=== PATIENT | male | born 1935 | race Caucasian/White ===

== ENCOUNTER 2018-01-30 13:25 | Outpatient (CLI) | payer MEDICARE | END 2018-01-30 13:26 | disposition home or self-care (01) | LOC: BICRAD 13:25 | PROVIDERS: ATTEND Internal Medicine Gastroenterology | DX: K21.0 Gastro-esophageal reflux disease with esophagitis (principal); R11.2 Nausea with vomiting, unspecified; C16.9 Malignant neoplasm of stomach, unspecified; M17.0 Bilateral primary osteoarthritis of knee | CPT/HCPCS: 74019 ==

== ENCOUNTER 2018-02-27 16:55 | Inpatient (IN) | payer MEDICARE ==
[2018-02-27 17:32] LABS: #Eosinphils 0.4 thou/uL (0.0-0.7); #Lymphocytes 2.5 thou/uL (1.20-3.40); #Monocytes 0.6 thou/uL (0.11-0.59); %Basophils 0.5 % (0.0-1.0); %Eosinophils 4.2 % (0.0-10.0); %Lymphocytes 29.7 % (21.0-51.0); %Neutrophils 58.6 % (42.0-75.0); Mean Corpuscular HGB CONC 32.3 g/dL (32.0-36.0); Mean Corpuscular Hemoglobin 30.5 pg (27.0-31.0); Mean Corpuscular Volume 94.2 fL (78.0-98.0); Mean Platelet Volume 6.4 fL (7.4-10.4); Platelet Count 298 thou/uL (130-400); RBC Distribution Width 13.9 % (11.5-14.5); White Blood Cell (WBC) Count 8.5 thou/uL (4.8-10.8)
[2018-02-27 17:59] LABS: CKMB 1.2 ng/mL (0-6.6); Troponin I Less than 0.010 ng/mL (< 0.028)
[2018-02-27 18:12] LABS: ALT (SGPT) 12 U/L (8-55); AST (SGOT) 21 U/L (5-34); Albumin 3.8 g/dL (3.4-4.8); Alkaline Phosphatase 88 U/L (40-150); Anion Gap 15 mmol/L (10-20); BUN (Urea Nitrogen) 17 mg/dL (8.4-25.7); Bilirubin, Total 0.4 mg/dL (0.2-1.2); Calc. Creatinine Clearance 0 mL/min (70-130); Calcium 9.5 mg/dL (7.8-10.44); Carbon Dioxide 28 mmol/L (23-31); Chloride 100 mmol/L (98-107); Estimated GFR-MDRD 70; Globulin 4.1 g/dL (2.4-3.5); Glucose 97 mg/dL (83-110); Potassium 4.6 mmol/L (3.5-5.1); Protein, Total 7.9 g/dL (5.8-8.1); Sodium 138 mmol/L (136-145)
[2018-02-27 19:52] LABS: Bilirubin Negative (Negative); Blood, Urine Negative (Negative); Clarity CLEAR (Clear); Glucose, Urine (Dipstick) Negative (Negative); Leukocyte Negative (Negative); Nitrite Negative (Negative); Protein, Urine (Dipstick) 30 mg/dL (Neg-Trace); Specific Gravity, Urine 1.009 (1.002-1.036); Urobilinogen 0.2 mg/dL (0.2-1.0)
[2018-02-27 19:54] LABS: Bacteria/HPF None Seen HPF (None Seen); Hyaline Casts/LPF 0-3 HYALINE CAST LPF (0-3 Hyaline); Pathc Cast-AUWi Flag 0.14 (0-2.49); RBC/HPF 0-3 HPF (0-3); Squamous Epithelial None Seen HPF (0-3); WBC/HPF None Seen HPF (0-3)
--- NOTE | 2018-02-27 20:27 | RAD ---
FOUR VIEWS LEFT KNEE: 02/27/18 HISTORY: Trauma. Pain. COMPARISON: None. FINDINGS: Mild bone demineralization. No fracture or malalignment. Chondrocalcinosis in the medial and lateral compartment is noted. No joint effusion. IMPRESSION: Bicompartmental chondrocalcinosis. No posttraumatic change. POS: [facility]
--- NOTE | 2018-02-27 20:31 | RAD ---
LEFT SHOULDER THREE VIEWS: 02/27/18 HISTORY: Trauma. Fall. Pain. Balance issues. FINDINGS: There is mild degenerative changes in the glenohumeral joint space. No fracture or dislocation. Visua lized left ribs are unremarkable. Note is made of a Mediport catheter, incompletely evaluated. IMPRESSION: Moderate degenerative change of the left glenohumeral joint space. No fracture. POS: [facility]
--- NOTE | 2018-02-27 21:31 | CT ---
CT CERVICAL SPINE: 02/27/18 Multiple axial tomograms obtained through the cervical spine with multiplanar reconstruction. HISTORY: Fall with injury to neck. Moderate to severe degenerative changes of the cervical spine noted. Loss of disc space is noted at C 4-5 and C5-6 and C6-7. Prominent hypertrophic changes are present at these levels. Posterior spondyli tic changes encroach into the spinal canal at C5-6. No evidence of acute fracture identified. IMPRESSION: No evidence of acute fracture. POS: [facility]
--- NOTE | 2018-02-27 21:39 | CT ---
HEAD CT WITHOUT CONTRAST: 02/27/18 COMPARISON: 09/27/16. HISTORY: Trauma. Recent fall. TECHNIQUE: Noncontrast head CT is performed from skull base to skull vertex. FINDINGS: No parenchymal hemorrhage. No extra-axial hematoma. No midline shift. Basilar cisterns are patent. br ain volume, age appropriate. Cortical nuno-white matter differentiation is preserved. No evidence of hydrocephalus. Hypodensities in both basal ganglia are similar to the previous examination suggesting remote lacunar infarcts. Additionally, there are chronic small vessel ischemic changes of the white matter. Adequat e aeration of the sinuses and mastoid air cells. Calvarium is intact. IMPRESSION: No acute intracranial process. POS: [facility]
--- NOTE | 2018-02-27 21:57 | CT ---
FACIAL CT WITHOUT CONTRAST: 02/27/18 HISTORY: Recent falls. Pain. Injury. COMPARISON: None. TECHNIQUE: Maxillofacial CT is performed in the axial plane. Reformatted images are submitted for interpretation . FINDINGS: The visualized brain parenchyma is unremarkable. Adequate aeration of the visualized sinuses and mast oid air cells, with the exception of mild mucosal disease involving the right maxillary sinus. Bilate ral osteomeatal complexes are patent. Nasal septum is intact. The osseous margins of the sinuses and orbits are intact. Both globes are intact. Retrobulbar fat is preserved. Symmetric attenuation of the optic nerve and ocular rectus muscles. Bilateral ocular lens implants are noted. Aerodigestive tract is patent. No mucosal abnormality. No obvious masses in the oral cavity. 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 No mandible or maxilla fracture. Pterygoid plates are intact. Zygomatic arches are also intact. Upper cervical spine is unremarkable. IMPRESSION: No posttraumatic sequela. POS: [facility]
[2018-02-27] MEDS ORDERED: Water For Inject, Bacteriostat 30 ML ONE (22:54)
[2018-02-27] MEDS ORDERED: methylPREDNISolone Sod Succ/PF 125 MG/2 ML VIAL ONE (22:54)
--- NOTE | 2018-02-27 23:58 | RAD ---
CHEST ONE VIEW: 02/27/18 COMPARISON: 05/28/15. HISTORY: Hypoxemia. FINDINGS: Stable left sided Mediport catheter. Stable configuration of the cardiac silhouette. Dorsal column st imulators are noted. Patchy interstitial opacities in the lung bases may represent chronic change. Ho wever, there does appear to be a possible infiltrate especially in the right lung base. Small right s ided effusion may be present. There is no pneumothorax. 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 IMPRESSION: Parenchymal changes in the lung bases, right greater than left. Correlate for right lower lobe infilt rate. POS: [facility]
[2018-02-28] MEDS ORDERED: Azithromycin 500 MG VIAL ONE (00:19)
[2018-02-28] MEDS ORDERED: cefTRIAXone\\ROCEPHIN 2 GM VIAL ONE (00:19)
[2018-02-28] MEDS ORDERED: Ondansetron HCl/PF 4 MG/2 ML Vial IVP PRN (01:47)
[2018-02-28] MEDS ORDERED: Acetaminophen 325 MG TAB PO PRN (01:47)
[2018-02-28] MEDS ORDERED: Ondansetron ODT 4 MG TAB SL PRN (01:47)
[2018-02-28] MEDS ORDERED: Pregabalin 75 MG CAP PO SCH (02:30)
[2018-02-28] MEDS ORDERED: Sodium Chloride 0.9% 1,000 ML IV SCH (02:30)
[2018-02-28 03:16] VITALS: BMI 25.3
[2018-02-28 06:08] LABS: #Lymphocytes 0.7 thou/uL (1.20-3.40); #Monocytes 0.1 thou/uL (0.11-0.59); #Neutrophils 6.4 thou/uL (1.40-6.50); %Basophils 0.6 % (0.0-1.0); %Eosinophils 0.3 % (0.0-10.0); %Lymphocytes 9.6 % (21.0-51.0); %Monocytes 0.8 % (0.0-10.0); %Neutrophils 88.7 % (42.0-75.0); Hemoglobin 14.5 g/dL (14.0-18.0); Mean Corpuscular HGB CONC 30.5 g/dL (32.0-36.0); Mean Corpuscular Hemoglobin 29.2 pg (27.0-31.0); Mean Corpuscular Volume 95.8 fL (78.0-98.0); Mean Platelet Volume 6.7 fL (7.4-10.4); Platelet Count 312 thou/uL (130-400); RBC Distribution Width 14.1 % (11.5-14.5); Red Blood Cell (RBC) Count 4.96 mill/uL (4.70-6.10); White Blood Cell (WBC) Count 7.2 thou/uL (4.8-10.8)
[2018-02-28 06:12] LABS: Anion Gap 16 mmol/L (10-20); BUN (Urea Nitrogen) 15 mg/dL (8.4-25.7); Calc. Creatinine Clearance 69 mL/min (70-130); Calcium 9.5 mg/dL (7.8-10.44); Carbon Dioxide 20 mmol/L (23-31); Chloride 103 mmol/L (98-107); Estimated GFR-MDRD 78; Glucose 203 mg/dL (83-110); Potassium 4.3 mmol/L (3.5-5.1); Sodium 135 mmol/L (136-145)
--- NOTE | 2018-02-28 07:35 | HP ---
CHIEF COMPLAINT: Shortness of breath, weakness, fall. HISTORY OF PRESENT ILLNESS: The patient is an 82-year-old male with a [facility]. Patient states that he lives with his . He has bee n getting physical therapy due to gait imbalance; however, when the physical therapist came in to see the patient, he told them that he was unable to do any therapy today because he felt very weak. The patient stated that he did fall on Friday. He stated that it was a mechanical fall. His roller hit the sidewall and he lost his balance and fell. The patient currently denies any fevers or chills, a ny cough, any abdominal pain, nausea, vomiting or diarrhea. He denies any problems urinating. Patient was admitted to the hospital, because he was found to be hypoxic in the s. Patient also st ated that he ran out of his nebulizing medication for the past 4 days. Patient states that normally he uses his nebulizer about 3-4 times a day; however, has been unable to do so due to him not having the medication. The patient states that he has been using his inhalers; however, they have not been very helpful. PAST MEDICAL HISTORY: He has a history of COPD. He has a history of esophageal gastric carcinoma. He has had a history of prostate cancer. MEDICATIONS: As the following, the patient takes magnesium chloride p.o. b.i.d., omeprazole 40 mg da ulysses, vitamin B12 daily, vitamin D 1000 units daily, albuterol HFA 2 puffs q.4 hours p.r.n., Xanax 1 m g p.o. b.i.d., Ambien 10 mg daily at bedtime, budesonide, formoterol 1 puff twice a day, Lyrica 150 m g b.i.d. FAMILY HISTORY: Patient denies any history of heart disease or diabetes in his family. REVIEW OF SYSTEMS: All negative except for the ones mentioned above in the HPI. LABORATORY DATA AND IMAGING: As following, WBCs of 8.5, hemoglobin of 14.0, hematocrit 43.3, platele ts of 298. Chemistry: Sodium of 130, potassium 4.6, BUN of 17, creatinine 1.02. Troponin x1 was ne gative. No acute abnormalities were noted in the urine. He did have a bush scan, which was negative except for the CT head, which indicated he has hypodensities in both basal ganglia which has been pre sent in the previous exam suggesting a remote lacunar infarct; however, no acute process was noted. He also had a chest x-ray which did indicate possible right lower infiltrate. ASSESSMENT AND PLAN: The patient is a very pleasant 82-year-old patient who initially presented to [facility] for hypoxia. 1. Acute hypoxia. This could be secondary to patient running out of his medication versus possible community-acquired pneumonia given the right lower lung infiltrate. However, at this time, the clara nt does not have an elevated white count. He does not have a cough. He has no fever. We will check a procalcitonin level to guide us further in regards to continue treating for pneumonia versus barriee nt's worsening chronic obstructive pulmonary disease. Patient's lungs sound pretty much clear. No w heezing was noted. He did have some mild crackles to bilateral lower bases. 2. Mechanical fall. We will get physical therapy and occupational therapy to see the patient. 3. History of chronic obstructive pulmonary disease. The patient has not seen his ortho/prosthetic aide for about a year. His hypoxia could be most likely secondary to running out of his medication, which is his nebulizers; however, he does not have any wheezing. If he continues to have shortness of breath and hypoxia, may consider starting the patient on some low dose steroids. 3. Deep venous thrombosis prophylaxis. We will put the patient on subcu heparin.
[2018-02-28] MEDS: Mometasone/Formoterol 120 PUFF INHALER INH SCH ×2 (08:10→18:56)
[2018-02-28] MEDS: Docusate 100 MG CAP PO SCH ×2 (08:56→21:56)
[2018-02-28] MEDS: predniSONE 20 MG TAB PO SCH (08:56)
[2018-02-28] MEDS: Heparin 5,000 UNITS/ML VIAL SC SCH ×3 (08:56→21:57)
[2018-02-28] MEDS: Pregabalin 75 MG CAP PO SCH ×2 (08:57→21:54)
[2018-02-28] MEDS ORDERED: Non-Formulary Item 1 EACH (Budesonide/Formoterol Fumarate [Symbicort 160-4.5 Mcg Inhaler] INH SCH (09:00)
[2018-02-28] MEDS ORDERED: PROVENTIL INHALER 6.7 G (200 INHALATIONS) INH PRN (11:35)
[2018-02-28] MEDS ORDERED: Zolpidem Tartrate 5 MG TAB PO PRN (11:52)
--- NOTE | 2018-02-28 11:54 | PDOC.EVN ---
Event Note - Event Note Event Note: DOING MUCH BETTER THAN WHEN HE PRESENTED. BREATHING IN IMPROVED. EXAM REVEALS CLEAR LUNGS AND BIGEMINY. MONITOR HAS PAC'S, PVC'S AND ATRIAL ARRHYTHMIA, BUT NOTHING TOO WORRISOME. CONTINUE WITH CURRENT PLAN. RECHECK CXR IN THE AM AND FOLLOW UP ON PROCALCITONIN LEVEL.
[2018-02-28] MEDS: Pantoprazole 40 MG GRANULES PACKET PO SCH ×3 (12:00→21:56)
[2018-02-28] MEDS: ALPRAZolam 1 MG TAB PO PRN ×2 (12:01→21:56)
[2018-02-28] MEDS: Arformoterol 15 MCG/2 ML NEB NEB SCH (18:55)
[2018-02-28] MEDS: Magnesium Chloride 64 MG TAB PO SCH (21:57)
[2018-03-01] MEDS ORDERED: Metoprolol Tartrate 5 MG/5 ML VIAL IVP SCH (01:30)
[2018-03-01 01:36] LABS: Troponin I Less than 0.010 ng/mL (< 0.028)
[2018-03-01] MEDS: Arformoterol 15 MCG/2 ML NEB NEB SCH ×2 (07:38→18:40)
[2018-03-01] MEDS: Mometasone/Formoterol 120 PUFF INHALER INH SCH ×2 (07:55→18:41)
[2018-03-01] MEDS ORDERED: Metoprolol Tartrate 5 MG/5 ML VIAL ONE ×2 (08:47→10:07)
[2018-03-01] MEDS ORDERED: Metoprolol Tartrate 5 MG/5 ML VIAL IVP PRN (09:00)
--- NOTE | 2018-03-01 09:06 | PDOC.PN ---
- Subjective Encounter Start Date: 03/01/18 Encounter Start Time: 09:11 Feels like his breathing is doing better overall. Tolerated episodes of SVT well. No other complaints. - Objective Resuscitation Status: Resuscitation Status FULL:Full Resuscitation MAR Reviewed: Yes Vital Signs & Weight: Vital Signs (12 hours) Temp Pulse Resp BP BP Pulse Ox 03/01/18 07:58 97.4 F L 68 16 125/86 99 03/01/18 07:55 81 16 03/01/18 07:45 96 03/01/18 07:38 81 16 03/01/18 03:18 97.5 F L 81 20 121/72 100 03/01/18 02:57 92 L 03/01/18 02:30 91 16 03/01/18 01:34 98 123/74 03/01/18 01:29 169 H 126/85 03/01/18 00:20 169 H 137/87 100 02/28/18 22:17 73 16 02/28/18 21:50 98.5 F 73 16 132/72 100 Weight Weight 170 lb 12.8 oz I&O: 02/28/18 03/01/18 03/02/18 06:59 06:59 06:59 Intake Total 440 820 Output Total 950 1750 Balance -510 -930 Result Diagrams: 02/28/18 05:34 02/28/18 05:34 Phys Exam - Physical Examination Constitutional: NAD Still has mild tachypnea. HEENT: oral pharynx no lesions Neck: no JVD, supple Respiratory: no wheezing Diminished throughout, but only minimal basilar rales. Irreg at times. Tachycardic at times. Base rhythm is sinus. Gastrointestinal: soft, non-tender, no distention Large ventral hernia. Musculoskeletal: no edema Psychiatric: normal affect Dx/Plan (1) COPD (chronic obstructive pulmonary disease) Status: Acute Comment: Ran out meds for several days prior to admission. Doing better. Continue nebs, oxygen, steroid taper. Abx discontinued. No evidence of underlying infection and procalcitonin negative. (2) SVT (supraventricular tachycardia) Code(s): I47.1 - SUPRAVENTRICULAR TACHYCARDIA Status: Acute Plan: Javon Calderón called this morning as the patient's HR increased to 170. His BP dropped slightly. He tolerated it very well. He did respond a bit to carotid massage. Ultimately required IV metoprolol 5 mg. Better at the moment. Appears to be related to the nebs. Will decrease them to q 6h. Will also stop the Levaquin. Starting short acting CCB. Consult cardiology. Time in CC 30 min. (3) Fall Code(s): W19.XXXA - UNSPECIFIED FALL, INITIAL ENCOUNTER Status: Acute Plan: No evidence of significant injury. - Plan * Above.
[2018-03-01 09:28] LABS: Anion Gap 14 mmol/L (10-20); BUN (Urea Nitrogen) 14 mg/dL (8.4-25.7); Calc. Creatinine Clearance 71 mL/min (70-130); Calcium 9.8 mg/dL (7.8-10.44); Carbon Dioxide 26 mmol/L (23-31); Chloride 103 mmol/L (98-107); Estimated GFR-MDRD 81; Glucose 110 mg/dL (83-110); Magnesium 1.9 mg/dL (1.6-2.6); Sodium 139 mmol/L (136-145)
[2018-03-01] MEDS: predniSONE 20 MG TAB PO SCH (09:45)
[2018-03-01] MEDS: Pantoprazole 40 MG GRANULES PACKET PO SCH ×4 (09:46→20:40)
[2018-03-01] MEDS: Heparin 5,000 UNITS/ML VIAL SC SCH ×3 (09:46→20:39)
[2018-03-01] MEDS: Docusate 100 MG CAP PO SCH ×2 (09:46→20:39)
[2018-03-01] MEDS: Pregabalin 75 MG CAP PO SCH ×2 (09:47→20:40)
[2018-03-01] MEDS: ALPRAZolam 1 MG TAB PO PRN ×2 (09:49→16:29)
[2018-03-01] MEDS: Magnesium Chloride 64 MG TAB PO SCH ×2 (10:13→21:53)
[2018-03-02] MEDS: ALPRAZolam 1 MG TAB PO PRN ×3 (00:27→20:45)
[2018-03-02] MEDS: Mometasone/Formoterol 120 PUFF INHALER INH SCH ×2 (06:32→19:11)
[2018-03-02] MEDS: Arformoterol 15 MCG/2 ML NEB NEB SCH ×2 (06:33→19:08)
[2018-03-02] MEDS: predniSONE 20 MG TAB PO SCH (09:38)
[2018-03-02] MEDS: Magnesium Chloride 64 MG TAB PO SCH ×2 (09:38→20:43)
[2018-03-02] MEDS: Pantoprazole 40 MG GRANULES PACKET PO SCH ×4 (09:39→20:43)
[2018-03-02] MEDS: Docusate 100 MG CAP PO SCH ×2 (09:39→20:43)
[2018-03-02] MEDS: Pregabalin 75 MG CAP PO SCH ×2 (09:39→20:44)
[2018-03-02] MEDS: Heparin 5,000 UNITS/ML VIAL SC SCH (09:39)
--- NOTE | 2018-03-02 10:50 | PQF ---
CLINICAL DOCUMENTATION IMPROVEMENT CLARIFICATION FORM: ICD-10 Updated PLEASE DO AN ADDENDUM TO THE PROGRESS NOTE WITH ANY DOCUMENTATION UPDATES OR ADDITIONS AND CARRY THROUGH TO DC SUMMARY. THANK YOU. DATE: 03/03/18 ATTN: DR. MARTINEZ Please exercise your independent, professional judgment in responding to the clarification form. Clinical indicators are provided on the bottom of this form for your review Please check appropriate box(s) to clarify if the following diagnosis has been ruled in or ruled out: PNEUMONIA [x ] Ruled in diagnosis [ ] Continue to treat [ ] Resolved [ ] Ruled out diagnosis [ ] Cannot rule out diagnosis [ ] Other diagnosis [ ] Unable to determine In addition, please specify: Present on Admission (POA): [ x ] Yes [ ] No [ ] Unable to determine- For continuity of documentation, please document condition throughout progress notes and discharge summary. Thank You. CLINICAL INDICATORS - SIGNS / SYMPTOMS / LABS ER NOTE: "RIGHT LOWER LOBE PNEUMONIA" H&P 02/28: "POSSIBLE COMMUNITY ACQUIRED PNEUMONIA GIVEN RIGHT LOWER LUNG INFILTRATE" RISKS: COPD TREATMENT: IV AZITHROMYCIN (ER) IV ROCEPHIN (ER) SOLUMEDROL (This form is maintained as a part of the permanent medical record) 2014 [employer]. All Rights Reserved NICK [email or web address] Office: [phone] [facility]
--- NOTE | 2018-03-02 14:00 | CON ---
DATE OF CONSULTATION: 03/02/2018 HISTORY: Isac Roca is a pleasant 82-year-old white male with a longstanding history of COPD, admitted for COPD exacerbation. He also states that 2-3 times a week, he would have episodes of chest pressure. This is almost always associated with exertion, and he would develop pressure in his chest accompanied by feeling his heart beating very rapidly. If he sits and rests, this will resolve. Longest episode has been approximately 30 minutes. He states he would feel weak and dizzy with these episodes. Since being admitted here, he has had frequent episodes of supraventricular tachycardia with rates of 160-170. He then had a more prolonged episode yesterday. He states that this felt exactly like what he has at home where he has pressure in his chest and feeling his heart racing. He was given metoprolol 5 mg IV and this resolved. He denies any previous cardiac history. He now is admitted after running out of his neb treatments for 4 days and the finding of hypoxia with O2 sats in the 80s. PAST MEDICAL HISTORY: 1. COPD. 2. History of esophageal and gastric carcinoma. 3. History of prostate cancer. No history of hypertension, hypercholesterolemia, or diabetes. MEDICATIONS AT HOME: Include albuterol 2 puffs q.4 hours p.r.n., Xanax 1 mg t.i.d. p.r.n., Brovana 1 vial b.i.d., Symbicort 2 puffs b.i.d., magnesium chloride 64 b.i.d., Lyrica 150 b.i.d., Ambien 10 mg at bedtime p.r.n., omeprazole bicarbonate 1 packet q.i.d., Zofran 4 mg q.8 hours p.r.n. ALLERGIES: None. SOCIAL HISTORY: He stopped smoking 20 years ago. He does not drink. FAMILY HISTORY: Negative for coronary artery disease. REVIEW OF SYSTEMS: Twelve-point review of systems unremarkable except as noted above. PHYSICAL EXAMINATION: VITAL SIGNS: Blood pressure 106/65, pulse 78. HEENT: PERRL. NECK: Supple. CHEST: Clear. CARDIAC: S1 and S2 normal without any S3, S4, or murmurs. Carotid upstrokes normal, without bruits. ABDOMEN: Normal bowel sounds, without tenderness. EXTREMITIES: Reveal no clubbing, cyanosis, or edema. NEUROLOGIC: Grossly intact. LABORATORY DATA: Admission EKG is incorrectly interpreted by the computer as atrial fibrillation. This is instead normal sinus rhythm with atrial bigeminy at times. CBC is unremarkable. Sodium 139, potassium 4.0, chloride 103, carbon dioxide 26, BUN 14, creatinine 0.90. BNP 249.5. Troponin I is unremarkable. IMPRESSION: 1. Paroxysmal supraventricular tachycardia. Historically, it sounds as if he has the same type episodes at home, accompanied by chest pressure, lasting up to 30 minutes. 2. Chronic obstructive pulmonary disease exacerbation. 3. Hypoxemia. 4. History of gastric and esophageal carcinoma. RECOMMENDATIONS: Echocardiogram will be performed to assess left ventricular function. He will be started on low-dose Cardizem 120 mg CD q.a.m. in the hopes of suppressing his SVT going forward. With his current blood pressure, he will not be able to tolerate high doses of the Cardizem. If he continues to have episodes despite low-dose Cardizem, consideration may be given to catheter ablation. I will follow the patient with you. FRANKD
--- NOTE | 2018-03-02 17:02 | PDOC.PN ---
- Subjective Encounter Start Date: 03/02/18 Encounter Start Time: 09:30 Patent is seen today, alert and oriented. No other Concerns noted. Pt was seen by Cardiology [facility], Waiting on Echo, Pt is admitted with COPD exacerbation with SVT last night. - Objective Resuscitation Status: Resuscitation Status FULL:Full Resuscitation MAR Reviewed: Yes Vital Signs & Weight: Vital Signs (12 hours) Temp Pulse Resp BP Pulse Ox 03/02/18 12:16 67 03/02/18 11:41 67 14 96 03/02/18 11:35 97.1 F L 73 19 119/67 94 L 03/02/18 09:38 97.0 F L 67 19 93 L 03/02/18 08:40 97.0 F L 78 18 106/65 93 L 03/02/18 06:33 65 16 96 03/02/18 06:32 65 16 96 03/02/18 06:31 65 16 96 Weight Weight 173 lb 12.8 oz I&O: 03/01/18 03/02/18 03/03/18 06:59 06:59 06:59 Intake Total 820 100 Output Total 1750 1725 Balance -930 -1625 Result Diagrams: 02/28/18 05:34 03/01/18 08:48 Radiology Reviewed by me: Yes Phys Exam - Physical Examination HEENT: PERRLA, moist MMs Neck: no nodes, no JVD Respiratory: no wheezing, no rales Cardiovascular: RRR, no significant murmur Gastrointestinal: soft, non-tender Musculoskeletal: no edema, pulses present Dx/Plan (1) COPD (chronic obstructive pulmonary disease) Status: Acute Qualifiers: COPD type: COPD with acute exacerbation Qualified Code(s): J44.1 - Chronic obstructive pulmonary disease with (acute) exacerbation Comment: Ran out meds for several days prior to admission. Doing better. Continue nebs, oxygen, steroid taper. Abx discontinued. No evidence of underlying infection and procalcitonin negative. PT remains on oxygen, will wean off today. (2) Fall Code(s): W19.XXXA - UNSPECIFIED FALL, INITIAL ENCOUNTER Status: Acute Comment: No injuries on T head, Xraynormal. Will do PT/OT evalautions for safe diuscharge (3) SVT (supraventricular tachycardia) Code(s): I47.1 - SUPRAVENTRICULAR TACHYCARDIA Status: Acute Comment: Resolved, Will minimize nebs with Albuteral. (4) Acute infective gastroenteritis Code(s): A09 - INFECTIOUS GASTROENTERITIS AND COLITIS, UNSPECIFIED Status: Acute Comment: Improved with IV fluids. (5) Dehydration Code(s): E86.0 - DEHYDRATION Status: Acute Comment: resolved. (6) Hypoxia Code(s): R09.02 - HYPOXEMIA Status: Acute Comment: Persistant, May need Home oxygem Will wait for Cardioogy evalaution. - Plan cont current plan of care, PT/OT, nursing home social worker, respiratory therapy, incentive spirometry, out of bed/ambulate, DVT proph w/lovenox * .
[2018-03-03] MEDS: Ipratropium Bromide 2.5 ml Neb NEB SCH ×4 (00:23→18:39)
[2018-03-03] MEDS: Mometasone/Formoterol 120 PUFF INHALER INH SCH ×2 (06:27→18:43)
[2018-03-03] MEDS: Arformoterol 15 MCG/2 ML NEB NEB SCH ×2 (06:30→18:43)
[2018-03-03] MEDS: Docusate 100 MG CAP PO SCH ×2 (08:40→20:44)
[2018-03-03] MEDS: Pantoprazole 40 MG GRANULES PACKET PO SCH ×4 (08:40→20:45)
[2018-03-03] MEDS: Pregabalin 75 MG CAP PO SCH ×2 (08:40→20:45)
[2018-03-03] MEDS: Magnesium Chloride 64 MG TAB PO SCH ×2 (08:40→20:45)
[2018-03-03] MEDS: predniSONE 20 MG TAB PO SCH (08:40)
[2018-03-03] MEDS: Enoxaparin Sodium 40 MG/0.4 ML SYRINGE SC SCH (08:41)
--- NOTE | 2018-03-03 14:08 | PDOC.PN ---
- Subjective Encounter Start Date: 03/03/18 Encounter Start Time: 11:00 Patient is seen today, alert and oriented. His HR is Stbale, now, Dr. Lopez started o cardizem today, if HR not controlled plan for Ablation. - Objective Resuscitation Status: Resuscitation Status FULL:Full Resuscitation MAR Reviewed: Yes Vital Signs & Weight: Vital Signs (12 hours) Temp Pulse Resp BP Pulse Ox 03/03/18 11:37 63 16 96 03/03/18 07:48 97.7 F 63 16 100 03/03/18 07:45 97.7 F 58 L 16 143/80 H 100 03/03/18 06:30 60 14 97 03/03/18 06:27 60 14 97 03/03/18 06:26 60 14 97 03/03/18 04:00 97.6 F 68 19 118/58 L 98 Weight Weight 174 lb 1.6 oz I&O: 03/02/18 03/03/18 03/04/18 06:59 06:59 06:59 Intake Total 100 1890 Output Total 1725 1150 Balance -1625 740 Result Diagrams: 02/28/18 05:34 03/01/18 08:48 Radiology Reviewed by me: Yes Dx/Plan (1) SVT (supraventricular tachycardia) Code(s): I47.1 - SUPRAVENTRICULAR TACHYCARDIA Status: Acute Comment: Resolved, Will minimize nebs with Albuteral. pt started on Cardizem 120mg SR, stable, if woirseing will need Ablation per Dr. lopez. (2) COPD (chronic obstructive pulmonary disease) Status: Acute Qualifiers: COPD type: COPD with acute exacerbation Qualified Code(s): J44.1 - Chronic obstructive pulmonary disease with (acute) exacerbation Comment: Ran out meds for several days prior to admission. Doing better. Continue nebs, oxygen, steroid taper. Abx discontinued. No evidence of underlying infection and procalcitonin negative. Pt off of oxygen today.. (3) Fall Code(s): W19.XXXA - UNSPECIFIED FALL, INITIAL ENCOUNTER Status: Acute Comment: No injuries on T head, Xraynormal. Will do PT/OT evalautions for safe diuscharge (4) Acute infective gastroenteritis Code(s): A09 - INFECTIOUS GASTROENTERITIS AND COLITIS, UNSPECIFIED Status: Acute Comment: Improved with IV fluids. (5) Dehydration Code(s): E86.0 - DEHYDRATION Status: Acute Comment: resolved. (6) Hypoxia Code(s): R09.02 - HYPOXEMIA Status: Acute Comment: Persistant, May need Home oxygem Will wait for Cardioogy evalaution. - Plan cont current plan of care, PT/OT, manager social media, respiratory therapy, incentive spirometry, DVT proph w/lovenox * . Review of Systems - Review of Systems Constitutional: negative: fever, chills, sweats, weakness, malaise, other Eyes: negative: Pain, Vision Change, Conjunctivae Inflammation, Eyelid Inflammation, Redness, Other ENT: negative: Ear Pain, Ear Discharge, Nose Pain, Nose Discharge, Nose Congestion, Mouth Pain, Mouth Swelling, Throat Pain, Throat Swelling, Other Respiratory: negative: Cough, Dry, Shortness of Breath, Hemoptysis, SOB with Excertion, Pleuritic Pain, Sputum, Wheezing Cardiovascular: negative: chest pain, palpitations, orthopnea, paroxysmal nocturnal dyspnea, edema, light headedness, other Genitourinary: negative: Dysuria, Frequency, Incontinence, Hematuria, Retention , Other - Medications/Allergies Allergies/Adverse Reactions: Allergies Allergy/AdvReac Type Severity Reaction Status Date / Time No Known Allergies Allergy Verified 02/17/17 20:23 Medications: Current Medications Albuterol Sulfate (Proventil Hfa) 2 puff INH Q4HR PRN PRN Reason: SOB &/or Wheezing Alprazolam (Xanax) 1 mg PO TID PRN PRN Reason: Anxiety Last Admin: 03/02/18 20:45 Dose: 1 mg Arformoterol Tartrate (Brovana) 15 mcg NEB BID-RT [facility] Last Admin: 03/03/18 06:30 Dose: 15 mcg Cholecalciferol (Vitamin D3) 1,000 units PO DAILY [facility] Last Admin: 03/03/18 08:39 Dose: 1,000 units Diltiazem HCl (Cardizem Cd) 120 mg PO DAILY [facility] Last Admin: 03/03/18 08:39 Dose: 120 mg Docusate Sodium (Colace) 100 mg PO BID [facility] Last Admin: 03/03/18 08:40 Dose: 100 mg Enoxaparin Sodium (Lovenox) 40 mg SC 0900 [facility] Last Admin: 03/03/18 08:41 Dose: 40 mg Ipratropium Dexter (Atrovent) 2.5 ml NEB [id number] [facility] Last Admin: 03/03/18 11:37 Dose: 2.5 ml Magnesium Chloride (Slow-Mag) 64 mg PO BID [facility] Last Admin: 03/03/18 08:40 Dose: 64 mg Metoprolol Tartrate (Lopressor) 5 mg IVP Q6H PRN PRN Reason: tachycardia Last Admin: 03/01/18 20:21 Dose: 5 mg Mometasone Furoate/Formoterol Fumar (Dulera 200 Mcg/5 Mcg Inhaler) 2 puff INH BID-RT [facility] Last Admin: 03/03/18 06:27 Dose: 2 puff Pantoprazole Sodium (Protonix) 20 mg PO QID [facility] Last Admin: 03/03/18 12:09 Dose: 20 mg Prednisone (Prednisone) 40 mg PO QAM-WM [facility] Stop: 03/04/18 08:00 Last Admin: 03/03/18 08:40 Dose: 40 mg Pregabalin (Lyrica) 150 mg PO BID [facility] Last Admin: 03/03/18 08:40 Dose: 150 mg Sodium Chloride (Flush - Normal Saline) 10 ml IVF Q12HR [facility] Last Admin: 03/03/18 08:42 Dose: 10 ml Sodium Chloride (Flush - Normal Saline) 10 ml IVF PRN PRN PRN Reason: Saline Flush Last Admin: 03/02/18 20:45 Dose: 10 ml Zolpidem Tartrate (Ambien) 10 mg PO HS PRN PRN Reason: Insomnia
[2018-03-04] MEDS: Ipratropium Bromide 2.5 ml Neb NEB SCH ×3 (00:36→11:34)
[2018-03-04] MEDS: Arformoterol 15 MCG/2 ML NEB NEB SCH (05:59)
[2018-03-04] MEDS: Mometasone/Formoterol 120 PUFF INHALER INH SCH (06:00)
[2018-03-04] MEDS: predniSONE 20 MG TAB PO SCH (09:26)
[2018-03-04] MEDS: Pantoprazole 40 MG GRANULES PACKET PO SCH ×2 (09:26→12:29)
[2018-03-04] MEDS: Docusate 100 MG CAP PO SCH (09:26)
[2018-03-04] MEDS: Pregabalin 75 MG CAP PO SCH (09:29)
[2018-03-04] MEDS: Enoxaparin Sodium 40 MG/0.4 ML SYRINGE SC SCH (09:29)
[2018-03-04] MEDS: Magnesium Chloride 64 MG TAB PO SCH (09:29)
--- NOTE | 2018-03-04 12:18 | PDOC.PN ---
- Subjective Encounter Start Date: 03/04/18 Encounter Start Time: 08:00 Subjective: no chest pain or palp -: feels better, is amb in room - Objective Resuscitation Status: Resuscitation Status FULL:Full Resuscitation MAR Reviewed: Yes Vital Signs & Weight: Vital Signs (12 hours) Temp Pulse Resp BP BP Pulse Ox 03/04/18 11:34 80 14 97 03/04/18 09:26 68 03/04/18 08:00 97.7 F 68 18 127/81 92 L 03/04/18 06:00 65 14 98 03/04/18 05:59 81 14 98 03/04/18 05:57 81 14 98 03/04/18 04:00 97.4 F L 54 L 18 123/67 100 03/04/18 00:36 83 14 99 Weight Weight 173 lb 11.2 oz I&O: 03/03/18 03/04/18 03/05/18 06:59 06:59 06:59 Intake Total 1890 1890 Output Total 1150 750 Balance 740 1140 Result Diagrams: 02/28/18 05:34 03/01/18 08:48 Phys Exam - Physical Examination HEENT: PERRLA, moist MMs Neck: no JVD, supple Respiratory: no wheezing, no rales Cardiovascular: RRR, no significant murmur Gastrointestinal: soft, non-tender, positive bowel sounds Musculoskeletal: no edema, pulses present Neurological: non-focal, moves all 4 limbs Psychiatric: normal affect, A&O x 3 Dx/Plan (1) COPD (chronic obstructive pulmonary disease) Status: Resolved Qualifiers: COPD type: COPD with acute exacerbation Qualified Code(s): J44.1 - Chronic obstructive pulmonary disease with (acute) exacerbation (2) SVT (supraventricular tachycardia) Code(s): I47.1 - SUPRAVENTRICULAR TACHYCARDIA Status: Acute Comment: Resolved, Will minimize nebs with Albuteral. pt started on Cardizem 120mg SR, stable. (3) Acute infective gastroenteritis Code(s): A09 - INFECTIOUS GASTROENTERITIS AND COLITIS, UNSPECIFIED Status: Resolved (4) Dehydration Code(s): E86.0 - DEHYDRATION Status: Resolved Comment: resolved. - Plan hemostable -: d/w , dc pt home on cardizem * .
[2018-03-04] MEDS: ALPRAZolam 1 MG TAB PO PRN (12:34)
--- NOTE | 2018-03-04 14:32 | DIS ---
DATE OF ADMISSION: 02/28/2018 DATE OF DISCHARGE: 03/04/2018 DISCHARGE DISPOSITION: To home. PRIMARY DISCHARGE DIAGNOSES: Supraventricular tachycardia, resolved; mild chronic obstructive pulmon briseida disease exacerbation, resolved; acute gastroenteritis with dehydration, resolved. PROCEDURES DONE DURING HOSPITALIZATION: Echo with 2D Doppler showed an EF of 50%-55%. CT facial bon es showed no posttraumatic sequela. CT cervical spine, no evidence of acute fracture. CT brain, no acute intracranial process. Left shoulder 3-view x-ray showed moderate degenerative change of the le ft glenohumeral joint space. No fractures. Chest x-ray done showed questionable infiltrate. Left k nee four-view x-ray done showed bicompartmental chondrocalcinosis. No posttraumatic change was seen. Urine culture, no growth. H&H 14 and 47, platelet count 312. White count of 8, discharge BUN is 1 4, creatinine 0.9. BNP 249. Cardiac enzymes x2 is negative. DISCHARGE MEDICATIONS: Xanax 1 mg p.o. 3 times daily p.r.n. for anxiety, albuterol inhaler q.6 hourl y p.r.n., Cardizem-CD 120 mg p.o. daily, Symbicort inhaler 2 puffs twice daily, DuoNebs q.6 hourly p. r.n., omeprazole as before, Lyrica 150 mg twice daily, Ambien 10 mg p.o. at bedtime p.r.n. ALLERGIES: No known drug allergies. INPATIENT CONSULTS: Dr. Araujo for Cardiology. BRIEF COURSE DURING HOSPITALIZATION: The patient initially was brought to emergency room for complai nts of shortness of breath, weakness, and fall. He has had multiple trauma protocol x-rays and CAT s cans done, all of which showed no fractures. The patient was initially hypoxic in the 80s. He appar ently ran out of his nebulizer and medicines for the last 4 days in the house. During the course of his stay here, the patient had an episode of SVT. He was placed on Cardizem-CD and has responded wel l. Prior to discharge, he is ambulating. He was also evaluated by Dr. Araujo for Cardiology. He is hemodynamically stable and has been cleared by Dr. Araujo as well for discharge. A prescription for nebulizer and DuoNebs have been given, along with new medications Cardizem-CD as well. Please s ee a [id number] documentation on [facility] for the day of discharge.
[2018-03-04 14:54] VITALS: BP 128/72; TEMP 97.8
== END 2018-03-04 15:50 | disposition home health service (06) | DRG 190 ==
LOC: ERS 16:55 → 2NO 23:33
PROVIDERS: ADMIT Internal Medicine; ATTEND Internal Medicine
DX: J44.1 Chronic obstructive pulmonary disease with (acute) exacerbation (principal); J18.9 Pneumonia, unspecified organism; I47.1 Supraventricular tachycardia; J44.0 Chronic obstructive pulmonary disease with (acute) lower respiratory infection; R09.02 Hypoxemia; Z79.899 Other long term (current) drug therapy; Z85.01 Personal history of malignant neoplasm of esophagus; Z85.46 Personal history of malignant neoplasm of prostate; K52.9 Noninfective gastroenteritis and colitis, unspecified; E86.0 Dehydration; W18.30XA Fall on same level, unspecified, initial encounter; S01.01XA Laceration without foreign body of scalp, initial encounter
CPT/HCPCS: 36415; 36416; 70450; 70486; 71045; 72125; 80048; 80053; 81003; 81015; 82553; 83605; 83735; 83880; 84145; 84484; 85025; 87040; 87086; 87149; 93005; 93010; 93306; 94640; 94664; 96365; 96375; A4216; G8978-GP-CL; G8979-GP-CJ; G8987-GO-CI; G8988-GO-CI; G8989-GO-CI; J0456; J0696; J1644; J1650; J1956; J2930; J7506; J7620; J7644

== ENCOUNTER 2018-03-29 17:46 | Inpatient (IN) | payer MEDICARE ==
[2018-03-29 18:52] LABS: Hemoglobin 15.4 g/dL (14.0-18.0); Mean Corpuscular HGB CONC 32.8 g/dL (32.0-36.0); Mean Corpuscular Hemoglobin 31.2 pg (27.0-31.0); Mean Corpuscular Volume 95.4 fL (78.0-98.0); Mean Platelet Volume 7.2 fL (7.4-10.4); Platelet Count 253 thou/uL (130-400); RBC Distribution Width 15.1 % (11.5-14.5); Red Blood Cell (RBC) Count 4.91 mill/uL (4.70-6.10); White Blood Cell (WBC) Count 24.3 thou/uL (4.8-10.8)
[2018-03-29 18:54] LABS: INR-International Normal Ratio 1.1; PTT 37.8 SEC (22.9-36.1); Prothrombin Time 14.4 SEC (12.0-14.7)
[2018-03-29 19:00] LABS: ALT (SGPT) 16 U/L (8-55); AST (SGOT) 23 U/L (5-34); Albumin 3.8 g/dL (3.4-4.8); Alkaline Phosphatase 68 U/L (40-150); Anion Gap 16 mmol/L (10-20); BUN (Urea Nitrogen) 24 mg/dL (8.4-25.7); Calc. Creatinine Clearance 0 mL/min (70-130); Calcium 9.7 mg/dL (7.8-10.44); Carbon Dioxide 26 mmol/L (23-31); Chloride 99 mmol/L (98-107); Estimated GFR-MDRD 57; Globulin 3.7 g/dL (2.4-3.5); Glucose 127 mg/dL (83-110); Lipase 5 U/L (8-78); Potassium 4.9 mmol/L (3.5-5.1); Protein, Total 7.5 g/dL (5.8-8.1); Sodium 136 mmol/L (136-145)
--- NOTE | 2018-03-29 19:00 | CT ---
CT BRAIN PERFORMED WITHOUT CONTRAST ENHANCEMENT: History: Fall with frontal contusion. FINDINGS: There is generalized ventricular and sulcal prominence. There is decreased attenuation of the periven tricular white matter. There are no signs of intracerebral hemorrhage or extraaxial fluid collections . The left frontal scalp hematoma is noted. No underlying fracture. Mastoid air cells and visualized sinuses appear clear. IMPRESSION: No acute intracranial abnormalities. POS: [facility]
[2018-03-29 19:02] LABS: Band 25 % (5-11); Lymphocytes 9 % (21-51); MDiff Complete? YES; Metamyelocyte 2 % (0-0); Monocytes 2 % (0-10); Neutrophil 60 % (42-75); PLT Morphology Comment Appears Adequate; RBC Morphology Normal; Reactive Lymphocytes 2 % (0-10); Vacuoles SLIGHT
[2018-03-29] MEDS ORDERED: Ondansetron HCl/PF 4 MG/2 ML Vial ONE (19:10)
--- NOTE | 2018-03-29 19:14 | RAD ---
PORTABLE CHEST: History: Altered mental status. Patient is status post fall. Comparison: 02-27-18 FINDINGS: Left sided Mediport catheter is again noted. Heart size is within normal limits. A dorsal column stim ulator is present. There is increased parenchymal density and obscuration of the right hemidiaphragm as compared to the prior study. This may indicate some developing infiltrate. The left lung is clear. IMPRESSION: Increase in parenchymal density in the right base suggesting possibly some developing infiltrate. Miguel e of this may simply be related to the supine technique causing the accentuation to the density in th e right base. POS: [facility]
--- NOTE | 2018-03-29 19:28 | CT ---
CT OF THE CERVICAL SPINE PERFORMED WITHOUT CONTRAST ENHANCEMENT: History: Fall with neck pain. FINDINGS: Vertebral bodies are normal in height. Degenerative changes are seen along the course of the cervical spine with marked disc narrowing at the C5-6 and C6-7 levels. There are fairly prominent degenerativ e facet changes. The facets are in normal alignment. There is no central canal stenosis. Some mild bi lateral foraminal narrowing at C4-5. Moderate bilateral foraminal narrowing at C5-6. There is no CT e vidence for fracture. The lung apices are clear. Incidental note is made of air within a slightly dis tended esophagus. There is some air seen within the soft tissues along the left side of the neck sugg esting that there has been some type of laceration. Clinical correlation is recommended. IMPRESSION: No CT evidence of fracture. POS: [facility]
--- NOTE | 2018-03-29 19:30 | CT ---
CT FACIAL BONES PERFORMED WITHOUT CONTRAST ENHANCEMENT: History: Fall with facial injury. Comparison: CT of 02-27-18. FINDINGS: Right frontal scalp hematoma is noted. The nasal bone and zygomatic arches are intact. There is some mucosal change within the maxillary sinuses but no air fluid levels. There is no eviden ce of any maxillary or orbital fractures. The pterygoid processes are intact. The mandible is intact and condyles are in normal position. There are arthritic changes of both tempo romandibular joints. IMPRESSION: No CT evidence of fracture of the facial bones. POS: [facility]
[2018-03-29] MEDS ORDERED: Piperacillin/Tazobactam 4.5 GM VIAL ONE (20:12)
[2018-03-29 21:21] VITALS: BMI 26.0
[2018-03-29] MEDS ORDERED: Acetaminophen 325 MG TAB PO PRN (21:26)
[2018-03-29] MEDS ORDERED: Bisacodyl 5 MG TAB PO PRN (21:26)
[2018-03-29] MEDS ORDERED: Senokot 8.6 MG TAB PO PRN (21:26)
[2018-03-29] MEDS ORDERED: Dextrose 50% Abboject 50 ML SYRINGE SLOW IVP PRN (21:40)
[2018-03-29] MEDS ORDERED: Dextrose 5% in Water 1,000 ML IV PRN (21:40)
[2018-03-29] MEDS: Sodium Chloride 0.9% 1,000 ML IV SCH (22:17)
[2018-03-29] MEDS ORDERED: Ipratropium Bromide 2.5 ml Neb ONE (23:21)
[2018-03-29] MEDS ORDERED: Vancomycin HCl 1.25 GM in Sodium Chloride 0.9% 250 ML 250 ML IVPB SCH (23:59)
[2018-03-30 01:34] LABS: Lactic Acid 1.9 mmol/L (0.5-2.2)
[2018-03-30 01:42] LABS: Anion Gap 13 mmol/L (10-20); BUN (Urea Nitrogen) 23 mg/dL (8.4-25.7); Calc. Creatinine Clearance 66 mL/min (70-130); Calcium 8.6 mg/dL (7.8-10.44); Carbon Dioxide 23 mmol/L (23-31); Chloride 104 mmol/L (98-107); Estimated GFR-MDRD 73; Glucose 159 mg/dL (83-110); Potassium 4.6 mmol/L (3.5-5.1); Sodium 135 mmol/L (136-145)
[2018-03-30 02:04] LABS: Band 24 % (5-11); Hemoglobin 13.3 g/dL (14.0-18.0); Lymphocytes 4 % (21-51); MDiff Complete? YES; Mean Corpuscular HGB CONC 33.3 g/dL (32.0-36.0); Mean Corpuscular Hemoglobin 31.7 pg (27.0-31.0); Mean Corpuscular Volume 95.2 fL (78.0-98.0); Monocytes 2 % (0-10); Neutrophil 70 % (42-75); PLT Morphology Comment Appears Adequate; Platelet Count 220 thou/uL (130-400); RBC Distribution Width 14.8 % (11.5-14.5); Red Blood Cell (RBC) Count 4.19 mill/uL (4.70-6.10); White Blood Cell (WBC) Count 23.2 thou/uL (4.8-10.8)
--- NOTE | 2018-03-30 02:32 | HP ---
CHIEF COMPLAINT: Fall. HISTORY OF PRESENT ILLNESS: This is an 82-year-old male with a recent hospitalization for COPD exace rbation, gastroenteritis and SVT, who was doing well at home when he suddenly had a mechanical fall a nd was brought into the emergency department status post mechanical fall with significant facial lace ration. During the patient's evaluation in the emergency department, he was also incidentally found to be herminia ewhat hypoxic and requiring 4 liters of nasal cannula to maintain an SpO2 of 90%. The patient's imag ing also demonstrated a pneumonia. Revision was requested and not so much for the mechanical falls, as for the noted pneumonia, acute hypoxic respiratory failure with symptoms perhaps manifesting as hi s mechanical fall. REVIEW OF SYSTEMS: As per HPI. Constitutional: The patient denies any fevers or chills at home. E ndorses a gradual decrease in appetite and weight loss but is unable to quantify exactly how much regino ght has been lost. HEENT: Denies any lightheadedness, dizziness prior to his mechanical fall. Malcolm es any vision changes as well. Cardiovascular: Denies any chest pain, chest pressure, left-sided ar m numbness or tingling. Respiratory: Endorses generalized weakness and fatigue but denies any overt dyspnea with exertion. No cough, no congestion. No recent upper respiratory type symptoms. Gastro intestinal: Denies any nausea, vomiting, abdominal pain or diarrhea. Last bowel movement was approx imately 3 days ago and since his last discharge, the patient endorses having struggled with constipat ion requiring intermittent laxative use at home. Patient endorses a loss of appetite. Denies any ov ert nausea. Genitourinary: Denies any dysuria or changes in urinary frequency, quality, quantity or odor. Musculoskeletal: Denies any overt myalgias prior to his fall. Skin: Denies any new rashes or lymphadenopathy. PAST MEDICAL HISTORY: As per HPI, includes the following, he has a known history of prostate cancer, esophageal-gastric carcinoma, COPD. He also was recently diagnosed with SVT as well. HOME MEDICATIONS: Please see the EMR for full details. His current regimen includes the following: Alprazolam 1 tab p.o. t.i.d. p.r.n., vitamin D3 of 1000 units p.o. daily, pregabalin 150 mg p.o. b.i .d., ondansetron 4 mg p.o. q.8 hours p.r.n., sodium bicarbonate packet 1 packet p.o. q.i.d., magnesiu m chloride 64 mg p.o. b.i.d., ipratropium albuterol sulfate 3 mL nebs q.i.d. p.r.n., Diltiazem CD 120 mg p.o. daily, budesonide/formoterol fumarate 2 puffs inhalation b.i.d., albuterol sulfate 2 puffs i nhalation q.4 hours p.r.n., vitamin B12, folic acid tablet 1000 mcg p.o. daily, zolpidem tartrate 10 mg p.o. at bedtime p.r.n. ALLERGIES: No known drug allergies. FAMILY HISTORY: The patient denies any known family history of recurrent pulmonary infections. SOCIAL HISTORY: The patient denies any alcohol, tobacco or illicit drug use. He indicates that his daughter at bedside would be his medical decision maker if he is unable to make his own medical decis ions. He indicates he wishes to be FULL CODE at this point in time. PHYSICAL EXAMINATION: GENERAL: The patient is awake, alert, conversant. Provides intermittent history as described above. HEENT: Normocephalic with laceration over his left eyebrow and at the bridge of his nose. No stitch es have been required. These appear to be superficial in nature. Patient also has a significant omega unt of bruising throughout his forehead as well. Slightly dry mucous membranes. Equal ocular motion s are intact. CARDIOVASCULAR: S1, S2. Soft heart tones. Pulses 2+ bilateral upper extremities, no pitting pedal edema. RESPIRATORY: Diminished throughout without overt wheezes, rales or rhonchi. Marginal air movement. No conversational dyspnea. The lungs are otherwise clear to auscultation bilaterally. ABDOMEN: Positive bowel sounds, soft, nontender to palpation. MUSCULOSKELETAL: Moving all 4 extremities independently. IMAGIN. On 03/29/2018, facial bones CT. Impression: No CT evidence of fracture of the facial bones. 2. On 03/29/2018, cervical spine CT. Impression: "No CT evidence of fracture." 3. On 03/29/2018, chest x-ray. Impression: "Increasing parenchymal density in the right base sugge sting possibly some developing infiltrate. Some of this may simply be related to the supine techniqu e causing the accentuation to the density in the right base." 4. Brain CT on 03/29/2018. Impression: "No acute intracranial abnormalities." LABORATORY DATA: WBC 24.3, hemoglobin 15.4, hematocrit 46.9, platelets 253, bands 25%. PT 14.4, INR 1.1, aPTT 37.8. Sodium 136, potassium 4.9, chloride 99, bicarbonate 26, BUN 24, creatinine 1.22, gl ucose 127. Lactic acid initially was 3.0 subsequent 2.4, calcium 9.7, total bilirubin 1.0, AST 23, A LT 16, alkaline phosphatase 68, total serum protein 7.5, albumin 3.85. ASSESSMENT AND PLAN: This is an 82-year-old male who presents with a chief complaint of mechanical f all. 1. Mechanical fall, felt to be perhaps secondary to his presentation of hypoxia which is currently a ttributed to a component of pneumonia and perhaps chronic obstructive pulmonary disease exacerbation. There do not appear to be any overt fractures from a mechanical fall. We will continue with sympto matic management. 2. Acute hypoxic respiratory failure, felt secondary to perhaps pneumonia as described above. We wi ll continue with DuoNeb as needed and supplemental oxygen support as needed as well. 3. Pneumonia with recent hospitalization within the last 3 months. Patient will be medically treate d for possibility of HCAP with empiric vancomycin, Zosyn, and Levaquin. Respiratory cultures and blo od cultures have been requested. 4. Sepsis Patient meets criteria for sepsis with acute hypoxic respiratory failure, leukocytosis, n o potential source of infection. Pending blood cultures, respiratory cultures, empiric antibiotics h ave been administered as above. We will continue with IV hydration as discussed as above as well. L actic acid appears to be improving with appropriate protocol initiation. 5. Leukocytosis secondary to sepsis as noted above. 6. Known history of chronic obstructive pulmonary disease. The patient does not have an outpatient adult probation officer. We will consult Pulmonary Medicine for the patient as well. Given that he carries a diagnosis of COPD, I will initiate steroid therapy along with sliding scale insulin for anticipated m edication-induced hyperglycemia. Nebulizer treatments, DuoNebs both standing and p.r.n. along with o xygen support as needed. 7. Recent history of supraventricular tachycardia. Patient has been followed by Dr. Araujo from [facility]. We will go ahead and consult the patient's autotransfusionist as well. 8. Acute hypoxic respiratory failure. Please see the above. We will down titrate the patient's O2 requirements as tolerated. 9. Diet as tolerated. Given that the patient has had a significant loss of appetite, I am concerned of this as a prognostic factor for the patient's long-term health. We will consult dietary for supp lemental recommendations. 10. Deep venous thrombosis prophylaxis with enoxaparin. 11. Activity as tolerated. I recommend physical therapy evaluation as well as I suspect the patient has sustained a component of deconditioning from his recent hospitalization. Thank you for asking me to care for you the patient.
[2018-03-30] MEDS: Piperacillin/Tazobactam 4.5 GM in Sodium Chloride 0.9% 100 ML IVPB SCH ×4 (02:37→21:11)
[2018-03-30] MEDS ORDERED: Ipratropium Bromide 2.5 ml Neb ONE (03:28)
[2018-03-30] MEDS: Sodium Chloride 0.9% 1,000 ML IV SCH ×2 (07:17→16:29)
[2018-03-30] MEDS: Docusate 100 MG CAP PO SCH ×2 (08:02→21:11)
[2018-03-30] MEDS: Famotidine/PF 20 mg/2ml Vial SLOW IVP SCH ×2 (08:03→21:11)
[2018-03-30] MEDS: Enoxaparin Sodium 40 MG/0.4 ML SYRINGE SC SCH (08:03)
[2018-03-30] MEDS ORDERED: Enoxaparin Sodium 30 MG/0.3 ML SYRINGE SC SCH (09:00)
[2018-03-30] MEDS: Vancomycin HCl 750 MG in Sodium Chloride 0.9% 250 ML 250 ML IVPB SCH (11:01)
[2018-03-30] MEDS: HumaLOG 300 UNITS/3 ML VIAL SC PRN ×2 (11:39→21:16)
[2018-03-30] MEDS: Ipratropium Bromide 2.5 ml Neb NEB SCH ×3 (14:06→22:25)
--- NOTE | 2018-03-30 19:00 | PDOC.PN ---
- Subjective Encounter Start Date: 03/30/18 Encounter Start Time: 18:58 Subjective: nsg notes rev, jeff ovn, pt states he overall feels better. denies any LANDERS, -: SOB, chest pain - Objective Resuscitation Status: Resuscitation Status FULL:Full Resuscitation Vital Signs & Weight: Vital Signs (12 hours) Temp Pulse Pulse Pulse Resp BP BP 03/30/18 15:04 97.5 F L 65 16 03/30/18 14:06 80 16 03/30/18 11:02 97.6 F 62 16 03/30/18 10:20 69 62 103/59 L 119/58 L 03/30/18 08:00 98.1 F 72 16 03/30/18 07:18 98.1 F 72 16 BP Pulse Ox 03/30/18 15:04 121/62 98 03/30/18 14:06 03/30/18 11:02 119/58 L 95 03/30/18 10:20 03/30/18 08:00 03/30/18 07:18 103/59 L 93 L Weight Admit Weight 176 lb 4.8 oz Weight 176 lb 4.8 oz I&O: 03/29/18 03/30/18 03/31/18 06:59 06:59 06:59 Intake Total 1013 1995 Output Total 650 450 Balance 363 1545 Result Diagrams: 03/30/18 01:00 03/30/18 01:00 Additional Labs: Accuchecks 03/30/18 03/30/18 03/30/18 16:41 10:50 06:51 POC Glucose 135 H 175 H 157 H 03/29/18 21:56 POC Glucose 123 H Phys Exam - Physical Examination Constitutional: NAD seated in hospital bed HEENT: PERRLA, moist MMs sig area of ecchymoses in darker coloration than previously but unchanged distribution Respiratory: no wheezing, no rales, no rhonchi, clear to auscultation bilateral diminished throughout and coarse throughout Cardiovascular: RRR, no significant murmur, no rub Gastrointestinal: soft, positive bowel sounds Musculoskeletal: no edema, pulses present Neurological: moves all 4 limbs Psychiatric: normal affect, A&O x 3 Dx/Plan - Plan 1. Mechanical fall, We will continue with symptomatic management. 2. Acute hypoxic respiratory failure, felt secondary to perhaps pneumonia as described above. Improving We will continue with DuoNeb as needed and supplemental oxygen support as needed as well. Apprec pulmonary c/s 3. Pneumonia with recent hospitalization within the last 3 months. Patient will be medically treated for possibility of HCAP with empiric vancomycin, Zosyn , and Levaquin. Respiratory cultures and blood cultures have been requested. 4. Sepsis Patient meets criteria for sepsis with acute hypoxic respiratory failure, leukocytosis, no potential source of infection. Pending blood cultures , respiratory cultures, empiric antibiotics have been administered as above. We will continue with IV hydration as discussed as above as well. Lactic acid appears to be improving with appropriate protocol initiation. 5. Leukocytosis secondary to sepsis as noted above. 6. Known history of chronic obstructive pulmonary disease. The patient does not have an outpatient process consultant. We will consult Pulmonary Medicine for the patient as well. Given that he carries a diagnosis of COPD, I will initiate steroid therapy along with sliding scale insulin for anticipated medication-induced hyperglycemia. Nebulizer treatments, DuoNebs both standing and p.r.n. along with oxygen support as needed. 7. Recent history of supraventricular tachycardia. Appreciate cardiology consult. 9. Diet as tolerated. Given that the patient has had a significant loss of appetite, I am concerned of this as a prognostic factor for the patient's long- term health. We will consult dietary for supplemental recommendations. 10. Deep venous thrombosis prophylaxis with enoxaparin. 11. Activity as tolerated. I recommend physical therapy evaluation as well as I suspect the patient has sustained a component of deconditioning from his recent hospitalization. Review of Systems - Medications/Allergies Allergies/Adverse Reactions: Allergies Allergy/AdvReac Type Severity Reaction Status Date / Time No Known Allergies Allergy Verified 02/17/17 20:23 Medications: Current Medications Acetaminophen (Tylenol) 650 mg PO Q4H PRN PRN Reason: Headache/Fever or Pain Bisacodyl (Dulcolax) 10 mg PO DAILYPRN PRN PRN Reason: Constipation Dextrose/Water (Dextrose 50%) 25 gm SLOW IVP PRN PRN PRN Reason: Hypoglycemia Diltiazem HCl (Cardizem Cd) 120 mg PO DAILY [facility] Docusate Sodium (Colace) 100 mg PO BID [facility] Last Admin: 03/30/18 08:02 Dose: 100 mg Enoxaparin Sodium (Lovenox) 40 mg SC 0900 [facility] Last Admin: 03/30/18 08:03 Dose: 40 mg Famotidine (Pepcid) 20 mg SLOW IVP Q12HR [facility] Last Admin: 03/30/18 08:03 Dose: 20 mg Glucagon (Glucagon) 1 mg IM PRN PRN PRN Reason: Hypoglycemia Levofloxacin 750 mg/ Device 150 mls @ 100 mls/hr IVPB Q24HR [facility] Last Admin: 03/29/18 22:19 Dose: 150 mls Sodium Chloride (Normal Saline 0.9%) 1,000 mls @ 100 mls/hr IV .Q10H [facility] Last Admin: 03/30/18 16:29 Dose: 1,000 mls Piperacillin Sod/Tazobactam (Sod 4.5 gm/ Sodium Chloride) 100 mls @ 200 mls/hr IVPB 0300,0900,1500,2100 [facility] Last Admin: 03/30/18 14:19 Dose: 100 mls Dextrose/Water (D5w) 1,000 mls @ 0 mls/hr IV .Q0M PRN; As Directed PRN Reason: Hypoglycemia Vancomycin HCl 750 mg/ Sodium (Chloride) 250 mls @ 250 mls/hr IVPB 1200,2359 [facility] Last Admin: 03/30/18 11:01 Dose: 250 mls Insulin Human Lispro (Humalog) 0 units SC .MILD SLIDING SCALE PRN PRN Reason: Mild Correctional Scale Last Admin: 03/30/18 11:39 Dose: 2 unit Ipratropium [place] (Atrovent) 2.5 ml NEB [id number] [facility] Last Admin: 03/30/18 14:06 Dose: 2.5 ml Methylprednisolone Sodium Succinate (Solu-Medrol) 20 mg IVP Q8HR [facility] Last Admin: 03/30/18 13:39 Dose: 20 mg Miscellaneous Medication (Pharmacy To Dose) 0 each IVPB PRN PRN PRN Reason: [facility] Pharmacy to Dose Senna (Senokot) 2 tab PO HSPRN PRN PRN Reason: Constipation
[2018-03-31] MEDS ORDERED: Zolpidem Tartrate 5 MG TAB PO PRN (00:10)
[2018-03-31] MEDS: Vancomycin HCl 750 MG in Sodium Chloride 0.9% 250 ML 250 ML IVPB SCH (00:18)
--- NOTE | 2018-03-31 00:35 | CON ---
DATE OF CONSULTATION: 03/30/2018 HISTORY: Isac Roca is an 82-year-old white male with longstanding history of COPD. He was admitted on 02/27/2018 with COPD exacerbation. During that admission, he told of chest discomfort that he would have at home. This occurred 2-3 times per week where he would have chest pressure. This was always associated with exertion. With this, he also would feel his heart beating very rapidly. This would resolve with rest with the longest episode being 30 minutes. He also will be weak and dizzy with those episodes. When he was admitted in late 01/2018 with his COPD exacerbation, he had frequent episodes of supraventricular tachycardia with rates from 160-190 per minute. He has somewhat more prolonged episode and the patient stated that this is exactly like what he had been feeling at home with a pressure in his chest and feeling of heart racing. He was given metoprolol 5 mg IV, and this resolved. He was sent home on Cardizem-CD 120 mg daily. He states that since he has started taking this, he has had no significant episodes of the rapid heartbeat associated with shortness of breath and chest discomfort. He now is admitted after a fall at home. He states that his walker got hung up in the doorway and he fell. He remembers falling. He remembers hitting the floor. There was no lightheadedness or loss of consciousness. PAST MEDICAL HISTORY: COPD, history of esophageal and gastric carcinoma, history of prostate cancer. He denies any history of hypertension, hypercholesterolemia, or diabetes. MEDICATIONS: Albuterol 2 puffs q.4 hours p.r.n., Xanax 1 mg t.i.d. p.r.n., Cardizem-CD 120 mg q.a.m., DuoNebs q.i.d. p.r.n., magnesium chloride 64 mg b.i.d., omeprazole/sodium bicarbonate 1 packet q.i.d., Zofran p.r.n., Lyrica 150 mg b.i.d., Ambien 10 mg at bedtime. ALLERGIES: None. SOCIAL HISTORY: He stopped smoking 20 years ago. He does not drink. FAMILY HISTORY: Negative for coronary artery disease. REVIEW OF SYSTEMS: 12-point review of systems unremarkable. PHYSICAL EXAMINATION: VITAL SIGNS: 103/59, pulse 62. HEENT: PERRL. NECK: Supple. CHEST: Clear. CARDIAC: S1 and S2 are normal, without any S3, S4 or murmurs. ABDOMEN: Normal bowel sounds, without tenderness, organomegaly. EXTREMITIES: Revealed no clubbing, cyanosis or edema. NEUROLOGIC: Grossly intact. LABORATORY DATA: EKG reveals normal sinus rhythm with frequent PACs, nonspecific ST changes. Hemoglobin 13.3, hematocrit 39.9, white count 23,200, platelets 220,000. INR 1.1. Sodium 135, potassium 4.6, chloride 104, carbon dioxide 23, BUN 23, creatinine 0.99. IMPRESSION: 1. Fall at home. It does not sound as if he had syncope with this episode and that he remembers falling and hitting the floor. 2. Paroxysmal supraventricular tachycardia which historically has been improved by the p.o. Cardizem. 3. Chronic obstructive pulmonary disease exacerbation, former smoker. 4. Hypoxemia. 5. History of gastric and esophageal carcinoma. 6. Ejection fraction of 50%-55% on last admission. PLAN: Cardizem will be continued. I do not feel any further cardiac evaluation is warranted. [facility]
--- NOTE | 2018-03-31 02:28 | CON ---
DATE OF CONSULTATION: 03/30/2018 HISTORY OF PRESENT ILLNESS: Isac Roca is an 82-year-old male. Apparently fell. His daughter says he has been falling frequently. He landed on his face. He subsequently has been admitted for further care. Chest radiograph showed an infiltrate at the right base. Head CT was unremarkable. Cervical spine CT was unremarkable. Facial bone CT was unremarkable. His daughter says that he has been getting progressively weaker for the last few weeks. Apparently, he was discharged from the hospital on 03/04/2018 with a diagnosis of SVT, COPD exacerbation, and gastroenteritis. That admission, he also had a face bone CT, CT of his cervical spine, and CT of his brain as well as shoulder films. Chest radiograph at that time showed possible infiltrate. PAST MEDICAL HISTORY: Remarkable for esophageal and gastric cancer and prostate cancer in the past. MEDICATIONS: Prior to admission he was on albuterol, Xanax, Brovana, Symbicort , magnesium, Lyrica, Ambien, omeprazole, and Zofran. SOCIAL HISTORY: Quit smoking 20 years ago, does not drink. FAMILY HISTORY: Negative for lung or heart disease in early age. REVIEW OF SYSTEMS: A 10-point review of systems completed, otherwise negative. PHYSICAL EXAMINATION: VITAL SIGNS: He is afebrile, heart rate 64, respiratory rate 16, oximetry is 98 on 2-1/2 liters, and blood pressure 103/59. HEENT: He has facial ecchymoses. Pupils are equal. Sclerae is anicteric. NECK: Supple, no lymphadenopathy, nontender. LUNGS: Distant and clear. HEART: Regular rhythm. S1 and S2 are normal. ABDOMEN: Soft and nontender. EXTREMITIES: Without clubbing, cyanosis, or edema. NEUROLOGIC: Grossly nonfocal. LABORATORY DATA: White count 23.2, hemoglobin 13.3, platelets 220. Sodium 135 , potassium 4.6, chloride 104, bicarbonate 23, BUN 23, creatinine 0.99. IMPRESSION: 1. ? Pneumonia. 2. Gait instability and frequent falls. He will need custodial placement , when he leaves here. 3. Recent supraventricular tachycardia. 4. Recent chronic obstructive pulmonary disease exacerbation. He can probably be switched to p.o. steroids and p.o. antibiotics in the morning. Nothing to lead me to believe that he has an MRSA infection of his vancomycin can be discontinued. I met with the daughter and answered all of her questions. This is a 50-minute consult with greater than 50% of the time spent on unit with coordination of care. [facility]
[2018-03-31] MEDS: Ipratropium Bromide 2.5 ml Neb NEB SCH ×6 (02:46→22:39)
[2018-03-31] MEDS: Piperacillin/Tazobactam 4.5 GM in Sodium Chloride 0.9% 100 ML IVPB SCH ×3 (03:48→15:08)
[2018-03-31] MEDS: Sodium Chloride 0.9% 1,000 ML IV SCH ×3 (04:47→22:49)
[2018-03-31] MEDS: Famotidine/PF 20 mg/2ml Vial SLOW IVP SCH ×2 (10:23→22:29)
[2018-03-31] MEDS: Docusate 100 MG CAP PO SCH ×2 (10:24→22:29)
[2018-03-31] MEDS: Enoxaparin Sodium 40 MG/0.4 ML SYRINGE SC SCH (10:24)
[2018-03-31] MEDS ORDERED: Adenosine 6 MG/2 ML VIAL ONE (11:44)
[2018-03-31 11:52] LABS: Vancomycin, Trough 11.9 ug/mL
[2018-03-31] MEDS: Diltiazem HCl 125 MG, Admixture Fee 1 EACH in Sodium Chloride 0.9% 100 ML IVPB SCH ×2 (11:54→22:49)
[2018-03-31] MEDS ORDERED: Diltiazem HCl 125 MG, Admixture Fee 1 EACH in Sodium Chloride 0.9% 100 ML IVPB SCH (12:00)
[2018-03-31] MEDS ORDERED: Vancomycin HCl 1 GM in Premix Bag 1 BAG IVPB SCH (13:00)
[2018-03-31] MEDS ORDERED: Lorazepam 0.5 MG TAB PO SCH (13:30)
--- NOTE | 2018-03-31 14:48 | PDOC.PN ---
- Subjective Encounter Start Date: 03/31/18 Encounter Start Time: 08:20 Pt seen for followup re: pneumonia. Denies chest pain, shortness of breath, fevers or chills. Cough+, whitish sputum+. - Objective Resuscitation Status: Resuscitation Status DNI:No Intubation MAR Reviewed: Yes Vital Signs & Weight: Vital Signs (12 hours) Temp Pulse Pulse Pulse Pulse Resp BP 03/31/18 10:55 176 H 177 H 182 H 100/55 L 03/31/18 10:09 110 H 18 03/31/18 08:00 97.6 F 60 18 03/31/18 06:57 70 14 03/31/18 03:38 97.6 F 77 18 BP BP BP Pulse Ox Pulse Ox Pulse Ox Pulse Ox 03/31/18 10:55 95/59 L 107/62 96 96 97 03/31/18 10:09 03/31/18 08:00 144/76 H 96 03/31/18 06:57 03/31/18 03:38 149/79 H 96 Weight Admit Weight 176 lb 4.8 oz Weight 176 lb 4.8 oz I&O: 03/30/18 03/31/18 04/01/18 06:59 06:59 06:59 Intake Total 1013 1994 Output Total 650 450 Balance 363 1545 Result Diagrams: 03/30/18 01:00 03/30/18 01:00 Additional Labs: Accuchecks 03/31/18 03/31/18 03/31/18 11:35 10:40 06:00 POC Glucose 152 H 136 H 120 H 03/30/18 16:41 POC Glucose 135 H EKG Reviewed by me: Yes (Tele: NSR) Phys Exam - Physical Examination Constitutional: NAD HEENT: moist MMs, sclera anicteric, oral pharynx no lesions, 2+ tonsils Neck: no nodes, no JVD, supple, full ROM Respiratory: no rales, no rhonchi, wheezing present Cardiovascular: RRR, no rub S1, S2 Gastrointestinal: soft, non-tender, no distention, positive bowel sounds Neurological: moves all 4 limbs Psychiatric: normal affect, A&O x 3 Dx/Plan (1) Pneumonia Code(s): J18.9 - PNEUMONIA, UNSPECIFIED ORGANISM Status: Acute Comment: improving, change antibiotics to oral (2) Fall Code(s): W19.XXXA - UNSPECIFIED FALL, INITIAL ENCOUNTER Status: Acute Comment: PT/OT evals/tx (3) SVT (supraventricular tachycardia) Code(s): I47.1 - SUPRAVENTRICULAR TACHYCARDIA Status: Chronic Comment: consult EP for recurrence (4) Anxiety and depression Code(s): F41.9 - ANXIETY DISORDER, UNSPECIFIED; F32.9 - MAJOR DEPRESSIVE DISORDER, SINGLE EPISODE, UNSPECIFIED Status: Chronic Comment: stable (5) COPD (chronic obstructive pulmonary disease) Status: Chronic Qualifiers: COPD type: COPD with acute exacerbation Qualified Code(s): J44.1 - Chronic obstructive pulmonary disease with (acute) exacerbation Comment: stable - Plan * . Review of Systems - Review of Systems Constitutional: negative: fever, chills, sweats, weakness, malaise Respiratory: Sputum, Wheezing. negative: Cough, Shortness of Breath, SOB with Excertion, Pleuritic Pain Cardiovascular: negative: chest pain, palpitations, orthopnea, paroxysmal nocturnal dyspnea, edema, light headedness Gastrointestinal: negative: Nausea, Vomiting, Abdominal Pain, Diarrhea, Constipation, Melena, Hematochezia Genitourinary: negative: Dysuria, Frequency, Incontinence, Hematuria, Retention Skin: negative: Rash, Lesions, Leo, Bruising - Medications/Allergies Allergies/Adverse Reactions: Allergies Allergy/AdvReac Type Severity Reaction Status Date / Time No Known Allergies Allergy Verified 02/17/17 20:23 Medications: Current Medications Acetaminophen (Tylenol) 650 mg PO Q4H PRN PRN Reason: Headache/Fever or Pain Bisacodyl (Dulcolax) 10 mg PO DAILYPRN PRN PRN Reason: Constipation Dextrose/Water (Dextrose 50%) 25 gm SLOW IVP PRN PRN PRN Reason: Hypoglycemia Diltiazem HCl (Cardizem) 10 mg SLOW IVP NOW [facility] Stop: 03/31/18 15:00 Docusate Sodium (Colace) 100 mg PO BID [facility] Last Admin: 03/31/18 10:24 Dose: 100 mg Enoxaparin Sodium (Lovenox) 40 mg SC 0900 [facility] Last Admin: 03/31/18 10:24 Dose: 40 mg Famotidine (Pepcid) 20 mg SLOW IVP Q12HR [facility] Last Admin: 03/31/18 10:23 Dose: 20 mg Glucagon (Glucagon) 1 mg IM PRN PRN PRN Reason: Hypoglycemia Levofloxacin 750 mg/ Device 150 mls @ 100 mls/hr IVPB Q24HR [facility] Last Admin: 03/31/18 00:18 Dose: 150 mls Sodium Chloride (Normal Saline 0.9%) 1,000 mls @ 100 mls/hr IV .Q10H [facility] Last Admin: 03/31/18 10:20 Dose: 1,000 mls Piperacillin Sod/Tazobactam (Sod 4.5 gm/ Sodium Chloride) 100 mls @ 200 mls/hr IVPB 0300,0900,1500,2100 [facility] Last Admin: 03/31/18 10:23 Dose: 100 mls Dextrose/Water (D5w) 1,000 mls @ 0 mls/hr IV .Q0M PRN; As Directed PRN Reason: Hypoglycemia Diltiazem HCl 125 mg/Miscellaneous Medication 1 each/ Sodium Chloride 125 mls @ 0 mls/hr IVPB INF MARJORIE; As Directed PRN Reason: Protocol Last Admin: 03/31/18 11:54 Dose: 125 mls Vancomycin HCl 1 gm/ Device 200 mls @ 200 mls/hr IVPB 0100,1300 [facility] Last Admin: 03/31/18 13:03 Dose: 200 mls Insulin Human Lispro (Humalog) 0 units SC .MILD SLIDING SCALE PRN PRN Reason: Mild Correctional Scale Last Admin: 03/30/18 21:16 Dose: 2 unit Ipratropium [place] (Atrovent) 2.5 ml NEB [id number] [facility] Last Admin: 03/31/18 10:09 Dose: 2.5 ml Lorazepam (Ativan) 0.5 mg PO NOW [facility] Stop: 03/31/18 15:00 Last Admin: 03/31/18 14:22 Dose: 0.5 mg Methylprednisolone Sodium Succinate (Solu-Medrol) 20 mg IVP Q8HR [facility] Last Admin: 03/31/18 05:56 Dose: 20 mg Miscellaneous Medication (Pharmacy To Dose) 0 each IVPB PRN PRN PRN Reason: [facility] Pharmacy to Dose Senna (Senokot) 2 tab PO HSPRN PRN PRN Reason: Constipation Zolpidem Tartrate (Ambien) 5 mg PO ONE PRN PRN Reason: Insomnia Stop: 04/01/18 02:10 Last Admin: 03/31/18 00:17 Dose: 5 mg
--- NOTE | 2018-03-31 15:18 | PDOC.EVN ---
Event Note - Event Note Event Note: 14:05-14:23 hrs March 31, 2018 Discussed with patient, daughter Zahida and granddaughter in patient's room. Updated them re: episodes of SVT which did not resolve with adenosine. Discussed re: possibility of ablation. Also discussed code status. Pt is okay with chest compressions, electric shocks, central lines and vasopressors. Does not want intubation. Chart updated as DNI.
--- NOTE | 2018-03-31 15:47 | PRG ---
DATE OF SERVICE: 03/31/2018 SUBJECTIVE: He says he is feeling better. He has no complaints. He still has his ecchymoses on his face as expected. OBJECTIVE: VITAL SIGNS: He is afebrile, heart rate is 110, respiratory rate 18, blood pressure is 100/55. He d id have a heart rate at 170-180 range, treated with adenosine earlier. EP is planning to evaluate hi m. LUNGS: Clear. HEART: Regular rhythm now. ABDOMEN: Soft. LABORATORY DATA: There is no new lab today other than blood glucoses. IMPRESSION: 1. Weakness and deconditioning, status post fall. 2. ?Pneumonia. It is unclear whether he currently has a pneumonia or is recovering from his last ad mission. 3. Supraventricular tachycardia, recurrent. 3. Chronic obstructive pulmonary disease. PLAN: I will continue to follow along with the other physicians caring for him. An EP evaluation figueroa s been ordered. He is on Cardizem. He is on Zosyn and Levaquin. His antibiotics can probably be simplified. Prednisone dose can probab ly be decreased to 20 mg a day. We will continue to follow.
[2018-04-01] MEDS: Vancomycin HCl 750 MG in Sodium Chloride 0.9% 250 ML 250 ML IVPB SCH (01:57)
--- NOTE | 2018-04-01 02:02 | CON ---
ELECTROPHYSIOLOGY CONSULTATION REPORT DATE OF CONSULTATION: 03/31/2018 REFERRING PHYSICIAN: Dr. Araujo. I am seeing Mr. Roca at our [facility] Telemetry Floor as electrophysiology hr consultant. Hi s problems are: 1. Paroxysmal supraventricular tachycardia, responding well to adenosine and diltiazem, but there is recurrence. 2. History of fall, facial trauma recently. 3. History of COPD exacerbation. 4. History of gastric and esophageal cancer in the past. 5. History of preserved LVEF. Risk factors including history of smoking, quit 20 years ago. ALLERGIES: None noted. MEDICATIONS AT HOME: Included zolpidem, alprazolam, pregabalin, vitamin B12, budesonide, magnesium c hloride, ondansetron, omeprazole, albuterol, diltiazem CD 120 mg a day, and ipratropium/albuterol neb ulizers. SUBJECTIVE: Mr. Roca is here for palpitations, stress, and respiratory distress. He also associate d chest tightness sensations. He has been experiencing these palpitations for about 6 weeks. Even h ad a mechanical fall and facial laceration that actually from his current ER visit. He required 4 li ters oxygen initially and pneumonia was suspected. While on telemetry, it was noted to have frequent rapid narrow complex arrhythmia runs. He has been given adenosine, which terminated the arrhythmia, but recurrence was seen. Empiric antibiotics were also initiated for the infections, it seems to figueroa ve been improving with the above measures. Currently, he is feeling fair. He denies chest pains or dyspnea. Still has occasional palpitations, but not resolving on diltiazem drip. REVIEW OF SYSTEMS: Twelve-point review of systems is unremarkable. PAST HISTORY: As above. He has a prior history of normal mild MR, but moderately dilated left atrium is noted. SOCIAL HISTORY: Ex-smoker, quit 20 years ago. Denies EtOH or drug abuse. He is FULL CODE. FAMILY HISTORY: Not contributory. OBJECTIVE: VITAL SIGNS: Blood pressure is 107/62, heart rate fluctuating between 60-176, at the time of exam, i t was 70, respirations 18, temperature 97.6 degrees Fahrenheit. GENERAL: He is alert and oriented elderly man, in no apparent distress with facial trauma. NECK: Supple. Jugular veins not distended. CHEST: Coarse without crackles. CARDIAC: Heart sounds are regular to rate and rhythm. No murmur or gallop is appreciated. ABDOMEN: Benign. Bowel sounds positive. EXTREMITIES: Lower extremities without edema, clubbing, or cyanosis. NEUROLOGIC: Patient is nonfocal. MUSCULOSKELETAL: No joint swelling or deformities, but facial trauma is noted. SKIN: Without rash. LABORATORY DATA: White cell count initially 24.3, now 23.2 yesterday, none measured today, hemoglobi n 13.3, platelet count is 220,000. INR is 1.1. Sodium 135 yesterday. Potassium 4.6, BUN is 23, cre atinine 0.99. Microbiology from the , blood cultures are with no growth at 48 hours. ASSESSMENT AND PLAN: Mr. Roca is a pleasant 82-year-old man with prior history of various cancers i ncluding prostate cancer, esophageal and gastric carcinoma. He has recent diagnosis of SVT, but is s uboptimally controlled with diltiazem medications he is taking. He required IV diltiazem for rate co ntrol. 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 I discussed the potential benefit from EP study and ablation with him. He understands the mechanism of the SVTs and the ablation procedure involved with that. I think this gentleman would be best serv ed by a right atrial ablation, hence his history of GI bleed needing transfusions in the past would abigail brown preclude him from anticoagulation. On the other hand, if we would be able to perform a right a trial ablation, possibly slow pathway modification and eliminate his arrhythmias he might benefit fro m that. I discussed these issues with him. He understands the risk of infection, bleeding, bradycar bia, tamponade are not resolving. I will try to proceed with the ablation, possibly tomorrow.
[2018-04-01] MEDS: Ipratropium Bromide 2.5 ml Neb NEB SCH ×6 (02:38→23:15)
[2018-04-01 05:11] LABS: Anion Gap 14 mmol/L (10-20); BUN (Urea Nitrogen) 18 mg/dL (8.4-25.7); Calc. Creatinine Clearance 81 mL/min (70-130); Calcium 8.8 mg/dL (7.8-10.44); Carbon Dioxide 22 mmol/L (23-31); Chloride 103 mmol/L (98-107); Estimated GFR-MDRD Greater than 90; Glucose 137 mg/dL (83-110); Potassium 3.7 mmol/L (3.5-5.1); Sodium 135 mmol/L (136-145)
[2018-04-01 05:24] LABS: #Lymphocytes 1.4 thou/uL (1.20-3.40); #Monocytes 0.7 thou/uL (0.11-0.59); #Neutrophils 11.5 thou/uL (1.40-6.50); %Basophils 0.2 % (0.0-1.0); %Eosinophils 0.2 % (0.0-10.0); %Lymphocytes 10.1 % (21.0-51.0); %Monocytes 5.2 % (0.0-10.0); %Neutrophils 84.3 % (42.0-75.0); Hemoglobin 14.5 g/dL (14.0-18.0); Mean Corpuscular HGB CONC 32.7 g/dL (32.0-36.0); Mean Corpuscular Hemoglobin 30.7 pg (27.0-31.0); Mean Corpuscular Volume 93.9 fL (78.0-98.0); Mean Platelet Volume 7.4 fL (7.4-10.4); Platelet Count 223 thou/uL (130-400); RBC Distribution Width 14.8 % (11.5-14.5); Red Blood Cell (RBC) Count 4.71 mill/uL (4.70-6.10); White Blood Cell (WBC) Count 13.7 thou/uL (4.8-10.8)
[2018-04-01] MEDS ORDERED: predniSONE 50 MG TAB PO SCH (08:00)
[2018-04-01] MEDS ORDERED: PHENYLEPHRINE-NS 100 MCG/ML 10 ML SYRINGE ONE (09:34)
[2018-04-01] MEDS ORDERED: PROPOFOL 200 MG/20 ML VIAL ONE (09:34)
[2018-04-01] MEDS ORDERED: Ondansetron HCl/PF 4 MG/2 ML Vial ONE (09:34)
[2018-04-01] MEDS ORDERED: Dexamethasone 20 MG/5 ML VIAL ONE (09:34)
[2018-04-01] MEDS: Enoxaparin Sodium 40 MG/0.4 ML SYRINGE SC SCH (10:14)
[2018-04-01] MEDS: Sodium Chloride 0.9% 1,000 ML IV SCH ×2 (10:15→20:13)
[2018-04-01] MEDS: Docusate 100 MG CAP PO SCH ×2 (10:17→21:02)
[2018-04-01] MEDS: Famotidine 20 MG TAB PO SCH ×2 (10:17→21:03)
[2018-04-01] MEDS: predniSONE 20 MG TAB PO SCH (10:31)
[2018-04-01] MEDS ORDERED: Adenosine 6 MG/2 ML VIAL ONE (13:45)
[2018-04-01] MEDS ORDERED: Fentanyl 100 MCG/2 ML VIAL ONE ×2 (14:08→16:31)
[2018-04-01] MEDS ORDERED: Propofol 500 MG/50 ML VIAL ONE (14:08)
[2018-04-01] MEDS ORDERED: Midazolam HCl 2 mg/2 ml Vial ONE ×2 (14:08→15:34)
[2018-04-01] MEDS ORDERED: Ketamine 50 MG/ML VIAL ONE (14:08)
[2018-04-01] MEDS ORDERED: Heparin 10,000 UNITS/1 ML VIAL ONE (14:27)
[2018-04-01] MEDS ORDERED: Isoproterenol 0.2 MG/1 ML AMP ONE ×3 (14:27→16:14)
--- NOTE | 2018-04-01 14:28 | PDOC.PN ---
- Subjective Encounter Start Date: 04/01/18 Encounter Start Time: 08:40 Pt seen for followup re: pneumonia. Cough better. No nausea or vomiting. - Objective Resuscitation Status: Resuscitation Status DNI:No Intubation MAR Reviewed: Yes Vital Signs & Weight: Vital Signs (12 hours) Temp Pulse Resp BP BP Pulse Ox 04/01/18 11:58 64 16 04/01/18 08:26 98.0 F 62 19 150/76 H 92 L 04/01/18 03:47 97.4 F L 70 18 128/68 93 L Weight Admit Weight 176 lb 4.8 oz Weight 175 lb 14.4 oz I&O: 03/31/18 04/01/18 04/02/18 06:59 06:59 06:59 Intake Total 1994 3399 Output Total 450 3625 Balance 1545 -225 Result Diagrams: 04/01/18 04:47 04/01/18 04:47 Additional Labs: Accuchecks 04/01/18 04/01/18 03/31/18 10:50 05:46 20:40 POC Glucose 107 118 H 148 H 03/31/18 03/30/18 16:44 20:40 POC Glucose 129 H 164 H EKG Reviewed by me: Yes (Tele: NSR) Phys Exam - Physical Examination Constitutional: NAD HEENT: moist MMs Neck: supple Respiratory: clear to auscultation bilateral Cardiovascular: RRR Gastrointestinal: soft Neurological: moves all 4 limbs Psychiatric: normal affect Dx/Plan (1) Pneumonia Code(s): J18.9 - PNEUMONIA, UNSPECIFIED ORGANISM Status: Acute Comment: continue oral levofloxacin (2) Fall Code(s): W19.XXXA - UNSPECIFIED FALL, INITIAL ENCOUNTER Status: Acute Comment: PT/OT evals/tx (3) SVT (supraventricular tachycardia) Code(s): I47.1 - SUPRAVENTRICULAR TACHYCARDIA Status: Chronic Comment: Pt to have ablation today (4) Anxiety and depression Code(s): F41.9 - ANXIETY DISORDER, UNSPECIFIED; F32.9 - MAJOR DEPRESSIVE DISORDER, SINGLE EPISODE, UNSPECIFIED Status: Chronic Comment: stable (5) COPD (chronic obstructive pulmonary disease) Status: Chronic Qualifiers: COPD type: COPD with acute exacerbation Qualified Code(s): J44.1 - Chronic obstructive pulmonary disease with (acute) exacerbation Comment: stable - Plan continue antibiotics, PT/OT, out of bed/ambulate * . Review of Systems - Review of Systems Respiratory: Cough, Sputum. negative: Dry, Shortness of Breath, Hemoptysis, SOB with Excertion, Pleuritic Pain, Wheezing Cardiovascular: negative: chest pain, palpitations, orthopnea, paroxysmal nocturnal dyspnea, edema, light headedness Gastrointestinal: negative: Nausea, Vomiting, Abdominal Pain, Diarrhea, Constipation, Melena, Hematochezia - Medications/Allergies Allergies/Adverse Reactions: Allergies Allergy/AdvReac Type Severity Reaction Status Date / Time No Known Allergies Allergy Verified 02/17/17 20:23 Medications: Current Medications Acetaminophen (Tylenol) 650 mg PO Q4H PRN PRN Reason: Headache/Fever or Pain Bisacodyl (Dulcolax) 10 mg PO DAILYPRN PRN PRN Reason: Constipation Dextrose/Water (Dextrose 50%) 25 gm SLOW IVP PRN PRN PRN Reason: Hypoglycemia Docusate Sodium (Colace) 100 mg PO BID [facility] Last Admin: 04/01/18 10:17 Dose: Not Given Enoxaparin Sodium (Lovenox) 40 mg SC 0900 [facility] Last Admin: 04/01/18 10:14 Dose: Not Given Famotidine (Pepcid) 20 mg PO BID [facility] Last Admin: 04/01/18 10:17 Dose: Not Given Glucagon (Glucagon) 1 mg IM PRN PRN PRN Reason: Hypoglycemia Sodium Chloride (Normal Saline 0.9%) 1,000 mls @ 100 mls/hr IV .Q10H [facility] Last Admin: 04/01/18 10:15 Dose: 1,000 mls Dextrose/Water (D5w) 1,000 mls @ 0 mls/hr IV .Q0M PRN; As Directed PRN Reason: Hypoglycemia Insulin Human Lispro (Humalog) 0 units SC .MILD SLIDING SCALE PRN PRN Reason: Mild Correctional Scale Last Admin: 03/30/18 21:16 Dose: 2 unit Ipratropium [place] (Atrovent) 2.5 ml NEB [id number] [facility] Last Admin: 04/01/18 11:58 Dose: 2.5 ml Levofloxacin (Levaquin) 750 mg PO 2100 [facility] Last Admin: 03/31/18 22:29 Dose: 750 mg Prednisone (Prednisone) 20 mg PO QAM-WM [facility] Last Admin: 04/01/18 10:31 Dose: Not Given Senna (Senokot) 2 tab PO HSPRN PRN PRN Reason: Constipation
[2018-04-01] MEDS ORDERED: DOPamine 400 MG/D5W 250 ML 0 ML ONE (16:06)
[2018-04-01] MEDS ORDERED: Promethazine HCl 25 MG/ML VIAL SLOW IVP PRN (17:49)
[2018-04-01] MEDS ORDERED: Promethazine HCl 25 MG/ML VIAL IM PRN (17:49)
[2018-04-01] MEDS ORDERED: Ondansetron HCl/PF 4 MG/2 ML Vial IVP PRN (17:49)
--- NOTE | 2018-04-02 00:03 | PRG ---
DATE OF SERVICE: 04/01/2018 SUBJECTIVE: Isac Roca says he is feeling better. He is still quite weak. He has not been out of bed much. OBJECTIVE: VITAL SIGNS: He is afebrile, heart rates in the 60s, respiratory rates in the teens, blood pressure has been stable at 186/86 this afternoon. LUNGS: Clear. HEART: Regular rhythm. ABDOMEN: Soft. Code Green was called yesterday. I was not notified. Apparently, it was for SVT per the documentati on in the computer. IMPRESSION: 1. Pneumonia ? 2. Supraventricular tachycardia. 3. Status post fall, ? secondary to SVT versus deconditioning. 4. Chronic obstructive pulmonary disease. PLAN: Continue current care. Awaiting EP evaluation.
[2018-04-02] MEDS: Ipratropium Bromide 2.5 ml Neb NEB SCH ×5 (02:37→18:56)
--- NOTE | 2018-04-02 03:02 | OP ---
DATE OF OPERATION: 04/01/2018 PROCEDURE: Electrophysiology study and radiofrequency ablation. REFERRING PHYSICIAN: Dr. Araujo. REASON FOR PROCEDURE: Mr. Roca is an 82-year-old man with history of COPD and mild dementia, who is presenting with recurrent palpitations and worsening mental status. EKGs demonstrate narrow complex SVT, which responds to adenosine and also Cardizem drip. Here for EPS and ablation procedure. PROCEDURE: The patient received deep sedation by Anesthesia specialist. The left femoral venous area was prepped, draped and anesthetized using subcutaneous lidocaine. A 6 and an 8-Georgian short sheath was introduced. Through this, a Decapolar catheter was advanced to the CS and octapolar catheter was advanced to the right ventricular His bundle and right atrial position. Pacing mapping and recording was performed in each location. Following findings were noted. The basal segments 832 milliseconds in sinus rhythm, CT 148, QRS 80, QT 395, AH 149, HV 350 milliseconds. Sinus node recovery time was 1100 milliseconds with corrected about 150 milliseconds. AV Wenckebach cycle length was 440 milliseconds. Retrograde Wenckebach cycle length was 320 milliseconds. The AV jenna ERP was 600/220 on Isuprel. Dual AV jenna physiology was demonstrated. Concentric retrograde VA conduction was seen. An Isuprel was started, and on Isuprel, we were able to induce 1:1 tachycardia with a cycle length of 280 milliseconds. Ventricular override pacing produced VA-VA response suggestive of AV reciprocating tachycardia. The short VA timing was suggested AV jenna reentry tachycardia. At this point, the right femoral vein was accessed with ultrasound guidance. An 8-Georgian short sheath was introduced and a 4 mm F curve catheter was advanced to the right atrium. A 3D map of the right atrium was obtained. His bundle and CS was delineated, and a slow pathway ablation was performed with 50 tate 60 degrees setting. Junctional escape beats were noted. Following that, Isuprel was readministered, and AVNRT was induced. A repeat ablation was performed. In the end, total of 10 lesions were delivered with max power of 52 tate, average power of 45 tate at cut off temperature of 60 degrees. The total ablation time was 6 minutes. During ablation, junctional beats were clearly observed. Following that, the AV Wenckebach increased to 460 milliseconds. With Isuprel, it improved down to 330 milliseconds. The slow pathway still was observed though extrastimuli testing with an echo beat, but no AV jenna reentry tachycardia was inducible. Frequent PACs were also seen during Isuprel testing before and after ablation. CONCLUSION: 1. 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 2. Slow pathway modification was performed eliminating inducibility of the AV node reentry tachycardia. 3. Normal sinus and AV jenna function pre and post-ablation. 4. No evidence of accessory pathway noted, and no other arrhythmias were induced. PLAN: [facility]ine postoperative care. [facility]
[2018-04-02] MEDS: Sodium Chloride 0.9% 1,000 ML IV SCH ×2 (04:32→14:39)
[2018-04-02 06:37] LABS: Anion Gap 15 mmol/L (10-20); BUN (Urea Nitrogen) 20 mg/dL (8.4-25.7); Calc. Creatinine Clearance 70 mL/min (70-130); Calcium 9.1 mg/dL (7.8-10.44); Carbon Dioxide 24 mmol/L (23-31); Chloride 101 mmol/L (98-107); Estimated GFR-MDRD 82; Glucose 128 mg/dL (83-110); Sodium 136 mmol/L (136-145)
[2018-04-02 06:39] LABS: Hemoglobin 14.6 g/dL (14.0-18.0); Mean Corpuscular HGB CONC 32.2 g/dL (32.0-36.0); Mean Corpuscular Hemoglobin 30.1 pg (27.0-31.0); Mean Corpuscular Volume 93.5 fL (78.0-98.0); Mean Platelet Volume 7.1 fL (7.4-10.4); Platelet Count 248 thou/uL (130-400); RBC Distribution Width 14.6 % (11.5-14.5); Red Blood Cell (RBC) Count 4.86 mill/uL (4.70-6.10); White Blood Cell (WBC) Count 6.3 thou/uL (4.8-10.8)
[2018-04-02 07:40] LABS: Band 6 % (5-11); Lymphocytes 14 % (21-51); MDiff Complete? YES; Metamyelocyte 1 % (0-0); Monocytes 1 % (0-10); Neutrophil 78 % (42-75); RBC Morphology Normal
[2018-04-02] MEDS ORDERED: Ondansetron ODT 4 MG TAB PO PRN (07:45)
[2018-04-02] MEDS ORDERED: hydrALAZINE 20 MG/ML VIAL SLOW IVP PRN (07:45)
[2018-04-02] MEDS ORDERED: hydrALAZINE 25 MG TAB PO PRN (07:51)
[2018-04-02] MEDS: predniSONE 20 MG TAB PO SCH (08:04)
[2018-04-02] MEDS: Famotidine 20 MG TAB PO SCH ×2 (08:04→20:26)
[2018-04-02] MEDS: Docusate 100 MG CAP PO SCH ×2 (08:04→20:26)
[2018-04-02] MEDS: Enoxaparin Sodium 40 MG/0.4 ML SYRINGE SC SCH (08:05)
--- NOTE | 2018-04-02 10:36 | PRG ---
DATE OF SERVICE: 04/02/2018 Mr. Roca did well overnight. PHYSICAL EXAMINATION: VITAL SIGNS: He is afebrile, heart rate 64, respiratory rate 18, oximetry is 95 on 2 liters. LUNGS: Lungs are clear. HEART: Regular rhythm. ABDOMEN: Soft. LABORATORY DATA: White count 6.3, hemoglobin 14.6, platelets 248. Electrolytes are normal. IMPRESSION: 1. Weakness and deconditioning status post fall. 2. Supraventricular tachycardia being followed by Electrophysiology. 3. ? Pneumonia. 4. Chronic obstructive pulmonary disease. PLAN: 1. Out of bed twice a day. 2. Continue antimicrobial therapy. 3. half-way placement.
--- NOTE | 2018-04-02 11:38 | PQF ---
CLINICAL DOCUMENTATION IMPROVEMENT CLARIFICATION FORM: ICD-10 Updated PLEASE DO AN ADDENDUM TO THE PROGRESS NOTE WITH ANY DOCUMENTATION UPDATES OR ADDITIONS AND CARRY THROUGH TO DC SUMMARY. THANK YOU. DATE: 04/02/18 ATTN: Dr. Bliss Please exercise your independent, professional judgment in responding to the clarification form. Clinical indicators are provided on the bottom of this form for your review Please check appropriate box(s) to clarify if the following diagnosis has been ruled in or ruled out: SEPSIS (H&P) [ ] Ruled in diagnosis [ ] Continue to treat [ ] Resolved [ ] Ruled out diagnosis [ ] Cannot rule out diagnosis [ ] Other diagnosis [ ] Unable to determine In addition, please specify: Present on Admission (POA): [ ] Yes [ ] No [ ] Unable to determine For continuity of documentation, please document condition throughout progress notes and discharge summary. Thank You. CLINICAL INDICATORS - SIGNS / SYMPTOMS / LABS H&P 03/29: LAB: WBC 24.3 LACTIC ACID 3.0 SUBSEQUENT 2.4 SEPSIS. PT MEETS CRITERIA FOR SEPSIS W/ ACUTE HYPOXIC RESPIRATORY FAILURE, LEUKOCYTOSIS, NO POTENTIAL SOURCE OF INFECTION. PN 03/31-04/01: PNEUMONIA, UNSPECIFIED ORGANISM RISKS: H&P 03/29: 82 YO. RECENT HOSPITALIZATION FOR COPD EXAC; GASTROENTERITIS AND SVT. PNEUMONIA. TREATMENT: ER RECORD 03/29: IV ZOSYN 4.5G GIVEN CPOE 03/21: LEVAQUIN 750 MG PO Thank you, Maxine (This form is maintained as a part of the permanent medical record) 2014 [employer]. All Rights Reserved Maxine Molina RN, BSN [email or web address] Office: [phone] [facility]
--- NOTE | 2018-04-02 12:29 | PRG ---
DATE OF SERVICE: 04/02/2018 SUBJECTIVE: Mr. Roca seems to be doing well one day after his ablation procedure. His groin sites are without reaction. He has no significant palpitation sensations. OBJECTIVE: VITAL SIGNS: Blood pressure 133/85, heart rate 75, respiration is 18, temperature 97.6 degrees Fahrenheit. GENERAL: This is an alert and oriented man in no apparent distress. NECK: Supple. Jugular veins not distended. CHEST: Coarse without crackles. CARDIOVASCULAR: Heart sounds are regular to rate and rhythm. No murmur or gallop. ABDOMEN: Benign. Bowel sounds positive. EXTREMITIES: Lower extremities without edema, clubbing or cyanosis. Telemetry strips reviewed reveals sinus rhythm with frequent PACs and even nonsustained atrial tachyarrhythmia runs, but no sustained SVT seen as before. LABORATORY DATA: White cell count is 6.3, hemoglobin 14.6, platelet count is 248. Sodium 136, potassium 4, BUN is 20, creatinine 0.89. ASSESSMENT AND PLAN: Mr. Roca is a pleasant 82-year-old man with history of supraventricular arrhythmias. He has required adenosine and diltiazem for controlling it. He underwent an EP study demonstrating inducible AV jenna reentry tachycardia, dual AV jenna physiology. We were able to eliminate the inducibility by ablating the slow pathway. He has had residual PACs and nonsustained atrial arrhythmia runs, but I could not induce sustained atrial fibrillation or flutter. At this point telemtry is similar to yesterdays, post ablation. PLAN: 1. Continue current regimen, could consider adding a beta larry if tolerated. We will initiate metoprolol succinate 25 mg a day. 2. Stable post-ablation course, now we can ambulate him. 3. Routine followup in the office requested. SARA
[2018-04-02 20:55] VITALS: BP 172/92; TEMP 98
--- NOTE | 2018-04-03 00:58 | DIS ---
DATE OF ADMISSION: 03/29/2018 DATE OF DISCHARGE: 04/02/2018 PRIMARY CARE PROVIDER: Sohail Vargas M.D. DISCHARGE DIAGNOSES: 1. Sepsis. 2. Fall. 3. Pneumonia. 4. Supraventricular tachycardia. 5. Physical deconditioning. CONSULTATIONS DURING THIS HOSPITALIZATION: Cardiology, Dr. Araujo; Pulmonology, Dr. Flores; and Jeana ctrophysiology, Dr. Perez. CONDITION OF PATIENT ON THE DAY OF DISCHARGE: Stable. I assessed Mr. Roca on the day of discharge. He denies any chest pain or shortness of breath. PHYSICAL EXAMINATION: VITAL SIGNS: Stable. CARDIOVASCULAR: S1 and S2 are heard, regular. LUNGS: Clear to auscultation bilaterally. DISCHARGE MEDICATIONS: Levofloxacin 750 mg daily for 4 more days, prednisone 20 mg daily for 4 more days, budesonide/formoterol 2 puffs 2 times a day, magnesium chloride 64 mg 2 times a day, Toprol-XL 25 mg daily, omeprazole/sodium bicarbonate mg 1 packet 4 times a day, Lyrica 150 mg 2 times a day, vitamin B12/folic acid 1 tablet daily, vitamin D3 at 1000 units daily, Proventil HFA 2 puffs 4 hours as needed, Xanax 1 mg 3 times a day as needed, DuoNebs p.r.n., and Ambien p.r.n. HOSPITAL COURSE: Mr. Roca is a pleasant, 82-year-old gentleman, who was admitted to [facility] on 03/29/2018 following a fall. Please refer to Dr. Silva's history and physical n ote dated 03/30/2018 for further information. He was seen by Cardiology Service for paroxysmal supraventricular tachycardia. He was also started o n antibiotics for pneumonia as seen on chest x-ray. He did have leukocytosis at the time of admissio n. He was also seen by Pulmonology Service. He also received steroids. During this hospitalization, he had recurrent episodes of supraventricular tachycardia, which did not respond to carotid massage or adenosine. He was started on a Cardizem drip and seen by Electrophysi ology Service. On 04/01/2018, he underwent ablation by Electrophysiology Service. He has remained i n sinus rhythm since. He has also been started on metoprolol by Electrophysiology Service. During t his hospitalization, he became physically deconditioned. He was evaluated by Rehabilitation Service. He is being discharged to [facility] for inpatient rehabilitation. On the day of discharge, his white count of 6300, hemoglobin 14.6, platelet count 248,000, normal jeana ctrolytes and normal creatinine. Many thanks for allowing me to participate in your patient's care. Please feel free to contact me wi th any questions or concerns. DISCHARGE DESTINATION: [facility]. TOTAL AMOUNT OF TIME SPENT COORDINATING THIS DISCHARGE: 32 minutes.
== END 2018-04-02 21:53 | DRG 853 ==
LOC: ERS 17:46 → 2NO 20:56
PROVIDERS: ADMIT Internal Medicine; ATTEND Internal Medicine
PROC: 02583ZZ Destruction of Conduction Mechanism, Percutaneous Approach (ICD-10-PCS; principal; 2018-04-01)
DX: A41.9 Sepsis, unspecified organism (principal); J18.9 Pneumonia, unspecified organism; J96.01 Acute respiratory failure with hypoxia; J44.0 Chronic obstructive pulmonary disease with (acute) lower respiratory infection; I47.1 Supraventricular tachycardia; Z85.46 Personal history of malignant neoplasm of prostate; Z85.01 Personal history of malignant neoplasm of esophagus; Z87.891 Personal history of nicotine dependence; F41.9 Anxiety disorder, unspecified
CPT/HCPCS: 36415; 36416; 70450; 70486; 71045; 72125; 76942; 80048; 80053; 80202; 83605; 83690; 85025; 85610; 85730; 87040; 87070; 87205; 93005; 93010; 93613; 93623; 93653; 94640; 96361; 96365; 96375; A4216; C1730; C1769; G8978-GP-CL; G8979-GP-CK; G9171-GN-CI; G9172-GN-CH; J0153; J1100; J1265; J1644; J1650; J1956; J2250; J2405; J2543; J2704; J2920; J3010; J3370; J7050; J7506; J7620; J7644; Q0162; S0028

== ENCOUNTER 2018-04-15 16:26 | Observation (INO) | payer MEDICARE ==
[2018-04-15 17:29] LABS: #Eosinphils 0.1 thou/uL (0.0-0.7); #Lymphocytes 1.8 thou/uL (1.20-3.40); #Monocytes 1.6 thou/uL (0.11-0.59); #Neutrophils 9.6 thou/uL (1.40-6.50); %Basophils 0.3 % (0.0-1.0); %Eosinophils 0.8 % (0.0-10.0); %Lymphocytes 13.7 % (21.0-51.0); %Monocytes 12.3 % (0.0-10.0); Hemoglobin 13.2 g/dL (14.0-18.0); Mean Corpuscular HGB CONC 33.2 g/dL (32.0-36.0); Mean Corpuscular Hemoglobin 31.6 pg (27.0-31.0); Mean Corpuscular Volume 95.2 fL (78.0-98.0); Mean Platelet Volume 6.4 fL (7.4-10.4); Platelet Count 254 thou/uL (130-400); RBC Distribution Width 15.5 % (11.5-14.5); Red Blood Cell (RBC) Count 4.18 mill/uL (4.70-6.10); White Blood Cell (WBC) Count 13.2 thou/uL (4.8-10.8)
[2018-04-15 17:53] LABS: ALT (SGPT) 14 U/L (8-55); AST (SGOT) 15 U/L (5-34); Albumin 3.3 g/dL (3.4-4.8); Alkaline Phosphatase 64 U/L (40-150); Anion Gap 12 mmol/L (10-20); BUN (Urea Nitrogen) 23 mg/dL (8.4-25.7); Bilirubin, Total 0.4 mg/dL (0.2-1.2); Calc. Creatinine Clearance 0 mL/min (70-130); Calcium 8.6 mg/dL (7.8-10.44); Carbon Dioxide 26 mmol/L (23-31); Chloride 100 mmol/L (98-107); Estimated GFR-MDRD 83; Globulin 3.3 g/dL (2.4-3.5); Glucose 119 mg/dL (83-110); Lipase 19 U/L (8-78); Potassium 4.1 mmol/L (3.5-5.1); Protein, Total 6.6 g/dL (5.8-8.1); Sodium 134 mmol/L (136-145)
[2018-04-15 17:57] LABS: CKMB 0.7 ng/mL (0-6.6); Troponin I Less than 0.010 ng/mL (< 0.028)
--- NOTE | 2018-04-15 19:18 | RAD ---
FRONTAL VIEW CHEST: 04/15/18 COMPARISON: 04/11/18 INDICATION: Nausea, vomiting. FINDINGS: There is mild elevation of the right hemidiaphragm. Left side chest port remains. There is accentuati on of the cardiac silhouette and mediastinal structures by portable technique and patient rotation. T here is mild vascular congestion. IMPRESSION: Evidence of CHF with mild edema. POS: [facility]
[2018-04-15] MEDS ORDERED: Ondansetron HCl/PF 4 MG/2 ML Vial IVP PRN (19:42)
[2018-04-15] MEDS ORDERED: PROVENTIL INHALER 6.7 G (200 INHALATIONS) INH PRN (19:47)
--- NOTE | 2018-04-15 21:29 | HP ---
CODE STATUS: DNI as verified with daughter at bedside PRIMARY CARE PHYSICIAN: Sohail Vargas MD TIME OF EVALUATION: 7:20 p.m. CHIEF COMPLAINT: Change in mental status, failure to thrive. HISTORY OF PRESENT ILLNESS: This is an 82-year-old male patient with past medical history of recent hospitalization for pneumonia and PSVT; stomach cancer , status post surgery; chemotherapy for stomach cancer; COPD. The patient came to the hospital after having change in mental status, nausea, failure to thrive. Symptoms have been present for about 2 days with occasional vomiting. History is gathered from the daughter since the patient is confused. No clear triggers, no alleviating factors. Symptoms are moderate. The patient had been receiving rehabilitation/PT after discharge given deconditioning. The patient also reported having some chest pain. The patient was seen by nanotechnician in the past admission and EPS. REVIEW OF SYSTEMS: The information has been gathered with the help of daughter. The patient is cooperative, but somewhat confused. Constitutional: No fever or chills. The patient has generalized weakness. Respiratory: Some cough. Sputum production is scant. Occasional shortness of breath. Cardiovascular: Chest pain. No palpitations, shortness of breath. Gastrointestinal: Nausea, vomiting. No diarrhea. Epigastric pain. Central nervous system: No dizziness, headache, or feeling lightheaded. Genitourinary : No burning on urination. Extremities: No leg swelling. All other systems reviewed were negative except for the findings mentioned above. PAST MEDICAL HISTORY: As mentioned in the HPI. SOCIAL HISTORY: No drugs. Former smoker. No alcohol. PSYCHIATRIC HISTORY: Anxiety. PAST SURGICAL HISTORY: Positive for appendectomy, cholecystectomy, prostatectomy, stomach cancer surgery. ALLERGIES: No known drug allergies reported. MEDICATIONS: Albuterol, vitamin B12, [place], Lyrica, omega-3, Symbicort, vitamin D3, and Xanax. PHYSICAL EXAMINATION: VITAL SIGNS: On presentation, blood pressure 177/66, heart rate 89, respiratory rate was 18, temperature 98.4. No pain. GENERAL APPEARANCE: The patient is alert, confused, not in acute distress. HEENT: Eyes, normal conjunctivae. Moist oral mucosa. Anicteric. NECK: No JVD. RESPIRATORY: Bilateral air entry. No rales, no wheezing. Symmetric expansion. CARDIOVASCULAR: Normal rate, regular rhythm. No murmurs, no gallop, no edema. ABDOMEN: Soft. Normal bowel sounds. MUSCULOSKELETAL: Baseline range of motion and strength. No tenderness. There is some decrease when compared with the patient's previous baseline as per the patient's daughter. SKIN: Warm and intact. No pallor, no rash, no redness. Peripheral pulses are present. Capillary refill seems to be intact. NEUROLOGIC: The patient is confused. No evidence of any new focal weakness. Baseline speech. Cranial nerve seems to be intact. PSYCHIATRIC: The patient is in good mood, confused, unable to fully explore. No anxiety. EKG was reviewed. The patient has sinus rhythm with occasional PVCs and PACs. No QRS voltage. Ventricular rate 81, LA 200, QRS 80, QT corrected 418. Chest x -ray was reviewed and the patient has evidence of CHF with mild edema. LABORATORY DATA: Reviewed. The patient has white count 13.2, hemoglobin 13.2, platelet count 254. Sodium 134, potassium 4.1, chloride 100, carbon dioxide 26 , anion gap 12, BUN 23, creatinine 0.8, GFR 83, glucose 119, calcium 8.6, total bilirubin 0.4, AST 15, ALT 14, alkaline phosphatase 64, CK-MB 0.7. Troponin was negative x1. Serum total protein 6.6, albumin 3.3, albumin globulin ratio is 1, lipase is 19. ASSESSMENT AND PLAN: The patient will be placed in the hospital with following medical problems: 1. Failure to thrive, unclear etiology, could be secondary to deconditioning from previous infection. We will monitor. Assist the patient as needed. 2. History of paroxysmal supraventricular tachycardia, this is chronic, stable. We will monitor on tele. We will adjust treatment as needed. 3. The patient reported some chest pain. EKG is normal. Troponin is normal. We will monitor overnight. If a stress test is needed, we would consider calling Cardiology first given recent management by Cardiology past week. 4. Leukocytosis with white count 13.2. On previous admission, it was 20 and 16. Could be secondary to previous diagnosis of pneumonia. We will continue Levaquin as inpatient for a few more days given the recurrence of symptoms, 5. possible underlying congestive heart failure with preserved ejection fraction , chest x-ray showing possible pulmonary edema. We will reconcile home meds while he is on diuresis. 6. Deep venous thrombosis prophylaxis. MTDD
[2018-04-15] MEDS ORDERED: Sodium Chloride 0.9% 10 ML ONE (22:47)
[2018-04-15] MEDS: Acetaminophen 325 MG TAB PO PRN (22:50)
[2018-04-15] MEDS: Pregabalin 75 MG CAP PO SCH (22:50)
[2018-04-15] MEDS: Magnesium Chloride 64 MG TAB PO SCH (23:03)
[2018-04-16 00:51] LABS: Troponin I Less than 0.010 ng/mL (< 0.028)
[2018-04-16 04:46] LABS: #Basophils 0.1 thou/uL (0.0-0.2); #Eosinphils 0.2 thou/uL (0.0-0.7); #Lymphocytes 1.6 thou/uL (1.20-3.40); #Monocytes 1.4 thou/uL (0.11-0.59); #Neutrophils 6.9 thou/uL (1.40-6.50); %Basophils 0.7 % (0.0-1.0); %Eosinophils 2.3 % (0.0-10.0); %Lymphocytes 15.8 % (21.0-51.0); %Monocytes 13.3 % (0.0-10.0); %Neutrophils 67.9 % (42.0-75.0); Hemoglobin 13.1 g/dL (14.0-18.0); Mean Corpuscular HGB CONC 32.3 g/dL (32.0-36.0); Mean Corpuscular Hemoglobin 31.7 pg (27.0-31.0); Mean Corpuscular Volume 97.9 fL (78.0-98.0); Mean Platelet Volume 7.2 fL (7.4-10.4); Platelet Count 248 thou/uL (130-400); RBC Distribution Width 15.5 % (11.5-14.5); Red Blood Cell (RBC) Count 4.14 mill/uL (4.70-6.10); White Blood Cell (WBC) Count 10.1 thou/uL (4.8-10.8)
[2018-04-16 05:03] LABS: Anion Gap 13 mmol/L (10-20); BUN (Urea Nitrogen) 20 mg/dL (8.4-25.7); Calc. Creatinine Clearance 79 mL/min (70-130); Calcium 8.5 mg/dL (7.8-10.44); Carbon Dioxide 24 mmol/L (23-31); Chloride 104 mmol/L (98-107); Estimated GFR-MDRD 88; Glucose 101 mg/dL (83-110); Potassium 4.5 mmol/L (3.5-5.1); Sodium 136 mmol/L (136-145)
[2018-04-16] MEDS: Acetaminophen 325 MG TAB PO PRN ×2 (06:07→22:19)
[2018-04-16] MEDS: Mometasone/Formoterol 120 PUFF INHALER INH SCH ×2 (06:47→18:25)
[2018-04-16] MEDS: Magnesium Chloride 64 MG TAB PO SCH ×2 (08:22→20:36)
[2018-04-16] MEDS: Pregabalin 75 MG CAP PO SCH ×2 (08:22→20:37)
[2018-04-16] MEDS: Aspirin 325 MG TAB PO SCH (08:22)
[2018-04-16] MEDS: Enoxaparin Sodium 40 MG/0.4 ML SYRINGE SC SCH (09:17)
[2018-04-16 12:18] VITALS: BMI 26.3
[2018-04-16 13:20] LABS: Bilirubin Negative (Negative); Blood, Urine Negative (Negative); Clarity CLEAR (Clear); Glucose, Urine (Dipstick) Negative (Negative); Leukocyte Negative (Negative); Nitrite Negative (Negative); Protein, Urine (Dipstick) 30 mg/dL (Neg-Trace); Specific Gravity, Urine 1.013 (1.002-1.036)
[2018-04-16 13:21] LABS: Bacteria/HPF None Seen HPF (None Seen); Hyaline Casts/LPF 0-3 HYALINE CAST LPF (0-3 Hyaline); Pathc Cast-AUWi Flag 0.14 (0-2.49); Squamous Epithelial None Seen HPF (0-3); WBC/HPF None Seen HPF (0-3)
[2018-04-16] MEDS: OMEPRAZOLE PO SCH ×3 (14:10→20:37)
[2018-04-16] MEDS: SODIUM BICARBONATE PO SCH ×3 (14:10→20:37)
--- NOTE | 2018-04-16 15:13 | ULT ---
GALLBLADDER ULTRASOUND: HISTORY: Vomiting. Nausea. COMPARISON: None. TECHNIQUE: Utilizing a Multi-Hertz transducer, sonographic imaging of the right upper quadrant is performed in t he longitudinal and transverse planes. FINDINGS: Limited evaluation of the left hepatic lobe and pancreas due to bowel gas. The main portal vein is patent. Appropriate directional flow. The right hepatic lobe has a normal echotexture. No hepatic masses or intrahepatic biliary dilatatio n. The contour of the hepatic margin is maintained. The right hepatic lobe measures 14.3 cm. Anechoic focus in the right renal cortex, measuring 2 x 2 x 1.7 cm is compatible with a cyst. No hyd ronephrosis. There is right renal cortical thinning. The right kidney measures 5.6 x 5.3 x 9.2 cm. Surgically absent gallbladder. Common bile duct diameter is 0.7 cm. Note is made of a right-sided pleural effusion, possibly complex. IMPRESSION: 1. Limited evaluation of the right upper quadrant. The visualized liver is unremarkable. Common bi le duct diameter is within normal limits for a patient who has had a previous cholecystectomy. 2. Possible complex right-sided pleural fluid. Correlation made with chest radiograph from 04/15/20 18, which does not demonstrate any pleural fluid. Consider two view chest radiograph if warranted. POS: [facility]
[2018-04-16] MEDS: Sodium Chloride 0.9% 500 ML IV SCH (18:32)
[2018-04-16] MEDS: ALPRAZolam 1 MG TAB PO PRN (22:08)
[2018-04-17] MEDS: Acetaminophen 325 MG TAB PO PRN ×3 (02:36→23:21)
[2018-04-17] MEDS: Sodium Chloride 0.9% 500 ML IV SCH (05:52)
[2018-04-17] MEDS: Mometasone/Formoterol 120 PUFF INHALER INH SCH ×2 (06:58→19:09)
[2018-04-17] MEDS ORDERED: Albumin 25% 25 GM/100 ML BOT IVPB SCH (08:42)
[2018-04-17] MEDS ORDERED: Furosemide 40 MG/4 ML VIAL SLOW IVP SCH (08:45)
[2018-04-17] MEDS: Enoxaparin Sodium 40 MG/0.4 ML SYRINGE SC SCH (09:07)
[2018-04-17] MEDS: SODIUM BICARBONATE PO SCH ×3 (09:08→17:20)
[2018-04-17] MEDS: Magnesium Chloride 64 MG TAB PO SCH ×2 (09:08→21:35)
[2018-04-17] MEDS: Aspirin 325 MG TAB PO SCH (09:08)
[2018-04-17] MEDS: OMEPRAZOLE PO SCH ×3 (09:08→17:20)
[2018-04-17] MEDS: Pregabalin 75 MG CAP PO SCH ×2 (09:10→21:35)
--- NOTE | 2018-04-17 09:49 | PDOC.PN ---
- Subjective Encounter Start Date: 04/16/18 Encounter Start Time: 10:30 Subjective: pt up in bed complains of nausea and vomiting - Objective Resuscitation Status: Resuscitation Status DNI:No Intubation Vital Signs & Weight: Vital Signs (12 hours) Temp Pulse Resp BP BP BP Pulse Ox 04/17/18 07:20 98 F 66 20 107/58 L 92 L 04/17/18 06:58 73 20 91 L 04/17/18 04:00 97.8 F 70 21 H 112/57 L 93 L 04/17/18 00:30 97.9 F 65 24 H 103/55 L 90 L Weight Admit Weight 177 lb 3.2 oz Weight 176 lb 14.4 oz I&O: 04/16/18 04/17/18 04/18/18 06:59 06:59 06:59 Intake Total 378 1460 Output Total 200 1325 Balance 178 135 Result Diagrams: 04/16/18 04:18 04/16/18 04:18 Phys Exam - Physical Examination Neck: no nodes, no JVD, supple, full ROM Cardiovascular: RRR, no significant murmur, no rub, gallop, irregular Gastrointestinal: soft, non-tender, no distention, positive bowel sounds Dx/Plan (1) Nausea & vomiting Code(s): R11.2 - NAUSEA WITH VOMITING, UNSPECIFIED Status: Acute (2) Pneumonia Code(s): J18.9 - PNEUMONIA, UNSPECIFIED ORGANISM Status: Acute (3) SVT (supraventricular tachycardia) Code(s): I47.1 - SUPRAVENTRICULAR TACHYCARDIA Status: Resolved Comment: Pt to have ablation today - Plan will order ruq ultrasound. pt has a hx of esophageal cancer possible -: reoccurance? if ruq normal will advance diet. * . Review of Systems - Review of Systems Respiratory: negative: Cough, Dry, Shortness of Breath, Hemoptysis, SOB with Excertion, Pleuritic Pain, Sputum, Wheezing Cardiovascular: negative: chest pain, palpitations, orthopnea, paroxysmal nocturnal dyspnea, edema, light headedness, other Gastrointestinal: Nausea, Vomiting - Medications/Allergies Allergies/Adverse Reactions: Allergies Allergy/AdvReac Type Severity Reaction Status Date / Time No Known Allergies Allergy Verified 02/17/17 20:23 Medications: Current Medications Acetaminophen (Tylenol) 650 mg PO Q4H PRN PRN Reason: Headache/Fever or Pain Last Admin: 08/17/18 09:11 Dose: 650 mg Albumin Human (Albumin 25%) 25 gm IVPB NOW [facility] Stop: 04/17/18 16:00 Last Admin: 04/17/18 09:04 Dose: 25 gm Albuterol Sulfate (Proventil Hfa) 2 puff INH Q4HR PRN PRN Reason: SOB &/or Wheezing Albuterol/Ipratropium (Duoneb) 3 ml NEB QID PRN PRN Reason: SOB &/or Wheezing Alprazolam (Xanax) 1 mg PO TID PRN PRN Reason: Anxiety Last Admin: 04/16/18 22:08 Dose: 1 mg Aspirin (Aspirin) 325 mg PO DAILY [facility] Last Admin: 04/17/18 09:08 Dose: Not Given Enoxaparin Sodium (Lovenox) 40 mg SC 0900 [facility] Last Admin: 04/17/18 09:07 Dose: 40 mg Furosemide (Lasix) 40 mg SLOW IVP NOW [facility] Stop: 04/17/18 16:00 Last Admin: 04/17/18 09:03 Dose: 40 mg Levofloxacin 750 mg/ Device 150 mls @ 100 mls/hr IVPB Q24HR [facility] Stop: 04/19/18 22:29 Last Admin: 04/16/18 20:36 Dose: 150 mls Magnesium Chloride (Slow-Mag) 64 mg PO BID [facility] Last Admin: 04/17/18 09:08 Dose: 64 mg Mometasone Furoate/Formoterol Fumar (Dulera 200 Mcg/5 Mcg Inhaler) 2 puff INH BID-RT [facility] Last Admin: 04/17/18 06:58 Dose: 2 puff Ondansetron HCl (Zofran) 4 mg IVP Q6H PRN PRN Reason: Nausea/Vomiting Last Admin: 04/16/18 17:08 Dose: 4 mg (Omeprazole/Sodium Bicarbonate [ Omeprazole-Bicarb 40 -1,680 Pkt] 0 each PO QID [facility] Last Admin: 04/17/18 09:08 Dose: 1 each Pregabalin (Lyrica) 150 mg PO BID [facility] Last Admin: 04/17/18 09:10 Dose: 150 mg
[2018-04-17] MEDS ORDERED: Ipratropium Bromide 2.5 ml Neb NEB PRN (13:11)
[2018-04-17] MEDS: ALPRAZolam 1 MG TAB PO PRN ×2 (13:13→21:36)
[2018-04-17] MEDS: Ipratropium Bromide 2.5 ml Neb NEB SCH ×3 (14:03→23:10)
[2018-04-17] MEDS: Metoprolol Tartrate 25 MG TAB PO SCH (21:36)
--- NOTE | 2018-04-17 22:13 | PDOC.PN ---
- Subjective Encounter Start Date: 04/17/18 Encounter Start Time: 10:30 Subjective: pt tolerated full liquid - Objective Resuscitation Status: Resuscitation Status DNI:No Intubation Vital Signs & Weight: Vital Signs (12 hours) Temp Pulse Pulse Pulse Resp BP BP 04/17/18 19:09 04/17/18 16:57 97.9 F 67 16 128/61 04/17/18 14:09 73 73 106/55 L 04/17/18 14:03 73 20 04/17/18 11:45 97.7 F 73 18 104/54 L BP Pulse Ox 04/17/18 19:09 91 L 04/17/18 16:57 93 L 04/17/18 14:09 132/65 04/17/18 14:03 92 L 04/17/18 11:45 92 L Weight Admit Weight 177 lb 3.2 oz Weight 176 lb 14.4 oz I&O: 04/16/18 04/17/18 04/18/18 06:59 06:59 06:59 Intake Total 378 1460 1180 Output Total 200 1325 1700 Balance 178 135 -520 Result Diagrams: 04/16/18 04:18 04/16/18 04:18 Phys Exam - Physical Examination mild crackles to bases Cardiovascular: RRR, no significant murmur, no rub, gallop, irregular Gastrointestinal: soft, non-tender, no distention, positive bowel sounds Musculoskeletal: no edema, pulses present, edema present Dx/Plan (1) Nausea & vomiting Code(s): R11.2 - NAUSEA WITH VOMITING, UNSPECIFIED Status: Acute (2) Pneumonia Code(s): J18.9 - PNEUMONIA, UNSPECIFIED ORGANISM Status: Acute (3) SVT (supraventricular tachycardia) Code(s): I47.1 - SUPRAVENTRICULAR TACHYCARDIA Status: Resolved Comment: Pt to have ablation today - Plan pt tolerated full liquid -: ruq ultrasound normal -: will await PT recommendation -: pt's bp is low will continue to hold cardizem for now and decrease dose of -: metoprolol. Medications could cause pt to have n/v possible dispo in am * . Review of Systems - Review of Systems Respiratory: negative: Cough, Dry, Shortness of Breath, Hemoptysis, SOB with Excertion, Pleuritic Pain, Sputum, Wheezing Cardiovascular: negative: chest pain, palpitations, orthopnea, paroxysmal nocturnal dyspnea, edema, light headedness, other Gastrointestinal: negative: Nausea, Vomiting, Abdominal Pain, Diarrhea, Constipation, Melena, Hematochezia, Other Genitourinary: negative: Dysuria, Frequency, Incontinence, Hematuria, Retention , Other - Medications/Allergies Allergies/Adverse Reactions: Allergies Allergy/AdvReac Type Severity Reaction Status Date / Time No Known Allergies Allergy Verified 02/17/17 20:23 Medications: Current Medications Acetaminophen (Tylenol) 650 mg PO Q4H PRN PRN Reason: Headache/Fever or Pain Last Admin: 04/17/18 09:11 Dose: 650 mg Albuterol Sulfate (Proventil Hfa) 2 puff INH Q4HR PRN PRN Reason: SOB &/or Wheezing Alprazolam (Xanax) 1 mg PO TID PRN PRN Reason: Anxiety Last Admin: 04/17/18 21:36 Dose: 1 mg Cholecalciferol (Vitamin D3) 1,000 units PO DAILY [facility] Enoxaparin Sodium (Lovenox) 40 mg SC 0900 [facility] Last Admin: 04/17/18 09:07 Dose: 40 mg Levofloxacin 750 mg/ Device 150 mls @ 100 mls/hr IVPB Q24HR [facility] Stop: 04/19/18 22:29 Last Admin: 04/17/18 21:43 Dose: 150 mls Ipratropium [place] (Atrovent) 2.5 ml NEB [id number] [facility] Last Admin: 04/17/18 19:09 Dose: 2.5 ml Ipratropium [place] (Atrovent) 2.5 ml NEB [id number] PRN PRN Reason: SOB &/or Wheezing Magnesium Chloride (Slow-Mag) 64 mg PO BID [facility] Last Admin: 04/17/18 21:35 Dose: 64 mg Metoprolol Tartrate (Lopressor) 12.5 mg PO BID [facility] Last Admin: 04/17/18 21:36 Dose: 12.5 mg Mometasone Furoate/Formoterol Fumar (Dulera 200 Mcg/5 Mcg Inhaler) 2 puff INH BID-RT [facility] Last Admin: 04/17/18 19:09 Dose: 2 puff Ondansetron HCl (Zofran) 4 mg IVP Q6H PRN PRN Reason: Nausea/Vomiting Last Admin: 04/16/18 17:08 Dose: 4 mg (Omeprazole/Sodium Bicarbonate [ Omeprazole-Bicarb 40 -1,680 Pkt] 0 each PO BID [facility] Last Admin: 04/17/18 17:20 Dose: 1 each Pregabalin (Lyrica) 150 mg PO BID [facility] Last Admin: 04/17/18 21:35 Dose: 150 mg
[2018-04-18] MEDS: Ipratropium Bromide 2.5 ml Neb NEB SCH ×4 (04:11→13:34)
[2018-04-18] MEDS: Acetaminophen 325 MG TAB PO PRN (06:33)
[2018-04-18] MEDS: Mometasone/Formoterol 120 PUFF INHALER INH SCH (06:56)
[2018-04-18] MEDS: SODIUM BICARBONATE PO SCH (08:00)
[2018-04-18] MEDS: OMEPRAZOLE PO SCH (08:00)
[2018-04-18] MEDS: Pregabalin 75 MG CAP PO SCH (09:02)
[2018-04-18] MEDS: Enoxaparin Sodium 40 MG/0.4 ML SYRINGE SC SCH (09:02)
[2018-04-18] MEDS: Metoprolol Tartrate 25 MG TAB PO SCH (09:02)
[2018-04-18] MEDS: Magnesium Chloride 64 MG TAB PO SCH (09:03)
[2018-04-18] MEDS: ALPRAZolam 1 MG TAB PO PRN ×2 (09:06→15:08)
[2018-04-18 13:59] VITALS: BP 109/64
[2018-04-18 14:08] VITALS: TEMP 98.8
--- NOTE | 2018-04-18 22:58 | DIS ---
DATE OF ADMISSION: 04/15/2018 DATE OF DISCHARGE: 04/18/2018 DISCHARGE DIAGNOSES: 1. Nausea, vomiting x5 times. 2. History of recent pneumonia. 3. History of recent sepsis. 4. Hypertension. 5. History of supraventricular tachycardia. HOSPITAL COURSE: Patient is a very pleasant 82-year-old male who was [facility], was in rehab and then came back to the hospital with complaints of nausea, vomiting for one d ay. Patient at this time underwent a right upper quadrant ultrasound which did not indicate any acut e abnormalities. He does not have a gallbladder. Patient does have the right upper quadrant ultraso und indicated that the patient had a cyst on the right renal cortex and also had a right hepatic lobe was normal. No hepatic masses or lesions were noted and the gallbladder was surgically absent. Com mon bile duct measures 0.7 cm. The patient at this time was treated conservatively, was started on c lear liquids and advanced to regular diet which he tolerated. The patient also was given one dose of IV Lasix for mild pulmonary edema. Patient was also put on some DuoNeb initially, but was treated w ith antibiotics; however, I do not feel this patient had any pneumonia. Patient will be discharged h ome. He will follow up with his PCP. DISCHARGE MEDICATIONS: As of the followin. Ambien 10 mg p.o. at bedtime p.r.n. 2. Omeprazole and sodium bicarbonate 2 packs b.i.d. 3. Budesonide and formoterol two puffs b.i.d. 4. He is on metoprolol. The dose was decreased to 12.5 b.i.d. due to low blood pressure. 5. Ipratropium nebs q.6 hours p.r.n. 6. He is also magnesium chloride 64 mg p.o. b.i.d. 7. Lyrica 150 mg p.o. b.i.d. PHYSICAL EXAMINATION: VITAL SIGNS: As of the following, temperature of 98.8, 72, 16 and 92% on room air, blood pressure 10 3/58. GENERAL: He is awake, alert, oriented x3, does not appear in distress. CARDIOVASCULAR: S1, S2 present. No murmurs, rubs or gallops. ABDOMEN: Soft, nontender. Bowel sounds are present x2. EXTREMITIES: No edema. DISCHARGE INSTRUCTIONS: Patient will be discharged home. He will follow up with PCP and also with C ardiology and GI as needed.
--- NOTE | 2018-04-22 16:03 | EKG ---
Test Reason : ER Blood Pressure : / mmHG Vent. Rate : 081 BPM Atrial Rate : 081 BPM P-R Int : 200 ms QRS Dur : 080 ms QT Int : 360 ms P-R-T Axes : 074 -14 011 degrees QTc Int : 418 ms Sinus rhythm with occasional Premature ventricular complexes and Premature atrial complexes Low voltage QRS Borderline ECG Confirmed by HOLLY SOMERS, NORMA ([id number]), development editor CHERIE SHORE ([id number]) on 04/22/2018 4:02:38 PM Referred By: Confirmed By:NORMA BARRERA MD
== END 2018-04-18 16:00 | disposition home or self-care (01) ==
LOC: ERS 16:26 → 2NO 18:30
PROVIDERS: ADMIT Internal Medicine; ATTEND Internal Medicine
DX: R41.82 Altered mental status, unspecified (principal); R62.7 Adult failure to thrive; R07.9 Chest pain, unspecified; J44.9 Chronic obstructive pulmonary disease, unspecified; F41.9 Anxiety disorder, unspecified; I47.1 Supraventricular tachycardia; D72.829 Elevated white blood cell count, unspecified; R11.2 Nausea with vomiting, unspecified; J18.9 Pneumonia, unspecified organism; I10 Essential (primary) hypertension; Z92.21 Personal history of antineoplastic chemotherapy; Z87.891 Personal history of nicotine dependence; Z79.899 Other long term (current) drug therapy; Z66 Do not resuscitate
CPT/HCPCS: 71045; 76705; 80048; 80053; 81001; 82553; 83690; 83880; 84484 ×2; 85025 ×2; 87040; 93005; 94640 ×6; 94760; 96361 ×3; 96365; 96366 ×2; 96372 ×4; 96375 ×2; 97116; 97139; 99285; G0378 ×3; G8978 ×2; G8979 ×2; G8980; P9047; 36415; 96360; A4216; J1650; J1940; J1956; J2405; J7644

== ENCOUNTER 2018-06-22 14:49 | Outpatient (CLI) | payer MEDICARE ==
--- NOTE | 2018-06-22 17:17 | RAD ---
CHEST PA AND LATERAL: Date: 06/22/18 HISTORY: 82-year-old male with history of bronchopneumonia, with cough, congestion, and runny nose for 1 week. COMPARISON: 04/15/18. FINDINGS: Left subclavian catheter and injection port. Interval [id number] of some patchy alveolar parenchyma l changes in the right upper lobe with overall stable appearing chronic interstitial changes and post operative changes on the right chest. Dorsal column stimulator leads in place. Evidence for moderate to large hiatal hernia. IMPRESSION: Some interstitial and patchy alveolar parenchymal changes in the right upper lobe, evidence for right upper lobe pneumonia. Postop changes in the right chest with some right hemidiaphragm elevation and rib deformities, stable. Evidence for moderate to large hiatal hernia. Short-term follow-up for compl ete clearing of the right upper lobe pneumonia suggested. POS: [facility]
== END 2018-06-22 14:50 | disposition home or self-care (01) ==
LOC: BICRAD 14:49
PROVIDERS: ATTEND Family Medicine
DX: J18.0 Bronchopneumonia, unspecified organism (principal); M95.4 Acquired deformity of chest and rib; K44.9 Diaphragmatic hernia without obstruction or gangrene; Q79.1 Other congenital malformations of diaphragm; Z98.890 Other specified postprocedural states
CPT/HCPCS: 36415; 71046; 80053; 85025

== ENCOUNTER 2018-07-29 08:50 | Inpatient (IN) | payer MEDICARE ==
[2018-07-29 09:42] LABS: #Basophils 0.1 thou/uL (0.0-0.2); #Eosinphils 0.1 thou/uL (0.0-0.7); #Lymphocytes 4.4 thou/uL (1.20-3.40); #Monocytes 0.8 thou/uL (0.11-0.59); #Neutrophils 8.5 thou/uL (1.40-6.50); %Basophils 0.6 % (0.0-1.0); %Eosinophils 0.5 % (0.0-10.0); %Lymphocytes 31.8 % (21.0-51.0); %Neutrophils 61.1 % (42.0-75.0); Hemoglobin 14.3 g/dL (14.0-18.0); Mean Corpuscular HGB CONC 31.3 g/dL (32.0-36.0); Mean Corpuscular Hemoglobin 29.4 pg (27.0-31.0); Mean Corpuscular Volume 93.7 fL (78.0-98.0); Mean Platelet Volume 7.2 fL (7.4-10.4); Platelet Count 335 thou/uL (130-400); Red Blood Cell (RBC) Count 4.88 mill/uL (4.70-6.10); White Blood Cell (WBC) Count 13.9 thou/uL (4.8-10.8)
[2018-07-29 10:27] LABS: Albumin 3.9 g/dL (3.4-4.8); CKMB 0.4 ng/mL (0-6.6); Troponin I Less than 0.010 ng/mL (< 0.028)
[2018-07-29 10:28] LABS: Chloride 103 mmol/L (98-107); Potassium 4.6 mmol/L (3.5-5.1); Sodium 137 mmol/L (136-145)
[2018-07-29 10:29] LABS: Glucose 121 mg/dL (83-110)
[2018-07-29 10:30] LABS: Globulin 3.6 g/dL (2.4-3.5); Protein, Total 7.5 g/dL (5.8-8.1)
[2018-07-29 10:31] LABS: Bilirubin, Total 0.5 mg/dL (0.2-1.2); Carbon Dioxide 19 mmol/L (23-31)
[2018-07-29 10:32] LABS: Alkaline Phosphatase 95 U/L (40-150)
[2018-07-29 10:33] LABS: Calc. Creatinine Clearance 0 mL/min (70-130); Estimated GFR-MDRD 50
[2018-07-29 10:34] LABS: BUN (Urea Nitrogen) 35 mg/dL (8.4-25.7)
--- NOTE | 2018-07-29 10:34 | RAD ---
FRONTAL VIEW CHEST: Comparison: 06-20-18 Indication: Cough. FINDINGS: Left chest port remains. There is elevation of the right hemidiaphragm. Stimulator leads overlie the thoracic spinal column. There is stable ectasia of the thoracic aorta. Cardiac silhouette is at upper limits of normal in size, stable. Interstitial opacities are present bilaterally. Stable partial abs ence of right 8th rib. IMPRESSION: 1. No focal consolidation. 2. Additional findings as described above. POS: [facility]
[2018-07-29 10:35] LABS: ALT (SGPT) 20 U/L (8-55); AST (SGOT) 28 U/L (5-34)
[2018-07-29 10:56] LABS: Anion Gap 20 mmol/L (10-20)
[2018-07-29] MEDS ORDERED: Ondansetron PF 4 MG/2 ML Vial ONE (13:48)
--- NOTE | 2018-07-29 13:55 | CT ---
CTA THORAX WITH CONTRAST: (Computed Tomographic Angiography, chest(noncoronary) with contrast material, and image postprocessin g) (PE protocol) DATE: 07/29/2018. HISTORY: An 82-year-old male with chest pain and cough. TECHNIQUE: IV injection of iodinated contrast: administered. Scan acquisition timing attempted to coincide with iodinated contrast bolus reaching maximal density in pulmonary arteries. 3D MIP reconstructions. FINDINGS: There is material filling the lumen of the right lower lobe bronchus. This material extends a short distance into 2 of its proximal branches. There is extensive infiltrate-like density in the basilar posterior and basilar lateral portions of the right lower lobe, broadly abutting the pleural surface. Adjacent to this, the superior portion of the herniated stomach occupies the right posteromedial he mithoracic cavity. Absence of the distal 75% of the right 8th rib. Callus around a nonunited fracture of the posterolat eral aspect of the right 9th rib. Fractures without definite callus involving posterolateral aspects of right 10th rib, neck of right 10th rib, and neck and posterior aspect of right 11th rib. No pleural effusion or pneumothorax. No evidence of pulmonary thromboembolus. Ectasia, tortuosity, and mild to moderate atherosclerotic calcification of thoracic aorta. No cardiomegaly. Elevated rig ht hemidiaphragm. There is a left subclavian implantable vascular access port. The left subclavian vein itself is not visible, and it is uncertain whether or not this catheter is within the lumen of t he vein. Its distal tip is just anterior to the anterior portion of the aortic arch and anterior to the superior vena cava. Diffusely prominent interstitial markings bilaterally. IMPRESSION: 1. Aspirated material filling the lumen of the right lower lobe bronchus. 2. Infiltrate in the right lower lobe base. Uncertain whether this represents pneumonia, aspiration pneumonitis, or atelectasis. 3. Moderate to large hiatal hernia, with a large portion of the stomach in the right hemithoracic ca vity. 4. Multiple right lower rib fractures, at least one, and possibly all, of which are subacute. 5. No pulmonary thromboembolism identified. 6. Left subclavian implantable vascular access port. It is uncertain whether or not this is actuall y within the lumen of a vessel. Recommend clinical correlation. tima[] POS: [facility]
[2018-07-29 15:53] LABS: Troponin I Less than 0.010 ng/mL (< 0.028)
[2018-07-29 17:13] LABS: Troponin I 0.022 ng/mL (< 0.028)
[2018-07-29 18:31] VITALS: BMI 26.2
[2018-07-29] MEDS ORDERED: [UNRECOGNIZED DRUG - REMARK] IVPB PRN (19:21)
[2018-07-29] MEDS: Sodium Chloride 0.45% 1,000 ML IV SCH (20:54)
[2018-07-29] MEDS: Famotidine 20 MG TAB PO SCH (20:54)
[2018-07-29] MEDS ORDERED: Ondansetron ODT 4 MG TAB SL PRN (21:00)
[2018-07-29] MEDS ORDERED: Ondansetron PF 4 MG/2 ML Vial IVP PRN (21:00)
[2018-07-29] MEDS ORDERED: Vancomycin HCl 750 MG in Sodium Chloride 0.9% 250 ML 250 ML IVPB SCH (21:00)
[2018-07-29] MEDS: Piperacillin/Tazobactam 3.375 GM in Sodium Chloride 0.9% 100 ML IVPB SCH (23:42)
--- NOTE | 2018-07-30 04:59 | HP ---
CHIEF COMPLAINT: Chest congestion. HISTORY OF PRESENT ILLNESS: This patient reports that he started feeling poorly yesterday afternoon and until the evening, this persisted overnight. The patient reports severe generalized weakness. He initially had some chest discomfort as well, subsequently started coughing. His cough produced some whitish sputum and then he began "throwing up" from his respiratory tract. He got up to the bathroom, but was too weak to even get himself back up to bed. Reports that his had to help him and it was a challenge even then. The patient reported feeling hot and cold flashes throughout the night, had a very poor sleep. He admits to some generalized aches. He also reported some diarrhea over last night as well. He had persistent symptoms this morning and apparently presented to the emergency department today. The patient describes his chest pain as dull in nature and says that it is in the "heart area," but then says he does not want to know where his heart is and it is more on the left side of his chest, it was intermittent and then had subsequently resolved. He denies knowing specifically whether he had fevers or chills. He denies any hemoptysis. REVIEW OF SYSTEMS: All systems reviewed, and pertinent positives and negatives all mentioned in the history of present illness. PAST MEDICAL HISTORY: Notable for stomach cancer, treatment with surgery and chemotherapy; COPD, paroxysmal supraventricular tachycardia, and anxiety. PAST SURGICAL HISTORY: Appendectomy, cholecystectomy, prostate surgery, stomach cancer, and resection and ablation for PSVT. SOCIAL HISTORY: The patient is a former smoker, quit 25 years ago. He is a nondrinker and non-drug user. He is . His daughter is his power of title attorney, and the patient is partial on resuscitation cardiac only and is a DO NOT INTUBATE. ALLERGIES: NONE. CURRENT MEDICATIONS: 1. [place] 10/325 one p.o. q.6 hours p.r.n. 2. Lyrica 150 mg p.o. b.i.d. 3. Xanax 1 mg p.o. b.i.d. p.r.n. 4. Ambien 10 mg p.o. nightly p.r.n. 5. Cartia XT 120 mg p.o. daily. 6. Calcium 600 mg two p.o. daily. 7. Multivitamin one p.o. daily. PHYSICAL EXAMINATION: VITAL SIGNS: Blood pressure 106/80, pulse 92, respirations 18, temperature 97.5 , and O2 saturation 94% on nonrebreather. GENERAL APPEARANCE: Age-appropriate male. He is awake, alert, oriented, pleasant, and cooperative. HEENT: PERRL. No OP lesions. NECK: Supple and symmetric. No lymphadenopathy, JVD, or carotid bruits. HEART: Regular at the time of the exam. No murmurs, gallops, or rubs. LUNGS: Diminished throughout. He has some mild bibasilar rales. He also has some upper airway rhonchi. ABDOMEN: Soft, nontender and nondistended. Positive bowel sounds. No masses. No organomegaly. EXTREMITIES: Warm and dry without significant cyanosis, clubbing, or edema. LABORATORY DATA: Sodium 137, potassium 4.6, chloride 103, CO2 of 19, BUN 35, creatinine 1.36, and glucose 121. White count 13.9, hemoglobin 14.3, platelets 335. Flu screen is negative. Chest x-ray shows no consolidation. CT angiogram of the chest shows aspirated material on the right lower lobe bronchus. There is a right lower lobe infiltrate. There is a large hiatal hernia with a large portion of the stomach in the thorax and there are multiple right lower rib fractures that appeared to be sub-acute. EKG shows normal sinus rhythm, however , during his monitor during my exam, the patient had substantial irregularity, which appeared to be atrial fibrillation; however, subsequently, the EKG showed sinus rhythm with frequent PACs. IMPRESSION AND PLAN: 1. Aspiration pneumonia. The patient has evidence of aspirated material on the right lower lobe bronchus. He has a history of prior pneumonias concerning for a possible recurrent aspiration. We will start the patient on Zosyn and vancomycin. He had a dose of Levaquin in the emergency department. We will keep him on oxygen as needed to maintain his O2 saturations. We will consult speech pathology. 2. Acute renal failure. The patient's BUN and creatinine are significantly elevated above his baseline. It should improve with some IV fluids. We will continue to monitor. 3. Acute respiratory failure. The patient presented initially with some hypoxia. He has required some supplemental oxygen, appears to be improving presently. 4. Large hiatal hernia in a patient with a history of gastric cancer, certainly may be putting the patient at risk for some aspiration issues. May need to have this addressed; however, I need the patient's infection to be resolved first. 5. Hypertension, stable. Continue his usual home medications. 6. Anxiety. Continue his p.r.n. Xanax. Job ID: [id number] [email or web address]
[2018-07-30] MEDS: Piperacillin/Tazobactam 3.375 GM in Sodium Chloride 0.9% 100 ML IVPB SCH ×4 (05:20→23:34)
[2018-07-30 06:20] LABS: #Eosinphils 0.1 thou/uL (0.0-0.7); #Lymphocytes 1.4 thou/uL (1.20-3.40); #Monocytes 0.6 thou/uL (0.11-0.59); #Neutrophils 8.4 thou/uL (1.40-6.50); %Basophils 0.3 % (0.0-1.0); %Eosinophils 1.1 % (0.0-10.0); %Lymphocytes 13.2 % (21.0-51.0); %Monocytes 5.4 % (0.0-10.0); %Neutrophils 80.1 % (42.0-75.0); Hemoglobin 12.2 g/dL (14.0-18.0); Mean Corpuscular HGB CONC 31.2 g/dL (32.0-36.0); Mean Corpuscular Hemoglobin 29.6 pg (27.0-31.0); Mean Corpuscular Volume 94.8 fL (78.0-98.0); Mean Platelet Volume 7.3 fL (7.4-10.4); Platelet Count 301 thou/uL (130-400); RBC Distribution Width 16.1 % (11.5-14.5); Red Blood Cell (RBC) Count 4.12 mill/uL (4.70-6.10); White Blood Cell (WBC) Count 10.4 thou/uL (4.8-10.8)
[2018-07-30 06:35] LABS: Anion Gap 10 mmol/L (10-20); BUN (Urea Nitrogen) 29 mg/dL (8.4-25.7); Calc. Creatinine Clearance 56 mL/min (70-130); Calcium 8.5 mg/dL (7.8-10.44); Carbon Dioxide 26 mmol/L (23-31); Chloride 103 mmol/L (98-107); Estimated GFR-MDRD 64; Glucose 127 mg/dL (83-110); Sodium 135 mmol/L (136-145)
[2018-07-30] MEDS ORDERED: cefTRIAXone\\ROCEPHIN 1 GM in Sodium Chloride 0.9% 100 ML IVPB SCH (07:00)
[2018-07-30] MEDS ORDERED: Azithromycin 500 MG in Sodium Chloride 0.9% 250 ML 250 ML IVPB SCH (07:00)
[2018-07-30] MEDS: Vancomycin HCl 750 MG in Sodium Chloride 0.9% 250 ML 250 ML IVPB SCH ×2 (09:16→21:19)
[2018-07-30] MEDS: Famotidine 20 MG TAB PO SCH ×2 (09:16→20:19)
[2018-07-30] MEDS: Sodium Chloride 0.45% 1,000 ML IV SCH ×2 (09:23→19:20)
--- NOTE | 2018-07-30 09:58 | PDOC.PN ---
- Subjective Encounter Start Date: 07/30/18 Encounter Start Time: 09:30 Feeling much better overall. Breathing fairly well. Does now believe he had vomiting from GI source yesterday. Initially thought it was from resp tract. Denies dysphagia. - Objective Resuscitation Status - Order Detail: 07/29/18 17:56 Resuscitation Status Routine Resuscitation Status: PRTL: Cardiac only Discussed with: Patient Additional comments: Does not want even temporary intubation. Vital Signs & Weight: Vital Signs (12 hours) Temp Pulse Resp BP Pulse Ox 07/30/18 04:50 97.9 F 89 18 97/56 L 95 Weight Weight 164 lb 12.8 oz I&O: 07/29/18 07/30/18 07/31/18 06:59 06:59 06:59 Intake Total 1304 Output Total 500 Balance 804 Result Diagrams: 07/30/18 05:48 07/30/18 05:48 Phys Exam - Physical Examination Constitutional: NAD Looks much better overall. Respiratory: no wheezing, no rales, no rhonchi Diminished R base. Cardiovascular: RRR, no significant murmur Gastrointestinal: soft, non-tender, no distention, positive bowel sounds Musculoskeletal: no edema Dx/Plan (1) Aspiration pneumonia Code(s): J69.0 - PNEUMONITIS DUE TO INHALATION OF FOOD AND VOMIT Status: Acute (2) Acute respiratory failure with hypoxia Code(s): J96.01 - ACUTE RESPIRATORY FAILURE WITH HYPOXIA Status: Acute (3) Acute renal failure Status: Acute (4) Diarrhea Code(s): R19.7 - DIARRHEA, UNSPECIFIED Status: Resolved (5) COPD (chronic obstructive pulmonary disease) Status: Chronic Qualifiers: COPD type: COPD with acute exacerbation Qualified Code(s): J44.1 - Chronic obstructive pulmonary disease with (acute) exacerbation Comment: stable (6) Dehydration Code(s): E86.0 - DEHYDRATION Status: Acute Comment: resolved. - Plan * Continue IV Vanc and Zosyn. * Continue supplemental oxygen. * Start nebs. * FINISHER SCREWDOWN eval. * Ambulate. * Continue hydration. renal function improving.
[2018-07-30] MEDS ORDERED: HYDROcodone/Acetaminophen 10/325 mg Tablet PO PRN (18:47)
[2018-07-30] MEDS: Pregabalin 75 MG CAP PO SCH (20:19)
[2018-07-30] MEDS ORDERED: ALPRAZolam 1 MG TAB PO SCH (21:00)
[2018-07-30] MEDS: Zolpidem Tartrate 5 MG TAB PO SCH (21:22)
[2018-07-31] MEDS: Piperacillin/Tazobactam 3.375 GM in Sodium Chloride 0.9% 100 ML IVPB SCH ×3 (06:08→17:39)
[2018-07-31] MEDS: Sodium Chloride 0.45% 1,000 ML IV SCH ×3 (06:08→20:37)
[2018-07-31] MEDS: ALPRAZolam 1 MG TAB PO SCH ×2 (08:00→15:04)
[2018-07-31 09:00] LABS: Vancomycin, Trough 7.6 ug/mL
[2018-07-31] MEDS: Calcium Carbonate 600 MG TAB PO SCH ×2 (09:00→15:02)
[2018-07-31] MEDS: Famotidine 20 MG TAB PO SCH ×3 (09:00→20:36)
[2018-07-31] MEDS: Vancomycin HCl 750 MG in Sodium Chloride 0.9% 250 ML 250 ML IVPB SCH (10:01)
[2018-07-31] MEDS ORDERED: Vancomycin HCl 500 MG in Sodium Chloride 0.9% 100 ML IVPB SCH (11:15)
[2018-07-31 12:02] LABS: #Basophils 0.1 thou/uL (0.0-0.2); #Eosinphils 0.4 thou/uL (0.0-0.7); #Lymphocytes 2.4 thou/uL (1.20-3.40); #Monocytes 0.9 thou/uL (0.11-0.59); #Neutrophils 7.1 thou/uL (1.40-6.50); %Basophils 0.7 % (0.0-1.0); %Eosinophils 3.2 % (0.0-10.0); %Lymphocytes 21.8 % (21.0-51.0); %Monocytes 8.7 % (0.0-10.0); %Neutrophils 65.6 % (42.0-75.0); Hemoglobin 12.7 g/dL (14.0-18.0); Mean Corpuscular HGB CONC 32.1 g/dL (32.0-36.0); Mean Corpuscular Hemoglobin 29.3 pg (27.0-31.0); Mean Corpuscular Volume 91.3 fL (78.0-98.0); Mean Platelet Volume 6.9 fL (7.4-10.4); Platelet Count 286 thou/uL (130-400); RBC Distribution Width 16.2 % (11.5-14.5); Red Blood Cell (RBC) Count 4.32 mill/uL (4.70-6.10); White Blood Cell (WBC) Count 10.8 thou/uL (4.8-10.8)
[2018-07-31 12:20] LABS: Anion Gap 10 mmol/L (10-20); BUN (Urea Nitrogen) 13 mg/dL (8.4-25.7); Calcium 8.8 mg/dL (7.8-10.44); Carbon Dioxide 26 mmol/L (23-31); Chloride 104 mmol/L (98-107); Glucose 90 mg/dL (83-110); Sodium 136 mmol/L (136-145)
--- NOTE | 2018-07-31 13:48 | RAD ---
MODIFIED BARIUM SWALLOW IN THE PRESENCE OF THE SPEECH THERAPIST: HISTORY: An 82-year-old male with dysphagia, unspecified. Feeding difficulties. FINDINGS: There is laryngeal penetration without markell aspiration. No persistent pooling of contrast is seen i n the vallecula or piriform sinuses. Please see the recommendations of the speech therapist for further management. POS: HUA
[2018-07-31 13:50] LABS: Calc. Creatinine Clearance 63 mL/min (70-130); Estimated GFR-MDRD 74
[2018-07-31] MEDS: Pregabalin 75 MG CAP PO SCH ×2 (15:01→20:36)
--- NOTE | 2018-07-31 17:40 | PRG ---
DATE OF SERVICE: 07/31/2018 SUBJECTIVE: The patient states that he is feeling well, has no specific concerns. It feels like he is breathing comfortably. OBJECTIVE: VITAL SIGNS: Temperature 97.8, pulse 68, respirations 16, O2 sat 94% to 99% on 2 L nasal cannula, and blood pressure 133/75. GENERAL APPEARANCE: Age-appropriate male. He is awake and alert, in no distress. HEART: Regular with occasional ectopy. LUNGS: Wide bibasilar rales with fair air exchange. ABDOMEN: Soft, nontender and nondistended. He does demonstrate a significant abdominal ventral hernia with attempts to sit-up exam. EXTREMITIES: Warm and dry without edema. IMPRESSION AND PLAN: 1. Aspiration pneumonia. The patient had evidence of aspirated material on the right lower lobe bronchus as well as infiltrate. The patient has had multiple episodes of pneumonia. He has on vancomycin and Zosyn and appears to be clinically improved substantially. 2. Dysphagia. The patient has been evaluated by Speech Therapy, appeared to have some swallowing defect and modified barium swallow is ordered for today. 3. Hypertension. Continue with the Cartia XT. 4. Acute respiratory failure with hypoxia, appears to be improved. We will try to wean the oxygen off today. Discuss this with nursing. Acute renal failure appears to be improved with fluids. We will recheck again today. 5. Diarrhea, resolved. 6. Chronic obstructive pulmonary disease, chronic, stable without acute exacerbation. 7. Dehydration, improved with fluids. 8. DISPOSITION: If I can get the modified barium swallow results back today, his labs look okay, and he is able to get up and around without difficulty, may be able to discharge later today. Job ID: [id number]
[2018-07-31] MEDS: Zolpidem Tartrate 5 MG TAB PO SCH (20:36)
[2018-07-31] MEDS: Vancomycin HCl 1.25 GM in Sodium Chloride 0.9% 250 ML 250 ML IVPB SCH (21:24)
--- NOTE | 2018-07-31 21:50 | PDOC.EVN ---
Event Note - Event Note Event Note: Saw patient again this evening. His daughter was present. I explained the findings of the MBS and recs of the SECURITY INVESTIGATOR. The patient understands well. His daughter harangued him regarding his compliance. I explained that he could discharge today if he felt up to it, but his daughter basically yelled "no" in response. She became very emotional and cried copious tears. She said she could not take him home until he could walk down the [place] and back on his own. I believe she is adjusting to the realization that her father is having more substantial problems than they had known previously. Since she is integral to his care, I am amenable to working on his mobilization more tomorrow and considering discharge at that time. I also discussed the findings of the hiatal hernia on imaging. This puts him more at risk for reflux and aspiration. Discussed diet and lifestyle modifications to address this along with his meds. Total time spent was 25 minutes.
[2018-08-01] MEDS: Piperacillin/Tazobactam 3.375 GM in Sodium Chloride 0.9% 100 ML IVPB SCH ×5 (00:13→23:20)
[2018-08-01] MEDS: Calcium Carbonate 600 MG TAB PO SCH (08:28)
[2018-08-01] MEDS: Pregabalin 75 MG CAP PO SCH ×2 (08:29→20:16)
[2018-08-01] MEDS: Famotidine 20 MG TAB PO SCH ×2 (08:29→20:15)
[2018-08-01] MEDS: ALPRAZolam 1 MG TAB PO SCH ×2 (08:29→14:03)
[2018-08-01] MEDS: Vancomycin HCl 1.25 GM in Sodium Chloride 0.9% 250 ML 250 ML IVPB SCH (10:04)
[2018-08-01] MEDS: Sodium Chloride 0.45% 1,000 ML IV SCH ×2 (10:09→21:50)
[2018-08-01] MEDS: Zolpidem Tartrate 5 MG TAB PO SCH (20:17)
--- NOTE | 2018-08-01 20:51 | PDOC.PN ---
- Subjective Encounter Start Date: 08/01/18 Encounter Start Time: 10:50 Doing well overall. Still trying to adjust to the swallowing techniques and food modifications. Otherwise feeling ok. No cough. No SOB. Still has FRENCH with trying to ambulate in the hallway with walker. - Objective Resuscitation Status - Order Detail: 07/29/18 17:56 Resuscitation Status Routine Resuscitation Status: PRTL: Cardiac only Discussed with: Patient Additional comments: Does not want even temporary intubation. Vital Signs & Weight: Vital Signs (12 hours) Temp Pulse Resp BP Pulse Ox 08/01/18 16:25 97.8 F 59 L 20 120/80 94 L 08/01/18 13:01 97.7 F 52 L 20 103/64 92 L Weight Weight 164 lb 12.8 oz I&O: 07/31/18 08/01/18 08/02/18 06:59 06:59 06:59 Intake Total 3160 3342 2113 Output Total 1500 750 Balance 1660 2592 2113 Result Diagrams: 07/31/18 11:54 07/31/18 11:54 Phys Exam - Physical Examination Constitutional: NAD Neck: no nodes, no JVD, supple Respiratory: no wheezing, no rales, no rhonchi, clear to auscultation bilateral Cardiovascular: RRR, no significant murmur, no rub Gastrointestinal: soft, non-tender, no distention, positive bowel sounds Musculoskeletal: no edema Neurological: non-focal Dx/Plan (1) Aspiration pneumonia Code(s): J69.0 - PNEUMONITIS DUE TO INHALATION OF FOOD AND VOMIT Status: Acute Comment: Much improved. Continue IV abx until discharge. Home on Augmentin. (2) Acute respiratory failure with hypoxia Code(s): J96.01 - ACUTE RESPIRATORY FAILURE WITH HYPOXIA Status: Acute Comment: Improving. OK off oxygen now. (3) Acute renal failure Status: Resolved (4) Diarrhea Code(s): R19.7 - DIARRHEA, UNSPECIFIED Status: Resolved (5) COPD (chronic obstructive pulmonary disease) Status: Chronic Qualifiers: COPD type: COPD with acute exacerbation Qualified Code(s): J44.1 - Chronic obstructive pulmonary disease with (acute) exacerbation Comment: Stable, but may need to be more aggressively treated if the breathing does not get fully back to baseline with the treatment of the pneumonia. (6) Dehydration Code(s): E86.0 - DEHYDRATION Status: Acute Comment: resolved. - Plan * Long discussion with the patient and his daughter. Will get him up and around more today. If he is not getting to the point of discharging by tomorrow , will need to start looking toward SNF. He has HH now and can likely get more PT than he has been getting through HH going forward. Could get the GRADUATE TEACHER EDUCATION therapy via HH as well. Continue to ambulate today as tolerated.
[2018-08-01 21:23] LABS: Vancomycin, Trough 23.7 ug/mL
[2018-08-01 21:53] VITALS: TEMP 97.5
[2018-08-02] MEDS: Piperacillin/Tazobactam 3.375 GM in Sodium Chloride 0.9% 100 ML IVPB SCH ×2 (05:45→12:18)
[2018-08-02] MEDS: Sodium Chloride 0.45% 1,000 ML IV SCH (08:24)
[2018-08-02] MEDS: Calcium Carbonate 600 MG TAB PO SCH (08:25)
[2018-08-02] MEDS: Pregabalin 75 MG CAP PO SCH (08:25)
[2018-08-02] MEDS: ALPRAZolam 1 MG TAB PO SCH ×2 (08:25→14:59)
[2018-08-02] MEDS: Famotidine 20 MG TAB PO SCH (08:25)
[2018-08-02] MEDS ORDERED: Vancomycin HCl 1 GM in Premix Bag 1 BAG IVPB SCH (10:00)
[2018-08-02 10:20] VITALS: BP 123/66
--- NOTE | 2018-08-05 10:37 | DIS ---
DATE OF ADMISSION: 07/29/2018 DATE OF DISCHARGE: 08/02/2018 DISCHARGE DIAGNOSES: 1. Aspiration pneumonia. 2. Acute respiratory failure with hypoxia. 3. Acute renal failure. 4. Diarrhea. 5. Chronic obstructive pulmonary disease. 6. Dehydration. HISTORY OF PRESENT ILLNESS: This patient is an 82-year-old male with history of gastric cancer, who was in generally good health until 24 hours prior to admission when the patient started feeling generally poorly with some generalized weakness. He had some coughing and discomfort in his chest. He produced some whitish sputum and had some what he described as "throwing up" which he initially thought was more respiratory in nature, but on later thinking that it had been actual true vomiting. He tried to get up to the bathroom and became so weak that he required assistance to get back to the bed. He reported some associated diarrhea with these symptoms as well. His initial workup was notable for a BUN of 35 and creatinine of 1.36, which were above his baseline. White count was 13.9. CT angiogram of the chest showed aspirated material in the right lower lobe bronchus with right lower lobe infiltrate as well as a large hiatal hernia with a large portion of the stomach in the thorax and multiple right lower rib fractures which appear to be subacute. The patient initially appeared to be in atrial fibrillation on the monitor. However, a 12-lead confirmed the patient was having sinus rhythm with frequent PACs. HOSPITAL COURSE: The patient was admitted to the hospital with aspiration pneumonia. He was started on vancomycin and Zosyn after having received a dose of Levaquin in the emergency department. The patient's O2 saturations were low enough that he required oxygen supplementation in the emergency department up to the level of the non-rebreather. He was maintained on PPIs as well. Continued with his usual home medications for hypertension and anxiety, and he was hydrated for what appeared to be acute renal failure likely due to dehydration. The patient's white count came down fairly quickly. His creatinine normalized as well as his BUN over the following 48 hours. He had improvement of his respiratory failure and was able to completely come off his oxygen. The patient was evaluated by Speech Therapy. Given his findings of aspirated material in the bronchus, the patient had a modified barium swallow performed, which revealed laryngeal penetration without markell aspiration. Speech Therapy felt that the patient did not have good safe options and primarily working with good technique to avoid future aspiration. The patient was worked on these over the next day or so as he was trying to recover his strength. He appeared to be stable from a respiratory perspective, but was having some difficulty with his walker ambulating very far, however, that improved by the following day. The patient indicated he felt comfortable at that point that he could function at home and was ready for discharge. PHYSICAL EXAMINATION: VITAL SIGNS: On the day of discharge, temperature is 97.5, pulse 70, respirations 18, O2 saturation 92% to 94% on room air, BP was 123/66. GENERAL APPEARANCE: Age-appropriate male, in no distress. Awake, alert, oriented, pleasant, cooperative. HEART: Regular rate and rhythm without murmurs. LUNGS: Clear bilaterally. ABDOMEN: Soft, nontender, and nondistended. EXTREMITIES: Warm and dry without edema. DISPOSITION: The patient is discharged to home. ACTIVITY: As tolerated. He is on a regular diet with aspiration precautions and techniques. MEDICATIONS: He will be on Augmentin liquid 10 mL q.12 hours. He will continue with, 1. Ambien. 2. Xanax. 3. Lyrica. 4. [place]. 5. Cardia. 6. Centrum Silver. 7. Multivitamin. 8. Calcium. 9. Omeprazole bicarbonate combination b.i.d. FOLLOWUP: He is to follow up with Dr. Sohail Vargas tomorrow, and he should return to the hospital should he have any problems that warranted. Job ID: [id number]
== END 2018-08-02 15:47 | disposition home health service (06) | DRG 177 ==
LOC: ERS 08:50 → ERHOLD 14:30 → 2NO 20:41 → T4-A 07-30 18:18
PROVIDERS: ADMIT Internal Medicine; ATTEND Internal Medicine
DX: J69.0 Pneumonitis due to inhalation of food and vomit (principal); J96.01 Acute respiratory failure with hypoxia; I47.1 Supraventricular tachycardia; N17.9 Acute kidney failure, unspecified; J44.1 Chronic obstructive pulmonary disease with (acute) exacerbation; F41.9 Anxiety disorder, unspecified; K44.9 Diaphragmatic hernia without obstruction or gangrene; I10 Essential (primary) hypertension; R19.7 Diarrhea, unspecified; E86.0 Dehydration; R13.10 Dysphagia, unspecified; Z85.028 Personal history of other malignant neoplasm of stomach; Z87.891 Personal history of nicotine dependence; Z90.49 Acquired absence of other specified parts of digestive tract
CPT/HCPCS: 36415; 71045; 71275; 74230; 80048; 80053; 80202; 82553; 84484; 85025; 87040; 87804; 93005; 96361; 96365; 96366; 96375; G8996-GN-CJ; G8996-GN-CK; G8997-GN-CJ; J1956; J2405; J2543; J3370; J7050

== ENCOUNTER 2018-08-18 12:30 | Inpatient (IN) | payer MEDICARE ==
[2018-08-18 13:22] LABS: #Eosinphils 0.1 thou/uL (0.0-0.7); #Lymphocytes 3.4 thou/uL (1.20-3.40); #Monocytes 0.7 thou/uL (0.11-0.59); #Neutrophils 13.4 thou/uL (1.40-6.50); %Basophils 0.2 % (0.0-1.0); %Eosinophils 0.3 % (0.0-10.0); %Lymphocytes 19.3 % (21.0-51.0); %Monocytes 3.7 % (0.0-10.0); %Neutrophils 76.4 % (42.0-75.0); Hemoglobin 12.1 g/dL (14.0-18.0); Mean Corpuscular Volume 93.6 fL (78.0-98.0); Mean Platelet Volume 7.7 fL (7.4-10.4); Platelet Count 248 thou/uL (130-400); RBC Distribution Width 15.3 % (11.5-14.5); Red Blood Cell (RBC) Count 4.16 mill/uL (4.70-6.10); White Blood Cell (WBC) Count 17.6 thou/uL (4.8-10.8)
--- NOTE | 2018-08-18 13:33 | RAD ---
PORTABLE CHEST 1 VIEW: Date: 08/18/18 Time: 1305 hours HISTORY: Shortness of breath. Abdominal pain. Dyspnea. Stomach cancer. COPD. FINDINGS: Comparison made with exam of 07/29/18. There is a new infiltrate in the right lung base with continued elevation of the right hemidiaphragm. Left-sided pacemaker device remains in place. The heart size is stable. Left lung is clear. IMPRESSION: Findings are suspicious for right basilar pneumonia. POS: HUA
[2018-08-18 13:39] LABS: ALT (SGPT) 74 U/L (8-55); AST (SGOT) 187 U/L (5-34); Albumin 3.5 g/dL (3.4-4.8); Alkaline Phosphatase 219 U/L (40-150); Anion Gap 14 mmol/L (10-20); BUN (Urea Nitrogen) 22 mg/dL (8.4-25.7); Calc. Creatinine Clearance 0 mL/min (70-130); Calcium 8.8 mg/dL (7.8-10.44); Carbon Dioxide 28 mmol/L (23-31); Chloride 96 mmol/L (98-107); Estimated GFR-MDRD 53; Globulin 3.9 g/dL (2.4-3.5); Glucose 165 mg/dL (83-110); Potassium 4.2 mmol/L (3.5-5.1); Protein, Total 7.4 g/dL (5.8-8.1); Sodium 134 mmol/L (136-145)
[2018-08-18] MEDS ORDERED: Clindamycin/D5W 900 mg/50 ml Premix Bag ONE (14:46)
[2018-08-18] MEDS ORDERED: Cefepime 2 GM VIAL ONE (14:54)
[2018-08-18] MEDS ORDERED: Sodium Chloride 0.9% 100 ML ONE (14:54)
[2018-08-18 15:20] LABS: Bilirubin Small (Negative); Blood, Urine Negative (Negative); Glucose, Urine (Dipstick) Negative (Negative); Leukocyte Negative (Negative); Nitrite Negative (Negative); Protein, Urine (Dipstick) 30 mg/dL (Neg-Trace); Specific Gravity, Urine 1.015 (1.005-1.030); Urobilinogen 0.2 mg/dL (0.2-1.0); pH, Urine 7.5 (5.0-9.0)
[2018-08-18 15:25] LABS: Clarity Cloudy (Clear)
[2018-08-18] MEDS ORDERED: HYDROcodone/Acetaminophen 5/325 mg Tablet PO PRN ×2 (16:52)
[2018-08-18] MEDS ORDERED: Ondansetron ODT 4 MG TAB SL PRN (16:52)
[2018-08-18] MEDS ORDERED: Acetaminophen 325 MG TAB PO PRN ×2 (16:52)
[2018-08-18] MEDS ORDERED: Ondansetron PF 4 MG/2 ML Vial IVP PRN (16:52)
[2018-08-18 17:03] VITALS: BMI 24.4
[2018-08-18] MEDS: Sodium Chloride 0.9% 1,000 ML IV SCH (17:45)
[2018-08-18] MEDS: Vancomycin HCl 1.25 GM in Sodium Chloride 0.9% 250 ML 250 ML IVPB SCH (17:45)
[2018-08-18] MEDS ORDERED: HYDROcodone/Acetaminophen 10/325 mg Tablet PO PRN (18:23)
[2018-08-18] MEDS ORDERED: OMEPRAZOLE PO SCH (21:00)
[2018-08-18] MEDS ORDERED: SODIUM BICARBONATE PO SCH (21:00)
[2018-08-18] MEDS ORDERED: Vancomycin HCl 1 GM in Premix Bag 1 BAG IVPB SCH (21:00)
[2018-08-18] MEDS ORDERED: Cefepime 1 GM in Sodium Chloride 0.9% 100 ML IVPB SCH (21:00)
[2018-08-18 21:20] LABS: CKMB 0.6 ng/mL (0-6.6)
[2018-08-18] MEDS: Pregabalin 75 MG CAP PO SCH (21:43)
[2018-08-18] MEDS: Clindamycin/D5W 900 MG in Premix Bag 1 BAG IVPB SCH (21:43)
[2018-08-18] MEDS: ALPRAZolam 0.5 MG TAB PO SCH (21:43)
[2018-08-18] MEDS: Zolpidem Tartrate 5 MG TAB PO SCH (21:43)
[2018-08-18] MEDS: Famotidine 20 MG TAB PO SCH (21:44)
[2018-08-18] MEDS ORDERED: Clindamycin/D5W 900 MG in Premix Bag 1 BAG IVPB SCH (22:00)
--- NOTE | 2018-08-19 03:35 | HP ---
CHIEF COMPLAINT: Shortness of breath, cough, and feeling weak. HISTORY OF PRESENT ILLNESS: The patient is an 82-year-old male, who was just discharged from the hospital a couple of weeks ago for aspiration pneumonia. He was doing relatively well, getting PT at home, but he got sick yesterday. He had some generalized weakness and started having some congestion and cough and shortness of breath. He did not have any fever or chills. He called EMS and he was brought to the emergency room for further evaluation. His surrogate decision maker is his , Grady. PAST MEDICAL HISTORY: Positive for; 1. Aspiration pneumonia. 2. Stomach cancer. 3. COPD. 4. Paroxysmal supraventricular tachycardia. 5. Anxiety. 6. Acute respiratory failure with hypoxia during the previous admission. 7. Acute renal failure. PAST SURGICAL HISTORY: 1. Appendectomy. 2. Cholecystectomy. 3. Prostate surgery. 4. Stomach cancer surgery. 5. Resection and ablation of PSVT. SOCIAL HISTORY: He is a former smoker, he quit 25 years ago. He does not drink alcohol. Does not use any illicit drugs. His daughter has power of claims attorney. Specifically, he was asked for his code status today and he wants to be resuscitated. ALLERGIES: NONE. MEDICATIONS: Please refer to the medications list. He was discharged on Augmentin on August 02, 2018. FAMILY HISTORY: Mother and father were alcoholics and from complications related to alcoholism. REVIEW OF SYSTEMS: All systems reviewed and pertinent positives and negatives all mentioned in the history of present illness. PHYSICAL EXAMINATION: VITAL SIGNS: His blood pressure is 93/56, pulse is 107, respiratory rate is 26, and O2 saturation is 92% on O2. HEENT: His head is atraumatic and normocephalic. He looks sick and emaciated. His eyes are sunk. Pupils are responding to light properly. Conjunctivae are palish. Oral mucosa is moist. NECK: Supple. JVD positive bilaterally. LUNGS: Bilateral rales, but mostly on the right side. Some crackles at both bases. HEART: S1 and S2, somewhat tachycardic. No S3. No S4. ABDOMEN: Soft and nontender. Bowel sounds are present. No organomegaly. EXTREMITIES: 1+ to 2+ peripheral edema, similar bilaterally. NEUROLOGICAL: He is alert and oriented x4. There are no any motor or sensory deficits. Cranial nerves are intact. LABORATORY DATA: Labs showed a white count of 17.6, hemoglobin 12.1, hematocrit 38.9, and platelet count is 248. Sodium of 134, potassium 4.2, chloride 96, CO2 of 28, BUN 22, creatinine 1.31, glucose 165, AST 187, ALT 74, and alkaline phosphatase 219. Urine showed 30 of protein, 15 of ketones, and small amount of bilirubin. The rest of urinalysis within normal limits. DIAGNOSTIC DATA: A chest x-ray was done and it showed right basilar infiltrate which is suspicious for pneumonia, and I was not able to localize the EKG on this patient. IMPRESSION: 1. Recurrent most likely healthcare-associated pneumonia versus aspiration pneumonia. 2. Chronic obstructive pulmonary disease. 3. History of paroxysmal supraventricular tachycardia. 4. History of low blood pressure. 5. Anxiety. 6. History of stomach cancer. 7. Normocytic anemia. 8. Hypochloremia and hyponatremia. 9. Renal insufficiency, most likely prerenal. 10. Elevated liver function tests of unclear etiology. His lactic acid is 2.0. BNP was 329.4. He was treated with one dose of Lasix by the emergency room doctor. PLAN: Full admission. Condition is guarded. Activity, bedrest and bathroom privileges. IV, KVO; vancomycin, clindamycin, and cefepime to continue for presumed healthcare-associated pneumonia. DuoNeb every 4 hours. We will reconcile his home medications. We will check his sputum for Gram stain and cultures, and we will have blood cultures. We will do the DVT prophylaxis with SCDs and Lovenox. Job ID: [id number]
[2018-08-19] MEDS: Clindamycin/D5W 900 MG in Premix Bag 1 BAG IVPB SCH ×3 (06:00→22:11)
[2018-08-19 06:48] LABS: #Basophils 0.1 thou/uL (0.0-0.2); #Eosinphils 0.1 thou/uL (0.0-0.7); #Lymphocytes 2.2 thou/uL (1.20-3.40); #Monocytes 0.7 thou/uL (0.11-0.59); #Neutrophils 9.4 thou/uL (1.40-6.50); %Basophils 0.5 % (0.0-1.0); %Eosinophils 0.8 % (0.0-10.0); %Lymphocytes 17.8 % (21.0-51.0); %Monocytes 5.6 % (0.0-10.0); %Neutrophils 75.4 % (42.0-75.0); Hemoglobin 11.2 g/dL (14.0-18.0); Mean Corpuscular HGB CONC 31.1 g/dL (32.0-36.0); Mean Corpuscular Hemoglobin 29.6 pg (27.0-31.0); Mean Corpuscular Volume 95.1 fL (78.0-98.0); Mean Platelet Volume 7.4 fL (7.4-10.4); Platelet Count 242 thou/uL (130-400); RBC Distribution Width 15.3 % (11.5-14.5); Red Blood Cell (RBC) Count 3.78 mill/uL (4.70-6.10); White Blood Cell (WBC) Count 12.4 thou/uL (4.8-10.8)
[2018-08-19 07:04] LABS: Anion Gap 12 mmol/L (10-20); BUN (Urea Nitrogen) 16 mg/dL (8.4-25.7); Calc. Creatinine Clearance 63 mL/min (70-130); Calcium 8.4 mg/dL (7.8-10.44); Carbon Dioxide 26 mmol/L (23-31); Chloride 102 mmol/L (98-107); Estimated GFR-MDRD 73; Glucose 107 mg/dL (83-110); Sodium 136 mmol/L (136-145)
[2018-08-19] MEDS: Enoxaparin Sodium 40 MG/0.4 ML SYRINGE SC SCH (08:49)
[2018-08-19] MEDS: Pregabalin 75 MG CAP PO SCH ×2 (08:49→22:10)
[2018-08-19] MEDS: Multivitamin W/ Minerals 1 TAB PO SCH (08:49)
[2018-08-19] MEDS: Calcium Carbonate 600 MG TAB PO SCH (08:49)
[2018-08-19] MEDS: ALPRAZolam 0.5 MG TAB PO SCH ×2 (08:50→22:11)
[2018-08-19] MEDS ORDERED: FOLIC ACID PO SCH (09:00)
[2018-08-19] MEDS ORDERED: [UNRECOGNIZED DRUG - OTHER] PO SCH (09:00)
[2018-08-19] MEDS ORDERED: MULTIVIT MIN PO SCH (09:00)
[2018-08-19] MEDS ORDERED: BIOTIN PO SCH (09:00)
--- NOTE | 2018-08-19 12:35 | PRG ---
DATE OF SERVICE: 08/19/2018 SUBJECTIVE: The patient is seen and examined at bedside. He is feeling slightly better. His shortness of breath improved. He had bowel movement yesterday. His appetite is slowly coming back. He ate his breakfast this morning. OBJECTIVE: VITAL SIGNS: Blood pressure is 144/58, pulse is 71, temperature is 98.2, maximal temperature is 98.6, and pulse oximetry is 100% on 2 L by nasal cannula. HEENT: His head is atraumatic and normocephalic. Eyes are PERRLA. Sclerae are nonicteric. Conjunctivae palish. Oral mucosa is somewhat dry. NECK: Supple. No lymphadenopathy. LUNGS: Crackles and rales at the right base. No wheezing. HEART: S1 and S2 somewhat distant. No S3. No S4. Somewhat irregular. ABDOMEN: Soft and nontender. There is a non-incarcerated abdominal hernia in the epigastric area that is post-incisional after surgery. Bowel sounds are present. No organomegaly. EXTREMITIES: 1+ peripheral edema similar bilaterally. NEUROLOGIC: He is alert and oriented x3. There are no any motor deficits present. Cranial nerves are intact. LABORATORY DATA: Labs showed white count of 12.4, hemoglobin 11.2, hematocrit 36.0, platelet count 242, neutrophils 75.4. Normal chemistry. Second troponin was 0.029, CK-MB 0.6. Microbiology; two blood cultures came back negative. Nasal swab negative for type A and B influenza. I do not see any Gram stain on his culture. IMPRESSION: 1. Recurrent right lower lobe pneumonia, treated as hospital-acquired with broad-spectrum antibiotics. We will get speech therapy to evaluate his swallowing and make sure that he does not aspirate to rule out aspiration. 2. Chronic obstructive pulmonary disease. 3. History of paroxysmal atrial supraventricular tachycardia. 4. History of low blood pressure. 5. Anxiety. 6. History of stomach cancer. 7. Normocytic anemia. 8. Hypochloremia and hyponatremia, improved. 9. Renal insufficiency, improved with small dose of IV fluids. 10. Elevated liver function test of unclear etiology. At this point, we will follow up on that. PLAN: Plan is to continue his cefepime, clindamycin, and vancomycin for now. He is treated as presumed healthcare-associated pneumonia. We will continue DuoNebs every 4 hours and DVT prophylaxis and PT. Job ID: [id number]
--- NOTE | 2018-08-19 14:15 | EKG ---
Test Reason : ABD PAIN Blood Pressure : / mmHG Vent. Rate : 103 BPM Atrial Rate : 103 BPM P-R Int : 172 ms QRS Dur : 082 ms QT Int : 310 ms P-R-T Axes : 053 -26 115 degrees QTc Int : 406 ms Sinus tachycardia with Premature supraventricular complexes Nonspecific ST and T wave abnormality Abnormal ECG Confirmed by DAR CHASE DO ([id number]), deputy editor in chief CHERIE SHORE ([id number] on 08/19/2018 2:14:50 PM Referred By: Confirmed By:DAR CHASE DO
[2018-08-19] MEDS: Cefepime 1 GM in Sodium Chloride 0.9% 100 ML IVPB SCH (14:40)
[2018-08-19] MEDS: Sodium Chloride 0.9% 1,000 ML IV SCH (16:57)
[2018-08-19] MEDS: Vancomycin HCl 1.25 GM in Sodium Chloride 0.9% 250 ML 250 ML IVPB SCH (17:37)
[2018-08-19] MEDS: Zolpidem Tartrate 5 MG TAB PO SCH (22:10)
[2018-08-19] MEDS: Famotidine 20 MG TAB PO SCH (22:11)
[2018-08-20 05:25] LABS: #Eosinphils 0.4 thou/uL (0.0-0.7); #Lymphocytes 1.6 thou/uL (1.20-3.40); #Monocytes 0.5 thou/uL (0.11-0.59); #Neutrophils 3.8 thou/uL (1.40-6.50); %Basophils 0.5 % (0.0-1.0); %Eosinophils 6.1 % (0.0-10.0); %Lymphocytes 25.4 % (21.0-51.0); %Monocytes 7.9 % (0.0-10.0); %Neutrophils 60.1 % (42.0-75.0); Hemoglobin 11.1 g/dL (14.0-18.0); Mean Corpuscular Hemoglobin 29.5 pg (27.0-31.0); Mean Corpuscular Volume 95.3 fL (78.0-98.0); Mean Platelet Volume 7.4 fL (7.4-10.4); Platelet Count 237 thou/uL (130-400); RBC Distribution Width 15.1 % (11.5-14.5); Red Blood Cell (RBC) Count 3.75 mill/uL (4.70-6.10); White Blood Cell (WBC) Count 6.3 thou/uL (4.8-10.8)
[2018-08-20 05:43] LABS: Anion Gap 12 mmol/L (10-20); BUN (Urea Nitrogen) 14 mg/dL (8.4-25.7); Calc. Creatinine Clearance 77 mL/min (70-130); Calcium 8.5 mg/dL (7.8-10.44); Carbon Dioxide 27 mmol/L (23-31); Chloride 102 mmol/L (98-107); Estimated GFR-MDRD Greater than 90; Glucose 95 mg/dL (83-110); Sodium 137 mmol/L (136-145)
[2018-08-20] MEDS: Clindamycin/D5W 900 MG in Premix Bag 1 BAG IVPB SCH ×3 (06:02→21:08)
[2018-08-20] MEDS: Calcium Carbonate 600 MG TAB PO SCH (08:44)
[2018-08-20] MEDS: Pregabalin 75 MG CAP PO SCH ×2 (08:44→21:06)
[2018-08-20] MEDS: ALPRAZolam 0.5 MG TAB PO SCH ×2 (08:44→21:07)
[2018-08-20] MEDS: Multivitamin W/ Minerals 1 TAB PO SCH (08:46)
[2018-08-20] MEDS: Enoxaparin Sodium 40 MG/0.4 ML SYRINGE SC SCH (08:47)
[2018-08-20] MEDS ORDERED: Ipratropium Bromide 2.5 ml Neb NEB PRN (10:03)
--- NOTE | 2018-08-20 12:40 | PDOC.PN ---
- Subjective Encounter Start Date: 08/20/18 Encounter Start Time: 12:36 - Objective Resuscitation Status - Order Detail: 08/18/18 15:14 Resuscitation Status Routine Resuscitation Status: FULL: Full Resuscitation Vital Signs & Weight: Vital Signs (12 hours) Temp Pulse Resp BP Pulse Ox 08/20/18 12:10 73 19 130/75 93 L 08/20/18 08:41 97.8 F 66 18 108/66 93 L 08/20/18 04:00 97.6 F 60 16 125/67 95 Weight Weight 165 lb 12.8 oz I&O: 08/19/18 08/20/18 08/21/18 06:59 06:59 06:59 Intake Total 795 1540 1450 Output Total 525 675 Balance 795 1015 775 Result Diagrams: 08/20/18 05:16 08/20/18 05:16 Dx/Plan - Plan * .
--- NOTE | 2018-08-20 13:31 | PDOC.PN ---
- Subjective Encounter Start Date: 08/20/18 Encounter Start Time: 13:29 Subjective: Tired and short of breath,requiring oxygen - Objective Resuscitation Status - Order Detail: 08/18/18 15:14 Resuscitation Status Routine Resuscitation Status: FULL: Full Resuscitation MAR Reviewed: Yes Vital Signs & Weight: Vital Signs (12 hours) Temp Pulse Resp BP Pulse Ox 08/20/18 12:10 73 19 130/75 93 L 08/20/18 08:41 97.8 F 66 18 108/66 93 L 08/20/18 04:00 97.6 F 60 16 125/67 95 Weight Weight 165 lb 12.8 oz I&O: 08/19/18 08/20/18 08/21/18 06:59 06:59 06:59 Intake Total 795 1540 1450 Output Total 525 675 Balance 795 1015 775 Result Diagrams: 08/20/18 05:16 08/20/18 05:16 Phys Exam - Physical Examination HEENT: PERRLA, moist MMs, sclera anicteric, TM's clear, oral pharynx no lesions , 2+ tonsils Neck: no nodes, no JVD, supple, full ROM Respiratory: wheezing present decreased breath sounds Cardiovascular: RRR, no significant murmur Gastrointestinal: soft, non-tender, no distention, positive bowel sounds Musculoskeletal: no edema Neurological: non-focal, normal sensation, moves all 4 limbs Psychiatric: normal affect, A&O x 3 Skin: no rash, normal turgor, cap refill <2 seconds Dx/Plan (1) Pneumonia Code(s): J18.9 - PNEUMONIA, UNSPECIFIED ORGANISM Status: Acute Qualifiers: Laterality: right Lung location: lower lobe of lung Comment: Continue abx for pneumonia. NC O2 as required (2) Acute respiratory failure with hypoxia Code(s): J96.01 - ACUTE RESPIRATORY FAILURE WITH HYPOXIA Status: Acute Comment: Improving. (3) COPD (chronic obstructive pulmonary disease) Status: Chronic Qualifiers: COPD type: COPD with acute exacerbation Qualified Code(s): J44.1 - Chronic obstructive pulmonary disease with (acute) exacerbation Comment: Stable, but may need to be more aggressively treated if the breathing does not get fully back to baseline with the treatment of the pneumonia. - Plan cont current plan of care, PT/OT, social services designee, respiratory therapy, DVT proph w/lovenox * .
--- NOTE | 2018-08-20 14:43 | PQF ---
MAHESH HOPKINS VALERY BOLAND [id number] [facility]-279 [id number] CLINICAL DOCUMENTATION IMPROVEMENT CLARIFICATION FORM: ICD-10 Updated PLEASE DO AN ADDENDUM TO THE PROGRESS NOTE WITH ANY DOCUMENTATION UPDATES OR ADDITIONS AND CARRY THROUGH TO DC SUMMARY. THANK YOU. DATE: 08/20 ATTN: DR. VALERY ODONNELL Please exercise your independent, professional judgment in responding to the clarification form. Clinical indicators are provided on the bottom of this form for your review. Please check appropriate box(es): [ x ] Sepsis due to: (Pna, UTI, gangrenous gall bladder, etc.) [ ] Severe sepsis with acute organ dysfunction of: (Examples: respiratory failure, encephalopathy, acute kidney failure, other) [ ] Localized infection without sepsis [ ] Other diagnosis [ ] Unable to determine For continuity of documentation, please document condition throughout progress notes and discharge summary. Thank You. CLINICAL INDICATORS - SIGNS / SYMPTOMS / LABS ER REPORT 08/18: SEPSIS ALERT BP: 91/50-112/61 RR: 29 HR: 108 RESPIRATORY DISTRESS, LABORED, NASAL FLARING ER PHYSICIAN DOCUMENTATION 08/18: FEBRILE: 100.5, TACHYCARDIC FINAL: HCA PNEU, ACUTE HYPOXEMIC RESP FAIL LABS: WBC 17.6 PN 08/20: 1) RLL PNEUMONIA; 2) ACUTE RESPIRATORY FAILURE W/HYPOXIA RISK FACTORS: RLL PNEUMONIA GASTRIC CANCER TREATMENTS: IV ANTIBIOTIC: VANCOMYCIN, CEFEPIME, CLINDAMYCIN (08/18 - PRESENT) IVF (NS 08/18 - PRESENT; 1L NS IN ER) SUPPLEMENTAL OXYGEN THANK YOU! Melissa (This form is maintained as a part of the permanent medical record) 2014 [employer]. All Rights Reserved Melissa Velasquez RN, BSN [email or web address] Office: [phone] [facility]
--- NOTE | 2018-08-20 15:03 | PQF ---
MAHESH HOPKINS VALERY BOLAND [id number] CLINICAL DOCUMENTATION IMPROVEMENT CLARIFICATION FORM: ICD-10 Updated PLEASE DO AN ADDENDUM TO THE PROGRESS NOTE WITH ANY DOCUMENTATION UPDATES OR ADDITIONS AND CARRY THROUGH TO DC SUMMARY. THANK YOU. DATE: 08/20 ATTN : DR. VALERY ODONNELL Please exercise your independent, professional judgment in responding to the clarification form. Clinical indicators are provided on the bottom of this form for your review. Please check appropriate box(s): [ x ] Aspiration Pneumonia [ ] Empirically treating Gram Negative Pneumonia [ ] Simple Pneumonia (community acquired - nosocomial) [ ] Pneumonia of unknown etiology [ ] Other diagnosis [ ] Unable to determine For continuity of documentation, please document condition throughout progress notes and discharge summary. Thank You. CLINICAL INDICATORS - SIGNS / SYMPTOMS / LABS PHYSICIAN H&P 08/18: HX PRESENT ILLNESS: PT WAS JUST DISCHARGED FROM THE HOSPITAL A COUPLE OF WEEKS AGO FOR ASPIRATION PNEUMONIA. DIAGNOSTIC DATA: CXR WAS DONE & IT SHOWED R BASILAR INFILTRATE WHICH IS SUSPICIOUS FOR PNEUMONIA. IMPRESSION: 1) RECURRENT MOST LIKELY HEALTHCARE-ASSOCIATED PNEUMONIA VS ASPIRATION PNEUMONIA. PLAN: IV VANCOMYCIN, CLINDAMYCIN, & CEFEPIME TO CONTINUE FOR PRESUMED HEALTHCARE-ASSOCIATED PNEUMONIA. PN 08/19: IMPRESSION: 1) RECURRENT R LL PNEUMONIA, TREATED HOSPITAL ACQUIRED WITH BROAD-SPECTRUM ANTIBIOTICS. 08/20: DX/PLAN: 1) PNEUMONIA, UNSPECIFIED ORGANISM, RLL RISK FACTORS RLL PNEUMONIA RECENT ASPIRATION PNEUMONIA TREATMENTS: IV ANTIBIOTICS (VANCOMYCIN, CLINDAMYCIN, & CEFEPIME 08/18 - PRESENT) SPEECH CONSULT THANK YOU! Melissa (This form is maintained as a part of the permanent medical record) 2015 [employer]. All Rights Reserved Melissa Velasquez RN, BSN [email or web address] Office: [phone] [facility]
[2018-08-20] MEDS: Cefepime 1 GM in Sodium Chloride 0.9% 100 ML IVPB SCH (16:01)
[2018-08-20 17:32] LABS: Vancomycin, Trough 11.7 ug/mL
[2018-08-20] MEDS: Vancomycin HCl 1.25 GM in Sodium Chloride 0.9% 250 ML 250 ML IVPB SCH (17:35)
[2018-08-20] MEDS: Zolpidem Tartrate 5 MG TAB PO SCH (21:06)
[2018-08-20] MEDS: Famotidine 20 MG TAB PO SCH (21:06)
[2018-08-20] MEDS: Sodium Chloride 0.9% 500 ML IV SCH (21:08)
[2018-08-20] MEDS: BICARB PO SCH (21:09)
[2018-08-20] MEDS: OMEPRAZOLE PO SCH (21:09)
[2018-08-21] MEDS: Sodium Chloride 0.9% 1,000 ML IV SCH (03:06)
[2018-08-21] MEDS: Clindamycin/D5W 900 MG in Premix Bag 1 BAG IVPB SCH ×3 (05:44→22:22)
[2018-08-21] MEDS: Enoxaparin Sodium 40 MG/0.4 ML SYRINGE SC SCH (09:03)
[2018-08-21] MEDS: Pregabalin 75 MG CAP PO SCH ×2 (09:03→20:27)
[2018-08-21] MEDS: Multivitamin W/ Minerals 1 TAB PO SCH (09:05)
[2018-08-21] MEDS: ALPRAZolam 0.5 MG TAB PO SCH ×2 (09:05→20:28)
[2018-08-21] MEDS: Calcium Carbonate 600 MG TAB PO SCH (09:05)
[2018-08-21] MEDS: OMEPRAZOLE PO SCH ×2 (11:34→20:29)
[2018-08-21] MEDS: BICARB PO SCH ×2 (11:34→20:29)
[2018-08-21] MEDS ORDERED: Vancomycin HCl 1.5 GM in Sodium Chloride 0.9% 250 ML 300 ML IVPB SCH (14:00)
--- NOTE | 2018-08-21 15:02 | PDOC.PN ---
- Subjective Encounter Start Date: 08/21/18 Encounter Start Time: 15:00 Subjective: feeling better and stronger - Objective Resuscitation Status - Order Detail: 08/18/18 15:14 Resuscitation Status Routine Resuscitation Status: FULL: Full Resuscitation MAR Reviewed: Yes Vital Signs & Weight: Vital Signs (12 hours) Temp Pulse Resp BP BP Pulse Ox 08/21/18 11:38 97.7 F 70 16 121/76 99 08/21/18 08:15 97.9 F 68 18 129/71 97 08/21/18 05:18 100 08/21/18 04:35 99.0 F 65 18 131/69 100 Weight Weight 162 lb 12.8 oz I&O: 08/20/18 08/21/18 08/22/18 06:59 06:59 06:59 Intake Total 1540 3260 Output Total 525 5175 Balance 1015 -1915 Result Diagrams: 08/20/18 05:16 08/20/18 05:16 Phys Exam - Physical Examination HEENT: PERRLA, moist MMs, sclera anicteric, TM's clear, oral pharynx no lesions , 2+ tonsils Neck: no nodes, no JVD, supple, full ROM Respiratory: no wheezing decrased coarse breath sounds Cardiovascular: RRR, no significant murmur, no rub Gastrointestinal: soft, non-tender, no distention, positive bowel sounds Musculoskeletal: edema present Neurological: non-focal, normal sensation, moves all 4 limbs Psychiatric: normal affect, A&O x 3 Skin: no rash, normal turgor, cap refill <2 seconds Dx/Plan (1) Pneumonia Code(s): J18.9 - PNEUMONIA, UNSPECIFIED ORGANISM Status: Acute Qualifiers: Laterality: right Lung location: lower lobe of lung Comment: Continue abx for pneumonia. NC O2 as required (2) Acute respiratory failure with hypoxia Code(s): J96.01 - ACUTE RESPIRATORY FAILURE WITH HYPOXIA Status: Acute Comment: Improving. (3) COPD (chronic obstructive pulmonary disease) Status: Chronic Qualifiers: COPD type: COPD with acute exacerbation Qualified Code(s): J44.1 - Chronic obstructive pulmonary disease with (acute) exacerbation Comment: Stable, but may need to be more aggressively treated if the breathing does not get fully back to baseline with the treatment of the pneumonia. - Plan cont current plan of care, continue antibiotics, PT/OT, respiratory therapy, DVT proph w/lovenox * .
[2018-08-21] MEDS: Sodium Chloride 0.9% 500 ML IV SCH (17:11)
[2018-08-21] MEDS: Cefepime 1 GM in Sodium Chloride 0.9% 100 ML IVPB SCH (19:31)
[2018-08-21] MEDS: Famotidine 20 MG TAB PO SCH (20:28)
[2018-08-21] MEDS: Zolpidem Tartrate 5 MG TAB PO SCH (20:28)
[2018-08-22] MEDS: Clindamycin/D5W 900 MG in Premix Bag 1 BAG IVPB SCH (05:11)
[2018-08-22 07:48] VITALS: TEMP 97.8
[2018-08-22] MEDS: Pregabalin 75 MG CAP PO SCH (07:52)
[2018-08-22] MEDS: Calcium Carbonate 600 MG TAB PO SCH (07:52)
[2018-08-22] MEDS: Multivitamin W/ Minerals 1 TAB PO SCH (07:52)
[2018-08-22] MEDS: Enoxaparin Sodium 40 MG/0.4 ML SYRINGE SC SCH (07:52)
[2018-08-22] MEDS: BICARB PO SCH (07:54)
[2018-08-22] MEDS: OMEPRAZOLE PO SCH (07:54)
[2018-08-22] MEDS: ALPRAZolam 0.5 MG TAB PO SCH (07:54)
[2018-08-22 11:32] VITALS: BP 114/61
--- NOTE | 2018-08-22 17:01 | DIS ---
DATE OF ADMISSION: 08/18/2018 DATE OF DISCHARGE: 08/22/2018 ADMISSION DIAGNOSES: 1. Acute on chronic respiratory failure with hypoxemia. 2. Aspiration pneumonia. 3. Acute on chronic exacerbation of chronic obstructive pulmonary disease. DISCHARGE DIAGNOSES: 1. Acute on chronic respiratory failure with hypoxemia. 2. Aspiration pneumonia. 3. Acute on chronic exacerbation of chronic obstructive pulmonary disease. HISTORY OF PRESENTING ILLNESS: This is an 82-year-old gentleman, who has repeatedly presented to the ER with right lower lobe pneumonia. The patient was treated as HCAP pneumonia over here with vancomycin, clindamycin, and Zosyn. The patient responded very well. The patient initially was treated with nasal cannula oxygen, which was slowly weaned off. Once the patient was stabilized, he was instructed to take the aspiration precautions when eating. The patient was repeatedly counseled as to how to eat. He was advised to sit upright, eat slowly and deliberately, and swallow well. He also was advised to thicken his liquids with the thickener. The patient was then discharged with clindamycin to follow up with his primary care physician. DIAGNOSTIC DATA: Chest x-ray findings are suspicious of right basilar pneumonia. DISCHARGE MEDICATIONS: 1. Clindamycin 450 mg p.o. q.6 hours for 10 days. 2. Diltiazem 120 mg p.o. daily. 3. Atrovent nebulizer q.6 hours p.r.n. 4. Omeprazole/sodium bicarbonate one packet each p.o. b.i.d. 5. Multivitamin with folic acid and biotin 1 tablet p.o. daily. DISCHARGE INSTRUCTIONS: 1. Followup: The patient was instructed to follow up with his primary care physician. 2. Please take the medications as prescribed. 3. Activity: As tolerated. 4. Diet: Heart-healthy, low-fat diet. Job ID: [id number] MTDD
== END 2018-08-22 12:31 | disposition home or self-care (01) | DRG 871 ==
LOC: ERS 12:30 → ERHOLD 14:00 → 2NO 15:55
PROVIDERS: ADMIT Internal Medicine; ATTEND Internal Medicine
DX: A41.9 Sepsis, unspecified organism (principal); J69.0 Pneumonitis due to inhalation of food and vomit; J96.21 Acute and chronic respiratory failure with hypoxia; E87.1 Hypo-osmolality and hyponatremia; J44.1 Chronic obstructive pulmonary disease with (acute) exacerbation; E87.8 Other disorders of electrolyte and fluid balance, not elsewhere classified; F41.9 Anxiety disorder, unspecified; D64.9 Anemia, unspecified; Z85.028 Personal history of other malignant neoplasm of stomach; Z87.891 Personal history of nicotine dependence; Z79.899 Other long term (current) drug therapy
CPT/HCPCS: 36415; 36416; 51703; 71045; 80048; 80053; 80202; 81003; 81015; 82553; 83605; 83880; 84484; 85025; 85379; 87040; 87804; 93005; 94640; 96361; 96365; G8978-GP-CM; G8979-GP-CM; G8980-GP-CM; G8997-GN-CK; J0692; J1650; J3370; J3490; J7050; J7620

== ENCOUNTER 2018-09-05 15:55 | Inpatient (IN) | payer MEDICARE ==
[2018-09-05 16:41] LABS: Actual Bicarbonate (HCO3a) 27.9 mEq/L (22-28); Analyzer IN Cardio ER; Base Excess (BEa) 3.6 mEq/L (-2.0 to +3.0); CO2 Tension 41.1 mmHg (35.0-45.0); Calcium, Ionized 1.23 mmol/L (1.12-1.30); Carboxyhemoglobin (COHb) 1.1 gm% (0.0-3.0); Hemoglobin (Hb) 13.4 g/dL (14.0-18.0); O2 Tension (PaO2) 59.4 mmHg (> 60.0); Potassium - ABG Lab 4.21 mmol/L (3.70-5.30); pH, Arterial 7.45 (7.35-7.45)
[2018-09-05 16:42] LABS: ALV-art Gradient 145.905 (0-20); Puncture Site RRA
[2018-09-05 17:13] LABS: #Lymphocytes 1.4 thou/uL (1.20-3.40); #Monocytes 0.7 thou/uL (0.11-0.59); %Basophils 0.2 % (0.0-1.0); %Eosinophils 0.2 % (0.0-10.0); %Lymphocytes 7.3 % (21.0-51.0); %Monocytes 3.7 % (0.0-10.0); %Neutrophils 88.7 % (42.0-75.0); Hemoglobin 12.9 g/dL (14.0-18.0); Mean Corpuscular HGB CONC 32.2 g/dL (32.0-36.0); Mean Corpuscular Hemoglobin 29.2 pg (27.0-31.0); Mean Corpuscular Volume 90.6 fL (78.0-98.0); Mean Platelet Volume 7.1 fL (7.4-10.4); Platelet Count 406 thou/uL (130-400); Red Blood Cell (RBC) Count 4.41 mill/uL (4.70-6.10); White Blood Cell (WBC) Count 19.1 thou/uL (4.8-10.8)
--- NOTE | 2018-09-05 17:15 | RAD ---
FRONTAL VIEW CHEST: 09/05/18 COMPARISON: 08/18/18. INDICATION: Cough. FINDINGS: There is patchy right basilar opacity with elevation of the right hemidiaphragm. This has decreased from 08/18/18 exam. The left lung is grossly stable as is cardiac silhouette. IMPRESSION: Interval decrease of right basilar opacity with residual remaining which may relate to sequela from p neumonia. Recommend continued followup to complete resolution. POS: HUA
[2018-09-05 17:31] LABS: ALT (SGPT) 9 U/L (8-55); AST (SGOT) 16 U/L (5-34); Albumin 3.7 g/dL (3.4-4.8); Alkaline Phosphatase 101 U/L (40-150); Anion Gap 17 mmol/L (10-20); BUN (Urea Nitrogen) 22 mg/dL (8.4-25.7); Bilirubin, Total 0.6 mg/dL (0.2-1.2); Calc. Creatinine Clearance 0 mL/min (70-130); Calcium 10.3 mg/dL (7.8-10.44); Carbon Dioxide 26 mmol/L (23-31); Chloride 96 mmol/L (98-107); Estimated GFR-MDRD 58; Globulin 4.4 g/dL (2.4-3.5); Glucose 146 mg/dL (83-110); Potassium 4.5 mmol/L (3.5-5.1); Protein, Total 8.1 g/dL (5.8-8.1); Sodium 134 mmol/L (136-145)
[2018-09-05] MEDS ORDERED: Piperacillin/Tazobactam 4.5 GM VIAL ONE (18:20)
[2018-09-05 20:10] LABS: Bilirubin Negative (Negative); Blood, Urine Negative (Negative); Clarity CLEAR (Clear); Glucose, Urine (Dipstick) Negative (Negative); Leukocyte Trace (Negative); Nitrite Negative (Negative); Protein, Urine (Dipstick) 30 mg/dL (Neg-Trace); Specific Gravity, Urine 1.018 (1.002-1.036); Urobilinogen 0.2 mg/dL (0.2-1.0)
[2018-09-05 20:12] LABS: Bacteria/HPF None Seen HPF (None Seen); Hyaline Casts/LPF 0-3 HYALINE CAST LPF (0-3 Hyaline); RBC/HPF 0-3 HPF (0-3); Squamous Epithelial None Seen HPF (0-3); WBC/HPF None Seen HPF (0-3)
[2018-09-05 21:53] LABS: Lactic Acid 2.8 mmol/L (0.5-2.2)
[2018-09-06] MEDS: Dextrose 5 % And 0.9 % NaCl 1,000 ML IV SCH (02:48)
[2018-09-06] MEDS ORDERED: Prevnar 13-Val Conj/PF 0.5 ML SYRINGE IM ONE (08:15)
[2018-09-06] MEDS ORDERED: HYDROcodone/Acetaminophen 5/325 mg Tablet PO PRN (08:42)
[2018-09-06] MEDS ORDERED: Bisacodyl 5 MG TAB PO PRN (08:42)
[2018-09-06] MEDS ORDERED: Zolpidem Tartrate 5 MG TAB PO PRN (08:42)
[2018-09-06] MEDS ORDERED: Loperamide HCl 2 MG CAP PO PRN (08:42)
[2018-09-06] MEDS ORDERED: Bisacodyl 10 MG SUPP PR PRN (08:42)
[2018-09-06] MEDS ORDERED: hydrALAZINE 20 MG/ML VIAL SLOW IVP PRN (08:42)
[2018-09-06] MEDS ORDERED: Artificial Tears 18 DROP/0.9 ML EA EYE PRN (08:42)
[2018-09-06] MEDS ORDERED: Senokot S 8.6-50 MG TAB PO PRN (08:42)
[2018-09-06] MEDS ORDERED: Eucerin (Mineral Oil/Petrolatum,White) 30 gm Jar TOP PRN (08:42)
[2018-09-06] MEDS ORDERED: HYDROcodone/Acetaminophen 10/325 mg Tablet PO PRN (08:42)
[2018-09-06] MEDS ORDERED: Loratadine 10 MG TAB PO PRN (08:42)
[2018-09-06] MEDS ORDERED: Sodium Chloride 0.65% Nasal 44 ML BOT EA NARE PRN (08:42)
[2018-09-06] MEDS ORDERED: Ondansetron PF 4 MG/2 ML Vial IVP PRN (08:42)
[2018-09-06] MEDS ORDERED: Acetaminophen 325 MG TAB PO PRN (08:42)
[2018-09-06] MEDS ORDERED: Calcium Carbonate 500 MG ChewTAB PO PRN (08:42)
[2018-09-06] MEDS ORDERED: Cepastat Lozenges 1 LOZ PO PRN (08:42)
[2018-09-06] MEDS ORDERED: Diabetic Tussin 200 MG/10 ML UDCUP PO PRN (08:42)
[2018-09-06] MEDS: Saccharomyces boulardii 250 MG CAP PO SCH (10:10)
[2018-09-06] MEDS: Multivitamin W/ Minerals 1 TAB PO SCH (10:31)
--- NOTE | 2018-09-06 11:08 | HP ---
PRIMARY CARE PHYSICIAN: Sohail Vargas MD REASON FOR ADMISSION: Sepsis with acute organ dysfunction, acute respiratory failure with hypoxia, COPD exacerbation, pneumonia, and generalized weakness. HISTORY OF PRESENT ILLNESS: An 82-year-old male, who has underlying history of COPD as well as history of malignant neoplasm of stomach, who was recently admitted in our hospital on August 18, 2018 and he was discharged home on August 22, 2018. During that admission, the patient was treated for acute respiratory failure with pneumonia, which was presumed from aspiration pneumonia. He was also treated for acute on chronic COPD exacerbation. He was discharged with oral antibiotic therapy with clindamycin. The patient was doing relatively good up until 2 days ago when he started feeling weak. He was having increasing shortness of breath, increasing cough, and productive sputum. He was having fever. He was having tachypnea and he was feeling overall weak as if he was before. The patient was hypoxic with 84% saturation on room air. He was given nebulizer and oxygen and after that, his oxygen saturation improved. In the emergency room, he was tachycardic, tachypneic, and he was febrile. The patient was appeared weak. Routine blood test showed leukocytosis with left shift. He was hypoxic and he had lactic acidosis. In the emergency room, the patient was given vancomycin, Zosyn, IV fluid, and subsequently, he was admitted to telemetry floor. REVIEW OF SYSTEMS: CONSTITUTIONAL: Negative for weight loss or gain, ability to conduct usual activities. SKIN: Negative for rash, itching. EYES: Negative for double vision, pain. ENT/MOUTH: Negative for nose bleeding, neck stiffness, pain, tenderness. CARDIOVASCULAR: Negative for palpitations, dyspnea on exertion, orthopnea. RESPIRATORY: Negative for shortness of breath, wheezing, cough, hemoptysis, fever or night sweats. GASTROINTESTINAL: Negative for poor appetite, abdominal pain, heartburn, nausea, vomiting, constipation, or diarrhea. GENITOURINARY: Negative for urgency, frequency, dysuria, nocturia. MUSCULOSKELETAL: Negative for pain, swelling. NEUROLOGIC/PSYCHIATRIC: Negative for anxiety, depression. ALLERGY/IMMUNOLOGIC: Negative for skin rash, bleeding tendency. All review of systems reviewed and negative except as mentioned in HPI. ALLERGIES: NO KNOWN DRUG ALLERGIES. CURRENT HOME MEDICATION: 1. [place] 10 one tablet q.6 hourly p.r.n. 2. DuoNeb q.6 hourly. 3. Xanax 1 mg b.i.d. 4. Cartia XT 120 mg daily. 5. Fiber tablet daily. 6. Multivitamin 1 tablet daily. 7. Omeprazole 20 mg 2 tablets b.i.d. 8. Lyrica 150 mg b.i.d. 9. Ambien 10 mg p.o. at bedtime. PAST MEDICAL HISTORY: Malignant neoplasm of stomach, paroxysmal SVT, COPD, gastroesophageal reflux disease, and peripheral neuropathy. PAST SURGICAL HISTORY: Appendicectomy, cholecystectomy, prostate surgery, stomach cancer surgery treated with resection, and ablation for SVT. PAST PSYCHIATRIC HISTORY: Anxiety and depression. SOCIAL HISTORY: The patient is former smoker, quit smoking more than 20 years ago. He denies any alcohol or other illicit drug abuse. He is . ALLERGIES: NO KNOWN DRUG ALLERGY. EMERGENCY ROOM COURSE: The patient has received IV fluid and vancomycin and Zosyn. FAMILY HISTORY: No family history of coronary artery disease, stroke, or cancer. PHYSICAL EXAMINATION: VITAL SIGNS: Currently; blood pressure 117/61, pulse 107, respiratory rate 34, temperature 100.8, and saturation 88% on room air. Weight 72.6 kg. GENERAL: The patient is currently alert, awake, and slightly confused. No obvious acute distress. HEENT: Head, normocephalic and atraumatic. Eyes, pupils are round and reactive to light. Extraocular muscle intake. ENT, oropharynx within normal limits. Somewhat moist mucous membranes. No pharyngeal erythema. No exudate. No Lydia. NECK: Supple. No JVD. No thyromegaly. No carotid bruits. LUNGS: End-expiratory wheezing heard bilaterally at bases, especially more on the right side with rales. CARDIAC: S1 and S2 appears regular without any significant murmur. ABDOMEN: Soft. Bowel sounds present. Nontender and nondistended. No organomegaly. No mass. No suprapubic tenderness. BACK: Unremarkable. No CVA tenderness. EXTREMITIES: Upper extremities; passive movement of all joints are normal. Lower extremities, no edema. Good distal pulsation. SKIN: No skin rash. HEMATOLOGICAL SYSTEM: No lymphadenopathy. NEUROLOGIC: Grossly nonfocal examination. SIGNIFICANT LABORATORY DATA: EKG showing normal sinus rhythm, left axis deviation. Chest x-ray showing interval decrease in right basilar opacity with residual pneumonia. CBC; WBC 19.1, hemoglobin 12.9, and platelets 406. ABG; pH of 7.45, CO2 41.1, O2 of 59.4, and saturation 91%. BMP; sodium 134, potassium 4.5, chloride 96, carbon dioxide 26, anion gap 17, BUN 22, creatinine 1.21, glucose 146, calcium 10.3, and lactic acid 2.8. LFT; AST 16, ALT 9, alkaline phosphatase 101, and albumin 3.7. Urinalysis unremarkable. Blood culture negative. Influenza screen A and B negative. ASSESSMENT AND PLAN: 1. Acute respiratory failure with hypoxia. The patient room air saturation 84% at home and currently 88% on room air in the emergency room after respiratory therapy. He requires oxygen to maintain saturation, most likely related with underlying chronic obstructive pulmonary disease exacerbation as well as a resolving pneumonia. While in the hospital, we will continue to monitor his oxygen saturation and assess for need for home oxygen therapy. 2. Acute sepsis with acute organ dysfunction. This patient has underlying respiratory failure. He has sepsis criteria with lactic acidosis, leukocytosis, and underlying pneumonia. He also has encephalopathy, all meets sepsis with acute organ dysfunction. 3. Chronic obstructive pulmonary disease exacerbation. He will be treated with DuoNeb q.6 hourly, Solu-Medrol 20 mg IV q.8 hourly, empiric antibiotic therapy with vancomycin and meropenem, Mucinex 600 mg twice daily, and oxygen to keep saturation above 92%. 4. Encephalopathy and sepsis. We will monitor his neuro status. He does not have any focal neurological deficit. I think it is related with underlying infection. We will monitor while in hospital. 5. Lactic acidosis, likely due to sepsis. We will repeat lactic acid level tomorrow. 6. Right lower lobe community-acquired pneumonia versus aspiration pneumonia. Each is resolving as the patient has again sepsis and he has finished antibiotic therapy recently and he required hospitalization recently. We will treat as his for healthcare-associated pneumonia and we will continue with vancomycin and Zosyn. 7. Generalized weakness. The patient will need PT, OT, and possible replacement evaluation. 8. History of anxiety and depression. We will continue Xanax 1 mg p.o. b.i.d. p.r.n. basis. 9. Gastroesophageal reflux disease. Continue Protonix 40 mg p.o. daily. 10. Paroxysmal supraventricular tachycardia. Continue Cartia XT 120 mg p.o. daily. 11. Deep venous thrombosis prophylaxis, Lovenox 40 mg subcu daily. Gastrointestinal prophylaxis, Protonix 40 mg p.o. daily. 12. Code status. At this point, we will keep as a full code. The patient does not have any family member at bedside. We will discuss with the patient when he was more alert and at that point, we will review code status again. DISPOSITION PLAN: Based on clinical course, we are expecting the patient to stay in hospital more than 2 midnights. Plan of care discussed with the patient in detail. Job ID: [id number]
[2018-09-06] MEDS ORDERED: Enoxaparin Sodium 40 MG/0.4 ML SYRINGE ONE (12:41)
[2018-09-06] MEDS: guaiFENesin ER 600 MG TAB PO SCH ×2 (12:45→21:21)
[2018-09-06] MEDS: Enoxaparin Sodium 40 MG/0.4 ML SYRINGE SC SCH (12:45)
[2018-09-06] MEDS ORDERED: Ondansetron ODT 4 MG TAB ONE (12:53)
[2018-09-06] MEDS: Ondansetron ODT 4 MG TAB PO PRN (12:53)
[2018-09-06] MEDS: Pregabalin 75 MG CAP PO SCH ×2 (14:46→21:21)
[2018-09-06] MEDS: ALPRAZolam 1 MG TAB PO SCH ×2 (14:46→21:21)
[2018-09-06] MEDS: MEROPENEM 1 GM/50 ML 1 GM in Premix Bag 1 BAG IVPB SCH ×2 (16:25→21:23)
[2018-09-06] MEDS ORDERED: Vancomycin HCl 1 GM in Premix Bag 1 BAG IVPB SCH (18:00)
[2018-09-06] MEDS: Arformoterol 15 MCG/2 ML NEB NEB SCH (18:44)
[2018-09-07 05:11] LABS: ALT (SGPT) 8 U/L (8-55); AST (SGOT) 14 U/L (5-34); Albumin 3.5 g/dL (3.4-4.8); Alkaline Phosphatase 90 U/L (40-150); Anion Gap 12 mmol/L (10-20); BUN (Urea Nitrogen) 15 mg/dL (8.4-25.7); Bilirubin, Total 0.3 mg/dL (0.2-1.2); Calc. Creatinine Clearance 73 mL/min (70-130); Calcium 9.1 mg/dL (7.8-10.44); Carbon Dioxide 26 mmol/L (23-31); Chloride 102 mmol/L (98-107); Estimated GFR-MDRD 90; Globulin 3.8 g/dL (2.4-3.5); Glucose 167 mg/dL (83-110); Potassium 4.3 mmol/L (3.5-5.1); Protein, Total 7.3 g/dL (5.8-8.1); Sodium 136 mmol/L (136-145)
[2018-09-07 05:22] LABS: #Lymphocytes 0.9 thou/uL (1.20-3.40); #Monocytes 0.1 thou/uL (0.11-0.59); #Neutrophils 8.9 thou/uL (1.40-6.50); %Basophils 0.1 % (0.0-1.0); %Eosinophils 0.2 % (0.0-10.0); %Lymphocytes 9.4 % (21.0-51.0); %Monocytes 0.7 % (0.0-10.0); %Neutrophils 89.7 % (42.0-75.0); Hemoglobin 11.6 g/dL (14.0-18.0); Mean Corpuscular Hemoglobin 28.4 pg (27.0-31.0); Mean Corpuscular Volume 91.6 fL (78.0-98.0); Mean Platelet Volume 7.3 fL (7.4-10.4); Platelet Count 354 thou/uL (130-400); RBC Distribution Width 14.7 % (11.5-14.5); Red Blood Cell (RBC) Count 4.08 mill/uL (4.70-6.10)
[2018-09-07] MEDS: MEROPENEM 1 GM/50 ML 1 GM in Premix Bag 1 BAG IVPB SCH ×3 (05:38→22:49)
[2018-09-07] MEDS: Arformoterol 15 MCG/2 ML NEB NEB SCH ×3 (06:12→19:32)
[2018-09-07] MEDS: OMEPRAZOLE PO SCH ×2 (08:10→17:24)
[2018-09-07] MEDS: SODIUM BICARBONATE PO SCH ×2 (08:10→17:24)
[2018-09-07] MEDS: ALPRAZolam 1 MG TAB PO SCH ×2 (09:40→20:10)
[2018-09-07] MEDS: Dextrose 5 % And 0.9 % NaCl 1,000 ML IV SCH (09:40)
[2018-09-07] MEDS: Pregabalin 75 MG CAP PO SCH ×2 (09:41→20:10)
[2018-09-07] MEDS: guaiFENesin ER 600 MG TAB PO SCH ×2 (09:41→20:10)
[2018-09-07] MEDS: Multivitamin W/ Minerals 1 TAB PO SCH (09:43)
[2018-09-07] MEDS: Enoxaparin Sodium 40 MG/0.4 ML SYRINGE SC SCH (09:43)
[2018-09-07] MEDS: Saccharomyces boulardii 250 MG CAP PO SCH (09:43)
--- NOTE | 2018-09-07 13:14 | PDOC.PN ---
- Subjective Encounter Start Date: 09/07/18 Encounter Start Time: 07:45 -: old records requested/rev Patient seen and examined. No new complaints. No overnight events he feels better today, less dyspnea and less cough, but weak - Objective Resuscitation Status - Order Detail: 09/06/18 20:11 Resuscitation Status Routine Co-Sign Provider: Resuscitation Status: FULL: Full Resuscitation Discussed with: patient Additional comments: Talked to patient on request of [place], patient told both of us he wanted to be changed to a full code until he can talk to his family. MAR Reviewed: Yes Vital Signs & Weight: Vital Signs (12 hours) Temp Pulse Resp BP BP Pulse Ox 09/07/18 09:43 91 144/87 H 09/07/18 08:50 97.3 F L 90 19 144/87 H 92 L 09/07/18 06:13 94 L 09/07/18 03:39 97.7 F 77 17 137/73 94 L Weight Weight 165 lb 9.6 oz I&O: 09/06/18 09/07/18 09/08/18 06:59 06:59 06:59 Intake Total 1526 Output Total 550 845 Balance -550 681 Result Diagrams: 09/07/18 04:39 09/07/18 04:39 Additional Labs: Accuchecks 09/06/18 12:16 POC Glucose 83 EKG Reviewed by me: Yes (nsr) Phys Exam - Physical Examination Constitutional: NAD HEENT: PERRLA, moist MMs, sclera anicteric Neck: no JVD, supple Respiratory: wheezing present right base rales Cardiovascular: RRR, no significant murmur, no rub Gastrointestinal: soft, non-tender, no distention, positive bowel sounds Musculoskeletal: no edema, pulses present Neurological: non-focal, normal sensation, moves all 4 limbs Lymphatic: no nodes Psychiatric: normal affect, A&O x 3 Skin: no rash, normal turgor Dx/Plan (1) Acute respiratory failure with hypoxemia Code(s): J96.01 - ACUTE RESPIRATORY FAILURE WITH HYPOXIA Status: Acute (2) COPD exacerbation Code(s): J44.1 - CHRONIC OBSTRUCTIVE PULMONARY DISEASE W (ACUTE) EXACERBATION Status: Acute (3) Encephalopathy in sepsis Code(s): G93.41 - METABOLIC ENCEPHALOPATHY Status: Acute (4) Lactic acidosis Code(s): E87.2 - ACIDOSIS Status: Acute (5) Right lower lobe pneumonia Code(s): J18.1 - LOBAR PNEUMONIA, UNSPECIFIED ORGANISM Status: Acute (6) Sepsis with acute organ dysfunction Code(s): A41.9 - SEPSIS, UNSPECIFIED ORGANISM; R65.20 - SEVERE SEPSIS WITHOUT SEPTIC SHOCK Status: Acute (7) Weakness generalized Code(s): R53.1 - WEAKNESS Status: Acute (8) Anxiety and depression Code(s): F41.9 - ANXIETY DISORDER, UNSPECIFIED; F32.9 - MAJOR DEPRESSIVE DISORDER, SINGLE EPISODE, UNSPECIFIED Status: Chronic Comment: (9) H/O malignant neoplasm of stomach Code(s): Z85.028 - PERSONAL HISTORY OF OTHER MALIGNANT NEOPLASM OF STOMACH Status: Chronic (10) Paroxysmal SVT (supraventricular tachycardia) Code(s): I47.1 - SUPRAVENTRICULAR TACHYCARDIA Status: Chronic - Plan cont current plan of care, continue antibiotics, 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 Review of Systems - Review of Systems Constitutional: weakness. negative: fever, chills, sweats, malaise, other ENT: negative: Ear Pain, Ear Discharge, Nose Pain, Nose Discharge, Nose Congestion, Mouth Pain, Mouth Swelling, Throat Pain, Throat Swelling, Other Respiratory: Cough, Shortness of Breath, SOB with Excertion, Wheezing. negative : Dry, Hemoptysis, Pleuritic Pain, Sputum Cardiovascular: negative: chest pain, palpitations, orthopnea, paroxysmal nocturnal dyspnea, edema, light headedness, other Gastrointestinal: negative: Nausea, Vomiting, Abdominal Pain, Diarrhea, Constipation, Melena, Hematochezia, Other Genitourinary: negative: Dysuria, Frequency, Incontinence, Hematuria, Retention , Other Musculoskeletal: negative: Neck Pain, Shoulder Pain, Arm Pain, Back Pain, Hand Pain, Leg Pain, Foot Pain, Other Skin: negative: Rash, Lesions, Leo, Bruising, Other - Medications/Allergies Allergies/Adverse Reactions: Allergies Allergy/AdvReac Type Severity Reaction Status Date / Time No Known Allergies Allergy Verified 07/29/18 18:32 Medications: Current Medications Acetaminophen (Tylenol) 650 mg PO Q4H PRN PRN Reason: Headache/Fever/Mild Pain (1-3) Hydrocodone Bitart/Acetaminophen ([place] 10/325) 1 tab PO Q6H PRN PRN Reason: Pain Hydrocodone Bitart/Acetaminophen ([place] 5/325) 1 tab PO Q4H PRN PRN Reason: Moderate Pain (4-6) Last Admin: 09/06/18 17:31 Dose: 1 tab Albuterol/Ipratropium (Duoneb) 3 ml NEB [id number] [facility] Last Admin: 09/07/18 06:11 Dose: Not Given Albuterol/Ipratropium (Duoneb) 3 ml NEB Q2H PRN PRN Reason: SOB &/or Wheezing Alprazolam (Xanax) 1 mg PO BID [facility] Last Admin: 09/07/18 09:40 Dose: 1 mg Arformoterol Tartrate (Brovana) 15 mcg NEB BID-RT [facility] Last Admin: 09/07/18 06:12 Dose: Not Given Artificial Tears (Tears Naturale) 2 drop EA EYE PRN PRN PRN Reason: Dry Eyes Bisacodyl (Dulcolax) 10 mg PO DAILYPRN PRN PRN Reason: Constipation Bisacodyl (Dulcolax) 10 mg [place] DAILYPRN PRN PRN Reason: Constipation Calcium Carbonate (Tums) 1,000 mg PO Q4H PRN PRN Reason: Heartburn or Indigestion Diltiazem HCl (Cardizem Cd) 120 mg PO DAILY [facility] Last Admin: 09/07/18 09:43 Dose: 120 mg Enoxaparin Sodium (Lovenox) 40 mg SC 0900 [facility] Last Admin: 09/07/18 09:43 Dose: 40 mg Guaifenesin (Mucinex) 600 mg PO Q12HR [facility] Last Admin: 09/07/18 09:41 Dose: 600 mg Guaifenesin (Robitussin Sf) 200 mg PO Q4H PRN PRN Reason: Cough Hydralazine HCl (Apresoline) 10 mg SLOW IVP Q4H PRN PRN Reason: SBP > 180 and HR < 70 Dextrose/Sodium Chloride (D5 0.9% Ns) 1,000 mls @ 40 mls/hr IV .Q24H [facility] Last Admin: 09/07/18 09:40 Dose: 1,000 mls Meropenem 1 gm/ Device 50 mls @ 100 mls/hr IVPB Q8HR [facility] Last Admin: 09/07/18 05:38 Dose: 50 mls Vancomycin HCl 1 gm/ Device 200 mls @ 200 mls/hr IVPB Q24HR [facility] Last Admin: 09/06/18 17:31 Dose: 200 mls Iron/Minerals/Multivitamins (Theragran M) 1 tab PO DAILY [facility] Last Admin: 09/07/18 09:43 Dose: 1 tab Loperamide HCl (Imodium) 2 mg PO PRN PRN PRN Reason: Diarrhea/Loose Stools Loratadine (Claritin) 10 mg PO DAILYPRN PRN PRN Reason: Sinus Symptoms Methylprednisolone Sodium Succinate (Solu-Medrol) 20 mg IVP Q8HR [facility] Last Admin: 09/07/18 05:37 Dose: 20 mg Mineral Oil/White Petrolatum (Eucerin Cream) 0 gm TOP BIDPRN PRN PRN Reason: Dry Skin Miscellaneous Medication (Pharmacy To Dose) 1 each IVPB ASDIR [facility] Ondansetron HCl (Zofran Odt) 4 mg PO Q6H PRN PRN Reason: Nausea/Vomiting Last Admin: 09/06/18 12:53 Dose: 4 mg Ondansetron HCl (Zofran) 4 mg IVP Q6H PRN PRN Reason: Nausea/Vomiting Omeprazole 40mg/Sodium Bicarb 1680mg Patient's Home Medication 0 each PO BID- [facility] Pregabalin (Lyrica) 150 mg PO BID [facility] Last Admin: 09/07/18 09:41 Dose: 150 mg Saccharomyces Boulardii (Florastor) 250 mg PO DAILY [facility] Last Admin: 09/07/18 09:43 Dose: 250 mg Senna/Docusate Sodium (Senokot S) 2 tab PO BID PRN PRN Reason: Constipation Sodium Chloride ([place] Nasal [place] 0.65%) 0 ml EA NARE QIDPRN PRN PRN Reason: Nasal Congestion Throat Lozenges (Cepastat Lozenges) 1 jennifer PO Q2H PRN PRN Reason: Sore Throat Zolpidem Tartrate (Ambien) 5 mg PO HSPRN PRN PRN Reason: Insomnia
[2018-09-07 14:13] VITALS: BMI 23.7
[2018-09-07 17:45] LABS: Vancomycin, Trough 10.6 ug/mL
[2018-09-07] MEDS: Vancomycin HCl 1.5 GM in Sodium Chloride 0.9% 250 ML 300 ML IVPB SCH (20:11)
[2018-09-07] MEDS: Ondansetron ODT 4 MG TAB PO PRN (23:05)
[2018-09-08] MEDS: MEROPENEM 1 GM/50 ML 1 GM in Premix Bag 1 BAG IVPB SCH ×3 (05:41→21:04)
[2018-09-08] MEDS: Arformoterol 15 MCG/2 ML NEB NEB SCH ×2 (07:51→19:55)
[2018-09-08] MEDS: Enoxaparin Sodium 40 MG/0.4 ML SYRINGE SC SCH (10:09)
[2018-09-08] MEDS: SODIUM BICARBONATE PO SCH ×2 (10:10→18:42)
[2018-09-08] MEDS: guaiFENesin ER 600 MG TAB PO SCH ×2 (10:10→20:17)
[2018-09-08] MEDS: Pregabalin 75 MG CAP PO SCH ×2 (10:10→20:17)
[2018-09-08] MEDS: OMEPRAZOLE PO SCH ×2 (10:10→18:42)
[2018-09-08] MEDS: Multivitamin W/ Minerals 1 TAB PO SCH (10:11)
[2018-09-08] MEDS: Dextrose 5 % And 0.9 % NaCl 1,000 ML IV SCH (10:11)
[2018-09-08] MEDS: Saccharomyces boulardii 250 MG CAP PO SCH (10:58)
[2018-09-08] MEDS ORDERED: ALPRAZolam 0.5 MG TAB PO SCH (11:00)
[2018-09-08] MEDS: ALPRAZolam 1 MG TAB PO SCH (11:19)
--- NOTE | 2018-09-08 13:22 | PDOC.PN ---
- Subjective Encounter Start Date: 09/08/18 Encounter Start Time: 07:15 Patient seen and examined. No new complaints. No overnight events - Objective Resuscitation Status - Order Detail: 09/06/18 20:11 Resuscitation Status Routine Co-Sign Provider: Resuscitation Status: FULL: Full Resuscitation Discussed with: patient Additional comments: Talked to patient on request of [place], patient told both of us he wanted to be changed to a full code until he can talk to his family. MAR Reviewed: Yes Vital Signs & Weight: Vital Signs (12 hours) Temp Pulse Resp BP Pulse Ox 09/08/18 10:10 74 09/08/18 08:00 97.5 F L 74 18 154/87 H 94 L 09/08/18 07:52 94 L 09/08/18 07:51 74 16 94 L 09/08/18 03:52 97.9 F 82 16 143/70 H 93 L Weight Admit Weight 160 lb 0.889 oz Weight 165 lb 9.6 oz I&O: 09/07/18 09/08/18 09/09/18 06:59 06:59 06:59 Intake Total 1526 1316 Output Total 845 1150 Balance 681 166 Result Diagrams: 09/07/18 04:39 09/07/18 04:39 Phys Exam - Physical Examination Constitutional: NAD HEENT: PERRLA, moist MMs, sclera anicteric Neck: no JVD, supple Respiratory: no wheezing, no rales, no rhonchi Cardiovascular: RRR, no significant murmur, no rub Gastrointestinal: soft, non-tender, no distention, positive bowel sounds Musculoskeletal: no edema, pulses present Neurological: non-focal, normal sensation Lymphatic: no nodes Psychiatric: normal affect Skin: no rash, normal turgor Dx/Plan (1) Acute respiratory failure with hypoxemia Code(s): J96.01 - ACUTE RESPIRATORY FAILURE WITH HYPOXIA Status: Acute (2) COPD exacerbation Code(s): J44.1 - CHRONIC OBSTRUCTIVE PULMONARY DISEASE W (ACUTE) EXACERBATION Status: Acute (3) Encephalopathy in sepsis Code(s): G93.41 - METABOLIC ENCEPHALOPATHY Status: Resolved (4) Lactic acidosis Code(s): E87.2 - ACIDOSIS Status: Resolved (5) Right lower lobe pneumonia Code(s): J18.1 - LOBAR PNEUMONIA, UNSPECIFIED ORGANISM Status: Acute (6) Sepsis with acute organ dysfunction Code(s): A41.9 - SEPSIS, UNSPECIFIED ORGANISM; R65.20 - SEVERE SEPSIS WITHOUT SEPTIC SHOCK Status: Acute (7) Weakness generalized Code(s): R53.1 - WEAKNESS Status: Acute (8) Anxiety and depression Code(s): F41.9 - ANXIETY DISORDER, UNSPECIFIED; F32.9 - MAJOR DEPRESSIVE DISORDER, SINGLE EPISODE, UNSPECIFIED Status: Chronic Comment: (9) H/O malignant neoplasm of stomach Code(s): Z85.028 - PERSONAL HISTORY OF OTHER MALIGNANT NEOPLASM OF STOMACH Status: Chronic (10) Paroxysmal SVT (supraventricular tachycardia) Code(s): I47.1 - SUPRAVENTRICULAR TACHYCARDIA Status: Chronic - Plan cont current plan of care, 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 Review of Systems - Review of Systems Constitutional: weakness. negative: fever, chills, sweats, malaise, other Respiratory: Cough, Shortness of Breath. negative: Dry, Hemoptysis, SOB with Excertion, Pleuritic Pain, Sputum, Wheezing Cardiovascular: negative: chest pain, palpitations, orthopnea, paroxysmal nocturnal dyspnea, edema, light headedness, other Gastrointestinal: negative: Nausea, Vomiting, Abdominal Pain, Diarrhea, Constipation, Melena, Hematochezia, Other Genitourinary: negative: Dysuria, Frequency, Incontinence, Hematuria, Retention , Other Musculoskeletal: negative: Neck Pain, Shoulder Pain, Arm Pain, Back Pain, Hand Pain, Leg Pain, Foot Pain, Other - Medications/Allergies Allergies/Adverse Reactions: Allergies Allergy/AdvReac Type Severity Reaction Status Date / Time No Known Allergies Allergy Verified 07/29/18 18:32 Medications: Current Medications Acetaminophen (Tylenol) 650 mg PO Q4H PRN PRN Reason: Headache/Fever/Mild Pain (1-3) Hydrocodone Bitart/Acetaminophen ([place] 10/325) 1 tab PO Q6H PRN PRN Reason: Pain Hydrocodone Bitart/Acetaminophen ([place] 5/325) 1 tab PO Q4H PRN PRN Reason: Moderate Pain (4-6) Last Admin: 09/06/18 17:31 Dose: 1 tab Albuterol/Ipratropium (Duoneb) 3 ml NEB [id number] [facility] Last Admin: 09/08/18 07:50 Dose: Not Given Albuterol/Ipratropium (Duoneb) 3 ml NEB Q2H PRN PRN Reason: SOB &/or Wheezing Alprazolam (Xanax) 1 mg PO BID [facility] Arformoterol Tartrate (Brovana) 15 mcg NEB BID-RT [facility] Last Admin: 09/08/18 07:51 Dose: 15 mcg Artificial Tears (Tears Naturale) 2 drop EA EYE PRN PRN PRN Reason: Dry Eyes Bisacodyl (Dulcolax) 10 mg PO DAILYPRN PRN PRN Reason: Constipation Bisacodyl (Dulcolax) 10 mg [place] DAILYPRN PRN PRN Reason: Constipation Calcium Carbonate (Tums) 1,000 mg PO Q4H PRN PRN Reason: Heartburn or Indigestion Diltiazem HCl (Cardizem Cd) 120 mg PO DAILY [facility] Last Admin: 09/08/18 10:10 Dose: 120 mg Enoxaparin Sodium (Lovenox) 40 mg SC 0900 [facility] Last Admin: 09/08/18 10:09 Dose: 40 mg Guaifenesin (Mucinex) 600 mg PO Q12HR [facility] Last Admin: 09/08/18 10:10 Dose: 600 mg Guaifenesin (Robitussin Sf) 200 mg PO Q4H PRN PRN Reason: Cough Hydralazine HCl (Apresoline) 10 mg SLOW IVP Q4H PRN PRN Reason: SBP > 180 and HR < 70 Dextrose/Sodium Chloride (D5 0.9% Ns) 1,000 mls @ 40 mls/hr IV .Q24H [facility] Last Admin: 09/08/18 10:11 Dose: 1,000 mls Meropenem 1 gm/ Device 50 mls @ 100 mls/hr IVPB Q8HR [facility] Last Admin: 09/08/18 05:41 Dose: 50 mls Vancomycin HCl 1.5 gm/ Sodium (Chloride) 300 mls @ 200 mls/hr IVPB 1800 [facility] Last Admin: 09/07/18 20:11 Dose: 300 mls Iron/Minerals/Multivitamins (Theragran M) 1 tab PO DAILY [facility] Last Admin: 09/08/18 10:11 Dose: 1 tab Loperamide HCl (Imodium) 2 mg PO PRN PRN PRN Reason: Diarrhea/Loose Stools Loratadine (Claritin) 10 mg PO DAILYPRN PRN PRN Reason: Sinus Symptoms Methylprednisolone Sodium Succinate (Solu-Medrol) 20 mg IVP Q8HR [facility] Last Admin: 09/08/18 05:44 Dose: 20 mg Mineral Oil/White Petrolatum (Eucerin Cream) 0 gm TOP BIDPRN PRN PRN Reason: Dry Skin Miscellaneous Medication (Pharmacy To Dose) 1 each IVPB ASDIR [facility] Ondansetron HCl (Zofran Odt) 4 mg PO Q6H PRN PRN Reason: Nausea/Vomiting Last Admin: 09/07/18 23:05 Dose: 4 mg Ondansetron HCl (Zofran) 4 mg IVP Q6H PRN PRN Reason: Nausea/Vomiting Omeprazole 40mg/Sodium Bicarb 1680mg Patient's Home Medication 0 each PO BID- [facility] Last Admin: 09/08/18 10:10 Dose: 1 each Pregabalin (Lyrica) 150 mg PO BID [facility] Last Admin: 09/08/18 10:10 Dose: 150 mg Saccharomyces Boulardii (Florastor) 250 mg PO DAILY [facility] Last Admin: 09/08/18 10:58 Dose: 250 mg Senna/Docusate Sodium (Senokot S) 2 tab PO BID PRN PRN Reason: Constipation Sodium Chloride ([place] Nasal [place] 0.65%) 0 ml EA NARE QIDPRN PRN PRN Reason: Nasal Congestion Throat Lozenges (Cepastat Lozenges) 1 jennifer PO Q2H PRN PRN Reason: Sore Throat Zolpidem Tartrate (Ambien) 5 mg PO HSPRN PRN PRN Reason: Insomnia
[2018-09-08] MEDS: Vancomycin HCl 1.5 GM in Sodium Chloride 0.9% 250 ML 300 ML IVPB SCH (18:41)
[2018-09-08] MEDS: ALPRAZolam 0.5 MG TAB PO SCH (20:18)
[2018-09-09] MEDS: MEROPENEM 1 GM/50 ML 1 GM in Premix Bag 1 BAG IVPB SCH ×3 (05:57→23:29)
[2018-09-09] MEDS: Arformoterol 15 MCG/2 ML NEB NEB SCH ×2 (07:37→19:15)
[2018-09-09] MEDS: Enoxaparin Sodium 40 MG/0.4 ML SYRINGE SC SCH (08:52)
[2018-09-09] MEDS: Saccharomyces boulardii 250 MG CAP PO SCH (08:52)
[2018-09-09] MEDS: Multivitamin W/ Minerals 1 TAB PO SCH (08:53)
[2018-09-09] MEDS: SODIUM BICARBONATE PO SCH ×2 (08:53→17:17)
[2018-09-09] MEDS: guaiFENesin ER 600 MG TAB PO SCH ×2 (08:53→23:28)
[2018-09-09] MEDS: OMEPRAZOLE PO SCH ×2 (08:53→17:17)
[2018-09-09] MEDS: ALPRAZolam 0.5 MG TAB PO SCH ×2 (08:54→23:29)
--- NOTE | 2018-09-09 10:32 | PDOC.PN ---
- Subjective Encounter Start Date: 09/09/18 Encounter Start Time: 07:10 Patient seen and examined. No new complaints. No overnight events he has cough with sputum, no fever - Objective Resuscitation Status - Order Detail: 09/06/18 20:11 Resuscitation Status Routine Co-Sign Provider: Resuscitation Status: FULL: Full Resuscitation Discussed with: patient Additional comments: Talked to patient on request of [place], patient told both of us he wanted to be changed to a full code until he can talk to his family. MAR Reviewed: Yes Vital Signs & Weight: Vital Signs (12 hours) Temp Pulse Resp BP Pulse Ox 09/09/18 08:52 58 L 09/09/18 08:15 97.3 F L 58 L 20 136/75 93 L 09/09/18 07:37 82 18 97 09/09/18 07:00 97 09/09/18 04:00 97.4 F L 62 16 143/77 H 97 09/09/18 00:00 97.5 F L 63 16 121/64 94 L Weight Admit Weight 160 lb 0.889 oz Weight 165 lb 9.6 oz I&O: 09/08/18 09/09/18 09/10/18 06:59 06:59 06:59 Intake Total 1316 2350 Output Total 1150 1400 Balance 166 950 Result Diagrams: 09/07/18 04:39 09/07/18 04:39 Phys Exam - Physical Examination Constitutional: NAD HEENT: PERRLA, moist MMs, sclera anicteric Neck: no JVD, supple Respiratory: no wheezing, no rhonchi right lower lobe rales Cardiovascular: RRR, no significant murmur, no rub Gastrointestinal: soft, non-tender, no distention, positive bowel sounds Musculoskeletal: no edema, pulses present Neurological: non-focal, normal sensation Lymphatic: no nodes Psychiatric: normal affect, A&O x 3 Skin: no rash, normal turgor Dx/Plan (1) Acute respiratory failure with hypoxemia Code(s): J96.01 - ACUTE RESPIRATORY FAILURE WITH HYPOXIA Status: Acute (2) COPD exacerbation Code(s): J44.1 - CHRONIC OBSTRUCTIVE PULMONARY DISEASE W (ACUTE) EXACERBATION Status: Acute (3) Encephalopathy in sepsis Code(s): G93.41 - METABOLIC ENCEPHALOPATHY Status: Resolved (4) Lactic acidosis Code(s): E87.2 - ACIDOSIS Status: Resolved (5) Right lower lobe pneumonia Code(s): J18.1 - LOBAR PNEUMONIA, UNSPECIFIED ORGANISM Status: Acute Qualifiers: Pneumonia type: aspiration pneumonia (6) Sepsis with acute organ dysfunction Code(s): A41.9 - SEPSIS, UNSPECIFIED ORGANISM; R65.20 - SEVERE SEPSIS WITHOUT SEPTIC SHOCK Status: Acute (7) Weakness generalized Code(s): R53.1 - WEAKNESS Status: Acute (8) Anxiety and depression Code(s): F41.9 - ANXIETY DISORDER, UNSPECIFIED; F32.9 - MAJOR DEPRESSIVE DISORDER, SINGLE EPISODE, UNSPECIFIED Status: Chronic Comment: (9) H/O malignant neoplasm of stomach Code(s): Z85.028 - PERSONAL HISTORY OF OTHER MALIGNANT NEOPLASM OF STOMACH Status: Chronic (10) Paroxysmal SVT (supraventricular tachycardia) Code(s): I47.1 - SUPRAVENTRICULAR TACHYCARDIA Status: Chronic - Plan cont current plan of care, plan discussed w/ family, continue antibiotics, PT/OT , psychiatric social worker, speech therapy, respiratory therapy * he will need speech therapy at care home * spoke with daughter and updated plan * will keep in hospital today for iv antibiotics and expecting discharge tomorrow * medication reviewed as below * symptomatic treatment * continue PT * high risk for readmission. Review of Systems - Review of Systems Constitutional: weakness. negative: fever, chills, sweats, malaise, other Respiratory: Cough, Sputum. negative: Dry, Shortness of Breath, Hemoptysis, SOB with Excertion, Pleuritic Pain, Wheezing Cardiovascular: negative: chest pain, palpitations, orthopnea, paroxysmal nocturnal dyspnea, edema, light headedness, other Gastrointestinal: negative: Nausea, Vomiting, Abdominal Pain, Diarrhea, Constipation, Melena, Hematochezia, Other Genitourinary: negative: Dysuria, Frequency, Incontinence, Hematuria, Retention , Other Musculoskeletal: negative: Neck Pain, Shoulder Pain, Arm Pain, Back Pain, Hand Pain, Leg Pain, Foot Pain, Other Skin: negative: Rash, Lesions, Leo, Bruising, Other - Medications/Allergies Allergies/Adverse Reactions: Allergies Allergy/AdvReac Type Severity Reaction Status Date / Time No Known Allergies Allergy Verified 07/29/18 18:32 Medications: Current Medications Acetaminophen (Tylenol) 650 mg PO Q4H PRN PRN Reason: Headache/Fever/Mild Pain (1-3) Hydrocodone Bitart/Acetaminophen ([place] 10/325) 1 tab PO Q6H PRN PRN Reason: Pain Hydrocodone Bitart/Acetaminophen ([place] 5/325) 1 tab PO Q4H PRN PRN Reason: Moderate Pain (4-6) Last Admin: 09/06/18 17:31 Dose: 1 tab Albuterol/Ipratropium (Duoneb) 3 ml NEB [id number] [facility] Last Admin: 09/09/18 07:45 Dose: Not Given Albuterol/Ipratropium (Duoneb) 3 ml NEB Q2H PRN PRN Reason: SOB &/or Wheezing Alprazolam (Xanax) 1 mg PO BID [facility] Last Admin: 09/09/18 08:54 Dose: Not Given Arformoterol Tartrate (Brovana) 15 mcg NEB BID-RT [facility] Last Admin: 09/09/18 07:37 Dose: 15 mcg Artificial Tears (Tears Naturale) 2 drop EA EYE PRN PRN PRN Reason: Dry Eyes Bisacodyl (Dulcolax) 10 mg PO DAILYPRN PRN PRN Reason: Constipation Bisacodyl (Dulcolax) 10 mg [place] DAILYPRN PRN PRN Reason: Constipation Calcium Carbonate (Tums) 1,000 mg PO Q4H PRN PRN Reason: Heartburn or Indigestion Diltiazem HCl (Cardizem Cd) 120 mg PO DAILY [facility] Last Admin: 09/09/18 08:52 Dose: 120 mg Enoxaparin Sodium (Lovenox) 40 mg SC 0900 [facility] Last Admin: 09/09/18 08:52 Dose: 40 mg Guaifenesin (Mucinex) 600 mg PO Q12HR [facility] Last Admin: 09/09/18 08:53 Dose: 600 mg Guaifenesin (Robitussin Sf) 200 mg PO Q4H PRN PRN Reason: Cough Hydralazine HCl (Apresoline) 10 mg SLOW IVP Q4H PRN PRN Reason: SBP > 180 and HR < 70 Meropenem 1 gm/ Device 50 mls @ 100 mls/hr IVPB Q8HR [facility] Last Admin: 09/09/18 05:57 Dose: 50 mls Vancomycin HCl 1.5 gm/ Sodium (Chloride) 300 mls @ 200 mls/hr IVPB 1800 [facility] Last Admin: 09/08/18 18:41 Dose: 300 mls Iron/Minerals/Multivitamins (Theragran M) 1 tab PO DAILY [facility] Last Admin: 09/09/18 08:53 Dose: 1 tab Loperamide HCl (Imodium) 2 mg PO PRN PRN PRN Reason: Diarrhea/Loose Stools Loratadine (Claritin) 10 mg PO DAILYPRN PRN PRN Reason: Sinus Symptoms Methylprednisolone Sodium Succinate (Solu-Medrol) 20 mg IVP Q8HR [facility] Last Admin: 09/09/18 06:15 Dose: 20 mg Mineral Oil/White Petrolatum (Eucerin Cream) 0 gm TOP BIDPRN PRN PRN Reason: Dry Skin Miscellaneous Medication (Pharmacy To Dose) 1 each IVPB ASDIR [facility] Ondansetron HCl (Zofran Odt) 4 mg PO Q6H PRN PRN Reason: Nausea/Vomiting Last Admin: 09/07/18 23:05 Dose: 4 mg Ondansetron HCl (Zofran) 4 mg IVP Q6H PRN PRN Reason: Nausea/Vomiting Omeprazole 40mg/Sodium Bicarb 1680mg Patient's Home Medication 0 each PO BID- WM [facility] Last Admin: 09/09/18 08:53 Dose: 1 each Pregabalin (Lyrica) 150 mg PO BID [facility] Last Admin: 09/08/18 20:17 Dose: 150 mg Saccharomyces Boulardii (Florastor) 250 mg PO DAILY [facility] Last Admin: 09/09/18 08:52 Dose: 250 mg Senna/Docusate Sodium (Senokot S) 2 tab PO BID PRN PRN Reason: Constipation Sodium Chloride ([place] Nasal [place] 0.65%) 0 ml EA NARE QIDPRN PRN PRN Reason: Nasal Congestion Throat Lozenges (Cepastat Lozenges) 1 jennifer PO Q2H PRN PRN Reason: Sore Throat Zolpidem Tartrate (Ambien) 5 mg PO HSPRN PRN PRN Reason: Insomnia
[2018-09-09] MEDS: Pregabalin 75 MG CAP PO SCH ×2 (11:44→23:29)
[2018-09-09] MEDS: Vancomycin HCl 1.5 GM in Sodium Chloride 0.9% 250 ML 300 ML IVPB SCH (18:35)
[2018-09-10] MEDS: MEROPENEM 1 GM/50 ML 1 GM in Premix Bag 1 BAG IVPB SCH (05:07)
[2018-09-10] MEDS: Arformoterol 15 MCG/2 ML NEB NEB SCH (08:50)
[2018-09-10 09:27] VITALS: BP 125/66; TEMP 97.8
--- NOTE | 2018-09-10 09:35 | PDOC.PN ---
- Subjective Encounter Start Date: 09/10/18 Encounter Start Time: 07:10 Patient seen and examined. No new complaints. No overnight events - Objective Resuscitation Status - Order Detail: 09/06/18 20:11 Resuscitation Status Routine Co-Sign Provider: Resuscitation Status: FULL: Full Resuscitation Discussed with: patient Additional comments: Talked to patient on request of Ewa, patient told both of us he wanted to be changed to a full code until he can talk to his family. MAR Reviewed: Yes Vital Signs & Weight: Vital Signs (12 hours) Temp Pulse Resp BP Pulse Ox 09/10/18 08:00 97.8 F 60 16 125/66 92 L 09/10/18 04:00 97.7 F 60 16 140/74 93 L 09/10/18 00:00 98.1 F 61 18 175/79 H 91 L Weight Admit Weight 160 lb 0.889 oz Weight 165 lb 9.6 oz I&O: 09/09/18 09/10/18 09/11/18 06:59 06:59 06:59 Intake Total 2350 1890 Output Total 1400 2450 Balance 950 -560 Result Diagrams: 09/07/18 04:39 09/07/18 04:39 Phys Exam - Physical Examination Constitutional: NAD HEENT: PERRLA, moist MMs, sclera anicteric Neck: no JVD, supple Respiratory: no wheezing, no rhonchi right base rales Cardiovascular: RRR, no significant murmur, no rub Gastrointestinal: soft, non-tender, no distention, positive bowel sounds Musculoskeletal: no edema, pulses present Neurological: non-focal, normal sensation Lymphatic: no nodes Psychiatric: normal affect, A&O x 3 Skin: no rash, normal turgor Dx/Plan (1) Acute respiratory failure with hypoxemia Code(s): J96.01 - ACUTE RESPIRATORY FAILURE WITH HYPOXIA Status: Acute (2) COPD exacerbation Code(s): J44.1 - CHRONIC OBSTRUCTIVE PULMONARY DISEASE W (ACUTE) EXACERBATION Status: Acute (3) Encephalopathy in sepsis Code(s): G93.41 - METABOLIC ENCEPHALOPATHY Status: Resolved (4) Lactic acidosis Code(s): E87.2 - ACIDOSIS Status: Resolved (5) Right lower lobe pneumonia Code(s): J18.1 - LOBAR PNEUMONIA, UNSPECIFIED ORGANISM Status: Acute Qualifiers: Pneumonia type: aspiration pneumonia (6) Sepsis with acute organ dysfunction Code(s): A41.9 - SEPSIS, UNSPECIFIED ORGANISM; R65.20 - SEVERE SEPSIS WITHOUT SEPTIC SHOCK Status: Acute (7) Weakness generalized Code(s): R53.1 - WEAKNESS Status: Acute (8) Anxiety and depression Code(s): F41.9 - ANXIETY DISORDER, UNSPECIFIED; F32.9 - MAJOR DEPRESSIVE DISORDER, SINGLE EPISODE, UNSPECIFIED Status: Chronic Comment: (9) H/O malignant neoplasm of stomach Code(s): Z85.028 - PERSONAL HISTORY OF OTHER MALIGNANT NEOPLASM OF STOMACH Status: Chronic (10) Paroxysmal SVT (supraventricular tachycardia) Code(s): I47.1 - SUPRAVENTRICULAR TACHYCARDIA Status: Chronic - Plan cont current plan of care, continue antibiotics, clinical social work therapist, respiratory therapy * medication reviewed as below * symptomatic treatment * see discharge jack. Review of Systems - Review of Systems ENT: negative: Ear Pain, Ear Discharge, Nose Pain, Nose Discharge, Nose Congestion, Mouth Pain, Mouth Swelling, Throat Pain, Throat Swelling, Other Respiratory: negative: Cough, Dry, Shortness of Breath, Hemoptysis, SOB with Excertion, Pleuritic Pain, Sputum, Wheezing Cardiovascular: negative: chest pain, palpitations, orthopnea, paroxysmal nocturnal dyspnea, edema, light headedness, other Gastrointestinal: negative: Nausea, Vomiting, Abdominal Pain, Diarrhea, Constipation, Melena, Hematochezia, Other Genitourinary: negative: Dysuria, Frequency, Incontinence, Hematuria, Retention , Other Musculoskeletal: negative: Neck Pain, Shoulder Pain, Arm Pain, Back Pain, Hand Pain, Leg Pain, Foot Pain, Other Skin: negative: Rash, Lesions, Leo, Bruising, Other - Medications/Allergies Allergies/Adverse Reactions: Allergies Allergy/AdvReac Type Severity Reaction Status Date / Time No Known Allergies Allergy Verified 07/29/18 18:32 Medications: Current Medications Acetaminophen (Tylenol) 650 mg PO Q4H PRN PRN Reason: Headache/Fever/Mild Pain (1-3) Hydrocodone Bitart/Acetaminophen (Waka 10/325) 1 tab PO Q6H PRN PRN Reason: Pain Hydrocodone Bitart/Acetaminophen (Waka 5/325) 1 tab PO Q4H PRN PRN Reason: Moderate Pain (4-6) Last Admin: 09/06/18 17:31 Dose: 1 tab Albuterol/Ipratropium (Duoneb) 3 ml NEB [id number] [facility] Last Admin: 09/10/18 08:16 Dose: Not Given Albuterol/Ipratropium (Duoneb) 3 ml NEB Q2H PRN PRN Reason: SOB &/or Wheezing Alprazolam (Xanax) 1 mg PO BID [facility] Last Admin: 09/09/18 23:29 Dose: 1 mg Arformoterol Tartrate (Brovana) 15 mcg NEB BID-RT [facility] Last Admin: 09/10/18 08:50 Dose: Not Given Artificial Tears (Tears Naturale) 2 drop EA EYE PRN PRN PRN Reason: Dry Eyes Bisacodyl (Dulcolax) 10 mg PO DAILYPRN PRN PRN Reason: Constipation Bisacodyl (Dulcolax) 10 mg GA DAILYPRN PRN PRN Reason: Constipation Calcium Carbonate (Tums) 1,000 mg PO Q4H PRN PRN Reason: Heartburn or Indigestion Diltiazem HCl (Cardizem Cd) 120 mg PO DAILY [facility] Last Admin: 09/09/18 08:52 Dose: 120 mg Enoxaparin Sodium (Lovenox) 40 mg SC 0900 [facility] Last Admin: 09/09/18 08:52 Dose: 40 mg Guaifenesin (Mucinex) 600 mg PO Q12HR [facility] Last Admin: 09/09/18 23:28 Dose: 600 mg Guaifenesin (Robitussin Sf) 200 mg PO Q4H PRN PRN Reason: Cough Hydralazine HCl (Apresoline) 10 mg SLOW IVP Q4H PRN PRN Reason: SBP > 180 and HR < 70 Meropenem 1 gm/ Device 50 mls @ 100 mls/hr IVPB Q8HR [facility] Last Admin: 09/10/18 05:07 Dose: 50 mls Vancomycin HCl 1.5 gm/ Sodium (Chloride) 300 mls @ 200 mls/hr IVPB 1800 [facility] Last Admin: 09/09/18 18:35 Dose: 300 mls Iron/Minerals/Multivitamins (Theragran M) 1 tab PO DAILY [facility] Last Admin: 09/09/18 08:53 Dose: 1 tab Loperamide HCl (Imodium) 2 mg PO PRN PRN PRN Reason: Diarrhea/Loose Stools Loratadine (Claritin) 10 mg PO DAILYPRN PRN PRN Reason: Sinus Symptoms Methylprednisolone Sodium Succinate (Solu-Medrol) 20 mg IVP Q8HR [facility] Last Admin: 09/10/18 06:08 Dose: 20 mg Mineral Oil/White Petrolatum (Eucerin Cream) 0 gm TOP BIDPRN PRN PRN Reason: Dry Skin Miscellaneous Medication (Pharmacy To Dose) 1 each IVPB ASDIR [facility] Ondansetron HCl (Zofran Odt) 4 mg PO Q6H PRN PRN Reason: Nausea/Vomiting Last Admin: 09/07/18 23:05 Dose: 4 mg Ondansetron HCl (Zofran) 4 mg IVP Q6H PRN PRN Reason: Nausea/Vomiting Omeprazole 40mg/Sodium Bicarb 1680mg Patient's Home Medication 0 each PO BID- [facility] Last Admin: 09/09/18 17:17 Dose: 1 each Pregabalin (Lyrica) 150 mg PO BID [facility] Last Admin: 09/09/18 23:29 Dose: 150 mg Saccharomyces Boulardii (Florastor) 250 mg PO DAILY [facility] Last Admin: 09/09/18 08:52 Dose: 250 mg Senna/Docusate Sodium (Senokot S) 2 tab PO BID PRN PRN Reason: Constipation Sodium Chloride ([place] Nasal [place] 0.65%) 0 ml EA NARE QIDPRN PRN PRN Reason: Nasal Congestion Throat Lozenges (Cepastat Lozenges) 1 jennifer PO Q2H PRN PRN Reason: Sore Throat Zolpidem Tartrate (Ambien) 5 mg PO HSPRN PRN PRN Reason: Insomnia
[2018-09-10] MEDS: Multivitamin W/ Minerals 1 TAB PO SCH (09:48)
[2018-09-10] MEDS: Enoxaparin Sodium 40 MG/0.4 ML SYRINGE SC SCH (09:48)
[2018-09-10] MEDS: guaiFENesin ER 600 MG TAB PO SCH (09:48)
[2018-09-10] MEDS: Pregabalin 75 MG CAP PO SCH (09:49)
[2018-09-10] MEDS: ALPRAZolam 0.5 MG TAB PO SCH (09:49)
[2018-09-10] MEDS: Saccharomyces boulardii 250 MG CAP PO SCH (09:49)
[2018-09-10] MEDS: SODIUM BICARBONATE PO SCH (09:52)
[2018-09-10] MEDS: OMEPRAZOLE PO SCH (09:52)
--- NOTE | 2018-09-10 11:13 | DIS ---
DATE OF ADMISSION: 09/05/2018 DATE OF DISCHARGE: 09/10/2018 PRIMARY CARE PHYSICIAN: Dr. Sohail Vargas. DISCHARGE DISPOSITION: custodial unit. PRIMARY DISCHARGE DIAGNOSES: 1. Acute respiratory failure with hypoxia. 2. Chronic obstructive pulmonary disease exacerbation. 3. Aspiration. 4. Right lower lobe pneumonia. 5. Sepsis with acute organ dysfunction. 6. Generalized weakness. 7. Lactic acidosis, resolved. 8. Encephalopathy, resolved. SECONDARY DISCHARGE DIAGNOSES: 1. Paroxysmal supraventricular tachycardia. 2. Hiatal hernia. 3. Oropharyngeal dysphagia. 4. History of malignant neoplasm of stomach. 5. Anxiety and depression. 6. Physical deconditioning. 7. Chronic obstructive pulmonary disease. PRIMARY PROCEDURE/OPERATION: None. RADIOLOGICAL INVESTIGATION: Chest x-ray showed right lower lobe infiltration. SIGNIFICANT LABORATORY DATA: WBC 10.0, hemoglobin 11.6, platelets 354. PO2 of 59.4. Sodium 136, potassium 4.3, BUN 15, creatinine 0.82. LFT normal. Lactic acid 2.8. Urinalysis, leukocyte esterase trace. Blood culture negative. Influenza screen negative. Urine culture negative. DISCHARGE MEDICATIONS: 1. Augmentin 875 mg twice daily for 7 days. 2. Florastor 250 mg p.o. daily for 7 days. 3. Mucinex 600 mg twice daily for 7 days. 4. Anchor 10 one tablet q.6 hourly p.r.n. 5. DuoNeb q.6 hourly. 6. Xanax 1 mg b.i.d. 7. Brovana 15 mcg nebulization b.i.d. 8. Cartia XT 120 mg daily. 9. Fiber tablet daily. 10. Multivitamin 1 tablet daily. 11. Omeprazole 2 tablet b.i.d. 12. Lyrica 150 mg p.o. b.i.d. 13. Ambien 10 mg p.o. at bedtime p.r.n. CONTRAINDICATION: None. CODE STATUS: Full code. INPATIENT DIE HOLDER: None. ALLERGIES: NO KNOWN DRUG ALLERGIES. DISCHARGE PLAN: Post hospital, the patient is discharged to [facility]. Subsequently, the patient will follow up with Dr. Sohail Vargas. The patient will need PT, OT, speech therapy, and modified diet at the [place] [facility]. HOSPITAL COURSE: This is an 82-year-old male with above-mentioned medical problem, who was admitted by me on 09/06/2018. Please see my HPI for further details. The patient was recently admitted to the hospital for aspiration pneumonia and he was treated with antibiotic therapy and he had again increasing cough, increasing shortness of breath, and he was found with similar spot right lower lobe infiltration. He was having acute respiratory failure on admission. He was having lactic acidosis and encephalopathy. He was extremely weak. He was meeting sepsis with acute organ dysfunction criteria. He was treated with vancomycin and meropenem as well as optimum treatment for COPD. His encephalopathy and lactic acidosis resolved. His respiratory failure is improving. His pneumonia is also improving. Speech Therapy was following while in hospital and he was kept on modified diet. This patient is continuously high risk for aspiration pneumonia. The patient will need speech therapy at the [place] [facility]. With the help of case liner, we arranged [facility] home upon discharge for his generalized weakness. The patient is seen and examined at bedside today. Please see my progress note from today for further detail. Paperwork for discharge done and discharge medication reconciliation done. Total time spent on discharge day, 31 minutes. Job ID: [id number]
== END 2018-09-10 14:26 | disposition home health service (06) | DRG 871 ==
LOC: ERS 15:55 → ERHOLD 19:25 → 2NO 09-06 14:18 → ONC 09-07 21:57
PROVIDERS: ADMIT Family Medicine; ATTEND Family Medicine
DX: A41.9 Sepsis, unspecified organism (principal); J96.01 Acute respiratory failure with hypoxia; J18.9 Pneumonia, unspecified organism; G93.41 Metabolic encephalopathy; J44.1 Chronic obstructive pulmonary disease with (acute) exacerbation; E87.2 Acidosis; I47.1 Supraventricular tachycardia; K21.9 Gastro-esophageal reflux disease without esophagitis; G62.9 Polyneuropathy, unspecified; F41.9 Anxiety disorder, unspecified; F32.9 Major depressive disorder, single episode, unspecified; K44.9 Diaphragmatic hernia without obstruction or gangrene; R13.12 Dysphagia, oropharyngeal phase; Z85.028 Personal history of other malignant neoplasm of stomach; Z87.891 Personal history of nicotine dependence; Z90.49 Acquired absence of other specified parts of digestive tract; Z90.3 Acquired absence of stomach [part of]
CPT/HCPCS: 36415; 36416; 71045; 80053; 80202; 81003; 81015; 82805; 83605; 85025; 87040; 87086; 87804; 93005; 94640; 94760; 96361; 96365; 96367; J1650; J2185; J2543; J2920; J3370; J7050; J7620; Q0162

== ENCOUNTER 2018-10-12 12:22 | Outpatient (CLI) | payer MEDICARE ==
--- NOTE | 2018-10-12 14:15 | RAD ---
TWO VIEWS CHEST: History: Pneumonia. Congestion. Comparison: 06-22-18 FINDINGS: Stable left sided port-a-cath. Stable dorsal column stimulator. Normal cardiac silhouette. Pulmonary vessels and hilum are normal. Costophrenic angles are clear. Chr onic changes lung parenchyma, without consolidation or mass. No pneumothorax or acute osseous abnorma lities. Persistent elevation of the right hemidiaphragm. IMPRESSION: No acute cardiopulmonary process. POS: MAXIME
== END 2018-10-12 12:23 | disposition home or self-care (01) ==
LOC: BICRAD 12:22
PROVIDERS: ATTEND Family Medicine
DX: J18.9 Pneumonia, unspecified organism (principal)
CPT/HCPCS: 36415; 71046; 80053; 85025

== ENCOUNTER 2019-01-31 00:37 | Observation (INO) | payer MEDICARE ==
[2019-01-31 01:20] LABS: #Basophils 0.1 thou/uL (0.0-0.2); #Eosinphils 0.3 thou/uL (0.0-0.7); #Lymphocytes 2.3 thou/uL (1.20-3.40); #Neutrophils 5.7 thou/uL (1.40-6.50); %Basophils 0.9 % (0.0-1.0); %Lymphocytes 24.1 % (21.0-51.0); %Monocytes 11.1 % (0.0-10.0); %Neutrophils 60.8 % (42.0-75.0); Hemoglobin 10.9 g/dL (14.0-18.0); Mean Corpuscular HGB CONC 29.7 g/dL (32.0-36.0); Mean Corpuscular Hemoglobin 24.4 pg (27.0-31.0); Mean Corpuscular Volume 81.9 fL (78.0-98.0); Mean Platelet Volume 7.3 fL (7.4-10.4); Platelet Count 384 thou/uL (130-400); RBC Distribution Width 17.8 % (11.5-14.5); Red Blood Cell (RBC) Count 4.46 mill/uL (4.70-6.10); White Blood Cell (WBC) Count 9.3 thou/uL (4.8-10.8)
[2019-01-31 01:40] LABS: ALT (SGPT) 13 U/L (8-55); AST (SGOT) 17 U/L (5-34); Albumin 3.8 g/dL (3.4-4.8); Alkaline Phosphatase 123 U/L (40-150); Anion Gap 13 mmol/L (10-20); BUN (Urea Nitrogen) 20 mg/dL (8.4-25.7); Bilirubin, Total 0.3 mg/dL (0.2-1.2); Calc. Creatinine Clearance 0 mL/min (70-130); Calcium 9.3 mg/dL (7.8-10.44); Carbon Dioxide 31 mmol/L (23-31); Chloride 100 mmol/L (98-107); Estimated GFR-MDRD 71; Globulin 3.1 g/dL (2.4-3.5); Glucose 97 mg/dL (83-110); Potassium 4.5 mmol/L (3.5-5.1); Protein, Total 6.9 g/dL (5.8-8.1); Sodium 139 mmol/L (136-145)
[2019-01-31] MEDS ORDERED: cefTRIAXone\\ROCEPHIN 2 GM VIAL ONE (01:44)
[2019-01-31] MEDS ORDERED: Azithromycin 500 MG VIAL ONE (01:44)
[2019-01-31] MEDS ORDERED: Senokot S 8.6-50 MG TAB PO PRN (02:47)
[2019-01-31] MEDS ORDERED: Acetaminophen 650 MG Suppository PR PRN (02:47)
[2019-01-31] MEDS ORDERED: Acetaminophen 325 MG TAB PO PRN (02:47)
[2019-01-31] MEDS ORDERED: Ondansetron ODT 4 MG TAB PO PRN (02:47)
[2019-01-31] MEDS ORDERED: Ondansetron PF 4 MG/2 ML Vial IVP PRN (02:47)
[2019-01-31] MEDS ORDERED: guaiFENesin 200 MG TAB PO PRN (02:49)
[2019-01-31] MEDS ORDERED: Arformoterol 15 MCG/2 ML NEB NEB PRN (04:27)
[2019-01-31 05:29] VITALS: BMI 24.0
--- NOTE | 2019-01-31 05:57 | HP ---
CHIEF COMPLAINT: Cough and shortness of breath. HISTORY OF PRESENT ILLNESS: Mr. Roca is a pleasant 83-year-old man with a known history of COPD, who was seen by his primary care physician recently due to complaints of headache and feeling generally weak with postnasal drip and nasal congestion for approximately 3 days. He states today he has developed cough and shortness of breath. He states the cough is rattly, and he finds it difficult to bring up phlegm, but when he has brought up a small amount of phlegm, it was white in color. He denies any hemoptysis. Denies any associated chest pain. Has not had any fevers, chills, or sweats. In the ER, he had a normal temperature. He did have suddenly low blood pressure of 99/76 on presentation. The patient does not normally use oxygen at home and is currently on 2 L with a sat of 98%. The patient states he has otherwise been well without any abdominal pain or cramping. No nausea or vomiting. No urinary symptoms. REVIEW OF SYSTEMS: All other review of systems are negative. PAST MEDICAL HISTORY: 1. Esophageal cancer. 2. Prostate cancer. 3. Hyperlipidemia. 4. COPD. 5. GERD. 6. Chronic back pain. 7. Anxiety. 8. Anemia. 9. Chronic allergic rhinitis. 10. Sleep apnea. 11. Arthritis. 12. Chronic insomnia. 13. History of SVT. PAST SURGICAL HISTORY: 1. Radical prostatectomy. 2. Right foot surgery. 3. Right CTS surgery. 4. Bilateral cataracts with retro lens implant. 5. Partial gastrectomy/esophagectomy in 09/2005. 6. DCS implant. SOCIAL HISTORY: The patient is a former smoker, but quit in 1997. He previously smoked one pack per day. Currently, he does not drink any alcohol, but he used to drink two six packs weekly. Denies any illicit drug use. ALLERGIES: NO KNOWN DRUG ALLERGIES. CURRENT MEDICATIONS: 1. Bronson. 2. Lyrica. 3. Xanax. 4. Zolpidem. 5. Cartia XT. 6. Calcium 600. 7. Centrum Silver. PHYSICAL EXAMINATION: GENERAL: The patient appears generally unwell, but in no acute distress. HEENT: Normocephalic, atraumatic. Pupils are equal, round, and reactive to light. Sclerae are without icterus. Oropharynx is clear. NECK: Supple without lymphadenopathy. LUNGS: Notable for inspiratory wheezing in the left upper lung. No crackles. Reduced breath sounds at the bilateral bases. CARDIAC: Regular rate and rhythm. No chest wall tenderness. ABDOMEN: Soft with large ventral hernia, nontender, taking up essentially almost the entire abdomen. Hyperactive bowel sounds present. No guarding or rigidity. No renal angle tenderness. EXTREMITIES: No lower leg edema or swelling. SKIN: Without rash or jaundice. LABORATORY DATA: White blood count 9.3, hemoglobin 10.9, hematocrit 36.5, and platelets 284. Sodium 139, potassium 4.5, BUN 20, creatinine 1.01, GFR 71, glucose 97, calcium 9.3, total bilirubin 0.3, AST 17, ALT 13, and alkaline phosphatase 123. Troponin I negative. BNP 219.9. Albumin 3.8. IMAGING DATA: Chest x-ray notable for findings suggestive of pneumonia. Awaiting final report. IMPRESSION AND PLAN: Mr. Roca is a pleasant 83-year-old man, who is being admitted for management of the following; 1. Pneumonia. The patient with normal white cell count. We will add lactic acid. BNP elevated at 219.9, which is lower from previous. The patient with cough, occasionally productive for yellow sputum, but mostly unable to bring up secretions. We will start guaifenesin, DuoNebs, and Tessalon Perles. We will obtain sputum culture. Continue IV antibiotics. 2. Possible atrial fibrillation. EKG done in the emergency department showed changes concerning for atrial fibrillation. The patient did not have a history of atrial fibrillation. Therefore, we will admit to telemetry and continue to monitor. He is on Cartia, but this is for a known history of supraventricular tachycardia. The patient is asymptomatic. More recently, he has been in normal sinus rhythm. 3. Gastrointestinal prophylaxis. 4. Deep venous thrombosis prophylaxis with mechanical SCDs. 5. Code status: DNAR. His surrogate decision maker is his daughter, Zahida Cline. The patient's case was discussed with Dr. Chao, who agrees with the plan of care as described above. Job ID: [id number]
[2019-01-31] MEDS ORDERED: Ipratropium Bromide 2.5 ml Neb NEB PRN (06:11)
[2019-01-31 06:38] LABS: #Eosinphils 0.3 thou/uL (0.0-0.7); #Lymphocytes 2.1 thou/uL (1.20-3.40); #Neutrophils 6.1 thou/uL (1.40-6.50); %Basophils 0.3 % (0.0-1.0); %Eosinophils 2.9 % (0.0-10.0); %Lymphocytes 22.4 % (21.0-51.0); %Monocytes 10.4 % (0.0-10.0); Hemoglobin 10.1 g/dL (14.0-18.0); Mean Corpuscular Hemoglobin 24.5 pg (27.0-31.0); Mean Corpuscular Volume 81.7 fL (78.0-98.0); Mean Platelet Volume 7.3 fL (7.4-10.4); Platelet Count 365 thou/uL (130-400); RBC Distribution Width 17.8 % (11.5-14.5); Red Blood Cell (RBC) Count 4.13 mill/uL (4.70-6.10); White Blood Cell (WBC) Count 9.6 thou/uL (4.8-10.8)
[2019-01-31] MEDS: Ipratropium Bromide 2.5 ml Neb NEB SCH ×4 (06:44→22:26)
[2019-01-31 06:55] LABS: Anion Gap 9 mmol/L (10-20); BUN (Urea Nitrogen) 18 mg/dL (8.4-25.7); Calc. Creatinine Clearance 69 mL/min (70-130); Calcium 9.3 mg/dL (7.8-10.44); Carbon Dioxide 31 mmol/L (23-31); Chloride 101 mmol/L (98-107); Estimated GFR-MDRD 85; Glucose 101 mg/dL (83-110); Potassium 4.3 mmol/L (3.5-5.1); Sodium 137 mmol/L (136-145)
--- NOTE | 2019-01-31 08:21 | RAD ---
EXAM: Chest PA and lateral: HISTORY: Dyspnea. COMPARISON: 10/12/2018 FINDINGS: Stable left-sided Mediport catheter. Dorsal column stimulators are noted.. Heart: Normal cardiac silhouette Aorta: Atherosclerosis. Pulmonary vessels: Normal Costophrenic angles: Costophrenic angles are clear. Lungs: Adequate aeration of the left lung. Diminished right lung volume may be due to atelectasis in the lower lobe. Pneumothorax: No pneumothorax Osseous structures: No osseous abnormalities IMPRESSION: Decreased right hemithoracic lung volume which may be due to right lower lobe atelectasis. Etiology o f the atelectasis is uncertain. Additional imaging if warranted. CODE T
[2019-01-31] MEDS ORDERED: Famotidine/PF 20 mg/2ml Vial SLOW IVP SCH (09:00)
[2019-01-31] MEDS: Benzonatate 100 MG CAP PO SCH ×3 (09:12→21:13)
[2019-01-31] MEDS: Famotidine 20 MG TAB PO SCH ×2 (09:12→21:13)
[2019-01-31] MEDS: Pregabalin 75 MG CAP PO SCH ×2 (09:13→21:13)
[2019-01-31] MEDS: Saccharomyces boulardii 250 MG CAP PO SCH (09:13)
[2019-01-31] MEDS: ALPRAZolam 1 MG TAB PO PRN ×2 (09:18→21:16)
--- NOTE | 2019-01-31 12:53 | PDOC.EVN ---
Event Note - Event Note Event Note: Patient lying in bed, he remains on azithromycin and ceftriaxone for pneumonia/ COPD exac, he reports feeling a little better today. He reports intermittent cough with improved shortness of breath. He remains in sinus rhythm on the monitor with home dose of cardizem for chronic SVT. Will start patient on oral prednisone for COPD. Patient without elevated white count or fevers. He will remain on bronchodilation treatments and we will wean off oxygen as tolerated. He may benefit from home O2 eval prior to discharge.
[2019-01-31] MEDS ORDERED: predniSONE 20 MG TAB PO SCH (13:00)
--- NOTE | 2019-01-31 13:02 | PDOC.EVN ---
Event Note - Event Note Event Note: I have personally seen and examined pt, assessment and plan discussed with SWEAT BOX ATTENDANT, agreed with note
[2019-01-31] MEDS ORDERED: Zolpidem Tartrate 5 MG TAB PO SCH (21:00)
[2019-02-01] MEDS ORDERED: Azithromycin 500 MG in Sodium Chloride 0.9% 250 ML 250 ML IVPB SCH (02:00)
[2019-02-01] MEDS ORDERED: cefTRIAXone\\ROCEPHIN 1 GM in Sodium Chloride 0.9% 100 ML IVPB SCH (03:00)
[2019-02-01] MEDS: Ipratropium Bromide 2.5 ml Neb NEB SCH ×2 (06:34→12:48)
[2019-02-01] MEDS ORDERED: predniSONE 20 MG TAB PO SCH (08:00)
[2019-02-01] MEDS: Pregabalin 75 MG CAP PO SCH (08:02)
[2019-02-01] MEDS: Famotidine 20 MG TAB PO SCH (08:03)
[2019-02-01] MEDS: Benzonatate 100 MG CAP PO SCH (08:03)
[2019-02-01] MEDS: Saccharomyces boulardii 250 MG CAP PO SCH (08:04)
[2019-02-01] MEDS: ALPRAZolam 1 MG TAB PO PRN (09:45)
[2019-02-01 12:29] VITALS: TEMP 97.5
--- NOTE | 2019-02-02 03:57 | DIS ---
DATE OF ADMISSION: 01/31/2019 DATE OF DISCHARGE: 02/01/2019 CHIEF COMPLAINT ON ADMISSION: Cough and shortness of breath. DISCHARGE DIAGNOSES: 1. Acute bronchitis versus community-acquired pneumonia with right lower lobe atelectasis per chest x-ray and history of right lower lobe pneumonia 6 months ago, symptomatically much improved since admission. 2. Chronic obstructive pulmonary disease. 3. Deconditioning. 4. 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 5. Sinus arrhythmia, no evidence of atrial fibrillation per telemetry or EKG. 6. History of prostate/esophageal/gastric carcinoma. HOSPITAL COURSE: The patient is a pleasant 83-year-old gentleman with past medical history significant for chronic COPD and history of community-acquired pneumonia in the past, who presented to the hospital with a 3-day history of worsening cough, congestion, and headache for the past 3 days prior to admission. He also had some associated shortness of breath. He denies any chest pain, fever, chills, or sweats. He was admitted with presumptive pneumonia versus COPD exacerbation. He was given IV antibiotics, IV Solu-Medrol, and scheduled breathing treatments with much improvement in his presenting symptoms. He did undergo an oxygen desat study and had no oxygen requirement today. His cough is much improved and his shortness of breath has resolved. He was evaluated by PT, who is recommending outpatient physical therapy. At the time of my interview this afternoon, the patient is resting comfortably and has no rhonchi, wheezes, or crackles on his lung exam. CONDITION ON DISCHARGE: Stable. DISCHARGE DISPOSITION: Home with Home Health and outpatient physical therapy to be performed through his [facility] with whom he is already established. DISCHARGE INSTRUCTIONS: The patient will be discharged on cefuroxime 500 mg orally twice daily for the next 6 days to complete his course, along with azithromycin 250 mg one tablet p.o. daily for the next 3 days. He will also be discharged on a Medrol Dosepak. Case Management was consulted and physical therapy will be arranged through his home health company. He will follow up with his primary care physician, Dr. Sohail Vargas, in the next week or two. He will return to the hospital with any worsening of symptoms. All questions answered. Care of this patient has been discussed with Dr. Rodrigez, who agrees with plan and discharge as outlined above. Job ID: [id number] [facility]
[2019-02-02 07:38] VITALS: BP 113/68
--- NOTE | 2019-02-06 15:11 | EKG ---
Test Reason : Blood Pressure : / mmHG Vent. Rate : 081 BPM Atrial Rate : 127 BPM P-R Int : 000 ms QRS Dur : 070 ms QT Int : 354 ms P-R-T Axes : 000 -17 009 degrees QTc Int : 411 ms Atrial fibrillation Low voltage QRS Nonspecific ST abnormality , probably digitalis effect Abnormal ECG Confirmed by PASTOR WHYTE ([id number]), field map editor BELA MAY ([id number]) on 02/06/2019 3:11:27 PM Referred By: Confirmed By:PASTOR WHYTE
== END 2019-02-01 15:00 | disposition home or self-care (01) ==
LOC: ERS 00:37 → 2SW 03:36
PROVIDERS: ADMIT Internal Medicine; ATTEND Internal Medicine
DX: R06.02 Shortness of breath (principal); R53.1 Weakness; R53.81 Other malaise; I49.9 Cardiac arrhythmia, unspecified; J44.9 Chronic obstructive pulmonary disease, unspecified; E78.5 Hyperlipidemia, unspecified; D64.9 Anemia, unspecified; K21.9 Gastro-esophageal reflux disease without esophagitis; F41.9 Anxiety disorder, unspecified; G47.30 Sleep apnea, unspecified; M19.90 Unspecified osteoarthritis, unspecified site; G89.29 Other chronic pain; M54.9 Dorsalgia, unspecified; J30.9 Allergic rhinitis, unspecified; Z79.899 Other long term (current) drug therapy; Z87.891 Personal history of nicotine dependence; Z66 Do not resuscitate
CPT/HCPCS: 71046; 80048; 80053; 82962; 83880; 84484; 85025 ×2; 87040; 87070; 87205; 87804 ×2; 93005; 94640 ×2; 96365; 96366 ×2; 96367; 97116; 97139 ×3; 99285; G0378 ×2; 36415; 36416; J0456; J0696; J3490; J7050; J7512; J7620

== ENCOUNTER 2019-02-12 14:50 | Emergency (ER) | payer MEDICARE ==
[2019-02-12 15:19] LABS: #Basophils 0.1 thou/uL (0.0-0.2); #Eosinphils 0.2 thou/uL (0.0-0.7); #Lymphocytes 2.4 thou/uL (1.20-3.40); #Neutrophils 6.7 thou/uL (1.40-6.50); %Basophils 0.8 % (0.0-1.0); %Eosinophils 2.1 % (0.0-10.0); %Lymphocytes 22.9 % (21.0-51.0); %Neutrophils 64.2 % (42.0-75.0); Hemoglobin 10.9 g/dL (14.0-18.0); Mean Corpuscular HGB CONC 29.3 g/dL (32.0-36.0); Mean Corpuscular Hemoglobin 24.3 pg (27.0-31.0); Mean Corpuscular Volume 82.9 fL (78.0-98.0); Mean Platelet Volume 7.2 fL (7.4-10.4); Platelet Count 408 thou/uL (130-400); RBC Distribution Width 17.6 % (11.5-14.5); Red Blood Cell (RBC) Count 4.48 mill/uL (4.70-6.10); White Blood Cell (WBC) Count 10.4 thou/uL (4.8-10.8)
[2019-02-12 15:37] LABS: ALT (SGPT) 10 U/L (8-55); AST (SGOT) 21 U/L (5-34); Albumin 3.7 g/dL (3.4-4.8); Alkaline Phosphatase 99 U/L (40-150); Anion Gap 14 mmol/L (10-20); BUN (Urea Nitrogen) 20 mg/dL (8.4-25.7); Bilirubin, Total 0.4 mg/dL (0.2-1.2); Calc. Creatinine Clearance 0 mL/min (70-130); Carbon Dioxide 26 mmol/L (23-31); Chloride 100 mmol/L (98-107); Estimated GFR-MDRD 62; Globulin 3.4 g/dL (2.4-3.5); Glucose 81 mg/dL (83-110); Potassium 5.1 mmol/L (3.5-5.1); Protein, Total 7.1 g/dL (5.8-8.1); Sodium 135 mmol/L (136-145)
--- NOTE | 2019-02-12 16:12 | RAD ---
PA AND LATERAL VIEWS OF THE CHEST: 02/12/19 HISTORY: Hypotension. FINDINGS: Comparison made with exam of 01/31/19. Left sided Port-A-Cath and intraspinal leads are again seen. The heart size is normal. The aorta is tortuous. The lungs are expanded without lobar consolidation, pneumothoraces or pleural effusions. Th ere is continued elevation of the right hemidiaphragm. There are degenerative changes in the IMPRESSION: No acute process. POS: MAXIMEH
[2019-02-12 17:36] LABS: Bilirubin Negative (Negative); Blood, Urine Negative (Negative); Clarity CLOUDY (Clear); Glucose, Urine (Dipstick) Negative (Negative); Leukocyte Negative (Negative); Nitrite Negative (Negative); Protein, Urine (Dipstick) Trace mg/dL (Neg-Trace); Specific Gravity, Urine 1.013 (1.002-1.036); Urobilinogen 0.2 mg/dL (0.2-1.0); pH, Urine 7.5 (5.0-9.0)
[2019-02-12] MEDS ORDERED: Sodium Chloride 0.9% 100 ML ONE ×2 (19:18→19:25)
[2019-02-12] MEDS ORDERED: Piperacillin/Tazobactam 3.375 GM VIAL ONE ×2 (19:18→19:25)
--- NOTE | 2019-02-13 16:45 | EKG ---
Test Reason : Blood Pressure : / mmHG Vent. Rate : 075 BPM Atrial Rate : 075 BPM P-R Int : 190 ms QRS Dur : 084 ms QT Int : 380 ms P-R-T Axes : 072 -10 036 degrees QTc Int : 424 ms Sinus rhythm Low voltage QRS Borderline ECG Confirmed by ANNELIESE ARROYO ([id number]), editor managing newspaper BELA MAY ([id number]) on 02/13/2019 4:44:54 PM Referred By: Confirmed By:ANNELIESE ARROYO
== END 2019-02-12 21:20 ==
LOC: ERS 14:50
DX: R53.1 Weakness (principal); J44.9 Chronic obstructive pulmonary disease, unspecified; F41.9 Anxiety disorder, unspecified; Z87.891 Personal history of nicotine dependence; Z79.899 Other long term (current) drug therapy; Z79.891 Long term (current) use of opiate analgesic
CPT/HCPCS: 36415; 51701; 71046; 80053; 81003; 82550; 83605; 83880; 84484; 85025; 87040; 87086; 93005; 96361; 96365; 96367; J1956; J2543; J3490

== ENCOUNTER 2019-05-01 17:33 | Inpatient (IN) | payer MEDICARE ==
[2019-05-01] MEDS ORDERED: Albuterol Sulfate 2.5 mg/3 ml Neb ONE (17:59)
[2019-05-01] MEDS ORDERED: Albuterol Sulfate 2.5 mg/0.5 ml Neb ONE ×2 (17:59)
[2019-05-01] MEDS ORDERED: Ipratropium Bromide 2.5 ml Neb ONE (18:09)
[2019-05-01] MEDS ORDERED: Dexamethasone 4 mg/ml Vial ONE (18:26)
--- NOTE | 2019-05-01 18:28 | RAD ---
PORTABLE CHEST ONE VIEW: 05/01/19 at 6:03 p.m. HISTORY: Dyspnea, near syncope, weakness. FINDINGS: Comparison is made to exam of 02/24/19. Left sided Port-A-Cath remains in place. The heart size is normal. The aorta is tortuous. No lobar co nsolidation, pneumothoraces, or pleural effusions are seen. Dorsal stimulator leads are again seen. IMPRESSION: No acute process. POS: MAXIME
[2019-05-01 18:47] LABS: Hemoglobin 7.6 g/dL (14.0-18.0); Mean Corpuscular HGB CONC 27.2 g/dL (32.0-36.0); Mean Corpuscular Hemoglobin 18.5 pg (27.0-31.0); Mean Corpuscular Volume 68.2 fL (78.0-98.0); Mean Platelet Volume 9.4 fL (7.4-10.4); Platelet Count 423 thou/uL (130-400); RBC Distribution Width 19.5 % (11.5-14.5); Red Blood Cell (RBC) Count 4.07 mill/uL (4.70-6.10)
[2019-05-01 18:59] LABS: ALT (SGPT) 11 U/L (8-55); AST (SGOT) 21 U/L (5-34); Albumin 3.8 g/dL (3.4-4.8); Alkaline Phosphatase 68 U/L (40-150); Anion Gap 18 mmol/L (10-20); BUN (Urea Nitrogen) 23 mg/dL (8.4-25.7); Bilirubin, Total 0.4 mg/dL (0.2-1.2); CK (CPK) 66 U/L (30-200); Calc. Creatinine Clearance 0 mL/min (70-130); Calcium 8.5 mg/dL (7.8-10.44); Carbon Dioxide 23 mmol/L (23-31); Chloride 99 mmol/L (98-107); Estimated GFR-MDRD 50; Globulin 2.5 g/dL (2.4-3.5); Glucose 124 mg/dL (83-110); Lipase 6 U/L (8-78); Potassium 4.7 mmol/L (3.5-5.1); Protein, Total 6.3 g/dL (5.8-8.1); Sodium 135 mmol/L (136-145)
[2019-05-01 19:07] LABS: #Lymphocytes 1.3 thou/uL (1.20-3.40); #Monocytes 0.9 thou/uL (0.11-0.59); #Neutrophils 10.8 thou/uL (1.40-6.50); %Basophils 0.1 % (0.0-1.0); %Eosinophils 0.3 % (0.0-10.0); %Lymphocytes 9.8 % (21.0-51.0); %Monocytes 6.6 % (0.0-10.0); %Neutrophils 83.1 % (42.0-75.0); Bite Cells SLIGHT = 2-5 cells (100X) (0-1/hpf); Helmet Cells SLIGHT = 2-5 cells (100X) (0-1/hpf); Hypochromia SLIGHT = 6-15 cells (100X) (0-5/hpf); MDiff Complete? YES; Microcytosis MODERATE=15-30 cells (100X) (0-5/hpf); Platelet Morphology Comment Appears Increased; Polychromasia SLIGHT = 2-3 cells (100X) (0-2/hpf); Schistocytes SLIGHT = 2-5 cells (100X) (0-1/hpf); Target Cells SLIGHT = 2-5 cells (100X) (0-1/hpf); Tear Drops SLIGHT = 2-5 cells (100X) (0-1/hpf)
[2019-05-01] MEDS ORDERED: Ondansetron PF 4 MG/2 ML Vial IVP PRN (22:11)
[2019-05-01] MEDS ORDERED: Acetaminophen 325 MG TAB PO PRN (22:11)
[2019-05-01] MEDS ORDERED: Arformoterol 15 MCG/2 ML NEB NEB PRN (22:11)
[2019-05-01] MEDS ORDERED: hydrALAZINE 20 MG/ML VIAL SLOW IVP PRN (22:11)
--- NOTE | 2019-05-01 22:17 | CT ---
CT BRAIN WITHOUT CONTRAST: 05/01/19 HISTORY: Syncope. FINDINGS: Comparison made with exam of 03/29/18. Changes of cortical atrophy and chronic small vessel ischemic disease are again seen. The ventricular size is stable and the basilar cisterns are stable. No evidence of acute infarct, hemorrhage, midlin e shift or abnormal extra-axial fluid collections are seen. The bony calvarium is intact. The visuali zed paranasal sinuses and mastoid air cells are well aerated. IMPRESSION: No CT evidence of acute intracranial process. POS: [facility]
[2019-05-01 22:36] VITALS: BMI 23.6
[2019-05-01] MEDS: Azithromycin 500 MG in Sodium Chloride 0.9% 250 ML 250 ML IVPB SCH (22:59)
[2019-05-01] MEDS: Sodium Chloride 0.9% 1,000 ML IV SCH (22:59)
[2019-05-01 23:46] LABS: Iron 17 ug/dL (65-175); Iron Binding Capacity, Total 345 mcg/dL (261-462)
--- NOTE | 2019-05-02 00:01 | HP ---
PRIMARY CARE PHYSICIAN: Sohail Vargas MD. CHIEF COMPLAINT: Extremely dizzy and hurting on both sides. HISTORY OF PRESENT ILLNESS: Mr. Roca is a pleasant 83-year-old gentleman who has a remote history of esophageal cancer about 20 years ago as well as prostate cancer more recently, and also a history of atrial fibrillation. He says that he was in his usual state of health until earlier today when he says he was having difficulty getting up, he was feeling extremely weak and said it just started today. He says that when he tried to get up, he basically slid down to the floor and could not get up. His was there as well as his daughter and they were able to help him up and bring him to the hospital for evaluation. In the ER, he was found to have an elevated white blood cell count as well as a hemoglobin of 7.6, and chest x-ray was negative, but there was concern that he could have possible early pneumonia and symptomatic anemia. The patient denies having any chest pain or shortness of breath. He does admit to some nausea. He also admits to some loose stools, but no blood in the stool. He has had a cough which he says just started today, but he does not complain of any congestion. He denies any subjective fevers or chills, but says that he was "hurting" all over, but most specifically on both sides, but the pain really did not start until he slipped down on to the floor. REVIEW OF SYSTEMS: CONSTITUTIONAL: No fevers or chills. No night sweats, but he does complain of weight loss, but he says that is because he had recently been in a [facility] facility and he really did not like the food. HEENT: No headaches. No dizziness. No visual changes. No sore throat, rhinorrhea, or neck pain. No adenopathy. PULMONARY: As the History of Present Illness. CARDIOVASCULAR: He denies any chest pain. No shortness of breath. No PND. No orthopnea. No lower extremity edema. GASTROINTESTINAL: As the History of Present Illness. GENITOURINARY: No urinary frequency or hematuria. No hesitancy. MUSCULOSKELETAL: No muscle pains, weakness, or joint pains. NEUROLOGIC: No focal weakness or numbness. No seizures. SKIN AND INTEGUMENT: No skin changes. No rash. PSYCHIATRIC: No symptoms of anxiety or depression. PAST MEDICAL HISTORY: Significant for esophageal cancer, prostate cancer, COPD, chronic low back pain, anemia, sleep apnea, and atrial fibrillation. PAST SURGICAL HISTORY: He has had a prostatectomy, right foot surgery, right carpal tunnel release, bilateral cataract surgery, partial gastrectomy, cholecystectomy, and appendectomy. ALLERGIES: NO KNOWN DRUG ALLERGIES. SOCIAL HISTORY: He is a nonsmoker and nondrinker. He lives with his . Their daughter recently moved in with them. He uses a walker to get around. He would not like to have CPR, but would not want to be placed on a ventilator, therefore, he is do not intubate. FAMILY HISTORY: Both of his parents of liver disease. CURRENT MEDICATIONS: Include; 1. [place] 10/325 q.6 as needed. 2. Lyrica 150 mg twice daily. 3. Xanax 1 mg twice a day. 4. Ambien 10 mg at bedtime. 5. Cardia XT 120 mg daily. 6. Calcium 1200 mg once a day. 7. Centrum Silver 1 tablet daily. PHYSICAL EXAMINATION: GENERAL: He is alert and oriented. He is chronically ill in appearance. He is very weak and frail and appears to be a bit cachectic. VITAL SIGNS: Blood pressure was 99/80, heart rate 87, respiratory rate of 28, temperature is 98.6. HEENT: Pupils are equal, round, and reactive. Extraocular muscles are intact. His sclerae anicteric. Throat; there is no erythema, no exudates. He has poor dentition. Tympanic membranes pearly nuno. There is no fluid behind the drums. NECK: No adenopathy, no bruits. LUNGS: Essentially clear, but he does have some upper airway noise and some rhonchi. No rales, no wheezing. CARDIOVASCULAR: He had a normal S1, S2. I did not appreciate an S3 or S4. No murmurs, clicks, or rubs. ABDOMEN: Obese. He has a fairly large ventral hernia which is easily reducible. There is no rebound, no guarding. Positive bowel sounds. EXTREMITIES: No clubbing, cyanosis. No edema. It is noted that he is hairless on his lower extremities. NEUROLOGIC: His cranial nerves 2 through 12 are intact. Muscle strength is 5/5. SKIN AND INTEGUMENT: No skin changes. No rash. LABORATORY RESULTS: Sodium 135, potassium 4.7, chloride is 99, CO2 is 23, BUN of 23, creatinine 1.37, glucose is 124. White blood cell count is 13, hemoglobin 7.6, hematocrit is 27.8, and platelet count is 423. He had a chest x-ray, heart size is normal. Port-A-Cath is visualized. There may be a small left pleural effusion and no significant airway disease other than the small left pleural effusion. This is by my reading. CT scan of the brain is ordered. ASSESSMENT: This is a pleasant 83-year-old gentleman who presents with generalized weakness, anemia, and cough. I suspect he likely has an early pneumonia likely superimposed on the severe anemia. 1. For the early pneumonia, we will continue Levaquin empirically. Blood cultures have been obtained from the ER and we will follow up with these. 2. Severe microcytic anemia. It is unclear whether or not he has had this evaluated in the past. He says he does not remember ever having a colonoscopy. I am not able to find one in our electronic records. An EGD was seen back in 2013. We will need to get iron studies and stool guaiac. He may need transfusion given his severe weakness and possibly he will need a colonoscopy at some point, either inpatient or outpatient if he has not had this done recently. 3. History of chronic obstructive pulmonary disease. This appears to be relatively stable now. We will go ahead and place him on his home medications as well as DuoNeb's p.r.n. 4. History of atrial fibrillation. Currently, he is in atrial fibrillation at this time, but his heart rate is controlled. He does not appear to be on anticoagulation possibly as a result of his severe anemia. 5. Esophageal cancer, this was remote at least 20 years ago. He states that he is cured from this. 6. Prostate cancer, unclear what the process of his treatment is with regard to this. We will check a PSA, but otherwise it appears to be stable. Job ID: [id number]
[2019-05-02] MEDS: cefTRIAXone\\ROCEPHIN 1 GM in Sodium Chloride 0.9% 100 ML IVPB SCH ×2 (00:15→21:59)
[2019-05-02 06:54] LABS: Anion Gap 13 mmol/L (10-20); BUN (Urea Nitrogen) 19 mg/dL (8.4-25.7); Calc. Creatinine Clearance 59 mL/min (70-130); Calcium 8.6 mg/dL (7.8-10.44); Carbon Dioxide 24 mmol/L (23-31); Chloride 104 mmol/L (98-107); Estimated GFR-MDRD 74; Glucose 141 mg/dL (83-110); Potassium 4.6 mmol/L (3.5-5.1); Sodium 136 mmol/L (136-145)
[2019-05-02 07:41] LABS: #Lymphocytes 0.8 thou/uL (1.20-3.40); #Monocytes 0.3 thou/uL (0.11-0.59); #Neutrophils 9.6 thou/uL (1.40-6.50); %Basophils 0.3 % (0.0-1.0); %Eosinophils 0.2 % (0.0-10.0); %Lymphocytes 7.1 % (21.0-51.0); %Monocytes 3.1 % (0.0-10.0); %Neutrophils 89.3 % (42.0-75.0); Hemoglobin 8.7 g/dL (14.0-18.0); Mean Corpuscular HGB CONC 29.4 g/dL (32.0-36.0); Mean Corpuscular Hemoglobin 20.4 pg (27.0-31.0); Mean Corpuscular Volume 69.4 fL (78.0-98.0); Mean Platelet Volume 9.9 fL (7.4-10.4); Platelet Count 372 thou/uL (130-400); RBC Distribution Width 20.6 % (11.5-14.5); Red Blood Cell (RBC) Count 4.28 mill/uL (4.70-6.10); White Blood Cell (WBC) Count 10.8 thou/uL (4.8-10.8)
[2019-05-02] MEDS: Saccharomyces boulardii 250 MG CAP PO SCH (08:10)
[2019-05-02] MEDS: Ondansetron ODT 4 MG TAB PO PRN ×2 (08:49→17:03)
[2019-05-02] MEDS ORDERED: guaiFENesin 100 MG/5 ML UDCUP PO PRN (12:05)
--- NOTE | 2019-05-02 12:43 | PDOC.HOSPP ---
- Subjective Encounter Date: 05/02/19 Encounter Time: 11:20 Subjective: has dry cough, no fever or sob recieved 1 u prbc overnight - Objective Vital Signs & Weight: Vital Signs (12 hours) Temp Pulse Pulse Resp BP BP BP 05/02/19 11:40 97.7 F 92 18 126/69 05/02/19 10:18 05/02/19 10:17 92 24 H 05/02/19 08:10 92 140/84 05/02/19 08:01 05/02/19 08:00 97.8 F 92 20 140/84 05/02/19 04:05 98.3 F 95 20 132/76 05/02/19 01:55 98 F 92 20 113/68 05/02/19 01:50 91 16 05/02/19 01:38 98.2 F 93 20 109/68 Pulse Ox 05/02/19 11:40 94 L 05/02/19 10:18 93 L 05/02/19 10:17 05/02/19 08:10 05/02/19 08:01 93 L 05/02/19 08:00 93 L 05/02/19 04:05 92 L 05/02/19 01:55 94 L 05/02/19 01:50 94 L 05/02/19 01:38 90 L Weight Weight 155 lb 8 oz I&O: 05/01/19 05/02/19 05/03/19 06:59 06:59 06:59 Intake Total 1195 Balance 1195 Result Diagrams: 05/02/19 06:26 05/02/19 06:26 Hospitalist ROS - Medication Medications: Active Medications Generic Name Dose Route Start Last Admin Trade Name Freq PRN Reason Stop Dose Admin Acetaminophen 650 mg 05/01/19 22:11 05/02/19 08:09 Tylenol PO 650 mg Q4H PRN Administration Headache/Fever/Mild Pain (1-3) Albuterol/Ipratropium 3 ml 05/02/19 01:00 05/02/19 10:17 Duoneb NEB 3 ml [id number] MARJORIE Administration Diltiazem HCl 120 mg 05/02/19 09:00 05/02/19 08:10 Cardizem Cd PO 120 mg DAILY MARJORIE Administration Azithromycin 500 mg/ Sodium 250 mls @ 250 mls/hr 05/01/19 23:00 05/01/19 22: 59 Chloride IVPB 250 mls Q24HR MARJORIE Administration Ceftriaxone Sodium 1 gm/ 100 mls @ 200 mls/hr 05/01/19 23:59 05/02/19 00:15 Sodium Chloride IVPB 100 mls Q24HR MARJORIE Administration Ondansetron HCl 4 mg 05/01/19 22:11 05/02/19 08:49 Zofran Odt PO 4 mg Q6H PRN Administration Nausea/Vomiting Pantoprazole Sodium 40 mg 05/02/19 09:00 05/02/19 08:11 Protonix PO 40 mg DAILY MARJORIE Administration Saccharomyces Boulardii 250 mg 05/02/19 09:00 05/02/19 08:10 Florastor PO 250 mg DAILY MARJORIE Administration - Exam General Appearance: NAD, awake alert Eye: PERRL, anicteric sclera ENT: no oropharyngeal lesions, moist mucosa Neck: supple, no JVD Heart: RRR, no murmur Respiratory: no wheezes, no rales, rhonchi Gastrointestinal: soft, non-tender, normal bowel sounds Extremities: no edema Skin: normal turgor, no rashes Neurological: CN's grossly intact, no focal deficits Psychiatric: normal affect, A&O x 3 Hosp A/P (1) Acute bronchopneumonia Code(s): J18.0 - BRONCHOPNEUMONIA, UNSPECIFIED ORGANISM Status: Suspected (2) Afib Code(s): I48.91 - UNSPECIFIED ATRIAL FIBRILLATION Status: Chronic Qualifiers: Atrial fibrillation type: paroxysmal Qualified Code(s): I48.0 - Paroxysmal atrial fibrillation (3) Iron deficiency anemia Code(s): D50.9 - IRON DEFICIENCY ANEMIA, UNSPECIFIED Status: Acute (4) Acute blood loss anemia Code(s): D62 - ACUTE POSTHEMORRHAGIC ANEMIA Status: Acute (5) Weakness generalized Code(s): R53.1 - WEAKNESS Status: Acute (6) Anxiety and depression Code(s): F41.9 - ANXIETY DISORDER, UNSPECIFIED; F32.9 - MAJOR DEPRESSIVE DISORDER, SINGLE EPISODE, UNSPECIFIED Status: Chronic (7) Hiatal hernia Code(s): K44.9 - DIAPHRAGMATIC HERNIA WITHOUT OBSTRUCTION OR GANGRENE Status: Chronic - Plan ferritin is low at 16, iron is 17, Hb around 8g after transfusion will get GI opinion has h/o esophageal ca in remission per patient will change iv antibiotics to oral omnicef in am, prior h/o aspiration issues with 2 Ba modified studies. continue cardizem cs, nebs, dc iv fluids hemostable to mobilize with PT
[2019-05-02] MEDS ORDERED: Diabetic Tussin 200 MG/10 ML UDCUP PO PRN (13:00)
[2019-05-02] MEDS: Sodium Chloride 0.9% 1,000 ML IV SCH (13:19)
[2019-05-02] MEDS ORDERED: GoLYTELY 4,000 ml Bottle PO SCH (21:45)
[2019-05-02] MEDS: Azithromycin 500 MG in Sodium Chloride 0.9% 250 ML 250 ML IVPB SCH (21:58)
--- NOTE | 2019-05-03 03:44 | CON ---
DATE OF CONSULTATION: 05/02/2019 REASON FOR CONSULTATION: Anemia. CONSULTING PROVIDER: Ernesto Nugent MD HISTORY OF PRESENT ILLNESS: The patient is an 83-year-old male with past medical history of esophageal cancer, status post treatment; prostate cancer, status post radiation, chemotherapy and surgery 20 years ago; atrial fibrillation; COPD; chronic lower back pain; chronic anemia and obstructive sleep apnea, presenting with complaints of weakness and fatigue. He states that he was in his usual state of health until the last week when he began having progressive worsening shortness of breath at rest as well as dyspnea on exertion that was accompanied with increased weakness and fatigue with the inability to rise from a sitting position to a standing position. Given this profound weakness, he was brought to the hospital for further evaluation. While in the ER, he was noted to have a significant anemia and possible early pneumonia contributing to his current clinical situation. Upon interviewing the patient, he states that he has been recently diagnosed with this anemia and was prescribed iron supplementation, but had not started taking them as of yet. Otherwise, he complains of diffuse myalgias and a mild cough that started just within the last 24 hours, but otherwise denies any vomiting fevers, chills, hematemesis, melena, hematochezia, dysphagia, or odynophagia. Upon further questioning, he does state that he has lost approximately 10 pounds over the last 3 months unintentionally. REVIEW OF SYSTEMS: A 10-category review of systems was obtained with all responses negative except for the pertinent positives as listed in HPI. PAST MEDICAL HISTORY: As per HPI. PAST SURGICAL HISTORY: Prostatectomy, cholecystectomy, partial gastrectomy, right carpal tunnel release, right foot surgery, appendectomy. FAMILY HISTORY: Liver disease (both mother and father with unknown pathology). SOCIAL HISTORY: Denies any tobacco, alcohol, or illicit drug use. OUTPATIENT MEDICATIONS: Reviewed. ALLERGIES: NO KNOWN DRUG ALLERGIES. PHYSICAL EXAMINATION: VITAL SIGNS: Temperature 98.3, pulse 85, blood pressure 108/67, respiratory rate 20, saturating 96% on 2 L nasal cannula. GENERAL: The patient was lying in bed, in no acute distress. Alert and oriented x4. HEENT: Normocephalic, atraumatic. NECK: Supple. No JVD or scleral icterus noted. CARDIOVASCULAR: Irregularly irregular rhythm, but normal rate. No discernible murmurs, gallops, or rubs. RESPIRATORY: Clear to auscultation bilaterally with no discernible wheezes or rales. ABDOMEN: Normoactive bowel sounds. Soft, nontender, nondistended. EXTREMITIES: No cyanosis, clubbing, or edema. LABORATORY DATA: CBC with a white blood cell count of 10.8, hemoglobin 8.7, hematocrit 29.7, platelets 372, iron 17, ferritin 16, TIBC 345. Chemistry with a sodium of 136, potassium 4.6, chloride 104, CO2 24, BUN 13, creatinine 0.97, glucose 141, AST 21, ALT 11, alkaline phosphatase 68, total bilirubin 0.4, albumin 3.8. IMAGING DATA: Chest x-ray obtained on May 01, 2019, showed the left-sided Port-A-Cath remained in place with no evidence of acute cardiopulmonary process. ASSESSMENT AND PLAN: The patient is an 83-year-old male with past medical history of esophageal cancer, prostate cancer, atrial fibrillation, COPD, chronic lower back pain with obstructive sleep apnea, and chronic anemia presenting with iron deficiency anemia. Iron deficiency anemia/symptomatic anemia. The patient is presenting with progressively worsening fatigue, weakness, shortness of breath and dyspnea on exertion that has been progressively worsening over the last week. He does have a history of chronic anemia, but per iron indices obtained during this admission, they are more indicative of an iron deficiency anemia. At this time, he does not endorse any overt evidence of GI bleeding given lack of hematemesis, melena, or hematochezia. However, it does not necessarily rule out a GI source at this time. He has never had a colonoscopy before, but had been diagnosed with esophageal cancer in the past and had been determined to be cancer free with no further recurrences. At this time, the differential is broad and could include esophagitis, gastritis, duodenitis, arteriovenous malformation, Dieulafoy lesion, peptic ulcer disease, colitis and/or GI neoplasm. RECOMMENDATIONS: 1. Would continue to trend his H and H and transfuse as necessary to maintain an H and H of 7/21. 2. Continue to monitor clinically for signs of active GI bleeding. 3. Would place the patient on a clear liquid diet with GoLYTELY prep tonight in anticipation for both EGD and colonoscopy tomorrow. 4. The patient to be n.p.o. at midnight in anticipation for the procedures. We will continue to follow. Please call with any questions. Job ID: [id number]
[2019-05-03] MEDS ORDERED: PHENYLEPHRINE-NS 100 MCG/ML 10 ML SYRINGE ONE (07:38)
[2019-05-03] MEDS ORDERED: PROPOFOL 200 MG/20 ML VIAL ONE (07:38)
[2019-05-03] MEDS ORDERED: Lidocaine 1% PF 5 ML VIAL ONE (07:38)
[2019-05-03] MEDS: Amoxicillin/Potassium Clav 875 MG TAB PO SCH ×3 (08:39→20:25)
[2019-05-03] MEDS: Saccharomyces boulardii 250 MG CAP PO SCH ×2 (08:40→16:28)
[2019-05-03] MEDS ORDERED: Ondansetron HCl/PF 4 MG/2 ML Vial IVP PRN (13:31)
[2019-05-03] MEDS ORDERED: Promethazine HCl 25 MG/ML VIAL SLOW IVP PRN (13:31)
[2019-05-03] MEDS ORDERED: Promethazine HCl 25 MG/ML VIAL IM PRN (13:31)
--- NOTE | 2019-05-03 14:14 | PDOC.HOSPP ---
- Subjective Encounter Date: 05/03/19 Encounter Time: 09:25 Subjective: has finished drinking golytely this am still passing liq stools no markell bleeding or sob - Objective Vital Signs & Weight: Vital Signs (12 hours) Temp Pulse Resp BP Pulse Ox 05/03/19 10:30 98 F 89 20 157/81 H 94 L 05/03/19 08:40 92 05/03/19 08:22 97 05/03/19 08:05 92 18 97 05/03/19 07:41 98.1 F 76 18 131/84 93 L 05/03/19 04:00 98.1 F 85 18 116/66 95 Weight Weight 155 lb 8 oz I&O: 05/02/19 05/03/19 05/04/19 06:59 06:59 06:59 Intake Total 1195 1010 Output Total 475 Balance 1195 535 Result Diagrams: 05/02/19 06:26 05/02/19 06:26 Hospitalist ROS - Medication Medications: Active Medications Generic Name Dose Route Start Last Admin Trade Name Freq PRN Reason Stop Dose Admin Acetaminophen 650 mg 05/01/19 22:11 05/02/19 08:09 Tylenol PO 650 mg Q4H PRN Administration Headache/Fever/Mild Pain (1-3) Albuterol/Ipratropium 3 ml 05/02/19 01:00 05/03/19 13:53 Duoneb NEB Not Given [id number] MARJORIE Amoxicillin/Clavulanate Potassium 875 mg 05/03/19 09:00 05/03/19 08:39 Augmentin PO Not Given Q12HR MARJORIE Diltiazem HCl 120 mg 05/02/19 09:00 05/03/19 08:40 Cardizem Cd PO Not Given DAILY MARJORIE Guaifenesin 300 mg 05/02/19 13:00 05/02/19 13:16 Robitussin Sf PO 300 mg Q6H PRN Administration Cough Ondansetron HCl 4 mg 05/01/19 22:11 05/02/19 17:03 Zofran Odt PO 4 mg Q6H PRN Administration Nausea/Vomiting Ondansetron HCl 4 mg 05/01/19 22:11 05/02/19 22:46 Zofran IVP 4 mg Q6H PRN Administration Nausea/Vomiting Pantoprazole Sodium 40 mg 05/02/19 09:00 05/03/19 08:40 Protonix PO Not Given DAILY MARJORIE Saccharomyces Boulardii 250 mg 05/02/19 09:00 05/03/19 08:40 Florastor PO Not Given DAILY MARJORIE - Exam General Appearance: NAD, awake alert Eye: PERRL, anicteric sclera ENT: no oropharyngeal lesions, moist mucosa Neck: supple, no JVD Heart: RRR, no murmur Respiratory: no wheezes, no rales Gastrointestinal: soft, non-tender, non-distended, normal bowel sounds Extremities: no cyanosis, no edema Neurological: CN's grossly intact, no focal deficits Psychiatric: normal affect, A&O x 3 Hosp A/P (1) Acute bronchopneumonia Code(s): J18.0 - BRONCHOPNEUMONIA, UNSPECIFIED ORGANISM Status: Suspected (2) Afib Code(s): I48.91 - UNSPECIFIED ATRIAL FIBRILLATION Status: Chronic Qualifiers: Atrial fibrillation type: paroxysmal Qualified Code(s): I48.0 - Paroxysmal atrial fibrillation (3) Iron deficiency anemia Code(s): D50.9 - IRON DEFICIENCY ANEMIA, UNSPECIFIED Status: Acute (4) Acute blood loss anemia Code(s): D62 - ACUTE POSTHEMORRHAGIC ANEMIA Status: Acute (5) Weakness generalized Code(s): R53.1 - WEAKNESS Status: Acute (6) Anxiety and depression Code(s): F41.9 - ANXIETY DISORDER, UNSPECIFIED; F32.9 - MAJOR DEPRESSIVE DISORDER, SINGLE EPISODE, UNSPECIFIED Status: Chronic (7) Hiatal hernia Code(s): K44.9 - DIAPHRAGMATIC HERNIA WITHOUT OBSTRUCTION OR GANGRENE Status: Chronic - Plan ferritin is low at 16, iron is 17, Hb around 8g after transfusion for EGD/colonoscopy today has h/o esophageal ca in remission per patient augmentin, prior h/o aspiration issues with 2 Ba modified studies. continue cardizem cs, nebs, dc iv fluids hemostable to mobilize with PT
--- NOTE | 2019-05-03 16:43 | OP ---
DATE OF PROCEDURE: 05/03/2019 PROCEDURES PERFORMED: 1. Esophagogastroduodenoscopy with biopsy. 2. Colonoscopy with polypectomy. INDICATION FOR PROCEDURE: Iron deficiency anemia with unknown origin, anemia, history of esophageal cancer. DESCRIPTION OF PROCEDURE: After the risks and benefits of the procedures were explained to the patient including risks of bleeding, infection, perforation, reactions to anesthesia, aspiration and/or pain, informed consent was obtained. The patient was then taken to the endoscopy suite, where deep sedation was administered via propofol and anesthesia support. Once adequate sedation was achieved, the standard gastroscope was introduced into the mouth with intubation of the esophagus, stomach, and the proximal small intestines with the findings listed below. The patient tolerated the procedure well with no immediate perioperative complication. Upon conclusion of the procedure, all equipment was removed from the patient and the bed was rotated 180 degrees in anticipation of the colonoscopy. Once in adequate position, a digital rectal examination was performed followed by introduction of the standard colonoscope, which was then advanced to the cecum with only mild difficulty due to redundancy of the colon. The quality of the prep was fair with adequate visualization achieved for larger mucosal lesions, but lesions less than 5 mm in size could have been missed. The patient tolerated the procedure well with no immediate perioperative complications. Upon conclusion of the procedure, all equipment was removed from the patient and he was transferred to PACU in satisfactory condition. EGD FINDINGS: Esophagus: Normal-appearing mucosa was seen in both the proximal and mid esophagus. However, within the distal esophagus, there was a cobblestone appearance of the mucosal lining characterized by numerous esophageal erosions surrounding squamous cell islands indicative of severe acid reflux. This extended from the GE junction at 35 cm to approximately 30 cm. There was no overt ulceration associated with these multiple erosions however. The gastroesophageal junction was distorted due to surgical change and was widely patent with no evidence of the lower esophageal sphincter. Surgical sutures were noted at the gastroesophageal junction as well. With the multiple erosions, there was increased friability of the mucosal lining with mild oozing of blood throughout the distal esophagus, but no evidence of blood clots or significant active bleeding. There were no mass or lesions in this region as well indicative of recurrence of the esophageal cancer. Stomach: Surgical change associated with a distal esophagectomy and partial gastrectomy of the proximal stomach were seen upon entry into the stomach. Surgical sutures were noted at the gastroesophageal junction, but were intact with normal-appearing mucosa surrounding. A 6-to 7-mm submucosal nodule was seen within the gastric body and biopsied for further evaluation. Otherwise, normal-appearing mucosa was seen in the gastric fundus, body, greater curvature, antrum, and incisura. There was no evidence of erosions, ulcerations, or active/recent bleeding. However, on retroflexion of the gastroesophageal junction, it displayed significant distortion with lack of the lower esophageal sphincter. Duodenum: Normal-appearing mucosa was seen in the duodenal bulb. However, upon entry into the second portion of the duodenum, there was a large duodenal diverticulum with retained food debris. However, upon clearing the duodenal diverticulum itself, there was no evidence of erosions, ulcerations, mass, lesions, or active/recent bleeding. The remainder of the second portion of the duodenum was normal. IMPRESSION: 1. Surgical change associated with the distal esophagectomy and partial gastrectomy. 2. [place] grade D reflux-mediated erosive esophagitis with increased friability (could potentially generate anemia over time). 3. A 6- to 7-mm gastric submucosal nodule status post biopsies. 4. Large duodenal diverticulum with no pathology within the diverticular sac. COLONOSCOPY FINDINGS: Digital rectal exam: Normal findings were seen on external examination. Colon findings: A moderate amount of retained semi-solid and liquid stool was seen throughout the entire colon and was somewhat amenable to irrigation and suctioning. However, the quality of the prep would have been considered fair given that it was adequate for the evaluation of large mucosal lesions and bleeding, but was not adequate for the evaluation of mucosal lesions less than 5 mm in size of the mucosa seen. Normal-appearing mucosa was seen at the appendiceal orifice and ileocecal valve. A 1-cm cecal polyp or 1-cm polyp was seen in the cecum and completely removed with snare cautery polypectomy. It was retrieved and placed in a specimen jar for evaluation. Given the larger mucosal defect made by the polypectomy, Hemoclip x2 was then placed to approximate the mucosal defect and good hemostasis achieved with no bleeding at the end of the maneuver. Scattered small and large diverticula were seen throughout the entire colon including the ascending, transverse, descending, and especially the sigmoid colon (larger concentration in the sigmoid colon). There was no associated erythema, colonic narrowing, or active/recent bleeding associated with these diverticula. Normal-appearing mucosa was then otherwise seen in the ascending, transverse, descending, sigmoid colons, and rectum. Rectal retroflexion could not be performed, but rather no evidence of internal hemorrhoids or pathology was seen with slow withdrawal of the camera through the anal canal. IMPRESSION: 1. Fair colonic preparation with adequate visualization of the colonic mucosa achieved for large mass, lesions, and active/recent bleeding but inadequate for the evaluation of lesions less than 5 mm in size. 2. A 1-cm cecal polyp, status post snare cautery polypectomy and Hemoclip placement x2. 3. Scattered [id number] pancolonic diverticulosis. 4. No etiology for the patient's iron deficiency anemia was seen during this examination. RECOMMENDATIONS: 1. We will continue to trend his H and H and transfuse as necessary to maintain an H and H of 7/. 2. Continue to monitor clinically for signs of active GI bleeding. 3. We would place the patient on pantoprazole 40 mg b.i.d. given the severe reflux esophagitis and friability, which could contribute to an iron-deficiency anemia. 4. We will follow up on the polypectomy and biopsy results with repeat EGD and colonoscopy depending on the pathology report. 5. Agree with iron supplementation for his iron deficiency anemia. 6. We would maintain strict anti-reflux precautions while here in the hospital, especially maintaining an upright posture with meal ingestion and for 2 hours after ingestion of meals. 7. If the patient's H and H continues to drop during this hospitalization, we would then recommend a tagged red cell scan for further localization. We will sign off at this time. Please call if the patient's condition changes or you have any questions. Job ID: [id number]
[2019-05-04] MEDS: Ondansetron ODT 4 MG TAB PO PRN (08:08)
[2019-05-04 08:20] LABS: #Lymphocytes 1.5 thou/uL (1.20-3.40); #Monocytes 1.2 thou/uL (0.11-0.59); #Neutrophils 8.2 thou/uL (1.40-6.50); %Basophils 0.3 % (0.0-1.0); %Eosinophils 0.4 % (0.0-10.0); %Lymphocytes 13.2 % (21.0-51.0); %Monocytes 11.3 % (0.0-10.0); %Neutrophils 74.8 % (42.0-75.0); Hemoglobin 8.4 g/dL (14.0-18.0); Mean Corpuscular Hemoglobin 20.6 pg (27.0-31.0); Mean Corpuscular Volume 68.6 fL (78.0-98.0); Mean Platelet Volume 9.8 fL (7.4-10.4); Platelet Count 385 thou/uL (130-400); White Blood Cell (WBC) Count 10.9 thou/uL (4.8-10.8)
[2019-05-04 08:26] LABS: Anion Gap 12 mmol/L (10-20); BUN (Urea Nitrogen) 9 mg/dL (8.4-25.7); Calc. Creatinine Clearance 79 mL/min (70-130); Calcium 8.9 mg/dL (7.8-10.44); Carbon Dioxide 26 mmol/L (23-31); Chloride 97 mmol/L (98-107); Estimated GFR-MDRD Greater than 90; Glucose 104 mg/dL (83-110); Potassium 3.8 mmol/L (3.5-5.1); Sodium 131 mmol/L (136-145)
[2019-05-04] MEDS: Amoxicillin/Potassium Clav 875 MG TAB PO SCH ×2 (08:52→20:41)
[2019-05-04] MEDS: Saccharomyces boulardii 250 MG CAP PO SCH (08:52)
[2019-05-04 09:25] LABS: Hypochromia MODERATE=16-30 cells (100X) (0-5/hpf); MDiff Complete? YES; Platelet Morphology Comment Appears Adequate; Polychromasia SLIGHT = 2-3 cells (100X) (0-2/hpf)
--- NOTE | 2019-05-04 12:41 | PDOC.HOSPP ---
- Subjective Encounter Date: 05/04/19 Encounter Time: 11:00 Subjective: feels a bit nauseous, no abd pain or bleeding - Objective Vital Signs & Weight: Vital Signs (12 hours) Temp Pulse Resp BP Pulse Ox 05/04/19 08:52 74 05/04/19 08:00 96 05/04/19 07:43 97.7 F 74 16 151/72 H 96 05/04/19 07:14 87 20 96 Weight Admit Weight 155 lb 8 oz Weight 155 lb 8 oz I&O: 05/03/19 05/04/19 05/05/19 06:59 06:59 06:59 Intake Total 1010 980 Output Total 475 1100 Balance 535 -120 Result Diagrams: 05/04/19 07:43 05/04/19 07:43 Hospitalist ROS - Medication Medications: Active Medications Generic Name Dose Route Start Last Admin Trade Name Freq PRN Reason Stop Dose Admin Acetaminophen 650 mg 05/01/19 22:11 05/02/19 08:09 Tylenol PO 650 mg Q4H PRN Administration Headache/Fever/Mild Pain (1-3) Albuterol/Ipratropium 3 ml 05/02/19 01:00 05/04/19 07:14 Duoneb NEB 3 ml [id number] MARJORIE Administration Amoxicillin/Clavulanate Potassium 875 mg 05/03/19 09:00 05/04/19 08:52 Augmentin PO 875 mg Q12HR MARJORIE Administration Diltiazem HCl 120 mg 05/02/19 09:00 05/04/19 08:52 Cardizem Cd PO 120 mg DAILY MARJORIE Administration Guaifenesin 300 mg 05/02/19 13:00 05/02/19 13:16 Robitussin Sf PO 300 mg Q6H PRN Administration Cough Ondansetron HCl 4 mg 05/01/19 22:11 05/04/19 08:08 Zofran Odt PO 4 mg Q6H PRN Administration Nausea/Vomiting Ondansetron HCl 4 mg 05/01/19 22:11 05/02/19 22:46 Zofran IVP 4 mg Q6H PRN Administration Nausea/Vomiting Pantoprazole Sodium 40 mg 05/02/19 09:00 05/04/19 08:52 Protonix PO 40 mg DAILY MARJORIE Administration Saccharomyces Boulardii 250 mg 05/02/19 09:00 05/04/19 08:52 Florastor PO 250 mg DAILY MARJORIE Administration Sodium Chloride 10 ml 05/01/19 22:11 05/04/19 08:05 Flush - Normal Saline IVF 10 ml PRN PRN Administration Saline Flush - Exam General Appearance: NAD, awake alert Eye: PERRL, anicteric sclera ENT: no oropharyngeal lesions, moist mucosa Neck: supple, no JVD Heart: RRR, no murmur Respiratory: no wheezes, no rales Gastrointestinal: soft, non-tender, normal bowel sounds Extremities: no cyanosis, no edema Neurological: CN's grossly intact, no focal deficits Psychiatric: normal affect, A&O x 3 Hosp A/P (1) Acute bronchopneumonia Code(s): J18.0 - BRONCHOPNEUMONIA, UNSPECIFIED ORGANISM Status: Suspected (2) Afib Code(s): I48.91 - UNSPECIFIED ATRIAL FIBRILLATION Status: Chronic Qualifiers: Atrial fibrillation type: paroxysmal Qualified Code(s): I48.0 - Paroxysmal atrial fibrillation (3) Iron deficiency anemia Code(s): D50.9 - IRON DEFICIENCY ANEMIA, UNSPECIFIED Status: Acute (4) Acute blood loss anemia Code(s): D62 - ACUTE POSTHEMORRHAGIC ANEMIA Status: Acute (5) Weakness generalized Code(s): R53.1 - WEAKNESS Status: Acute (6) Anxiety and depression Code(s): F41.9 - ANXIETY DISORDER, UNSPECIFIED; F32.9 - MAJOR DEPRESSIVE DISORDER, SINGLE EPISODE, UNSPECIFIED Status: Chronic (7) Hiatal hernia Code(s): K44.9 - DIAPHRAGMATIC HERNIA WITHOUT OBSTRUCTION OR GANGRENE Status: Chronic - Plan ferritin is low at 16, iron is 17, Hb around 8g after transfusion EGD/colonoscopy did not reveal any bleeding focus has h/o esophageal ca in remission per patient augmentin, prior h/o aspiration issues with 2 Ba modified studies. continue cardizem cs, nebs, dc iv fluids hemostable to mobilize with PT, might need rehab/swing bed
--- NOTE | 2019-05-04 14:14 | RAD ---
PORTABLE CHEST 1 VIEW: DATE: 05/04/2019. TIME: 12:58 p.m. HISTORY: Dyspnea. FINDINGS: Comparison is made with the exam of 05/01/2019. A left-side Port-A-Cath remains in place. There is continued elevation of the right hemidiaphragm. The heart size is normal. The aorta is tortuous. No lobar consolidation, pneumothoraces, or large e ffusions are seen. Dorsal stimulator leads are again noted. IMPRESSION: No acute process. POS: HUA
--- NOTE | 2019-05-04 16:05 | PRG ---
DATE OF SERVICE: 05/04/2019 SUBJECTIVE: Mr. Roca vomited a small amount of phlegm this morning. Since then, he has tolerated a half a sandwich and a cup of fruit without any problems. He has no abdominal pain. He has had no further overt GI bleeding. OBJECTIVE: VITAL SIGNS: Pulse 90, temperature 97.7, blood pressure 151/72. GENERAL: He is in no acute distress. Awake and alert. LUNGS: Clear to auscultation bilaterally. HEART: Regular rate and rhythm. ABDOMEN: Soft, nontender, and nondistended. Bowel sounds are present. EXTREMITIES: No lower extremity edema. LABORATORY DATA: White blood cell count 10.9, hemoglobin 8.4, platelets 385. Creatinine 0.72. IMPRESSION: 1. Iron deficiency anemia, likely secondary to severe chronic ulcerative esophagitis. 2. History of esophageal cancer, status post distal esophagectomy. He no longer has a lower esophageal sphincter and needs to be on long-term proton pump inhibitor. He has more recently quit taking his proton pump inhibitor. This will be restarted and continued indefinitely. 3. A 1-cm cecal polyp, status post resection endoscopically yesterday. The pathology is pending on that. 4. His hemoglobin is stable today, and there is no further overt bleeding. RECOMMENDATIONS: 1. Await histopathology. 2. Proton pump inhibitor indefinitely. 3. I will sign off. Please call if GI can be of assistance. Job ID: [id number]
[2019-05-04] MEDS: ALPRAZolam 0.25 MG TAB PO PRN (17:48)
[2019-05-04] MEDS: Pregabalin 75 MG CAP PO SCH (20:41)
[2019-05-05] MEDS: Pregabalin 75 MG CAP PO SCH ×2 (09:57→20:53)
[2019-05-05] MEDS: Amoxicillin/Potassium Clav 875 MG TAB PO SCH (09:58)
[2019-05-05] MEDS: Saccharomyces boulardii 250 MG CAP PO SCH (09:58)
[2019-05-05] MEDS: ALPRAZolam 0.25 MG TAB PO PRN ×2 (10:09→20:53)
--- NOTE | 2019-05-05 12:54 | PDOC.HOSPP ---
- Subjective Encounter Date: 05/05/19 Encounter Time: 10:00 Subjective: no nausea this am, ate some breakfast no abd pain - Objective Vital Signs & Weight: Vital Signs (12 hours) Temp Pulse Pulse Resp BP BP BP 05/05/19 11:23 98.2 F 75 16 115/71 05/05/19 09:58 85 111/76 05/05/19 09:24 80 111/76 05/05/19 08:00 05/05/19 07:56 98.3 F 85 20 05/05/19 07:05 85 20 BP Pulse Ox 05/05/19 11:23 98 05/05/19 09:58 05/05/19 09:24 05/05/19 08:00 94 L 05/05/19 07:56 108/54 L 94 L 05/05/19 07:05 96 Weight Admit Weight 155 lb 8 oz Weight 155 lb 8 oz I&O: 05/04/19 05/05/19 05/06/19 06:59 06:59 06:59 Intake Total 980 Output Total 1100 Balance -120 Result Diagrams: 05/04/19 07:43 05/04/19 07:43 Hospitalist ROS - Medication Medications: Active Medications Generic Name Dose Route Start Last Admin Trade Name Freq PRN Reason Stop Dose Admin Acetaminophen 650 mg 05/01/19 22:11 05/02/19 08:09 Tylenol PO 650 mg Q4H PRN Administration Headache/Fever/Mild Pain (1-3) Albuterol/Ipratropium 3 ml 05/02/19 01:00 05/05/19 07:05 Duoneb NEB 3 ml [id number] MARJORIE Administration Alprazolam 0.25 mg 05/04/19 16:25 05/05/19 10:09 Xanax PO 0.25 mg BIDPRN PRN Administration Anxiety Diltiazem HCl 120 mg 05/02/19 09:00 05/05/19 09:58 Cardizem Cd PO 120 mg DAILY MARJORIE Administration Guaifenesin 300 mg 05/02/19 13:00 05/02/19 13:16 Robitussin Sf PO 300 mg Q6H PRN Administration Cough Ondansetron HCl 4 mg 05/01/19 22:11 05/04/19 08:08 Zofran Odt PO 4 mg Q6H PRN Administration Nausea/Vomiting Ondansetron HCl 4 mg 05/01/19 22:11 05/02/19 22:46 Zofran IVP 4 mg Q6H PRN Administration Nausea/Vomiting Pantoprazole Sodium 40 mg 05/02/19 09:00 05/05/19 09:58 Protonix PO 40 mg DAILY MARJORIE Administration Pregabalin 75 mg 05/04/19 21:00 05/05/19 09:57 Lyrica PO 75 mg BID MARJORIE Administration Saccharomyces Boulardii 250 mg 05/02/19 09:00 05/05/19 09:58 Florastor PO 250 mg DAILY MARJORIE Administration Sodium Chloride 10 ml 05/01/19 22:11 05/04/19 08:05 Flush - Normal Saline IVF 10 ml PRN PRN Administration Saline Flush - Exam General Appearance: NAD, awake alert Eye: PERRL, anicteric sclera ENT: no oropharyngeal lesions, moist mucosa Neck: supple, no JVD Heart: RRR, no murmur Respiratory: no wheezes, no rales Gastrointestinal: soft, non-tender, normal bowel sounds Extremities: no cyanosis, no edema Neurological: CN's grossly intact, no focal deficits Psychiatric: normal affect, A&O x 3 Hosp A/P (1) Acute bronchopneumonia Code(s): J18.0 - BRONCHOPNEUMONIA, UNSPECIFIED ORGANISM Status: Resolved (2) Afib Code(s): I48.91 - UNSPECIFIED ATRIAL FIBRILLATION Status: Chronic Qualifiers: Atrial fibrillation type: paroxysmal Qualified Code(s): I48.0 - Paroxysmal atrial fibrillation (3) Iron deficiency anemia Code(s): D50.9 - IRON DEFICIENCY ANEMIA, UNSPECIFIED Status: Acute (4) Acute blood loss anemia Code(s): D62 - ACUTE POSTHEMORRHAGIC ANEMIA Status: Acute (5) Weakness generalized Code(s): R53.1 - WEAKNESS Status: Acute (6) Anxiety and depression Code(s): F41.9 - ANXIETY DISORDER, UNSPECIFIED; F32.9 - MAJOR DEPRESSIVE DISORDER, SINGLE EPISODE, UNSPECIFIED Status: Chronic (7) Hiatal hernia Code(s): K44.9 - DIAPHRAGMATIC HERNIA WITHOUT OBSTRUCTION OR GANGRENE Status: Chronic (8) Adenocarcinoma of colon Code(s): C18.9 - MALIGNANT NEOPLASM OF COLON, UNSPECIFIED Status: Acute - Plan cecal area biopsy is +ve for malignancy, await to d/w patient and break the news. ferritin is low at 16, iron is 17, Hb around 8g after transfusion has ulcerations at esophageal anastamotic site has h/o esophageal ca in remission per patient continue cardizem cs, nebs, protonix hemostable might need surgical consult/?right hemicolectomy, await GI discussion with Patient. to mobilize with PT as tolerated, is open to placement if needed/HH with PT
--- NOTE | 2019-05-05 18:24 | PRG ---
DATE OF SERVICE: 05/05/2019 SUBJECTIVE: Mr. Roca has no complaints. He is tolerating solid diet. No abdominal pain. OBJECTIVE: VITAL SIGNS: Temperature 98.4, pulse 81, blood pressure 116/78. GENERAL: He is in no acute distress. He is alert and awake. LUNGS: Clear to auscultation bilaterally. HEART: Regular rate and rhythm. ABDOMEN: Soft, nontender, nondistended. He has abdominal wall hernia in the right versus diastasis. EXTREMITIES: No lower extremity edema. LABORATORY DATA: Hemoglobin is 8.4 yesterday. IMPRESSION: 1. Iron deficiency anemia. This is likely secondary to severe erosive esophagitis, status post distal esophagectomy and partial gastrectomy. He has been restarted on proton pump inhibitor and should remain on this indefinitely. 2. Erosive esophagitis, status post esophagectomy for history of esophageal cancer. 3. Adenocarcinoma of the cecum. The patient had a 1-cm polyp removed by Dr. Alexis endoscopically on 05/03/2019. I reviewed the images, which shows an endoscopically clear margin with full resection and deep enough cut to require clip placement. Microscopically, there were focal areas of microscopic invasion of small islands of glans. As possible that this cancer was completely resected endoscopically once cautery margin is taken into account, however, this could not be confirmed. Typically right hemicolectomy would be the next step. However, the patient is a significant surgical risk given his prior abdominal surgeries and functional status. He already has diastasis of the abdominal wall. I think recovery from surgery would be difficult for him. Nonetheless, the patient states that he would want surgery done potentially. We will therefore request the general surgeon to at least discuss what is involved with the surgeon and recovery with the patient. RECOMMENDATIONS: 1. Surgical consultation. 2. I discussed the case with Dr. Alexis as well and confirmed that polypectomy was done in a single en bloc resection. If it is determined that the patient is not a surgical candidate, then followup colonoscopy in 3-6 months to re-biopsy the polypectomy base would be the next step. 3. Follow up with Dr. Alexis in the office for followup colonoscopy. 4. I would anticipate that Mr. Roca could discharge tomorrow. I will sign off for now. Please call if GI can be of assistance. Job ID: [id number]
[2019-05-06] MEDS: Saccharomyces boulardii 250 MG CAP PO SCH (08:08)
[2019-05-06] MEDS: Pregabalin 75 MG CAP PO SCH ×2 (08:08→20:41)
--- NOTE | 2019-05-06 11:03 | PDOC.EVN ---
Event Note - Event Note Event Note: Had a discussion with the patient about his small polyp and the invasive adenocarcinoma. We discussed surgery and potential morbidity. He agrees that surveillance is probably the best option given his comorbidities and potential for surgical complications. I can see prn.
--- NOTE | 2019-05-06 13:06 | PDOC.HOSPP ---
- Subjective Encounter Date: 05/06/19 Encounter Time: 11:00 Subjective: no sob or abd pain no nausea this am ate some of his breakfast - Objective Vital Signs & Weight: Vital Signs (12 hours) Temp Pulse Resp BP BP Pulse Ox 05/06/19 12:43 91 20 99 05/06/19 12:23 92 96/63 05/06/19 11:18 97.5 F L 92 18 90/53 L 95 05/06/19 08:13 94 L 05/06/19 08:10 91 120/78 05/06/19 07:14 98.0 F 91 20 120/78 94 L Weight Admit Weight 155 lb 8 oz Weight 155 lb 8 oz I&O: 05/05/19 05/06/19 05/07/19 06:59 06:59 06:59 Intake Total 1320 Balance 1320 Result Diagrams: 05/04/19 07:43 05/04/19 07:43 Hospitalist ROS - Medication Medications: Active Medications Generic Name Dose Route Start Last Admin Trade Name Freq PRN Reason Stop Dose Admin Acetaminophen 650 mg 05/01/19 22:11 05/02/19 08:09 Tylenol PO 650 mg Q4H PRN Administration Headache/Fever/Mild Pain (1-3) Albuterol/Ipratropium 3 ml 05/02/19 01:00 05/06/19 12:43 Duoneb NEB 3 ml [id number] MARJORIE Administration Alprazolam 0.25 mg 05/04/19 16:25 05/05/19 20:53 Xanax PO 0.25 mg BIDPRN PRN Administration Anxiety Diltiazem HCl 120 mg 05/02/19 09:00 05/06/19 08:10 Cardizem Cd PO 120 mg DAILY MARJORIE Administration Guaifenesin 300 mg 05/02/19 13:00 05/02/19 13:16 Robitussin Sf PO 300 mg Q6H PRN Administration Cough Ondansetron HCl 4 mg 05/01/19 22:11 05/04/19 08:08 Zofran Odt PO 4 mg Q6H PRN Administration Nausea/Vomiting Ondansetron HCl 4 mg 05/01/19 22:11 05/02/19 22:46 Zofran IVP 4 mg Q6H PRN Administration Nausea/Vomiting Pantoprazole Sodium 40 mg 05/02/19 09:00 05/06/19 08:10 Protonix PO 40 mg DAILY MARJORIE Administration Pregabalin 75 mg 05/04/19 21:00 05/06/19 08:08 Lyrica PO 75 mg BID MARJORIE Administration Saccharomyces [place]ii 250 mg 05/02/19 09:00 05/06/19 08:08 Florastor PO 250 mg DAILY MARJORIE Administration Sodium Chloride 10 ml 05/01/19 22:11 05/04/19 08:05 Flush - Normal Saline IVF 10 ml PRN PRN Administration Saline Flush - Exam General Appearance: NAD, awake alert Eye: PERRL, anicteric sclera ENT: no oropharyngeal lesions, moist mucosa Neck: supple, no JVD Heart: RRR, no murmur Respiratory: no wheezes, no rales Gastrointestinal: soft, non-tender, non-distended, normal bowel sounds Extremities: no cyanosis, no edema Neurological: CN's grossly intact, no focal deficits Psychiatric: normal affect, A&O x 3 Hosp A/P (1) Acute bronchopneumonia Code(s): J18.0 - BRONCHOPNEUMONIA, UNSPECIFIED ORGANISM Status: Resolved (2) Afib Code(s): I48.91 - UNSPECIFIED ATRIAL FIBRILLATION Status: Chronic Qualifiers: Atrial fibrillation type: paroxysmal Qualified Code(s): I48.0 - Paroxysmal atrial fibrillation (3) Iron deficiency anemia Code(s): D50.9 - IRON DEFICIENCY ANEMIA, UNSPECIFIED Status: Acute (4) Acute blood loss anemia Code(s): D62 - ACUTE POSTHEMORRHAGIC ANEMIA Status: Acute (5) Weakness generalized Code(s): R53.1 - WEAKNESS Status: Acute (6) Anxiety and depression Code(s): F41.9 - ANXIETY DISORDER, UNSPECIFIED; F32.9 - MAJOR DEPRESSIVE DISORDER, SINGLE EPISODE, UNSPECIFIED Status: Chronic (7) Hiatal hernia Code(s): K44.9 - DIAPHRAGMATIC HERNIA WITHOUT OBSTRUCTION OR GANGRENE Status: Chronic (8) Adenocarcinoma of colon Code(s): C18.9 - MALIGNANT NEOPLASM OF COLON, UNSPECIFIED Status: Acute - Plan cecal area biopsy is +ve for malignancy, patient has opted for surviellance biopsy for now, no surgery planned per . ferritin is low at 16, iron is 17, Hb around 8g after transfusion has h/o esophageal ca in remission per patient continue cardizem cd, nebs, protonix hemostable to mobilize with PT as tolerated, amb only 2-4 ft so far will need placement/rehab
[2019-05-06] MEDS: ALPRAZolam 0.25 MG TAB PO PRN ×2 (13:34→20:41)
[2019-05-07] MEDS: ALPRAZolam 0.25 MG TAB PO PRN ×2 (00:52→12:05)
[2019-05-07] MEDS: Pregabalin 75 MG CAP PO SCH (07:56)
[2019-05-07] MEDS: Saccharomyces boulardii 250 MG CAP PO SCH (07:59)
--- NOTE | 2019-05-07 11:58 | PDOC.HOSPP ---
- Subjective Encounter Date: 05/07/19 Encounter Time: 08:45 Subjective: no nausea, has off and on cough is eating breakfast didn't amb much with PT no sob - Objective Vital Signs & Weight: Vital Signs (12 hours) Temp Pulse Resp BP Pulse Ox 05/07/19 08:15 92 20 95 05/07/19 08:02 90 05/07/19 08:00 95 05/07/19 07:59 98.3 F 90 16 106/65 95 Weight Admit Weight 155 lb 8 oz Weight 155 lb 8 oz I&O: 05/06/19 05/07/19 05/08/19 06:59 06:59 06:59 Intake Total 1320 Output Total 720 Balance 1320 -720 Result Diagrams: 05/04/19 07:43 05/04/19 07:43 Hospitalist ROS - Medication Medications: Active Medications Generic Name Dose Route Start Last Admin Trade Name Freq PRN Reason Stop Dose Admin Acetaminophen 650 mg 05/01/19 22:11 05/02/19 08:09 Tylenol PO 650 mg Q4H PRN Administration Headache/Fever/Mild Pain (1-3) Albuterol/Ipratropium 3 ml 05/02/19 01:00 05/07/19 08:15 Duoneb NEB 3 ml [id number] MARJORIE Administration Alprazolam 0.25 mg 05/04/19 16:25 05/07/19 00:52 Xanax PO 0.25 mg BIDPRN PRN Administration Anxiety Diltiazem HCl 120 mg 05/02/19 09:00 05/07/19 08:02 Cardizem Cd PO Not Given DAILY MARJORIE Guaifenesin 300 mg 05/02/19 13:00 05/02/19 13:16 Robitussin Sf PO 300 mg Q6H PRN Administration Cough Ondansetron HCl 4 mg 05/01/19 22:11 05/04/19 08:08 Zofran Odt PO 4 mg Q6H PRN Administration Nausea/Vomiting Ondansetron HCl 4 mg 05/01/19 22:11 05/02/19 22:46 Zofran IVP 4 mg Q6H PRN Administration Nausea/Vomiting Pantoprazole Sodium 40 mg 05/02/19 09:00 05/07/19 07:58 Protonix PO 40 mg DAILY MARJORIE Administration Pregabalin 75 mg 05/04/19 21:00 05/07/19 07:56 Lyrica PO 75 mg BID MARJORIE Administration Saccharomyces Bostephendii 250 mg 05/02/19 09:00 05/07/19 07:59 Florastor PO 250 mg DAILY MARJORIE Administration Sodium Chloride 10 ml 05/01/19 22:11 05/04/19 08:05 Flush - Normal Saline IVF 10 ml PRN PRN Administration Saline Flush - Exam General Appearance: NAD, awake alert Eye: PERRL, anicteric sclera ENT: no oropharyngeal lesions, moist mucosa Neck: supple, no JVD Heart: RRR, no murmur Respiratory: no wheezes, no rales, rhonchi Gastrointestinal: soft, non-tender, normal bowel sounds Gastrointestinal - other findings: ventral hernia chronic+ Extremities: no cyanosis, no edema Neurological: CN's grossly intact, no focal deficits Psychiatric: A&O x 3 Hosp A/P (1) Acute bronchopneumonia Code(s): J18.0 - BRONCHOPNEUMONIA, UNSPECIFIED ORGANISM Status: Resolved (2) Afib Code(s): I48.91 - UNSPECIFIED ATRIAL FIBRILLATION Status: Chronic Qualifiers: Atrial fibrillation type: paroxysmal Qualified Code(s): I48.0 - Paroxysmal atrial fibrillation (3) Iron deficiency anemia Code(s): D50.9 - IRON DEFICIENCY ANEMIA, UNSPECIFIED Status: Acute (4) Acute blood loss anemia Code(s): D62 - ACUTE POSTHEMORRHAGIC ANEMIA Status: Acute (5) Weakness generalized Code(s): R53.1 - WEAKNESS Status: Acute (6) Anxiety and depression Code(s): F41.9 - ANXIETY DISORDER, UNSPECIFIED; F32.9 - MAJOR DEPRESSIVE DISORDER, SINGLE EPISODE, UNSPECIFIED Status: Chronic (7) Hiatal hernia Code(s): K44.9 - DIAPHRAGMATIC HERNIA WITHOUT OBSTRUCTION OR GANGRENE Status: Chronic (8) Adenocarcinoma of colon Code(s): C18.9 - MALIGNANT NEOPLASM OF COLON, UNSPECIFIED Status: Acute - Plan cecal area biopsy is +ve for malignancy, patient has opted for surviellance biopsy for now, no surgery planned per . ferritin is low at 16, iron is 17, Hb around 8g after transfusion, oral iron has h/o esophageal ca in remission per patient continue cardizem cd, nebs, protonix hemostable to mobilize with PT as tolerated will need placement/rehab, may dc if its arranged. aspiration precautions on discharge, has hiatal hernia and prior esophageal surgery.
[2019-05-07 15:21] VITALS: BP 108/71; TEMP 98
--- NOTE | 2019-05-09 03:25 | EKG ---
Test Reason : Blood Pressure : / mmHG Vent. Rate : 088 BPM Atrial Rate : 097 BPM P-R Int : 000 ms QRS Dur : 078 ms QT Int : 358 ms P-R-T Axes : 000 -16 -24 degrees QTc Int : 433 ms Atrial fibrillation with occasional atrial-paced complexes and with premature ventricular or aberrant ly conducted complexes Abnormal ECG Confirmed by DAFNE SOMERS, JAE ([id number]), news video editor CHERIE SHORE ([id number]) on 05/09/2019 3:24:56 AM Referred By: Confirmed By:JAE LEOS MD
--- NOTE | 2019-05-09 08:33 | DIS ---
DATE OF ADMISSION: 05/01/2019 DATE OF DISCHARGE: 05/07/2019 DISCHARGE DISPOSITION: Inpatient Rehab. PRIMARY DISCHARGE DIAGNOSES: Acute blood loss anemia, acute bronchopneumonia likely aspiration, chronic paroxysmal atrial fibrillation, colonoscopy biopsies come back positive for adenocarcinoma, hiatal hernia, generalized weakness with deconditioning, anxiety, depression. PROCEDURES DONE DURING HOSPITALIZATION: Chest x-ray on the day of admission showed no acute process. CT brain without contrast done showed no acute intracranial process. EGD and colonoscopy done on 05/03/[address] Jeffrey Alexis showed findings of surgical change associated with distal esophagectomy and partial gastrectomy , Carpenter grade B reflux-mediated erosive esophagitis with increased friability, could potentially generate anemia over time. A 6 to 7 mm gastric submucosal nodule status post biopsies. Large duodenal diverticulum with no pathology within the diverticular sac. Colonoscopy showed 1 cm cecal polyp, which was biopsied and removed by polypectomy and hemoclip placement x2. [id number] pancolonic diverticulosis. Histopathology from colonoscopy biopsy has shown well-differentiated adenocarcinoma focally invading submucosa from the cecal polyp. 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 [employer] panel has been sent from this biopsy from Pathology Department. Blood cultures x2, no growth. Had a white count of 13 on admission with H and H of 7 and 27, discharge H and H 8 and 28, platelet count 385 with white count of 10 , MCV was 68, serum iron 17, ferritin 16, BUN 9, creatinine 0.7, and BNP 118. DISCHARGE MEDICATIONS: 1. Ferrous sulfate 325 mg twice daily. 2. DuoNeb's q.4 hourly. 3. Protonix 40 mg daily. 4. Lyrica 150 mg twice daily. 5. Multivitamin one tablet once daily. 6. [place] p.r.n. for pain. 7. Cardizem CD 120 mg p.o. daily. 8. Xanax p.r.n. 9. Calcium with vitamin D 1 tablet daily. ALLERGIES: NO KNOWN DRUG ALLERGIES. INPATIENT CONSULT: Dr. Jeffrey Alexis/Dr. Thuan Carreno for Gastroenterology and Dr. Hobson for General Surgery. DISCHARGE PLAN: The patient to follow up with primary care physician in 1 week and likely will need repeat surveillance colonoscopy per protocol with Dr. Jeffrey Alexis. BRIEF COURSE DURING HOSPITALIZATION: The patient initially got admitted on with complaints of feeling dizzy and generalized weakness. He also had shortness of breath and coughing. The patient has had known history of esophageal carcinoma in the past and he has been in remission with prior lower esophagectomy and partial gastrectomy in the past. He has had difficulty in his swallowing in the past as well. The patient was admitted to hospital and was placed on IV antibiotics for suspected aspiration. His H and H were low with low iron indices as well. The patient was given a unit of packed cell transfusion on admission. The upper and lower endoscopies done by Dr. Jeffrey Alexis showed cecal polyp to have transformation to adenocarcinoma. He has had consultation with Dr. Hobson, and the patient has opted for close surveillance endoscopy in lieu of right hemicolectomy. He also has a large hiatal hernia and ventral hernia as well. The patient is 83-year-old and will be for close surveillance endoscopies. He needs to follow up with Dr. Jeffrey Alexis closely for this. Genomics studies on the biopsy specimen are pending at present. He has severe deconditioning and is being discharged to inpatient rehab for further recuperation prior to going home. His medications were optimized. He has been advised to sit upright after eating due to large hiatal hernia. He is otherwise hemodynamically stable and is cleared for discharge by Gastroenterology. A total of 35 minutes was spent on discharge plan. Please see a [id number] documentation for the day of discharge on [employer]. Job ID: [id number] MTDD
== END 2019-05-07 17:34 | DRG 811 ==
LOC: ERS 17:33 → T4-B 20:20
PROVIDERS: ADMIT Internal Medicine; ATTEND Internal Medicine
PROC: 30233N1 Transfusion of Nonautologous Red Blood Cells into Peripheral Vein, Percutaneous Approach (ICD-10-PCS; 2019-05-02)
PROC: 0DB78ZX Excision of Stomach, Pylorus, Via Natural or Artificial Opening Endoscopic, Diagnostic (ICD-10-PCS; principal; 2019-05-03)
PROC: 0DB88ZX Excision of Small Intestine, Via Natural or Artificial Opening Endoscopic, Diagnostic (ICD-10-PCS; 2019-05-03)
PROC: 0DBH8ZX Excision of Cecum, Via Natural or Artificial Opening Endoscopic, Diagnostic (ICD-10-PCS; 2019-05-03)
DX: D62 Acute posthemorrhagic anemia (principal); J69.0 Pneumonitis due to inhalation of food and vomit; C78.5 Secondary malignant neoplasm of large intestine and rectum; I48.0 Paroxysmal atrial fibrillation; I48.2 Chronic atrial fibrillation; K44.9 Diaphragmatic hernia without obstruction or gangrene; F41.9 Anxiety disorder, unspecified; C61 Malignant neoplasm of prostate; K57.10 Diverticulosis of small intestine without perforation or abscess without bleeding; G47.33 Obstructive sleep apnea (adult) (pediatric); G89.29 Other chronic pain; K21.0 Gastro-esophageal reflux disease with esophagitis; K63.5 Polyp of colon; F32.9 Major depressive disorder, single episode, unspecified; D12.0 Benign neoplasm of cecum; Z79.01 Long term (current) use of anticoagulants; Z85.01 Personal history of malignant neoplasm of esophagus; Z98.42 Cataract extraction status, left eye; Z98.41 Cataract extraction status, right eye; Z90.49 Acquired absence of other specified parts of digestive tract
CPT/HCPCS: 36415; 36430; 70450; 71045; 80048; 80053; 82550; 82728; 83540; 83550; 83605; 83690; 83880; 84484; 85025; 86850; 86900; 86901; 87040; 88305; 88312; 88361; 93005; 94640; 94644; 96361; 96365; 96375; J0456; J0696; J1100; J1956; J2001; J2405; J2704; J3490; J7050; J7611; J7620; P9016; Q0162

== ENCOUNTER 2019-05-11 10:12 | Inpatient (IN) | payer MEDICARE ==
[2019-05-11] MEDS ORDERED: Piperacillin/Tazobactam 4.5 GM VIAL ONE (11:24)
[2019-05-11 11:38] LABS: ALT (SGPT) 13 U/L (8-55); AST (SGOT) 18 U/L (5-34); Albumin 3.7 g/dL (3.4-4.8); Alkaline Phosphatase 78 U/L (40-150); Anion Gap 16 mmol/L (10-20); BUN (Urea Nitrogen) 21 mg/dL (8.4-25.7); Bilirubin, Total 0.3 mg/dL (0.2-1.2); Calc. Creatinine Clearance 0 mL/min (70-130); Calcium 10.3 mg/dL (7.8-10.44); Carbon Dioxide 27 mmol/L (23-31); Chloride 96 mmol/L (98-107); Estimated GFR-MDRD 67; Globulin 3.7 g/dL (2.4-3.5); Glucose 151 mg/dL (83-110); Potassium 4.7 mmol/L (3.5-5.1); Protein, Total 7.4 g/dL (5.8-8.1); Sodium 134 mmol/L (136-145)
--- NOTE | 2019-05-11 11:40 | RAD ---
EXAM: CHEST ONE VIEW HISTORY: COPD exacerbation. Pneumonia. COMPARISON: 05/11/2019 at 0827 hours. FINDINGS: Pleural and parenchymal changes are again seen at the right lung base likely related to right pleural effusion and associated atelectasis. Superimposed pneumonia cannot be excluded. The left lung remains clear. Left subclavian Mediport catheter as well as dorsal column stimulator leads overlying the lower thoracic spine are again noted. Right cardiac border is obscured. The pulmonary vasculature is within normal limits. Chest is overall stable compared to prior study. IMPRESSION: Stable pleural and parenchymal changes right lung base probably related to right pleural effusion and atelectasis. Superimposed pneumonia cannot be entirely excluded.
[2019-05-11 11:41] LABS: #Eosinphils 0.1 thou/uL (0.0-0.7); #Lymphocytes 1.5 thou/uL (1.20-3.40); #Neutrophils 9.4 thou/uL (1.40-6.50); %Basophils 0.1 % (0.0-1.0); %Eosinophils 0.8 % (0.0-10.0); %Lymphocytes 12.7 % (21.0-51.0); %Neutrophils 78.3 % (42.0-75.0); Hemoglobin 8.4 g/dL (14.0-18.0); Mean Corpuscular HGB CONC 29.4 g/dL (32.0-36.0); Mean Corpuscular Hemoglobin 21.2 pg (27.0-31.0); Mean Platelet Volume 8.8 fL (7.4-10.4); Platelet Count 465 thou/uL (130-400); RBC Distribution Width 21.9 % (11.5-14.5); Red Blood Cell (RBC) Count 3.96 mill/uL (4.70-6.10)
[2019-05-11 12:02] LABS: Hypochromia MODERATE=16-30 cells (100X) (0-5/hpf); MDiff Complete? YES; Microcytosis MODERATE=15-30 cells (100X) (0-5/hpf); Ovalocytes SLIGHT = 2-5 cells (100X) (0-1/hpf); Polychromasia MODERATE = 3-4 cells (100X) (0-2/hpf)
--- NOTE | 2019-05-11 14:26 | HP ---
PRIMARY CARE PHYSICIAN: [facility]. REASON FOR ADMISSION: Sent from inpatient rehab facility for pneumonia. HISTORY OF PRESENT ILLNESS: An 83-year-old male, who was recently hospitalized in our hospital on May 01, 2019. At that time, the patient had chest x-ray, which showed suspected early pneumonia and the patient was given levofloxacin during hospital course. He was not given any antibiotic therapy upon discharge. He was discharged from the hospital on May 09, 2019. During that admission, the patient underwent EGD and colonoscopy and the patient had a polyp, which turned out to be invasive carcinoma. During that admission, Dr. Hobson was consulted and Dr. Alexis was following as the patient was having generalized weakness. The patient was discharged to inpatient rehab facility. At rehab facility, the patient was having increasing amount of cough. He was not able to participate with therapy. He had leukocytosis with WBC count 21,000 yesterday, and today 12,000. He has chronic microcytic anemia. He was sent from rehab to radiology department for chest x-ray, and chest x-ray showed pleural and parenchymal changes at right lung base associated with right pleural effusion and atelectasis. The patient was suspected for healthcare-associated pneumonia. The patient also has underlying history of oropharyngeal dysphagia. In the emergency room, he was treated with vancomycin, Zosyn, and levofloxacin. He was given 3 L of IV fluid and after that, his blood pressure has been improved. He was maintaining saturation with 2 L oxygen. He was appeared hemodynamically stable. PAST MEDICAL HISTORY: Recent diagnosis of colon polyp which reported as invasive carcinoma, history of malignant neoplasm of stomach, paroxysmal SVT/atrial fibrillation, COPD, gastroesophageal reflux disease, peripheral neuropathy, physical deconditioning, hiatal hernia, history of esophageal cancer, history of prostate cancer, chronic microcytic anemia, and sleep apnea. PAST SURGICAL HISTORY: Prostatectomy, right foot surgery, right carpal tunnel release, bilateral cataract surgery, partial gastrectomy, cholecystectomy, appendicectomy, and ablation for SVT. PAST PSYCHIATRIC HISTORY: Anxiety and depression. SOCIAL HISTORY: The patient is a former smoker. He quit smoking more than 20 years ago. He currently does not have any tobacco, alcohol, or illicit drug abuse. He is . Code status discussed with the patient. He wants to try short-term to revise his life and his granddaughter, Zahida, is surrogate decision maker. EMERGENCY ROOM COURSE: The patient is given vancomycin, Zosyn, Levaquin, and IV fluid. FAMILY HISTORY: Both parents from liver disease, but no significant family history of coronary artery disease, stroke, or cancer. CURRENT HOME MEDICATIONS: 1. [place] one tablet q.6 hourly p.r.n. 2. Xanax 1 mg b.i.d. 3. Calcium carbonate one tablet twice daily. 4. Cardizem CD 120 mg p.o. daily. 5. Multivitamin one tablet p.o. daily. 6. Lyrica 150 mg p.o. b.i.d. 7. DuoNeb q.6 hourly. 8. Ferrous sulfate 325 mg p.o. b.i.d. 9. Protonix 40 mg p.o. daily. ALLERGY: NKDA REVIEW OF SYSTEMS: CONSTITUTIONAL: Negative for weight loss or gain, ability to conduct usual activities. SKIN: Negative for rash, itching. EYES: Negative for double vision, pain. ENT/MOUTH: Negative for nose bleeding, neck stiffness, pain, tenderness. CARDIOVASCULAR: Negative for palpitations, dyspnea on exertion, orthopnea. RESPIRATORY: Negative for shortness of breath, wheezing, cough, hemoptysis, fever or night sweats. GASTROINTESTINAL: Negative for poor appetite, abdominal pain, heartburn, nausea , vomiting, constipation, or diarrhea. GENITOURINARY: Negative for urgency, frequency, dysuria, nocturia. MUSCULOSKELETAL: Negative for pain, swelling. NEUROLOGIC/PSYCHIATRIC: Negative for anxiety, depression. ALLERGY/IMMUNOLOGIC: Negative for skin rash, bleeding tendency. Please see my HPI for pertinent positives and negatives. All other review of systems reviewed and negative except as mentioned in HPI. PHYSICAL EXAMINATION: VITAL SIGNS: Currently, blood pressure 88/56, that has improved to 100/60, pulse 87, respiratory rate 24, temperature 97.5, and saturation 98% on 2 L oxygen. Weight 74.8 kg. GENERAL: The patient is chronically ill, hypotensive. HEENT: Head; normocephalic and atraumatic. Eyes; conjunctivae are pale. No nystagmus. Extraocular muscle intact. ENT; pale mucous membrane, dry mucous membrane. No oral lesion. No pharyngeal erythema. No exudate. No thrush. NECK: Supple. No JVD. No thyromegaly. No carotid bruit. LUNGS: Bilateral end-expiratory wheezing. Rales noted in right lower lobe. No accessory muscles of respiration in use. CARDIAC: S1 and S2 appear regular without any significant murmur. ABDOMEN: The patient does have reducible ventral hernia. No peritoneal sign. No guarding. No rigidity. No rebound. BACK: Unremarkable. No CVA tenderness. EXTREMITIES: Upper extremities; passive movement of all joints are normal. Lower extremities; no edema. Good distal pulsation. SKIN: Pale skin without any rash. HEMATOLOGICAL SYSTEM: No lymphadenopathy. PSYCHIATRIC: Normal affect. NEUROLOGIC: Nonfocal examination. He is moving all 4 limbs. Plantar bilateral flexor. SIGNIFICANT LABORATORY DATA: security monitor showing sinus rhythm. Chest x- ray showing right basilar infiltration/atelectasis with effusion. CBC; WBC 12.0, hemoglobin 8.4, MCV 72, platelet 465. BMP; sodium 134, potassium 4.7, chloride 96, carbon dioxide 27, BUN 21, creatinine 1.06, glucose 151, and calcium 10.3. Lactic acid 2.4. LFT; AST 18, ALT 13, alkaline phosphatase 78, and albumin 3.7. ASSESSMENT AND PLAN: Impression: 1. Sepsis due to healthcare-associated pneumonia. 2. Healthcare-associated pneumonia, right lower lobe/aspiration pneumonia. The patient was recently admitted for hospital for similar problem, seems like the patient was partially treated with levofloxacin. At this point, the patient will need broad-spectrum antibiotic therapy with vancomycin, Zosyn, and Levaquin therapy while in hospital. Speech Therapy will be evaluated for any silent aspiration. 3. Lactic acidosis, likely due to sepsis. We will repeat lactic acid level tomorrow. 4. Hypotension, improved with IV fluid. We will continue with maintenance IV fluid while in hospital. 5. Chronic microcytic anemia. We will check ferritin level, and if ferritin level is low, then we will consider IV iron sulfate while in the hospital. Continue ferrous sulfate 325 mg p.o. b.i.d. 6. Large hiatal hernia. Continue Protonix 40 mg p.o. daily. Dietary precaution discussed. 7. History of colon polyp consistent with invasive carcinoma. The patient will need outpatient followup with General Surgery, cream ripener, and Oncology to decide treatment plan. Because of multiple comorbidities and the patient's level of functioning, the patient is not a good candidate for any treatment intervention during this admission. 8. Paroxysmal atrial fibrillation/supraventricular tachycardia. Continue Cardizem CD 120 mg p.o. daily. 9. Anxiety and depression. Continue Xanax as per home dosage. 10. Physical deconditioning. The patient will need PT, OT, and eventually discharged back to rehab facility. 11. Deep venous thrombosis prophylaxis, SCD boots with Lovenox 30 mg subcu daily. 12. Gastrointestinal prophylaxis, Protonix 40 mg p.o. daily. CODE STATUS: Spoke with the patient. The patient wants to be a full code and the patient's granddaughter, Zahida, will be a surrogate decision maker. DISPOSITION PLAN: Based on clinical course, we are expecting the patient's stay in hospital more than 2 midnights. Plan of care discussed with the patient in detail. Job ID: [id number] [facility]
[2019-05-11 15:44] LABS: Lactic Acid 1.4 mmol/L (0.5-2.2)
[2019-05-11] MEDS ORDERED: Loperamide HCl 2 MG CAP PO PRN (18:24)
[2019-05-11] MEDS ORDERED: HYDROcodone/Acetaminophen 5/325 mg Tablet PO PRN (18:24)
[2019-05-11] MEDS ORDERED: Calcium Carbonate 500 MG ChewTAB PO PRN (18:24)
[2019-05-11] MEDS ORDERED: Acetaminophen 325 MG TAB PO PRN (18:24)
[2019-05-11] MEDS ORDERED: Diabetic Tussin 200 MG/10 ML UDCUP PO PRN (18:24)
[2019-05-11] MEDS ORDERED: Bisacodyl 10 MG SUPP PR PRN (18:24)
[2019-05-11] MEDS ORDERED: Senokot S 8.6-50 MG TAB PO PRN (18:24)
[2019-05-11] MEDS ORDERED: Promethazine 25 MG TAB PO PRN (18:24)
[2019-05-11] MEDS ORDERED: hydrALAZINE 20 MG/ML VIAL SLOW IVP PRN (18:24)
[2019-05-11] MEDS ORDERED: Loratadine 10 MG TAB PO PRN (18:24)
[2019-05-11] MEDS ORDERED: Cepastat Lozenges 1 LOZ PO PRN (18:24)
[2019-05-11] MEDS ORDERED: Sodium Chloride 0.65% Nasal 44 ML BOT EA NARE PRN (18:24)
[2019-05-11] MEDS ORDERED: Artificial Tears 18 DROP/0.9 ML EA EYE PRN (18:24)
[2019-05-11] MEDS ORDERED: Ferrous Sulfate 325 MG TAB PO SCH (18:45)
[2019-05-11 19:35] VITALS: BMI 23.0
[2019-05-11] MEDS ORDERED: Zolpidem Tartrate 5 MG TAB PO SCH (20:45)
[2019-05-11] MEDS: Piperacillin/Tazobactam 3.375 GM in Sodium Chloride 0.9% 100 ML IVPB SCH ×2 (21:37→23:57)
[2019-05-11] MEDS: guaiFENesin ER 600 MG TAB PO SCH (21:37)
[2019-05-11] MEDS: Sodium Chloride 0.9% 1,000 ML IV SCH (21:38)
[2019-05-12] MEDS ORDERED: Vancomycin HCl 1.5 GM in Sodium Chloride 0.9% 250 ML 300 ML IVPB SCH (04:00)
[2019-05-12 06:05] LABS: #Eosinphils 0.3 thou/uL (0.0-0.7); #Lymphocytes 1.4 thou/uL (1.20-3.40); #Monocytes 0.7 thou/uL (0.11-0.59); #Neutrophils 5.7 thou/uL (1.40-6.50); %Basophils 0.3 % (0.0-1.0); %Eosinophils 3.2 % (0.0-10.0); %Lymphocytes 17.8 % (21.0-51.0); %Monocytes 8.9 % (0.0-10.0); %Neutrophils 69.8 % (42.0-75.0); Hemoglobin 7.3 g/dL (14.0-18.0); Mean Corpuscular HGB CONC 28.7 g/dL (32.0-36.0); Mean Corpuscular Hemoglobin 20.8 pg (27.0-31.0); Mean Corpuscular Volume 72.4 fL (78.0-98.0); Mean Platelet Volume 8.1 fL (7.4-10.4); Platelet Count 436 thou/uL (130-400); RBC Distribution Width 21.9 % (11.5-14.5); Red Blood Cell (RBC) Count 3.51 mill/uL (4.70-6.10); White Blood Cell (WBC) Count 8.1 thou/uL (4.8-10.8)
[2019-05-12] MEDS: Piperacillin/Tazobactam 3.375 GM in Sodium Chloride 0.9% 100 ML IVPB SCH ×4 (06:07→23:41)
[2019-05-12 06:20] LABS: Anion Gap 8 mmol/L (10-20); BUN (Urea Nitrogen) 12 mg/dL (8.4-25.7); Calc. Creatinine Clearance 63 mL/min (70-130); Calcium 8.6 mg/dL (7.8-10.44); Carbon Dioxide 30 mmol/L (23-31); Chloride 101 mmol/L (98-107); Estimated GFR-MDRD 80; Glucose 102 mg/dL (83-110); Potassium 4.2 mmol/L (3.5-5.1); Sodium 135 mmol/L (136-145)
[2019-05-12] MEDS: Sodium Chloride 0.9% 1,000 ML IV SCH ×2 (07:19→12:18)
[2019-05-12] MEDS: Saccharomyces boulardii 250 MG CAP PO SCH (08:03)
[2019-05-12] MEDS: guaiFENesin ER 600 MG TAB PO SCH ×2 (08:03→19:26)
[2019-05-12] MEDS: Enoxaparin Sodium 40 MG/0.4 ML SYRINGE SC SCH (08:04)
[2019-05-12] MEDS: Ferrous Sulfate 325 MG TAB PO SCH ×2 (08:04→17:28)
[2019-05-12] MEDS: ALPRAZolam 1 MG TAB PO PRN ×2 (08:09→19:26)
--- NOTE | 2019-05-12 12:05 | PDOC.HOSPP ---
- Subjective Subjective: Seen and examined. A&Ox3 with fair insight into his clinical condition. Breathing better, satting well on low flow NC. Denies pain. Patient with chronic aspiration. Case discussed with Speech therapy, dietary modifications appreciated. Patient wishes to be a full code. - Objective Vital Signs & Weight: Vital Signs (12 hours) Temp Pulse Resp BP BP Pulse Ox 05/12/19 11:25 98.2 F 61 20 108/69 95 05/12/19 08:03 85 108/69 05/12/19 08:00 98 05/12/19 07:32 98.1 F 87 20 108/69 95 05/12/19 06:21 72 18 98 05/12/19 04:10 98.2 F 78 18 100/62 98 05/12/19 00:35 97.4 F L 91 18 103/65 98 Weight Weight 155 lb 12.8 oz I&O: 05/11/19 05/12/19 05/13/19 06:59 06:59 06:59 Intake Total 1190 240 Output Total 475 200 Balance 715 40 Result Diagrams: 05/12/19 05:18 05/12/19 05:18 Radiology Reviewed by me: Yes (CXR) Hospitalist ROS - Review of Systems All other systems reviewed; all pertinent +/- noted in HPI/Subj - Medication Medications: Active Medications Generic Name Dose Route Start Last Admin Trade Name Freq PRN Reason Stop Dose Admin Albuterol/Ipratropium 3 ml 05/11/19 19:00 05/12/19 06:21 Duoneb NEB 3 ml [id number] MARJORIE Administration Alprazolam 1 mg 05/11/19 18:24 05/12/19 08:09 Xanax PO 1 mg BID PRN Administration Anxiety Diltiazem HCl 120 mg 05/12/19 09:00 05/12/19 08:03 Cardizem Cd PO 120 mg DAILY MARJORIE Administration Enoxaparin Sodium 40 mg 05/12/19 09:00 05/12/19 08:04 Lovenox SC 40 mg 0900 MARJORIE Administration Ferrous Sulfate 325 mg 05/12/19 08:00 05/12/19 08:04 Feosol PO 325 mg BID-WM MARJORIE Administration Guaifenesin 600 mg 05/11/19 21:00 05/12/19 08:03 Mucinex PO 600 mg Q12HR MARJORIE Administration Piperacillin Sod/Tazobactam 100 mls @ 200 mls/hr 05/11/19 18:00 05/12/19 11: 18 Sod 3.375 gm/ Sodium Chloride IVPB 100 mls Q6HR MARJORIE Administration Vancomycin HCl 1.5 gm/ Sodium 300 mls @ 200 mls/hr 05/12/19 04:00 05/12/19 04 :11 Chloride IVPB 300 mls 0400 MARJORIE Administration Pantoprazole Sodium 40 mg 05/12/19 09:00 05/12/19 08:04 Protonix PO 40 mg DAILY MARJORIE Administration Saccharomyces Boulardii 250 mg 05/12/19 09:00 05/12/19 08:03 Florastor PO 250 mg DAILY MARJORIE Administration Sodium Chloride 10 ml 05/11/19 20:24 05/12/19 08:04 Flush - Normal Saline IVF 10 ml PRN PRN Administration Saline Flush - Exam General Appearance: NAD, awake alert Eye: anicteric sclera ENT: normocephalic atraumatic, no oropharyngeal lesions, moist mucosa Neck: supple, symmetric, no JVD Heart: no murmur, no gallops, no rubs Respiratory: no rales, normal chest expansion, no tachypnea, rhonchi, wheezes Gastrointestinal: soft, non-tender, non-distended, no palpable masses, no guarding, no rigidity Extremities: 1+ LE edema Skin: no lesions, no rashes Neurological: CN's grossly intact, no focal deficits, no new deficit Musculoskeletal: normal strength, no muscle wasting Psychiatric: A&O x 3, flat affect Hosp A/P (1) Sepsis with acute organ dysfunction Code(s): A41.9 - SEPSIS, UNSPECIFIED ORGANISM; R65.20 - SEVERE SEPSIS WITHOUT SEPTIC SHOCK Status: Acute (2) Acute respiratory failure with hypoxemia Code(s): J96.01 - ACUTE RESPIRATORY FAILURE WITH HYPOXIA Status: Acute (3) Adenocarcinoma of colon Code(s): C18.9 - MALIGNANT NEOPLASM OF COLON, UNSPECIFIED Status: Chronic (4) COPD exacerbation Code(s): J44.1 - CHRONIC OBSTRUCTIVE PULMONARY DISEASE W (ACUTE) EXACERBATION Status: Acute (5) Right lower lobe pneumonia Code(s): J18.1 - LOBAR PNEUMONIA, UNSPECIFIED ORGANISM Status: Acute Qualifiers: Pneumonia type: aspiration pneumonia (6) Afib Code(s): I48.91 - UNSPECIFIED ATRIAL FIBRILLATION Status: Chronic Qualifiers: Atrial fibrillation type: paroxysmal Qualified Code(s): I48.0 - Paroxysmal atrial fibrillation (7) Paroxysmal SVT (supraventricular tachycardia) Code(s): I47.1 - SUPRAVENTRICULAR TACHYCARDIA Status: Chronic (8) Acute bronchopneumonia Code(s): J18.0 - BRONCHOPNEUMONIA, UNSPECIFIED ORGANISM Status: Resolved (9) Encephalopathy in sepsis Code(s): G93.41 - METABOLIC ENCEPHALOPATHY Status: Resolved (10) Lactic acidosis Code(s): E87.2 - ACIDOSIS Status: Resolved - Plan Plan: Med/ surg Broad spectrum ABX with coverage for nosocomial infections Blood Cx Urine Cx If cultures remain negative at 48 hours, will consider de escalation of antibiotics Speech therapy evaluation and treatment, recommendations appreciated Duo nebs PRN shortness of breath O2 supplementation to maintain O2 sat greater than 88% Continue home meds as able PT/ OT eval and treat GI and DVT PPX
[2019-05-12] MEDS ORDERED: Zolpidem Tartrate 5 MG TAB PO PRN (21:24)
[2019-05-12] MEDS ORDERED: Pregabalin 75 MG CAP PO SCH (21:45)
[2019-05-13 03:15] LABS: Vancomycin, Trough 10.2 ug/mL
[2019-05-13] MEDS ORDERED: Vancomycin HCl 750 MG in Sodium Chloride 0.9% 250 ML 250 ML IVPB SCH (04:00)
[2019-05-13] MEDS: Piperacillin/Tazobactam 3.375 GM in Sodium Chloride 0.9% 100 ML IVPB SCH (05:26)
[2019-05-13] MEDS: guaiFENesin ER 600 MG TAB PO SCH (08:13)
[2019-05-13] MEDS: Saccharomyces boulardii 250 MG CAP PO SCH (08:13)
[2019-05-13] MEDS: ALPRAZolam 1 MG TAB PO PRN (08:13)
[2019-05-13] MEDS: Enoxaparin Sodium 40 MG/0.4 ML SYRINGE SC SCH (08:14)
[2019-05-13] MEDS: Sodium Chloride 0.9% 1,000 ML IV SCH (08:14)
[2019-05-13] MEDS: Ferrous Sulfate 325 MG TAB PO SCH (08:14)
[2019-05-13] MEDS ORDERED: Pregabalin 75 MG CAP PO SCH (09:00)
--- NOTE | 2019-05-13 09:42 | RAD ---
XR Chest 1 View HISTORY: Cough COMPARISON: 05/11/2019 study. FINDINGS: Heart size is borderline. A left-sided Mediport catheter is present. Pleural and parenchyma l changes in the right base are similar to the previous exam IMPRESSION: Persistent pleural-parenchymal changes within the right base.
[2019-05-13 11:15] VITALS: BP 133/74; TEMP 97.5
--- NOTE | 2019-05-13 23:27 | DIS ---
DATE OF ADMISSION: 05/11/2019 DATE OF DISCHARGE: 05/13/2019 REASON FOR HOSPITALIZATION: Shortness of breath and cough. SIGNIFICANT FINDINGS: The patient was found to have right lower lobe pneumonia and was placed on broad-spectrum antibiotics with good improvement of symptoms. PROCEDURES PERFORMED/TREATMENTS RENDERED: When the patient was found to be septic, he had blood cultures taken, which remained negative for any growth at 48 hours and the patient was de-escalated on antibiotic therapy. The patient's sepsis resolved with normalization of WBC count. The patient remained afebrile since admission and he was recommended safe for discharge. CONDITION ON DISCHARGE: Stable. SPECIFIC INSTRUCTIONS FOR THE PATIENT/FAMILY: 1. The patient is recommended to complete a full course of antibiotics for resolution of pneumonia. 2. The patient is recommended to be on nectar thickened and pureed diet as recommendations from Speech Therapy, please see full recommendations for details. This will help lower his chance of recurrent aspiration pneumonia, which he has suffered from in the past. 3. The patient is recommended to take all other medications as directed, to be re-evaluated by admitting physician. 4. The patient is recommended to have a full course of physical therapy and occupational therapy to regain his independence. 5. The patient is recommended to return to acute care hospital immediately if signs or symptoms return, worsen, or any other new symptoms occur. DISCHARGE MEDICATIONS: Please see full discharge medication list for details with the following changes. 1. Levofloxacin 500 mg one tablet p.o. daily for the next 6 days. 2. Duo nebulizer therapy q.4 hours p.r.n. shortness of breath. HOSPITAL COURSE: Mr. Roca is a pleasant 83-year-old gentleman who presented to [facility] on 05/11/2019 with worsening cough, elevated WBC count, and worsening signs of sepsis. The patient was identified to have sepsis with elevated WBC count and tachycardia on admission. The patient was started on broad-spectrum antibiotics with coverage for nosocomial infection. The patient had blood cultures, please see full culture data for details. Cultures remained negative at 48 hours and the patient was de-escalated on antibiotics. The patient was evaluated by Speech Therapy, who recommended returning the patient to a nectar-thickened liquid and pureed diet, please see full recommendations from Speech Therapy for details. The patient with recurrent aspiration pneumonia in the past per speech therapist, who knows him well from prior admissions. 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 Once medically stabilized, he will follow up with Oncology in the outpatient clinic for further treatment plan on this. The patient was again discussed with his wishes including categorization status and he wishes to remain a full code. With the patient's numerous medical comorbidities and now invasive carcinoma, his long-term prognosis is guarded unless he is able to regain his physical strength and receive the cancer treatment he needs in the outpatient clinic. After a full course of physical therapy and occupational therapy and rehabilitation facility, the patient will need to see Oncology in the next 1 to 2 weeks. The patient will need to see primary care physician in the next 5 to 7 days after discharge from rehabilitation facility. The patient is recommended to follow up with Gastroenterology in 1 to 2 weeks after discharge from rehabilitation facility. The patient recommended to complete a full course of oral antibiotics for resolution of pneumonia. The patient is recommended to return to acute care hospital immediately if signs or symptoms return, worsen, or any other new symptoms occur. Greater than 35 minutes spent coordinating care and discharge process for this patient. Job ID: [id number]
--- NOTE | 2019-05-15 15:07 | EKG ---
Test Reason : Blood Pressure : / mmHG Vent. Rate : 088 BPM Atrial Rate : 088 BPM P-R Int : 180 ms QRS Dur : 070 ms QT Int : 346 ms P-R-T Axes : 071 -14 019 degrees QTc Int : 418 ms Sinus rhythm with Premature atrial complexes Otherwise normal ECG Confirmed by BESSY GTZ DO ([id number]), editor map BELA MAY ([id number]) on 05/15/2019 3:07:19 PM Referred By: Confirmed By:BESSY GTZ DO
== END 2019-05-13 13:44 | DRG 871 ==
LOC: ERS 10:12 → ERHOLD 14:22 → T4-B 18:56
PROVIDERS: ADMIT Internal Medicine; ATTEND Internal Medicine
DX: A41.9 Sepsis, unspecified organism (principal); J18.1 Lobar pneumonia, unspecified organism; J96.01 Acute respiratory failure with hypoxia; G93.41 Metabolic encephalopathy; J18.0 Bronchopneumonia, unspecified organism; J44.0 Chronic obstructive pulmonary disease with (acute) lower respiratory infection; E87.2 Acidosis; J44.1 Chronic obstructive pulmonary disease with (acute) exacerbation; I47.1 Supraventricular tachycardia; C18.9 Malignant neoplasm of colon, unspecified; R65.20 Severe sepsis without septic shock; I48.0 Paroxysmal atrial fibrillation; K21.9 Gastro-esophageal reflux disease without esophagitis; Y95 Nosocomial condition; G62.9 Polyneuropathy, unspecified; F41.9 Anxiety disorder, unspecified; F32.9 Major depressive disorder, single episode, unspecified; K44.9 Diaphragmatic hernia without obstruction or gangrene; Z87.891 Personal history of nicotine dependence; Z90.49 Acquired absence of other specified parts of digestive tract; Z79.899 Other long term (current) drug therapy; Z79.51 Long term (current) use of inhaled steroids; Z85.028 Personal history of other malignant neoplasm of stomach; Z85.01 Personal history of malignant neoplasm of esophagus; Z85.46 Personal history of malignant neoplasm of prostate
CPT/HCPCS: 36415; 36416; 71045; 80048; 80202; 82728; 83605; 83880; 85025; 87040; 87086; 87804; 93005; 94640; 94760; 96365; 96367; J1650; J1956; J2543; J3370; J3490; J7050; J7620

== ENCOUNTER 2019-09-14 07:56 | Day surgery (SDC) | payer MEDICARE ==
[2019-09-13 12:13] VITALS: BMI 22.8
[2019-09-14] MEDS ORDERED: PROPOFOL 200 MG/20 ML VIAL ONE (10:06)
--- NOTE | 2019-09-14 15:52 | OP ---
DATE OF PROCEDURE: 09/14/2019 PROCEDURE PERFORMED: Colonoscopy with biopsy. 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 DESCRIPTION OF PROCEDURE: After the risks and benefits of the procedure were explained to the patient, including risks of bleeding, infection, perforation, reactions to anesthesia, aspiration, and/or pain, informed consent was obtained. The patient was then taken to the endoscopy suite, where deep sedation was administered via propofol and anesthesia support. Once adequate sedation was achieved, a digital rectal examination was performed followed by introduction of the standard colonoscope, which was advanced into the rectum and then with intubation all the way to the cecum without difficulty. The quality of the prep was good with a large amount of liquid and solid stool seen in the sigmoid colon and rectum, but otherwise adequate visualization of the colonic mucosa was achieved. The patient tolerated the procedure well with no immediate perioperative complications. Upon conclusion of the procedure, all equipment was removed from the patient and the patient was transferred to Day Stay in satisfactory condition. FINDINGS: Digital rectal exam: Normal findings were seen on external examination. Colon findings: Normal-appearing mucosa was seen at the appendiceal orifice and ileocecal valve. However, an area within the cecum, slightly ulcerated mucosa was seen with [address]. There was no evidence of polypoid or mass type lesions associated with these clips. However, there were 3 small ulcerations noted at the tip of these hemoclips without any evidence of active or recent bleeding. Multiple biopsies were taken from around the hemoclips for evaluation of possible recurrence of cancer. These were placed in a specimen jar for further evaluation. Otherwise, scattered diverticula were seen in the transverse, descending, and sigmoid colons that were both small and large, but did not exhibit any other abnormalities. Normal-appearing mucosa was then seen in the ascending, transverse, descending, sigmoid colon and rectum. Normal findings were seen on rectal retroflexion. IMPRESSION: 1. The area of previously described cecal polyp/adenocarcinoma well seen within the cecum today with [address] and small pinpoint ulcerations at their tips, now status post biopsies for possible recurrence of adenocarcinoma. 2. Moderate pancolonic diverticulosis without evidence of diverticulitis. RECOMMENDATIONS: 1. We will follow up on the biopsy results. If negative for overt adenocarcinoma, would recommend a repeat colonoscopy in 1 year for further surveillance. 2. If the biopsy show presence of adenocarcinoma, would then consider surgical resection. 3. Would recommend a higher fiber diet given the presence of diverticulosis. 4. Continue current medications. 5. Followup in the GI Clinic as needed. Job ID: [id number]
== END 2019-09-14 12:24 | disposition home or self-care (01) ==
LOC: SDC 07:56
PROVIDERS: ATTEND Internal Medicine
PROC: 0DBH8ZX Excision of Cecum, Via Natural or Artificial Opening Endoscopic, Diagnostic (ICD-10-PCS; principal; 2019-09-14)
DX: Z12.11 Encounter for screening for malignant neoplasm of colon (principal); K63.3 Ulcer of intestine; K57.30 Diverticulosis of large intestine without perforation or abscess without bleeding; E78.00 Pure hypercholesterolemia, unspecified; I10 Essential (primary) hypertension; Z86.010 Personal history of colon polyps; Z87.891 Personal history of nicotine dependence; Z79.899 Other long term (current) drug therapy
CPT/HCPCS: 88305; J2704

== ENCOUNTER 2020-05-05 13:01 | Emergency (ER) | payer MEDICARE ==
[~2020-05-05 13:01] MED LIST: Iopamidol-370 76% 500 ML 1 ML ONE
[2020-05-05 14:17] LABS: #Eosinphils 0.1 thou/uL (0.0-0.7); #Monocytes 0.8 thou/uL (0.11-0.59); #Neutrophils 6.3 thou/uL (1.40-6.50); %Eosinophils 1.4 % (0.0-10.0); %Lymphocytes 21.6 % (21.0-51.0); %Monocytes 8.2 % (0.0-10.0); %Neutrophils 68.7 % (42.0-75.0); Hemoglobin 13.5 g/dL (14.0-18.0); Mean Corpuscular HGB CONC 31.9 g/dL (32.0-36.0); Mean Corpuscular Hemoglobin 29.5 pg (27.0-31.0); Mean Corpuscular Volume 92.3 fL (78.0-98.0); Mean Platelet Volume 8.2 fL (7.4-10.4); Platelet Count 254 thou/uL (130-400); RBC Distribution Width 17.3 % (11.5-14.5); Red Blood Cell (RBC) Count 4.59 mill/uL (4.70-6.10); White Blood Cell (WBC) Count 9.1 thou/uL (4.8-10.8)
[2020-05-05 14:33] LABS: ALT (SGPT) 9 U/L (8-55); AST (SGOT) 14 U/L (5-34); Albumin 3.8 g/dL (3.4-4.8); Alkaline Phosphatase 84 U/L (40-110); Anion Gap 16 mmol/L (10-20); BUN (Urea Nitrogen) 17 mg/dL (8.4-25.7); Bilirubin, Total 0.6 mg/dL (0.2-1.2); Calc. Creatinine Clearance 0 mL/min (70-130); Calcium 9.1 mg/dL (7.8-10.44); Carbon Dioxide 27 mmol/L (23-31); Chloride 96 mmol/L (98-107); Estimated GFR-MDRD 69; Globulin 3.6 g/dL (2.4-3.5); Glucose 86 mg/dL (83-110); Lipase 11 U/L (8-78); Potassium 4.3 mmol/L (3.5-5.1); Protein, Total 7.4 g/dL (5.8-8.1); Sodium 135 mmol/L (136-145)
[2020-05-05 14:46] LABS: Bacteria/HPF None Seen HPF (None Seen); Bilirubin Negative (Negative); Blood, Urine Negative (Negative); Clarity Clear (Clear); Glucose, Urine (Dipstick) Normal (Negative); Ketone, Urine Trace mg/dL (Negative); Leukocyte Negative Leu/uL (Negative); Nitrite Negative (Negative); Protein, Urine (Dipstick) 30 mg/dL (Neg-Trace); RBC/HPF 0-3 HPF (0-3); Specific Gravity, Urine 1.012 (1.002-1.036); Squamous Epithelial None Seen HPF (0-3); Urobilinogen Normal mg/dL (Less than 2); WBC/HPF 0-3 HPF (0-3); pH, Urine 5.5 (5.0-9.0)
--- NOTE | 2020-05-05 15:07 | CT ---
CT ABDOMEN WITH CONTRAST CT PELVIS WITH CONTRAST: DATE: 05/05/2020 HISTORY: 84-year-old male with abdominal pain and nausea. History of cancers of prostate, esophagus, and small bowel. COMPARISON: 02/24/2017 TECHNIQUE: IV injection of iodinated contrast media: administered. Oral contrast media:Not administered FINDINGS: In the expected location of the mid and lower esophagus, there is approximately two thirds of the vol ume of the stomach, mostly displacing the right lower lobe lung, similar to prior study. The dense infiltrate in the right lower lobe adjacent to that portion of the stomach has improved, and is now m ild haziness. Left lung base is clear. No pleural effusion, pneumoperitoneum, small bowel dilation, or colonic diverticulitis. Large air and fluid filled duodenal diverticulum is again noted at the hep atic hilum. No major hepatic, pancreatic, adrenal, or splenic, pathology. Again noted is the wide ventral mid abdominal wall diastases between the right and left rectus abdomi nis muscles. These has become wider, currently 8.5 x 9.5 cm. Again noted is the herniation of multiple nondilated bowel loops through this defect into a large hernia sac. There is a new finding o f herniation of the entire cecum and a significant portion of the ascending colon now into the hernia sac, along with the normal appendix. No high-grade edema identified in the hernia sac. Extensive atherosclerotic calcification and ectasia of abdominal aorta. 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 Reconstitution of left common femoral artery, presumably by hypogastric collaterals. 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 Lumbar spondylosis. No hydronephrosis. Bilateral renal cysts.. IMPRESSION: 1) interval increase in size of large ventral hernia, with new finding of involvement of right: In ad dition to small bowel within the hernia sac. 2) no evidence of bowel obstruction. 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 Reconstitution of left common femoral artery via hypogastric collaterals. 4) status post gastric pull-up. 5) status post prostatectomy and iliac chain lymph node dissection.
== END 2020-05-05 17:18 | disposition home or self-care (01) ==
LOC: ERS 13:01
DX: R10.9 Unspecified abdominal pain (principal); K46.9 Unspecified abdominal hernia without obstruction or gangrene; Z85.46 Personal history of malignant neoplasm of prostate; F41.9 Anxiety disorder, unspecified; J44.9 Chronic obstructive pulmonary disease, unspecified; Z79.899 Other long term (current) drug therapy
CPT/HCPCS: 51701; 74177; 80053; 81003; 81015; 83690; 84484; 85025; 93005; Q9967

== ENCOUNTER 2020-07-18 15:10 | Emergency (ER) | payer MEDICARE ==
[2020-07-18 15:58] LABS: Hemoglobin 14.5 g/dL (14.0-18.0); Mean Corpuscular HGB CONC 31.2 g/dL (32.0-36.0); Mean Corpuscular Volume 92.9 fL (78.0-98.0); Mean Platelet Volume 7.7 fL (7.4-10.4); Platelet Count 316 thou/uL (130-400); RBC Distribution Width 15.5 % (11.5-14.5); Red Blood Cell (RBC) Count 5.01 mill/uL (4.70-6.10); White Blood Cell (WBC) Count 29.3 thou/uL (4.8-10.8)
[2020-07-18 16:10] LABS: Band 4 % (5-11); Lymphocytes 4 % (21-51); MDiff Complete? YES; Monocytes 8 % (0-10); Neutrophil 83 % (42-75); Platelet Morphology Comment Appears Adequate; RBC Morphology Normal; Reactive Lymphocytes 1 % (0-10)
[2020-07-18 16:29] LABS: Chloride 93 mmol/L (98-107); Potassium 3.9 mmol/L (3.5-5.1); Sodium 133 mmol/L (136-145)
[2020-07-18 16:30] LABS: Calcium 9.5 mg/dL (7.8-10.44); Glucose 110 mg/dL (83-110)
[2020-07-18 16:31] LABS: Globulin 3.5 g/dL (2.4-3.5); Protein, Total 7.5 g/dL (5.8-8.1)
[2020-07-18 16:32] LABS: Anion Gap 20 mmol/L (10-20); Carbon Dioxide 24 mmol/L (23-31)
[2020-07-18 16:33] LABS: Alkaline Phosphatase 87 U/L (40-110); Bilirubin, Total 1.2 mg/dL (0.2-1.2)
[2020-07-18 16:34] LABS: Calc. Creatinine Clearance 0 mL/min (70-130); Estimated GFR-MDRD 66
[2020-07-18 16:35] LABS: BUN (Urea Nitrogen) 21 mg/dL (8.4-25.7)
[2020-07-18 16:36] LABS: AST (SGOT) 17 U/L (5-34)
[2020-07-18 16:37] LABS: ALT (SGPT) 10 U/L (8-55)
[2020-07-18] MEDS ORDERED: Ondansetron PF 4 MG/2 ML Vial ONE ×2 (16:50→18:20)
[2020-07-18] MEDS ORDERED: Cefepime 2 GM VIAL ONE (17:48)
--- NOTE | 2020-07-18 17:59 | CT ---
CT ABDOMEN WITH CONTRAST CT PELVIS WITH CONTRAST: DATE: 07/18/2020 HISTORY: 84-year-old male with history of cancers of the prostate, esophagus, and stomach, presents with nause a and vomiting with diffuse abdominal pain COMPARISON: 05/05/2020 TECHNIQUE: IV injection of iodinated contrast media: administered. Oral contrast media:Not administered FINDINGS: Previously, there was a large ventral hernia containing both right large intestine and small intestin e. That has become much smaller. The ventral hernia defect involving the abdominal wall, with diastases of the bilateral rectus abdominis muscles, currently measures 6.8 x 4.9 cm. 308, the hernia sac containing the cecum and a loop of small bowel, is significant a smaller than it was previously. The appendix is at the superficial pannus of this hernia sac. There is no appendicitis. No small bowel dilation to indicate obstruction. No definite fat stranding to indicate strangulation. Again noted are the gastric pull-up, and status post prostatectomy with iliac chain lymph node dissec tion. There is a new 5.5 x 3.3 x 1.5 cm mixed soft tissue attenuation well-circumscribed mass in the right groin, with a tail arising from the right inguinal canal, and traveling medially and inferiorly such that it overlies the right side of the pubic bone, slightly to the right of the symphysis pubis. Several bilateral renal cysts. No hydronephrosis. Atherosclerosis without aneurysm of abdominal aorta and iliac arteries. No acute findings of liver, pancreas,. No splenomegaly or adrenal nodule. Nonspecific mild right lowe r lobe infiltrate, slightly greater than previously. Left lung base clear. No pneumoperitoneum or ascites. IMPRESSION: 1) new 5.5 cm soft tissue density mass in the right medial groin, in the superficial subcutaneous fat overlying the right pubic bone, apparently arising from right inguinal canal. Etiology uncertain. 2) interval partial reduction of the previously large ventral hernia. 3) no acute findings.
--- NOTE | 2020-07-18 18:13 | RAD ---
RADIOGRAPH CHEST 1 VIEW: DATE: 07/18/2020 HISTORY: 84-year-old male with nausea and vomiting, and COPD COMPARISON: 05/19/2019 FINDINGS: There are no airspace densities, pulmonary edema, pneumothorax, or cardiomegaly. The lateral costophr enic angles are sharp. Heterogeneous prominent interstitial markings, especially in right upper lobe. Left subclavian implantable vascular access port. Elevated right hemidiaphragm. Spinal cord sti mulator leads distal tips at lower thoracic spine. No interval change overall. IMPRESSION: No acute cardiopulmonary findings.
[2020-07-18] MEDS ORDERED: Vancomycin 1.5 GRAM/300 ML BAG 1.5 GM in Premix Bag 1 BAG IVPB SCH (18:30)
[2020-07-19 05:44] LABS: SARS-CoV-2 MS2 Positive; SARS-CoV-2 N Gene Negative; SARS-CoV-2 S Gene Negative; SARS-CoV-2 by NAA Not Detected (NotDetected); SARS-CoV-2 orf1ab Negative
--- NOTE | 2020-07-22 17:10 | EKG ---
Test Reason : Blood Pressure : / mmHG Vent. Rate : 080 BPM Atrial Rate : 080 BPM P-R Int : 000 ms QRS Dur : 080 ms QT Int : 388 ms P-R-T Axes : 000 -16 082 degrees QTc Int : 447 ms Undetermined rhythm Nonspecific ST abnormality Abnormal ECG Confirmed by CAROL SERNA DO ([id number]), brands editor BELA MAY ([id number]) on 07/22/2020 5:10:26 PM Referred By: Confirmed By:CAROL SERNA DO
== END 2020-07-18 18:39 | disposition home or self-care (01) ==
LOC: ERS 15:10
DX: R11.2 Nausea with vomiting, unspecified (principal); Z20.828 Contact with and (suspected) exposure to other viral communicable diseases; J44.9 Chronic obstructive pulmonary disease, unspecified; I48.91 Unspecified atrial fibrillation; F41.9 Anxiety disorder, unspecified; Z79.899 Other long term (current) drug therapy
CPT/HCPCS: 71045; 74177; 80053; 85025; 87040; 93005; 94760; 96365; 96375; 96376; 99285; U0003; 36415; 87635; J0692; J2405; J3370; Q9967

== ENCOUNTER 2020-08-12 00:55 | Emergency (ER) | payer MEDICARE ==
[2020-08-12 01:46] LABS: #Eosinphils 0.2 thou/uL (0.0-0.7); #Monocytes 1.5 thou/uL (0.11-0.59); #Neutrophils 15.2 thou/uL (1.40-6.50); %Basophils 0.1 % (0.0-1.0); %Lymphocytes 15.1 % (21.0-51.0); %Monocytes 7.5 % (0.0-10.0); %Neutrophils 76.4 % (42.0-75.0); Hemoglobin 14.5 g/dL (14.0-18.0); Mean Corpuscular HGB CONC 31.8 g/dL (32.0-36.0); Mean Corpuscular Volume 97.3 fL (78.0-98.0); Mean Platelet Volume 6.9 fL (7.4-10.4); Platelet Count 282 thou/uL (130-400); RBC Distribution Width 16.2 % (11.5-14.5); Red Blood Cell (RBC) Count 4.67 mill/uL (4.70-6.10); White Blood Cell (WBC) Count 19.9 thou/uL (4.8-10.8)
[2020-08-12 02:00] LABS: ALT (SGPT) 24 U/L (8-55); AST (SGOT) 14 U/L (5-34); Albumin 3.6 g/dL (3.4-4.8); Alkaline Phosphatase 65 U/L (40-110); Anion Gap 15 mmol/L (10-20); BUN (Urea Nitrogen) 34 mg/dL (8.4-25.7); Bilirubin, Total 0.6 mg/dL (0.2-1.2); Calc. Creatinine Clearance 0 mL/min (70-130); Carbon Dioxide 28 mmol/L (23-31); Chloride 96 mmol/L (98-107); Globulin 3.1 g/dL (2.4-3.5); Glucose 75 mg/dL (83-110); Potassium 3.8 mmol/L (3.5-5.1); Protein, Total 6.7 g/dL (5.8-8.1); Sodium 135 mmol/L (136-145)
[2020-08-12 03:35] LABS: Bilirubin Negative (Negative); Blood, Urine Negative (Negative); Clarity Clear (Clear); Glucose, Urine (Dipstick) Normal (Negative); Ketone, Urine Negative (Negative); Leukocyte Negative Leu/uL (Negative); Nitrite Negative (Negative); Protein, Urine (Dipstick) Negative (Neg-Trace); Specific Gravity, Urine 1.011 (1.002-1.036); Urobilinogen Normal mg/dL (Less than 2)
[2020-08-12] MEDS ORDERED: traMADol HCl 50 MG TAB ONE (04:11)
--- NOTE | 2020-08-12 07:53 | RAD ---
XR Chest 1 View Portable HISTORY: Fall chest pain, left hip pain COMPARISON: 07/18/2020 FINDINGS: The heart size is normal. Left-sided Port-A-Cath remains in place. The aorta is tortuous. T here is continued elevation of the right hemidiaphragm. Dorsal cord stimulator leads again seen in the lower thoracic spine The lungs are without focal areas of consolidation, pneumothorax or pleural effusions. IMPRESSION: No radiographic evidence of acute cardiopulmonary process.
--- NOTE | 2020-08-12 07:53 | RAD ---
XR Pelvis AP STANDARD HISTORY: Fall, left hip pain FINDINGS: No fracture or dislocation is identified. There are degenerative changes in the hip joints. Postop ch anges are seen in the pelvis.
--- NOTE | 2020-08-12 07:54 | RAD ---
XR Hip Lt 2-3 View HISTORY: Fall, left hip pain FINDINGS: Degenerative changes are present. No fracture or dislocation is identified.
--- NOTE | 2020-08-12 10:14 | CT ---
PRELIMINARY REPORT/[facility]/EMERGENCY AFTER HOURS PROCEDURE: EXAM: CT left Hip, without IV contrast. CLINICAL HISTORY: 84-year-old male patient presents to the ER with a possible syncopal episode approximately 24 hours a go. He does say that he landed on his left side hitting his head and his left hip. He was able to get himself to the bed by crawling. TECHNIQUE: Axial images were acquired through the left hip without IV contrast. Reformatted images were reviewed . COMPARISON: None provided. FINDINGS: BONES: No acute fracture or focal osseous lesion. Sclerosis in the superior left femoral head concerning for possible AVN. The bones are osteopenic. JOINTS: No dislocation. There is mild degenerative changes. SOFT TISSUES: The soft tissues show postsurgical changes from prostatectomy. There is sigmoid diverticulosis. IMPRESSION: No displaced fracture seen. Recommend an MRI which has increased sensitivity if there is high clinica l concern, such as the inability to bear weight. Sclerosis in the superior left femoral head concerning for possible avascular necrosis. The bones appear osteopenic. ELECTRONICALLY SIGNED BY: Shayne Zhang MD Aug 12, 2020 2:37:24 AM CHIEF NURSE EXECUTIVE This report is intended for review by the ordering physician only, in accordance of law. If you recei ve this report in error, please call [facility] at [phone]. FINAL REPORT EMERGENCY AFTER HOURS CT OF THE LEFT HIP WITHOUT IV CONTRAST: Date: 08/12/2020 FINDINGS/IMPRESSION: I agree with the preliminary report given by [facility]. POS: OFF
--- NOTE | 2020-08-12 10:15 | CT ---
PRELIMINARY REPORT/[facility]/EMERGENCY AFTER HOURS PROCEDURE: EXAM: CT Head and Cervical Spine Without IV contrast. CLINICAL HISTORY: FALL 84-year-old male patient presents to the ER with a possible syncopal episode evening of 08/10/20 20. He does say that he landed on his left side hitting his head and his left hip. He was able to get himself to the bed by crawling. TECHNIQUE: Axial computed tomography images were acquired of the head and the cervical spine without intravenous contrast. Sagittal and coronal reformatted images were obtained of the cervical spine. COMPARISON: None provided. FINDINGS: BRAIN: No acute intraparenchymal hemorrhage. No mass lesion. No CT evidence for acute territorial infarct. N o midline shift or extra-axial collection. There is global parenchymal atrophy with findings of micro vascular ischemic disease. Right basal ganglia lacunar infarct. VENTRICLES No hydrocephalus. ORBITS The orbits are unremarkable. SINUSES AND MASTOIDS The paranasal sinuses and mastoid air cells are clear. SOFT TISSUES No significant facial or scalp soft tissue swelling evident. No radiopaque foreign body is seen. BONES No acute osseous pathology evident. No acute fracture is evident on images of the head or cervical spine. DISKS/DEGENERATIVE CHANGES Extensive multilevel degenerative changes of the cervical spine. IMPRESSION: 1. No acute intracranial findings. No acute intracranial injury evident. 2. No cervical spine fracture evident. ELECTRONICALLY SIGNED BY: Shayne Zhang MD Aug 12, 2020 2:30:46 AM GLASS HANDLER This report is intended for review by the ordering physician only, in accordance of law. If you recei ve this report in error, please call [facility] at [phone]. FINAL REPORT EMERGENCY AFTER HOURS CT OF THE CERVICAL SPINE WITHOUT CONTRAST: Date: 08/12/2020 FINDINGS/IMPRESSION: I agree with the preliminary report given by [facility]. POS: OFF
--- NOTE | 2020-08-12 10:16 | CT ---
PRELIMINARY REPORT/[facility]/EMERGENCY AFTER HOURS PROCEDURE: EXAM: CT Head and Cervical Spine Without IV contrast. CLINICAL HISTORY: FALL 84-year-old male patient presents to the ER with a possible syncopal episode evening of 08/10/20 20. He does say that he landed on his left side hitting his head and his left hip. He was able to get himself to the bed by crawling. TECHNIQUE: Axial computed tomography images were acquired of the head and the cervical spine without intravenous contrast. Sagittal and coronal reformatted images were obtained of the cervical spine. COMPARISON: None provided. FINDINGS: BRAIN: No acute intraparenchymal hemorrhage. No mass lesion. No CT evidence for acute territorial infarct. N o midline shift or extra-axial collection. There is global parenchymal atrophy with findings of micro vascular ischemic disease. Right basal ganglia lacunar infarct. VENTRICLES No hydrocephalus. ORBITS The orbits are unremarkable. SINUSES AND MASTOIDS The paranasal sinuses and mastoid air cells are clear. SOFT TISSUES No significant facial or scalp soft tissue swelling evident. No radiopaque foreign body is seen. BONES No acute osseous pathology evident. No acute fracture is evident on images of the head or cervical spine. DISKS/DEGENERATIVE CHANGES Extensive multilevel degenerative changes of the cervical spine. IMPRESSION: 1. No acute intracranial findings. No acute intracranial injury evident. 2. No cervical spine fracture evident. ELECTRONICALLY SIGNED BY: Shayne Zhang MD Aug 12, 2020 2:30:46 AM ASSISTANT MECHANIC This report is intended for review by the ordering physician only, in accordance of law. If you recei ve this report in error, please call [facility] at [phone]. FINAL REPORT EMERGENCY AFTER HOURS CT OF THE BRAIN WITHOUT CONTRAST: Date: 08/12/2020 FINDINGS/IMPRESSION: I agree with the preliminary report given by [facility]. POS: OFF
== END 2020-08-12 04:22 | disposition home or self-care (01) ==
LOC: ERS 00:55
DX: M25.552 Pain in left hip (principal); K42.9 Umbilical hernia without obstruction or gangrene; R51.9 Headache, unspecified; I48.91 Unspecified atrial fibrillation; J44.9 Chronic obstructive pulmonary disease, unspecified; Z79.899 Other long term (current) drug therapy; W19.XXXA Unspecified fall, initial encounter
CPT/HCPCS: 36415; 70450; 71045; 72125; 72170; 80053; 81003; 84484; 85025; 93005

== ENCOUNTER 2020-08-14 17:32 | Inpatient (IN) | payer MEDICARE ==
[2020-08-14] MEDS ORDERED: PROVENTIL INHALER 6.7 G (200 INHALATIONS) ONE (18:17)
[2020-08-14] MEDS ORDERED: Diltiazem 125 MG/25 ML ONE (18:17)
[2020-08-14] MEDS ORDERED: Albuterol 200 PUFF (6.7GM INHALER) ONE (18:19)
[2020-08-14 18:59] LABS: Mean Corpuscular HGB CONC 31.9 g/dL (32.0-36.0); Mean Corpuscular Hemoglobin 30.3 pg (27.0-31.0); Mean Corpuscular Volume 95.1 fL (78.0-98.0); Mean Platelet Volume 7.3 fL (7.4-10.4); Platelet Count 290 thou/uL (130-400); RBC Distribution Width 16.2 % (11.5-14.5); Red Blood Cell (RBC) Count 4.62 mill/uL (4.70-6.10); White Blood Cell (WBC) Count 25.4 thou/uL (4.8-10.8)
--- NOTE | 2020-08-14 19:02 | RAD ---
Exam: Chest one view HISTORY:Shortness of breath Comparison: 08/12/2020 FINDINGS: Cardiac silhouette:Normal cardiac silhouette Lines and tubes: Stable dorsal column stimulator and left-sided Mediport. Aorta: Unremarkable Pulmonary vessels: Normal Costophrenic angles: Clear LUNGS: Lung parenchymal changes. Pneumothorax: None Osseous abnormalities: Old healed right rib fractures. IMPRESSION: No acute cardiopulmonary process.
[2020-08-14 19:15] LABS: ALT (SGPT) 18 U/L (8-55); AST (SGOT) 25 U/L (5-34); Albumin 3.5 g/dL (3.4-4.8); Alkaline Phosphatase 69 U/L (40-110); Anion Gap 14 mmol/L (10-20); BUN (Urea Nitrogen) 19 mg/dL (8.4-25.7); Bilirubin, Total 0.8 mg/dL (0.2-1.2); Calc. Creatinine Clearance 0 mL/min (70-130); Calcium 8.7 mg/dL (7.8-10.44); Carbon Dioxide 32 mmol/L (23-31); Chloride 92 mmol/L (98-107); Globulin 3.5 g/dL (2.4-3.5); Glucose 143 mg/dL (83-110); Potassium 4.6 mmol/L (3.5-5.1); Sodium 133 mmol/L (136-145)
[2020-08-14 19:18] LABS: Anisocytosis SLIGHT = 6-15 cells (100X) (0-5/hpf); Band 14 % (5-11); Lymphocytes 2 % (21-51); MDiff Complete? YES; Metamyelocyte 1 % (0-0); Monocytes 1 % (0-10); Neutrophil 82 % (42-75); Platelet Morphology Comment Appears Adequate
[2020-08-14 19:26] LABS: Bilirubin Negative (Negative); Blood, Urine Negative (Negative); Clarity Clear (Clear); Glucose, Urine (Dipstick) Normal (Negative); Ketone, Urine 10 mg/dL (Negative); Leukocyte Negative Leu/uL (Negative); Nitrite Negative (Negative); Protein, Urine (Dipstick) 20 mg/dL (Neg-Trace); Specific Gravity, Urine 1.013 (1.002-1.036); Urobilinogen Normal mg/dL (Less than 2)
--- NOTE | 2020-08-14 19:30 | CT ---
Exam: Head CT without contrast HISTORY: 3 days of generalized weakness COMPARISON: 08/12/2020 FINDINGS: Hemorrhage: No intraparenchymal hemorrhage or extra-axial hematoma. Brain parenchyma: Cortical nuno-white matter differentiation is preserved. No mass effect or midline shift. Basilar cisterns are patent.Stable white matter hypodensities due to chronic small vessel ischemic change Ventricular system: Ventricles and sulci are patent and symmetric. Calvarium: Intact. Sinuses and mastoid air cells: Adequate aeration. IMPRESSION: 1. No significant interval change 2. No acute intracranial process.
[2020-08-14 19:39] LABS: Amphetamine Not Detected (NotDetected); Barbiturates Screen Not Detected (NotDetected); Benzodiazepine Screen Detected (NotDetected); Cocaine Metabolite Screen Not Detected (NotDetected); Medtox Control Line Valid? VALID (VALID); Medtox Reader # READER 1; Methadone Not Detected (NotDetected); Methamphetamine Not Detected (NotDetected); Opiate Screen Not Detected (NotDetected); Oxycodone Screen Not Detected (NotDetected); Phencyclidine (PCP) Not Detected (NotDetected); THC/Cannabinoid Screen Not Detected (NotDetected); Tricyclic Screen Not Detected (NotDetected)
[2020-08-14 20:55] LABS: SARS-CoV-2 NAA Rapid Test Not Detected (NotDetected)
--- NOTE | 2020-08-14 20:58 | CT ---
Exam: Abdomen CT without contrast Pelvic CT without contrast HISTORY: Pain. Sepsis. COMPARISON: 07/18/2020, 05/05/2020 FINDINGS: Abdomen CT: Lung bases:Right lower lobe atelectasis, aspiration or pneumonia. Heart size: Normal heart size. There are coronary calcifications. No significant pericardial fluid Aorta: Mild prominence and ectasia of the descending thoracic aorta. Extensive atherosclerosis. Solid organs: Limited evaluation of the solid organs by the absence of IV contrast. No acute solid or tamika abnormality Lymph nodes: No gastrohepatic, retrocrural or periportal lymphadenopathy Gallbladder: Not appreciated, presumed to be surgically absent. Mesentery: No mass, lymphadenopathy, free air. Trace amount of fluid in the left and right paracolic gutters Kidneys: Bilaterally, no hydronephrosis, nephrolithiasis or perinephric fat stranding. Bilateral uret ers have a normal caliber. No hydroureter, periureteral fat stranding or ureterolithiasis. Alimentary canal: Limited evaluation by the lack of oral contrast. There is a presumed gastric pull-t hrough, incompletely evaluated. Postsurgical changes are noted on CT from 07/18/2020. Normal caliber small bowel loops. Normal ileocecal junction. Scattered fecal material in a nondistended, non dilated colon. Normal caliber appendix. Sigmoid colon diverticulosis, without evidence of diverticulitis. Anterior abdominal wall: Redemonstration of anterior abdominal wall hernia containing segments of sma ll bowel and mesentery. Hernia defect currently measures 6.4 cm, previously measuring 6.[address] PELVIS: No mass, adenopathy, free air or free fluid. Stable postsurgical changes in the pelvis. Urinary bladder: Unremarkable. Osseous structures: No lytic or blastic lesions IMPRESSION: 1. No acute abnormality in the abdomen or pelvis. 2. Stable gastric pull-up/pull-through. 3. Stable large ventral hernia containing mesentery and small bowel loops. No evidence of bowel obstr uction. 4. Pleural and parenchymal changes in the right lung base. Degree of opacification has slightly progr essed. Correlate for pneumonia or aspiration.
[2020-08-14] MEDS ORDERED: Cefepime 2 GM VIAL ONE (23:12)
[2020-08-15] MEDS ORDERED: Vancomycin 1.5 GRAM/300 ML BAG 1.5 GM in Premix Bag 1 BAG IVPB SCH (00:30)
[2020-08-15] MEDS ORDERED: Acetaminophen 650 MG Suppository PR PRN (02:20)
[2020-08-15] MEDS ORDERED: Sodium Chloride 0.9% 1,000 ML IV SCH (02:30)
[2020-08-15 03:10] VITALS: BMI 20.7
--- NOTE | 2020-08-15 03:17 | PDOC.HHP ---
Hospitalist HPI - History of Present Illness History of Present Illness: ADMISSION DATE: 08/15/2020 TIME OF ASSESSMENT: 0200 PRIMARY CARE PHYSICIAN: Dr. Sohail Vargas CHIEF COMPLAINT: Frequent falls HPI: Patient presents to emergency department due to frequent falls secondary to generalized weakness. He states his last fall was two days ago and sustained a head injury at that time. Denies any LOC. States he has continued with weakness since he was sent home from the ER. He fell again earlier today. Per ED notes he reported epigastric discomfort which he denies at this time. Does report having back pain. States he has had a decreased appetite and reports nausea without vomiting. Denies any abdominal pain. No bowel changes or urinary symptoms. ED COURSE: He is requiring more O2 in the ED: 4L compared to his home 2.5L. EKG done in the emergency department showed A. fib with RVR with a heart rate of 122. He was given 10 mg of Cardizem. Also received 1 L of normal saline. For his breathing he was given ibuprofen several. Laboratory studies done that showed a white cell count 25.4 and bands of 14. Lactic acid normal at 1.6. LFTs unremarkable. BUN 19, creatinine 1.04, GFR 68. BNP 165.6. Urinalysis unremarkable. CT head demonstrated no significant interval change and no acute intracranial process. CT of the abdomen showed no acute abnormality of the abdominal pelvis. Simple gastric pull-up/0.3. Stable large ventral hernia containing mesentery and small bowel loops. No evidence of bowel obstruction. Pleural and parenchymal changes in the right lung base. Degree of opacification has slightly progressed concerning for pneumonia/aspiration. Chest x-ray showed no acute cardiopulmonary process He was started on IV antibiotics with Vanc and cefepime. PAST MEDICAL HISTORY: 1. History of gastric cancer 2. Prostate cancer treated with chemo in 2013 3. Afib 4. COPD, on home oxygen 5. Anxiety 6. Chronic anemia 7. GERD 8. Peripheral neuropathy 9. Physical deconditioning 10. Hiatal hernia 11. History of esophageal cancer 12. Sleep apnea PAST SURGICAL HISTORY: 1. Cholecystectomy 2. Appendectomy 3. Prostatectomy 4. Right foot surgery 5. Right carpal tunnel release 6. Bilateral cataract surgery 7. Partial gastrectomy 8. Ablation for SVT SOCIAL HISTORY: Patient lives with his . He mobilizes with a rolling walker. No tobacco use or alcohol approximately. FAMILY HISTORY: Noncontributory. ALLERGIES: No known drug allergies. CURRENT MEDICATIONS: 1. Ferrous sulfate 325 mg p.o. daily 2. Lyrica 150 mg p.o. twice daily 3. Calcium 1200 mg p.o. daily 4. Ambien 10 mg p.o. daily 5. Xanax 1 mg p.o. twice daily 6. Omeprazole 40 mg p.o. twice daily 7. Carafate 1 g p.o. twice daily 8. Ondansetron 4 mg p.o. every 4 hours as needed - Exam General Appearance: NAD General - other findings: Patient able to answer questions but sleepy ENT: normocephalic atraumatic, no oropharyngeal lesions Heart: RRR, normal peripheral pulses Respiratory: CTAB, no wheezes, no rales, no ronchi, normal chest expansion Gastrointestinal: soft, non-tender, normal bowel sounds Gastrointestinal - other findings: large ventral hernia, reducible, nontender Extremities: no edema Skin: normal turgor, no rashes Neurological: cranial nerve grossly intact Musculoskeletal: generalized weakness Psychiatric: normal affect, normal behavior, A&O x 3 Hospitalist Results - Labs Result Diagrams: 08/14/20 18:40 08/14/20 18:40 Lab results: WBC 25.4 thou/uL (4.8-10.8) H 08/14/20 18:40 Hgb 14.0 g/dL (14.0-18.0) 08/14/20 18:40 Hct 43.9 % (42.0-52.0) 08/14/20 18:40 MCV 95.1 fL (78.0-98.0) 08/14/20 18:40 Plt Count 290 thou/uL (130-400) 08/14/20 18:40 Band Neuts % (Manual) 14 % (5-11) H 08/14/20 18:40 Sodium 133 mmol/L (136-145) L 08/14/20 18:40 Potassium 4.6 mmol/L (3.5-5.1) 08/14/20 18:40 Chloride 92 mmol/L (98-107) L 08/14/20 18:40 Carbon Dioxide 32 mmol/L (23-31) H 08/14/20 18:40 BUN 19 mg/dL (8.4-25.7) 08/14/20 18:40 Creatinine 1.04 mg/dL (0.7-1.3) 08/14/20 18:40 Glucose 143 mg/dL (83-110) H 08/14/20 18:40 Lactic Acid 1.6 mmol/L (0.5-2.2) 08/14/20 18:40 Calcium 8.7 mg/dL (7.8-10.44) 08/14/20 18:40 Total Bilirubin 0.8 mg/dL (0.2-1.2) 08/14/20 18:40 AST 25 U/L (5-34) 08/14/20 18:40 ALT 18 U/L (8-55) 08/14/20 18:40 Alkaline Phosphatase 69 U/L (40-110) 08/14/20 18:40 Troponin I 0.020 ng/mL (< 0.028) 08/14/20 18:40 B-Natriuretic Peptide 165.6 pg/mL (0-100) H 08/14/20 18:40 Serum Total Protein 7.0 g/dL (5.8-8.1) 08/14/20 18:40 Albumin 3.5 g/dL (3.4-4.8) 08/14/20 18:40 Urine Ketones 10 mg/dL (Negative) A 08/14/20 19:00 Urine Blood Negative (Negative) 08/14/20 19:00 Urine Nitrite Negative (Negative) 08/14/20 19:00 Ur Leukocyte Esterase Negative Barbara/uL (Negative) 08/14/20 19:00 - Radiology Interpretation CT scan - abdomen Status: report reviewed by [facility] Hospitalist H&P A/P - Problem (1) Bandemia without diagnosis of specific infection Code(s): D72.825 - BANDEMIA Status: Acute (2) Frequent falls Code(s): R29.6 - REPEATED FALLS Status: Acute (3) Atrial fibrillation with RVR Code(s): I48.91 - UNSPECIFIED ATRIAL FIBRILLATION Status: Acute (4) COPD (chronic obstructive pulmonary disease) Status: Chronic (5) Anxiety and depression Code(s): F41.9 - ANXIETY DISORDER, UNSPECIFIED; F32.9 - MAJOR DEPRESSIVE DISORDER, SINGLE EPISODE, UNSPECIFIED Status: Chronic (6) H/O malignant neoplasm of stomach Code(s): Z85.028 - PERSONAL HISTORY OF OTHER MALIGNANT NEOPLASM OF STOMACH Status: Chronic (7) Hiatal hernia Code(s): K44.9 - DIAPHRAGMATIC HERNIA WITHOUT OBSTRUCTION OR GANGRENE Status: Chronic - Plan Plan: Cardiac monitoring Trend troponins check CK Orthostatic BPs CT Chest to assess for pneumonia PT/OT consult Consider rehab screening Monitor WCC Repeat lactic acid with AM labs Continue broad spectrum antibiotics Blood cultures pending Monitor O2 sats Resume home medications once verified. Case discussed with Dr. Bejarano who agrees with plan as above.
[2020-08-15] MEDS ORDERED: Mag-Al 1200 mg/1200 mg/30 ML UDCUP PO PRN (04:45)
[2020-08-15] MEDS ORDERED: traMADol HCl 50 MG TAB PO PRN (04:45)
[2020-08-15] MEDS: Acetaminophen 325 MG TAB PO PRN (05:03)
[2020-08-15 07:19] LABS: Hemoglobin 12.4 g/dL (14.0-18.0); Mean Corpuscular Hemoglobin 31.5 pg (27.0-31.0); Mean Corpuscular Volume 98.4 fL (78.0-98.0); Mean Platelet Volume 7.2 fL (7.4-10.4); Platelet Count 221 thou/uL (130-400); RBC Distribution Width 16.1 % (11.5-14.5); Red Blood Cell (RBC) Count 3.95 mill/uL (4.70-6.10); White Blood Cell (WBC) Count 27.4 thou/uL (4.8-10.8)
[2020-08-15 07:27] LABS: CKMB 0.4 ng/mL (0-6.6)
[2020-08-15 08:13] LABS: #Lymphocytes 1.7 thou/uL (1.20-3.40); #Monocytes 1.9 thou/uL (0.11-0.59); #Neutrophils 23.7 thou/uL (1.40-6.50); %Basophils 0.1 % (0.0-1.0); %Eosinophils 0.2 % (0.0-10.0); %Lymphocytes 6.3 % (21.0-51.0); %Monocytes 6.8 % (0.0-10.0); %Neutrophils 86.7 % (42.0-75.0); Band 5 % (5-11); Lymphocytes 9 % (21-51); MDiff Complete? YES; Monocytes 2 % (0-10); Neutrophil 84 % (42-75); Platelet Morphology Comment Appears Adequate
[2020-08-15] MEDS: Cefepime 2 GM in Sodium Chloride 0.9% 100 ML IVPB SCH ×2 (10:29→22:06)
[2020-08-15 12:16] LABS: Chloride 105 mmol/L (98-107)
[2020-08-15 12:17] LABS: Calcium 8.1 mg/dL (7.8-10.44); Glucose 104 mg/dL (83-110); Sodium 140 mmol/L (136-145)
[2020-08-15 12:19] LABS: Anion Gap 19 mmol/L (10-20); Carbon Dioxide 20 mmol/L (23-31)
[2020-08-15 12:21] LABS: Calc. Creatinine Clearance 61 mL/min (70-130)
[2020-08-15 12:22] LABS: BUN (Urea Nitrogen) 19 mg/dL (8.4-25.7)
[2020-08-15 12:23] LABS: CK (CPK) 9 U/L (30-200); Magnesium 1.8 mg/dL (1.6-2.6)
[2020-08-15] MEDS: Acetaminophen/Codeine 30-300mg Tablet PO PRN ×2 (15:05→22:05)
[2020-08-15] MEDS: Pregabalin 75 MG CAP PO SCH (22:05)
[2020-08-15] MEDS: Zolpidem Tartrate 5 MG TAB PO SCH (22:06)
[2020-08-15] MEDS: ALPRAZolam 1 MG TAB PO PRN (22:06)
[2020-08-15] MEDS: Mirtazapine 15 MG Soltab PO SCH (22:06)
[2020-08-15] MEDS: Sucralfate 1 GM TAB PO SCH (22:06)
[2020-08-16] MEDS: Vancomycin 1 GM in Premix Bag 1 BAG IVPB SCH (05:54)
[2020-08-16] MEDS: Acetaminophen/Codeine 30-300mg Tablet PO PRN ×2 (05:58→09:34)
[2020-08-16] MEDS: ALPRAZolam 1 MG TAB PO PRN ×2 (06:08→17:09)
[2020-08-16 08:39] LABS: #Basophils 0.1 thou/uL (0.0-0.2); #Eosinphils 0.2 thou/uL (0.0-0.7); #Lymphocytes 1.7 thou/uL (1.20-3.40); #Monocytes 1.1 thou/uL (0.11-0.59); #Neutrophils 8.6 thou/uL (1.40-6.50); %Basophils 0.5 % (0.0-1.0); %Eosinophils 1.8 % (0.0-10.0); %Lymphocytes 14.8 % (21.0-51.0); %Monocytes 9.8 % (0.0-10.0); %Neutrophils 73.2 % (42.0-75.0); Hemoglobin 11.6 g/dL (14.0-18.0); Mean Corpuscular HGB CONC 30.4 g/dL (32.0-36.0); Mean Corpuscular Hemoglobin 29.8 pg (27.0-31.0); Mean Platelet Volume 7.8 fL (7.4-10.4); Platelet Count 171 thou/uL (130-400); RBC Distribution Width 16.3 % (11.5-14.5); Red Blood Cell (RBC) Count 3.89 mill/uL (4.70-6.10); White Blood Cell (WBC) Count 11.7 thou/uL (4.8-10.8)
[2020-08-16 08:43] LABS: Anion Gap 14 mmol/L (10-20); BUN (Urea Nitrogen) 17 mg/dL (8.4-25.7); Calc. Creatinine Clearance 60 mL/min (70-130); Calcium 7.9 mg/dL (7.8-10.44); Carbon Dioxide 26 mmol/L (23-31); Chloride 101 mmol/L (98-107); Glucose 131 mg/dL (83-110); Potassium 3.9 mmol/L (3.5-5.1); Sodium 137 mmol/L (136-145)
[2020-08-16] MEDS: Sucralfate 1 GM TAB PO SCH ×2 (09:26→22:20)
[2020-08-16] MEDS: Pregabalin 75 MG CAP PO SCH ×2 (09:27→22:18)
[2020-08-16] MEDS: Ferrous Sulfate 325 MG TAB PO SCH (09:27)
[2020-08-16] MEDS: Calcium Carbonate 600 MG + Vit D TAB PO SCH (09:27)
[2020-08-16] MEDS: Cefepime 2 GM in Sodium Chloride 0.9% 100 ML IVPB SCH (12:49)
--- NOTE | 2020-08-16 18:31 | PDOC.HOSPP ---
- Subjective Encounter Date: 08/16/20 Encounter Time: 08:00 Subjective: Patient seen for follow-up regarding sepsis. He denies chest pain or shortness of breath. - Objective Vital Signs & Weight: Vital Signs (12 hours) Temp Pulse Pulse Resp BP BP Pulse Ox 08/16/20 15:25 97.7 F 71 15 107/63 98 08/16/20 10:48 97.7 F 76 24 H 93/69 98 08/16/20 09:24 60 120/64 08/16/20 08:00 110/62 08/16/20 07:35 97.8 F 82 18 98 Weight Admit Weight 140 lb 6.944 oz Weight 140 lb 6.944 oz I&O: 08/15/20 08/16/20 08/17/20 06:59 06:59 06:59 Intake Total 480 Output Total 100 200 Balance 380 -200 Result Diagrams: 08/16/20 08:13 08/16/20 08:13 Additional Labs: I reviewed patient's labs and MAR EKG Reviewed by me: Yes (Bertin wright on telemetry) Hospitalist ROS - Review of Systems Respiratory: denies: cough, dry, shortness of breath, hemoptysis, SOB with excertion, pleuritic pain, sputum, wheezing Cardiovascular: denies: chest pain, palpitations, orthopnea, paroxysmal noc. dyspnea, edema, light headedness - Medication Medications: Active Medications Generic Name Dose Route Start Last Admin Trade Name Freq PRN Reason Stop Dose Admin Acetaminophen 650 mg 08/15/20 02:20 08/15/20 05:03 Acetaminophen 325 Mg Tab PO 650 mg Q4H PRN Administration Headache/Fever/Mild Pain (1-3) Acetaminophen/Codeine Phosphate 1 tab 08/15/20 04:45 08/16/20 09:34 Acetaminophen/Codeine 30-300mg Tablet PO 1 tab Q4H PRN Administration Moderate Pain use second Al Hydroxide/Mg Hydroxide 30 ml 08/15/20 04:45 08/15/20 05:03 Mag-Al 1200 Mg/1200 Mg/30 Ml Udcup PO 30 ml Q6H PRN Administration Dyspepsia Albuterol/Ipratropium 3 ml 08/15/20 15:41 08/16/20 16:59 Ipratropium/Albuterol Sulfate 3 Ml Neb NEB 3 ml Q4H PRN Administration SOB &/or Wheezing Alprazolam 1 mg 08/15/20 15:41 08/16/20 17:09 Alprazolam 1 Mg Tab PO 1 mg BID PRN Administration Anxiety Calcium/Vitamin D 2 tab 08/16/20 09:00 08/16/20 09:27 Calcium Carbonate 600 Mg + Vit D Tab PO 2 tab DAILY MARJORIE Administration Ferrous Sulfate 325 mg 08/16/20 09:00 08/16/20 09:27 Ferrous Sulfate 325 Mg Tab PO 325 mg DAILY MARJORIE Administration Cefepime HCl 2 gm/ Sodium 100 mls @ 200 mls/hr 08/15/20 11:00 08/16/20 12:49 Chloride IVPB 100 mls 1100,2300 MARJORIE Administration Vancomycin HCl 1 gm/ Device 200 mls @ 200 mls/hr 08/16/20 01:00 08/16/20 05:54 IVPB 200 mls Q24HR@0100 MARJORIE Administration Mirtazapine 15 mg 08/15/20 21:00 08/15/20 22:06 Mirtazapine 15 Mg Soltab PO 15 mg HS MARJORIE Administration Pantoprazole Sodium 40 mg 08/16/20 09:00 08/16/20 09:26 Pantoprazole 40 Mg Tab PO 40 mg DAILY MARJORIE Administration Pregabalin 150 mg 08/15/20 21:00 08/16/20 09:27 Pregabalin 75 Mg Cap PO 150 mg BID MARJORIE Administration Sodium Chloride 10 ml 08/15/20 02:20 08/15/20 22:07 Flush - Normal Saline 10 Ml Syringe IVF 10 ml Q12HR PRN Administration Saline Flush Sucralfate 1 gm 08/15/20 21:00 08/16/20 09:26 Sucralfate 1 Gm Tab PO 1 gm BID MARJORIE Administration Zolpidem Tartrate 10 mg 08/15/20 21:00 08/15/20 22:06 Zolpidem Tartrate 5 Mg Tab PO 10 mg HS MARJORIE Administration - Exam General Appearance: awake alert Eye: anicteric sclera ENT: moist mucosa Neck: supple Heart: irregular Respiratory: CTAB Gastrointestinal: soft, non-tender Skin: no rashes Psychiatric: normal affect, normal behavior Hosp A/P - Plan - Problem (1) sepsis Status: Acute (2)Pneumonia Status: Acute (3) Frequent falls Code(s): R29.6 - REPEATED FALLS Status: Acute (4) Atrial fibrillation Status: Chronic (5) COPD (chronic obstructive pulmonary disease) Status: Chronic (6) Anxiety and depression Code(s): F41.9 - ANXIETY DISORDER, UNSPECIFIED; F32.9 - MAJOR DEPRESSIVE DISORDER, SINGLE EPISODE, UNSPECIFIED Status: Chronic (7) H/O malignant neoplasm of stomach Code(s): Z85.028 - PERSONAL HISTORY OF OTHER MALIGNANT NEOPLASM OF STOMACH Status: Chronic (8) Hiatal hernia Code(s): K44.9 - DIAPHRAGMATIC HERNIA WITHOUT OBSTRUCTION OR GANGRENE Status: Chronic - Plan Continue vancomycin and cefepime. Follow cultures. Pneumonia on CT scan of abdomen and pelvis. Bandemia has resolved. PT/OT eval and treat. Continue to monitor on telemetry.
[2020-08-16] MEDS: Zolpidem Tartrate 5 MG TAB PO SCH (22:17)
[2020-08-16] MEDS: Mirtazapine 15 MG Soltab PO SCH (22:20)
[2020-08-17 00:13] LABS: Vancomycin, Trough 10.3 ug/mL
[2020-08-17] MEDS: Cefepime 2 GM in Sodium Chloride 0.9% 100 ML IVPB SCH ×2 (01:02→10:11)
[2020-08-17] MEDS: Vancomycin 1 GM in Premix Bag 1 BAG IVPB SCH (02:15)
[2020-08-17 04:55] LABS: #Eosinphils 0.3 thou/uL (0.0-0.7); #Lymphocytes 1.4 thou/uL (1.20-3.40); #Monocytes 1.6 thou/uL (0.11-0.59); %Basophils 0.1 % (0.0-1.0); %Eosinophils 2.3 % (0.0-10.0); %Lymphocytes 12.5 % (21.0-51.0); %Monocytes 13.7 % (0.0-10.0); %Neutrophils 71.3 % (42.0-75.0); Hemoglobin 11.8 g/dL (14.0-18.0); Mean Corpuscular HGB CONC 31.5 g/dL (32.0-36.0); Mean Corpuscular Hemoglobin 31.2 pg (27.0-31.0); Mean Corpuscular Volume 98.9 fL (78.0-98.0); Mean Platelet Volume 7.3 fL (7.4-10.4); Platelet Count 203 thou/uL (130-400); RBC Distribution Width 15.7 % (11.5-14.5); Red Blood Cell (RBC) Count 3.79 mill/uL (4.70-6.10); White Blood Cell (WBC) Count 11.3 thou/uL (4.8-10.8)
[2020-08-17 05:27] LABS: Anion Gap 14 mmol/L (10-20); BUN (Urea Nitrogen) 13 mg/dL (8.4-25.7); Calc. Creatinine Clearance 67 mL/min (70-130); Calcium 8.2 mg/dL (7.8-10.44); Carbon Dioxide 26 mmol/L (23-31); Chloride 100 mmol/L (98-107); Glucose 101 mg/dL (83-110); Potassium 3.8 mmol/L (3.5-5.1); Sodium 136 mmol/L (136-145)
[2020-08-17] MEDS: Calcium Carbonate 600 MG + Vit D TAB PO SCH (10:10)
[2020-08-17] MEDS: Sucralfate 1 GM TAB PO SCH ×2 (10:11→20:34)
[2020-08-17] MEDS: Ferrous Sulfate 325 MG TAB PO SCH (10:11)
[2020-08-17] MEDS: Pregabalin 75 MG CAP PO SCH ×2 (10:11→20:34)
[2020-08-17] MEDS: ALPRAZolam 1 MG TAB PO PRN ×2 (10:20→20:37)
--- NOTE | 2020-08-17 13:56 | PQF ---
CLINICAL DOCUMENTATION CLARIFICATION FORM: Dear Dr. Bliss Date: 08/17/2020 Please exercise your independent, professional judgment in responding to the clarification form. Clinical indicators are provided on the bottom of this form for your review. Please check appropriate box(es): [ ] Acute Respiratory Failure: [ ] with Hypoxia [ ] with Hypercapnia [ ] Acute On Chronic Respiratory Failure: [ ] with Hypoxia [ ] with Hypercapnia [ ] Acute Respiratory Failure due to: (etiology) [ ] Chronic Respiratory Failure only [ ] with Hypoxia [ ] with Hypercapnia [ ] Other diagnosis [ ] Unable to determine In addition, please specify: Present on Admission (POA): [ ] Yes [ ] No [ ] Unable to determine For continuity of documentation, please document condition throughout progress notes and discharge summary. Thank You. To be completed by CDI/Coding staff for physician review: CLINICAL INDICATORS - SIGNS / SYMPTOMS / LABS / RESULTS AND LOCATION IN MR *ER Record: 08/14: VS @ 1748: Resp. 30, O2 sat 92 on 3L oxygen VS @ 1902: Resp. 24, O2 sat 93 on 4L oxygen HPI: He is requiring more O2 in the ED: 4L compared to his home 2.5L Doctor notes: He has wheezes on exam and increasing O2 requirement. He is becoming more tachypneic, tachycardic and hypoxic since arrival. *08/15 @ 0105 Nursing note (Yary) Pt sats 98 on 4L, lowered to 2 L and sats 92 w/ hx of COPD. RISK FACTORS / RESULTS AND LOCATION IN MR *H&P 08/14 (Elizabeth): PMH: COPD on home oxygen. Sleep apnea. Afib.Chronic anemia. *08/16 pn (Izaiah): A/P: Sepsis. Pneumonia on CT scan of abdomen and pelvis. TREATMENTS / RESULTS AND LOCATION IN MR *H&P 08/14 (Elizabeth) Plan: Monitor O2 sats. *08/15 Order: Resp: O2 to keep O2 sats 92% prn *08/16 pn (Izaiah) Continue vancomycin and cefepime. Thank you, Maxine Molina RN, BSN [email or web address] This is a permanent part of the Medical Record [facility]
[2020-08-17] MEDS: Vancomycin HCl 750 MG in Sodium Chloride 0.9% 250 ML 250 ML IVPB SCH (15:01)
--- NOTE | 2020-08-17 19:35 | PDOC.HOSPP ---
- Subjective Encounter Date: 08/17/20 Encounter Time: 13:00 Subjective: Patient seen for follow-up for sepsis. He denies chest pain or shortness of breath. - Objective Vital Signs & Weight: Vital Signs (12 hours) Temp Pulse Resp BP Pulse Ox 08/17/20 15:30 97.9 F 85 20 108/65 96 08/17/20 12:00 98.7 F 82 28 H 100/62 98 08/17/20 07:39 99.1 F 82 17 88/56 L 96 Weight Admit Weight 140 lb 6.944 oz Weight 140 lb 6.944 oz I&O: 08/16/20 08/17/20 08/18/20 06:59 06:59 06:59 Intake Total 480 200 600 Output Total 100 200 Balance 380 0 600 Result Diagrams: 08/17/20 04:36 08/17/20 04:36 Hospitalist ROS - Medication Medications: Active Medications Generic Name Dose Route Start Last Admin Trade Name Freq PRN Reason Stop Dose Admin Acetaminophen 650 mg 08/15/20 02:20 08/15/20 05:03 Acetaminophen 325 Mg Tab PO 650 mg Q4H PRN Administration Headache/Fever/Mild Pain (1-3) Acetaminophen/Codeine Phosphate 1 tab 08/15/20 04:45 08/16/20 09:34 Acetaminophen/Codeine 30-300mg Tablet PO 1 tab Q4H PRN Administration Moderate Pain use second Al Hydroxide/Mg Hydroxide 30 ml 08/15/20 04:45 08/15/20 05:03 Mag-Al 1200 Mg/1200 Mg/30 Ml Udcup PO 30 ml Q6H PRN Administration Dyspepsia Albuterol/Ipratropium 3 ml 08/15/20 15:41 08/17/20 00:04 Ipratropium/Albuterol Sulfate 3 Ml Neb NEB 3 ml Q4H PRN Administration SOB &/or Wheezing Alprazolam 1 mg 08/15/20 15:41 08/17/20 10:20 Alprazolam 1 Mg Tab PO 1 mg BID PRN Administration Anxiety Calcium/Vitamin D 2 tab 08/16/20 09:00 08/17/20 10:10 Calcium Carbonate 600 Mg + Vit D Tab PO 2 tab DAILY MARJORIE Administration Ferrous Sulfate 325 mg 08/16/20 09:00 08/17/20 10:11 Ferrous Sulfate 325 Mg Tab PO 325 mg DAILY MARJORIE Administration Cefepime HCl 2 gm/ Sodium 100 mls @ 200 mls/hr 08/15/20 11:00 08/17/20 10:11 Chloride IVPB 100 mls 1100,2300 MARJORIE Administration Vancomycin HCl 750 mg/ Sodium 250 mls @ 250 mls/hr 08/17/20 13:00 08/17/20 15:01 Chloride IVPB 250 mls 0100,1300 MARJORIE Administration Mirtazapine 15 mg 08/15/20 21:00 08/16/20 22:20 Mirtazapine 15 Mg Soltab PO 15 mg HS MARJORIE Administration Pantoprazole Sodium 40 mg 08/16/20 09:00 08/17/20 10:10 Pantoprazole 40 Mg Tab PO 40 mg DAILY MARJORIE Administration Pregabalin 150 mg 08/15/20 21:00 08/17/20 10:11 Pregabalin 75 Mg Cap PO 150 mg BID MARJORIE Administration Sodium Chloride 10 ml 08/15/20 02:20 08/15/20 22:07 Flush - Normal Saline 10 Ml Syringe IVF 10 ml Q12HR PRN Administration Saline Flush Sucralfate 1 gm 08/15/20 21:00 08/17/20 10:11 Sucralfate 1 Gm Tab PO 1 gm BID MARJORIE Administration Zolpidem Tartrate 10 mg 08/15/20 21:00 08/16/20 22:17 Zolpidem Tartrate 5 Mg Tab PO 10 mg HS MARJORIE Administration Hosp A/P - Plan - Problem (1) sepsis Status: Acute (2)Pneumonia Status: Acute (3) Frequent falls Code(s): R29.6 - REPEATED FALLS Status: Acute (4) COPD (chronic obstructive pulmonary disease) Status: Chronic (5) Atrial fibrillation Status: Chronic (6) Anxiety and depression Code(s): F41.9 - ANXIETY DISORDER, UNSPECIFIED; F32.9 - MAJOR DEPRESSIVE D ISORDER, SINGLE EPISODE, UNSPECIFIED Status: Chronic (7) H/O malignant neoplasm of stomach Code(s): Z85.028 - PERSONAL HISTORY OF OTHER MALIGNANT NEOPLASM OF STOMACH Status: Chronic (8) Hiatal hernia Code(s): K44.9 - DIAPHRAGMATIC HERNIA WITHOUT OBSTRUCTION OR GANGRENE Status: Chronic (9) acute on chronic hypoxic respiratory failure Status: Resolved, present on admission - Plan Leukocytosis improved. Patient is on vancomycin and cefepime. Follow cultures. Pneumonia on CT scan of abdomen and pelvis. Bandemia has resolved. PT/OT eval and treat. Continue to monitor on telemetry. D-dimer elevated, check CT angiogram of the chest to rule out pulmonary emboli sm.
[2020-08-17] MEDS: Mirtazapine 15 MG Soltab PO SCH (20:35)
[2020-08-17] MEDS: Zolpidem Tartrate 5 MG TAB PO SCH (20:35)
[2020-08-18] MEDS: Cefepime 2 GM in Sodium Chloride 0.9% 100 ML IVPB SCH ×3 (01:23→22:21)
[2020-08-18] MEDS: Vancomycin HCl 750 MG in Sodium Chloride 0.9% 250 ML 250 ML IVPB SCH ×2 (02:10→15:34)
[2020-08-18 05:39] LABS: #Eosinphils 0.2 thou/uL (0.0-0.7); #Lymphocytes 1.4 thou/uL (1.20-3.40); #Monocytes 0.9 thou/uL (0.11-0.59); #Neutrophils 6.6 thou/uL (1.40-6.50); %Basophils 0.2 % (0.0-1.0); %Eosinophils 2.6 % (0.0-10.0); %Lymphocytes 15.2 % (21.0-51.0); %Monocytes 9.8 % (0.0-10.0); %Neutrophils 72.3 % (42.0-75.0); Hemoglobin 10.3 g/dL (14.0-18.0); Mean Corpuscular Hemoglobin 30.3 pg (27.0-31.0); Mean Corpuscular Volume 97.7 fL (78.0-98.0); Mean Platelet Volume 7.3 fL (7.4-10.4); Platelet Count 169 thou/uL (130-400); RBC Distribution Width 15.4 % (11.5-14.5); White Blood Cell (WBC) Count 9.1 thou/uL (4.8-10.8)
[2020-08-18 06:05] LABS: Anion Gap 9 mmol/L (10-20); BUN (Urea Nitrogen) 15 mg/dL (8.4-25.7); Calc. Creatinine Clearance 67 mL/min (70-130); Calcium 8.5 mg/dL (7.8-10.44); Carbon Dioxide 36 mmol/L (23-31); Chloride 98 mmol/L (98-107); Glucose 101 mg/dL (83-110); Potassium 3.8 mmol/L (3.5-5.1); Sodium 139 mmol/L (136-145)
[2020-08-18] MEDS: Pregabalin 75 MG CAP PO SCH ×2 (09:01→22:21)
[2020-08-18] MEDS: Ferrous Sulfate 325 MG TAB PO SCH (09:02)
[2020-08-18] MEDS: ALPRAZolam 1 MG TAB PO PRN (09:02)
[2020-08-18] MEDS: Calcium Carbonate 600 MG + Vit D TAB PO SCH (09:02)
[2020-08-18] MEDS: Sucralfate 1 GM TAB PO SCH ×2 (09:02→22:20)
--- NOTE | 2020-08-18 10:29 | CT ---
Exam: CT angiogram of the chest HISTORY: Evaluate for pulmonary artery embolism. COMPARISON: None TECHNIQUE: CT angiogram of the chest is performed in the axial plane. Three-dimensional reformatted i mages are submitted for interpretation FINDINGS: Mediastinum: No mass, lymphadenopathy or hematoma. There is evidence of a gastric pull-through. Inges shaylee material is noted in the stomach. HEART: Normal size. No significant pericardial fluid. Significant coronary calcifications. Aorta: Limited evaluation due to incomplete contrast opacification. There is atherosclerosis. No jennifer aortic fat stranding. Upper solid abdominal viscera: In the right lower lobe bronchus. Trachea and central bronchi: Trachea and central bronchi are patent. There is debris in the right low er lobe bronchus. Pleural spaces: No effusion Lung parenchyma: Post obstructive atelectasis in the right lower lobe. Component of atelectasis is al so felt to be due to a gastric pull-through. Pneumothorax: None Osseous structures: No lytic or blastic lesions Pulmonary arteries: Adequate contrast opacification pulmonary arterial system to the level of segment al arteries. No filling defect to suggest pulmonary embolism IMPRESSION: 1. No evidence of pulmonary artery embolism to the level of the segmental arteries 2. Debris in the right lower lobe bronchus with associated postobstructive atelectasis. Correlate for any this plug versus aspiration. Bronchoscopy if clinically warranted.
[2020-08-18] MEDS: HYDROcodone/Acetaminophen 10/325 mg Tablet PO PRN (11:06)
[2020-08-18] MEDS ORDERED: Iopamidol 370 76% 100 ML VIAL ONE (11:50)
[2020-08-18 12:41] LABS: Vancomycin, Trough 16.1 ug/mL
--- NOTE | 2020-08-18 19:17 | PDOC.HOSPP ---
- Subjective Encounter Date: 08/18/20 Encounter Time: 12:30 Subjective: Patient seen for follow-up for sepsis. He states he feels better. - Objective Vital Signs & Weight: Vital Signs (12 hours) Temp Pulse Resp BP Pulse Ox 08/18/20 16:33 114/72 08/18/20 15:10 97.6 F 81 17 87/60 L 95 08/18/20 11:55 97.0 F L 77 19 104/68 97 08/18/20 09:08 72 99/66 08/18/20 07:45 98.5 F 57 L 18 95 Weight Admit Weight 140 lb 6.944 oz Weight 140 lb 6.944 oz I&O: 08/17/20 08/18/20 08/19/20 06:59 06:59 06:59 Intake Total 200 1190 684 Output Total 200 225 Balance 0 1190 459 Result Diagrams: 08/18/20 05:25 08/18/20 05:25 Additional Labs: I reviewed patient's labs and MAR EKG Reviewed by me: Yes (Atrial fibrillation on telemetry) Hospitalist ROS - Review of Systems Cardiovascular: denies: chest pain, palpitations, orthopnea, paroxysmal noc. dyspnea, edema, light headedness Gastrointestinal: denies: nausea, vomiting, abdominal pain, diarrhea, constipation, melena, hematochezia - Medication Medications: Active Medications Generic Name Dose Route Start Last Admin Trade Name Freq PRN Reason Stop Dose Admin Acetaminophen 650 mg 08/15/20 02:20 08/15/20 05:03 Acetaminophen 325 Mg Tab PO 650 mg Q4H PRN Administration Headache/Fever/Mild Pain (1-3) Acetaminophen/Codeine Phosphate 1 tab 08/15/20 04:45 08/16/20 09:34 Acetaminophen/Codeine 30-300mg Tablet PO 1 tab Q4H PRN Administration Moderate Pain use second Hydrocodone Bitart/Acetaminophen 1 tab 08/15/20 15:41 08/18/20 11:06 Hydrocodone/Acetaminophen 10/325 Mg Tablet PO 1 tab Q6HR PRN Administration Pain Al Hydroxide/Mg Hydroxide 30 ml 08/15/20 04:45 08/15/20 05:03 Mag-Al 1200 Mg/1200 Mg/30 Ml Udcup PO 30 ml Q6H PRN Administration Dyspepsia Albuterol/Ipratropium 3 ml 08/15/20 15:41 08/17/20 19:44 Ipratropium/Albuterol Sulfate 3 Ml Neb NEB 3 ml Q4H PRN Administration SOB &/or Wheezing Alprazolam 1 mg 08/15/20 15:41 08/18/20 09:02 Alprazolam 1 Mg Tab PO 1 mg BID PRN Administration Anxiety Calcium/Vitamin D 2 tab 08/16/20 09:00 08/18/20 09:02 Calcium Carbonate 600 Mg + Vit D Tab PO 2 tab DAILY MARJORIE Administration Ferrous Sulfate 325 mg 08/16/20 09:00 08/18/20 09:02 Ferrous Sulfate 325 Mg Tab PO 325 mg DAILY MARJORIE Administration Cefepime HCl 2 gm/ Sodium 100 mls @ 200 mls/hr 08/15/20 11:00 08/18/20 12:40 Chloride IVPB 100 mls 1100,2300 MARJORIE Administration Vancomycin HCl 750 mg/ Sodium 250 mls @ 250 mls/hr 08/17/20 13:00 08/18/20 15:34 Chloride IVPB 250 mls 0100,1300 MARJORIE Administration Mirtazapine 15 mg 08/15/20 21:00 08/17/20 20:35 Mirtazapine 15 Mg Soltab PO 15 mg HS MARJORIE Administration Pantoprazole Sodium 40 mg 08/16/20 09:00 08/18/20 09:02 Pantoprazole 40 Mg Tab PO 40 mg DAILY MARJORIE Administration Pregabalin 150 mg 08/15/20 21:00 08/18/20 09:01 Pregabalin 75 Mg Cap PO 150 mg BID MARJORIE Administration Sodium Chloride 10 ml 08/15/20 02:20 08/15/20 22:07 Flush - Normal Saline 10 Ml Syringe IVF 10 ml Q12HR PRN Administration Saline Flush Sucralfate 1 gm 08/15/20 21:00 08/18/20 09:02 Sucralfate 1 Gm Tab PO 1 gm BID MARJORIE Administration Zolpidem Tartrate 10 mg 08/15/20 21:00 08/17/20 20:35 Zolpidem Tartrate 5 Mg Tab PO 10 mg HS MARJORIE Administration - Exam General Appearance: awake alert Eye: anicteric sclera ENT: moist mucosa Neck: supple Heart: irregular Respiratory: CTAB Gastrointestinal: soft, non-tender Skin: no rashes Psychiatric: normal affect, normal behavior Hosp A/P - Plan - Problem (1) sepsis Status: Acute (2)Pneumonia Status: Acute (3) Frequent falls Code(s): R29.6 - REPEATED FALLS Status: Acute (4) COPD (chronic obstructive pulmonary disease) Status: Chronic (5) Atrial fibrillation Status: Chronic (6) Anxiety and depression Code(s): F41.9 - ANXIETY DISORDER, UNSPECIFIED; F32.9 - MAJOR DEPRESSIVE DISORDER, SINGLE EPISODE, UNSPECIFIED Status: Chronic (7) H/O malignant neoplasm of stomach Code(s): Z85.028 - PERSONAL HISTORY OF OTHER MALIGNANT NEOPLASM OF STOMACH Status: Chronic (8) Hiatal hernia Code(s): K44.9 - DIAPHRAGMATIC HERNIA WITHOUT OBSTRUCTION OR GANGRENE Status: Chronic (9) acute on chronic hypoxic respiratory failure Status: Resolved, present on admission - Plan Leukocytosis resolved. Switch to oral antibiotics. Follow cultures. No evidence of pulmonary embolism. Atelectasis versus aspiration pneumonia. PT/OT eval and treat. Continue to monitor on telemetry.
[2020-08-18] MEDS ORDERED: Electrolyte Replacement Protocol 1 EACH FS SCH (21:15)
[2020-08-18] MEDS: Arformoterol 15 MCG/2 ML NEB NEB PRN (21:48)
[2020-08-18] MEDS: Zolpidem Tartrate 5 MG TAB PO SCH (22:21)
[2020-08-18] MEDS: Mirtazapine 15 MG Soltab PO SCH (22:22)
[2020-08-19] MEDS: Vancomycin HCl 750 MG in Sodium Chloride 0.9% 250 ML 250 ML IVPB SCH (00:34)
[2020-08-19] MEDS ORDERED: Magnesium 2 GM/50 ML 2 GM in Premix Bag 1 BAG IVPB SCH (01:45)
[2020-08-19] MEDS ORDERED: Sodium Chloride 0.65% Nasal 44 ML BOT EA NARE PRN (01:51)
[2020-08-19 04:50] LABS: #Eosinphils 0.3 thou/uL (0.0-0.7); #Lymphocytes 1.6 thou/uL (1.20-3.40); #Monocytes 1.4 thou/uL (0.11-0.59); #Neutrophils 8.7 thou/uL (1.40-6.50); %Basophils 0.4 % (0.0-1.0); %Eosinophils 2.6 % (0.0-10.0); %Lymphocytes 13.1 % (21.0-51.0); %Monocytes 11.8 % (0.0-10.0); %Neutrophils 72.2 % (42.0-75.0); Mean Corpuscular HGB CONC 31.1 g/dL (32.0-36.0); Mean Corpuscular Hemoglobin 30.6 pg (27.0-31.0); Mean Corpuscular Volume 98.4 fL (78.0-98.0); Mean Platelet Volume 7.2 fL (7.4-10.4); Platelet Count 209 thou/uL (130-400); RBC Distribution Width 15.5 % (11.5-14.5); Red Blood Cell (RBC) Count 3.91 mill/uL (4.70-6.10)
[2020-08-19 05:05] LABS: Anion Gap 14 mmol/L (10-20); BUN (Urea Nitrogen) 14 mg/dL (8.4-25.7); Calc. Creatinine Clearance 72 mL/min (70-130); Calcium 8.4 mg/dL (7.8-10.44); Carbon Dioxide 27 mmol/L (23-31); Chloride 97 mmol/L (98-107); Glucose 89 mg/dL (83-110); Magnesium 2.4 mg/dL (1.6-2.6); Sodium 134 mmol/L (136-145)
[2020-08-19] MEDS: Arformoterol 15 MCG/2 ML NEB NEB PRN ×2 (07:20→19:53)
[2020-08-19] MEDS: Calcium Carbonate 600 MG + Vit D TAB PO SCH (10:43)
[2020-08-19] MEDS: metroNIDAZOLE 500 MG TAB PO SCH ×3 (10:44→20:50)
[2020-08-19] MEDS: Pregabalin 75 MG CAP PO SCH ×2 (10:44→20:51)
[2020-08-19] MEDS: Sucralfate 1 GM TAB PO SCH ×2 (10:44→20:50)
[2020-08-19] MEDS: Ferrous Sulfate 325 MG TAB PO SCH (10:44)
[2020-08-19] MEDS: Cefdinir 300 MG CAP PO SCH ×2 (10:44→20:50)
[2020-08-19] MEDS: HYDROcodone/Acetaminophen 10/325 mg Tablet PO PRN (10:48)
--- NOTE | 2020-08-19 11:44 | PDOC.HOSPP ---
- Subjective Encounter Date: 08/19/20 Encounter Time: 07:30 Subjective: Patient seen for follow-up regarding pneumonia. He denies chest pain. He reports occasional cough. - Objective Vital Signs & Weight: Vital Signs (12 hours) Temp Pulse Resp BP Pulse Ox 08/19/20 07:55 97.6 F 92 18 96/71 98 08/19/20 03:41 97.4 F L 58 L 16 99/52 L 98 08/18/20 23:43 98.2 F 67 16 101/57 L 95 Weight Admit Weight 140 lb 6.944 oz Weight 140 lb 6.944 oz I&O: 08/18/20 08/19/20 08/20/20 06:59 06:59 06:59 Intake Total 1190 1541 98 Output Total 325 Balance 1190 1216 98 Result Diagrams: 08/19/20 04:28 08/19/20 04:28 Additional Labs: Labs and MAR reviewed by me EKG Reviewed by me: Yes (Bertin wright on telemetry) Hospitalist ROS - Review of Systems Respiratory: reports: cough, dry. denies: shortness of breath, hemoptysis, SOB with excertion, pleuritic pain, sputum, wheezing Cardiovascular: denies: chest pain, palpitations, orthopnea, paroxysmal noc. dyspnea, edema, light headedness - Medication Medications: Active Medications Generic Name Dose Route Start Last Admin Trade Name Freq PRN Reason Stop Dose Admin Acetaminophen 650 mg 08/15/20 02:20 08/15/20 05:03 Acetaminophen 325 Mg Tab PO 650 mg Q4H PRN Administration Headache/Fever/Mild Pain (1-3) Acetaminophen/Codeine Phosphate 1 tab 08/15/20 04:45 08/16/20 09:34 Acetaminophen/Codeine 30-300mg Tablet PO 1 tab Q4H PRN Administration Moderate Pain use second Hydrocodone Bitart/Acetaminophen 1 tab 08/15/20 15:41 08/19/20 10:48 Hydrocodone/Acetaminophen 10/325 Mg Tablet PO 1 tab Q6HR PRN Administration Pain Al Hydroxide/Mg Hydroxide 30 ml 08/15/20 04:45 08/15/20 05:03 Mag-Al 1200 Mg/1200 Mg/30 Ml Udcup PO 30 ml Q6H PRN Administration Dyspepsia Albuterol/Ipratropium 3 ml 08/15/20 15:41 12/17/20 19:44 Ipratropium/Albuterol Sulfate 3 Ml Neb NEB 3 ml Q4H PRN Administration SOB &/or Wheezing Alprazolam 1 mg 08/15/20 15:41 08/18/20 09:02 Alprazolam 1 Mg Tab PO 1 mg BID PRN Administration Anxiety Arformoterol Tartrate 15 mcg 08/15/20 21:00 08/19/20 07:20 Arformoterol 15 Mcg/2 Ml Neb NEB 15 mcg BID PRN Administration Dyspnea/Wheezing/SOB Calcium/Vitamin D 2 tab 08/16/20 09:00 08/19/20 10:43 Calcium Carbonate 600 Mg + Vit D Tab PO 2 tab DAILY MARJORIE Administration Cefdinir 300 mg 08/19/20 09:00 08/19/20 10:44 Cefdinir 300 Mg Cap PO 300 mg BID MARJORIE Administration Ferrous Sulfate 325 mg 08/16/20 09:00 08/19/20 10:44 Ferrous Sulfate 325 Mg Tab PO 325 mg DAILY MARJORIE Administration Metronidazole 500 mg 08/19/20 09:00 08/19/20 10:44 Metronidazole 500 Mg Tab PO 500 mg TID MARJORIE Administration Mirtazapine 15 mg 08/15/20 21:00 08/18/20 22:22 Mirtazapine 15 Mg Soltab PO 15 mg HS MARJORIE Administration Pantoprazole Sodium 40 mg 08/16/20 09:00 08/19/20 10:44 Pantoprazole 40 Mg Tab PO 40 mg DAILY MARJORIE Administration Pregabalin 150 mg 08/15/20 21:00 08/19/20 10:44 Pregabalin 75 Mg Cap PO 150 mg BID MARJORIE Administration Sodium Chloride 10 ml 08/15/20 02:20 08/15/20 22:07 Flush - Normal Saline 10 Ml Syringe IVF 10 ml Q12HR PRN Administration Saline Flush Sucralfate 1 gm 08/15/20 21:00 08/19/20 10:44 Sucralfate 1 Gm Tab PO 1 gm BID MARJORIE Administration Zolpidem Tartrate 10 mg 08/15/20 21:00 08/18/20 22:21 Zolpidem Tartrate 5 Mg Tab PO 10 mg HS MARJORIE Administration - Exam General Appearance: awake alert Eye: anicteric sclera ENT: moist mucosa Neck: supple Heart: irregular Respiratory: CTAB Gastrointestinal: soft, non-tender Skin: no rashes Psychiatric: normal affect, normal behavior Hosp A/P - Plan - Problem (1)Pneumonia Status: Acute (2) Frequent falls Code(s): R29.6 - REPEATED FALLS Status: Acute (3) Hiatal hernia Code(s): K44.9 - DIAPHRAGMATIC HERNIA WITHOUT OBSTRUCTION OR GANGRENE Status: Chronic (4) COPD (chronic obstructive pulmonary disease) Status: Chronic (5) Atrial fibrillation Status: Chronic (6) Anxiety and depression Code(s): F41.9 - ANXIETY DISORDER, UNSPECIFIED; F32.9 - MAJOR DEPRESSIVE DISORDER, SINGLE EPISODE, UNSPECIFIED Status: Chronic (7) H/O malignant neoplasm of stomach Code(s): Z85.028 - PERSONAL HISTORY OF OTHER MALIGNANT NEOPLASM OF STOMACH Status: Chronic (8) acute on chronic hypoxic respiratory failure Status: Resolved, present on admission (9) sepsis Status: Acute - Plan Leukocytosis resolved. Patient has been started on cefdinir and metronidazole orally. PT/OT eval and treat. Disposition: Inpatient rehab
[2020-08-19] MEDS: Acetaminophen 325 MG TAB PO PRN (13:12)
--- NOTE | 2020-08-19 16:51 | EKG ---
Test Reason : Blood Pressure : / mmHG Vent. Rate : 103 BPM Atrial Rate : 085 BPM P-R Int : 000 ms QRS Dur : 072 ms QT Int : 332 ms P-R-T Axes : 000 -24 -44 degrees QTc Int : 434 ms Atrial fibrillation with rapid ventricular response Nonspecific ST abnormality Abnormal ECG Confirmed by CHAPARRO CHAVES ([id number]), editor at large BELA MAY ([id number]) on 08/19/2020 4:51:23 PM Referred By: Confirmed By:CHAPARRO Louise
--- NOTE | 2020-08-19 16:51 | EKG ---
Test Reason : Blood Pressure : / mmHG Vent. Rate : 122 BPM Atrial Rate : 129 BPM P-R Int : 000 ms QRS Dur : 068 ms QT Int : 302 ms P-R-T Axes : 000 -21 051 degrees QTc Int : 430 ms Atrial fibrillation with rapid ventricular response with premature ventricular or aberrantly conducte d complexes Nonspecific ST and T wave abnormality Abnormal ECG Confirmed by CHAPARRO CHAVES ([id number]), technical editor BELA MAY ([id number]) on 08/19/2020 4:51:14 PM Referred By: Confirmed By:CHAPARRO Louise
[2020-08-19] MEDS: Mirtazapine 15 MG Soltab PO SCH (20:51)
[2020-08-19] MEDS: Zolpidem Tartrate 5 MG TAB PO SCH (20:51)
[2020-08-19] MEDS: ALPRAZolam 1 MG TAB PO PRN (20:54)
[2020-08-20 05:03] LABS: #Eosinphils 0.2 thou/uL (0.0-0.7); #Lymphocytes 1.5 thou/uL (1.20-3.40); #Monocytes 0.9 thou/uL (0.11-0.59); #Neutrophils 7.6 thou/uL (1.40-6.50); %Basophils 0.3 % (0.0-1.0); %Eosinophils 2.4 % (0.0-10.0); %Lymphocytes 14.2 % (21.0-51.0); %Monocytes 9.1 % (0.0-10.0); %Neutrophils 74.1 % (42.0-75.0); Hemoglobin 11.1 g/dL (14.0-18.0); Mean Corpuscular HGB CONC 31.4 g/dL (32.0-36.0); Mean Corpuscular Volume 98.7 fL (78.0-98.0); Mean Platelet Volume 7.2 fL (7.4-10.4); Platelet Count 266 thou/uL (130-400); RBC Distribution Width 15.3 % (11.5-14.5); Red Blood Cell (RBC) Count 3.59 mill/uL (4.70-6.10); White Blood Cell (WBC) Count 10.3 thou/uL (4.8-10.8)
[2020-08-20 05:28] LABS: BUN (Urea Nitrogen) 18 mg/dL (8.4-25.7); Calc. Creatinine Clearance 61 mL/min (70-130); Calcium 8.7 mg/dL (7.8-10.44); Glucose 94 mg/dL (83-110)
[2020-08-20 05:37] LABS: Anion Gap 15 mmol/L (10-20); Carbon Dioxide 33 mmol/L (23-31); Chloride 95 mmol/L (98-107); Sodium 139 mmol/L (136-145)
[2020-08-20] MEDS: Arformoterol 15 MCG/2 ML NEB NEB PRN ×2 (08:31→19:39)
[2020-08-20] MEDS: Calcium Carbonate 600 MG + Vit D TAB PO SCH (10:02)
[2020-08-20] MEDS: Cefdinir 300 MG CAP PO SCH ×2 (10:03→20:10)
[2020-08-20] MEDS: Sucralfate 1 GM TAB PO SCH ×2 (10:03→20:10)
[2020-08-20] MEDS: metroNIDAZOLE 500 MG TAB PO SCH ×3 (10:03→20:10)
[2020-08-20] MEDS: Ferrous Sulfate 325 MG TAB PO SCH (10:03)
[2020-08-20] MEDS: Pregabalin 75 MG CAP PO SCH ×2 (10:03→20:09)
[2020-08-20] MEDS: ALPRAZolam 1 MG TAB PO PRN ×2 (10:09→22:08)
--- NOTE | 2020-08-20 12:29 | PDOC.HOSPP ---
- Subjective Encounter Date: 08/20/20 Encounter Time: 07:30 Subjective: Patient seen in follow-up for pneumonia. Denies cough or fever. - Objective Vital Signs & Weight: Vital Signs (12 hours) Temp Pulse Resp BP Pulse Ox 08/20/20 11:58 98.2 F 76 18 104/61 99 08/20/20 07:57 97.9 F 76 18 116/67 94 L 08/20/20 03:52 97.8 F 63 16 127/75 94 L Weight Admit Weight 140 lb 6.944 oz Weight 140 lb 6.944 oz I&O: 08/19/20 08/20/20 08/21/20 06:59 06:59 06:59 Intake Total 1541 570 Output Total 325 100 Balance 1216 470 Result Diagrams: 08/20/20 04:42 08/20/20 04:42 Additional Labs: I reviewed patient's labs and MAR Hospitalist ROS - Review of Systems Cardiovascular: denies: chest pain, palpitations, orthopnea, paroxysmal noc. dyspnea, edema, light headedness Gastrointestinal: denies: nausea, vomiting, abdominal pain, diarrhea, constipation, melena, hematochezia - Medication Medications: Active Medications Generic Name Dose Route Start Last Admin Trade Name Freq PRN Reason Stop Dose Admin Acetaminophen 650 mg 08/15/20 02:20 08/19/20 13:12 Acetaminophen 325 Mg Tab PO 650 mg Q4H PRN Administration Headache/Fever/Mild Pain (1-3) Acetaminophen/Codeine Phosphate 1 tab 08/15/20 04:45 08/16/20 09:34 Acetaminophen/Codeine 30-300mg Tablet PO 1 tab Q4H PRN Administration Moderate Pain use second Hydrocodone Bitart/Acetaminophen 1 tab 08/15/20 15:41 08/19/20 10:48 Hydrocodone/Acetaminophen 10/325 Mg Tablet PO 1 tab Q6HR PRN Administration Pain Al Hydroxide/Mg Hydroxide 30 ml 08/15/20 04:45 08/15/20 05:03 Mag-Al 1200 Mg/1200 Mg/30 Ml Udcup PO 30 ml Q6H PRN Administration Dyspepsia Albuterol/Ipratropium 3 ml 08/15/20 15:41 08/17/20 19:44 Ipratropium/Albuterol Sulfate 3 Ml Neb NEB 3 ml Q4H PRN Administration SOB &/or Wheezing Alprazolam 1 mg 08/15/20 15:41 08/20/20 10:09 Alprazolam 1 Mg Tab PO 1 mg BID PRN Administration Anxiety Arformoterol Tartrate 15 mcg 08/15/20 21:00 08/20/20 08:31 Arformoterol 15 Mcg/2 Ml Neb NEB 15 mcg BID PRN Administration Dyspnea/Wheezing/SOB Calcium/Vitamin D 2 tab 08/16/20 09:00 08/20/20 10:02 Calcium Carbonate 600 Mg + Vit D Tab PO 2 tab DAILY MARJORIE Administration Cefdinir 300 mg 08/19/20 09:00 08/20/20 10:03 Cefdinir 300 Mg Cap PO 300 mg BID MARJORIE Administration Ferrous Sulfate 325 mg 08/16/20 09:00 08/20/20 10:03 Ferrous Sulfate 325 Mg Tab PO 325 mg DAILY MARJORIE Administration Metronidazole 500 mg 08/19/20 09:00 08/20/20 10:03 Metronidazole 500 Mg Tab PO 500 mg TID MARJORIE Administration Mirtazapine 15 mg 08/15/20 21:00 08/19/20 20:51 Mirtazapine 15 Mg Soltab PO 15 mg HS MARJORIE Administration Pantoprazole Sodium 40 mg 08/16/20 09:00 08/20/20 10:03 Pantoprazole 40 Mg Tab PO 40 mg DAILY MARJORIE Administration Pregabalin 150 mg 08/15/20 21:00 08/20/20 10:03 Pregabalin 75 Mg Cap PO 150 mg BID MARJORIE Administration Sodium Chloride 10 ml 08/15/20 02:20 08/15/20 22:07 Flush - Normal Saline 10 Ml Syringe IVF 10 ml Q12HR PRN Administration Saline Flush Sucralfate 1 gm 08/15/20 21:00 08/20/20 10:03 Sucralfate 1 Gm Tab PO 1 gm BID MARJORIE Administration Zolpidem Tartrate 10 mg 08/15/20 21:00 08/19/20 20:51 Zolpidem Tartrate 5 Mg Tab PO 10 mg HS MARJORIE Administration - Exam General Appearance: awake alert ENT: normocephalic atraumatic Heart: RRR Respiratory: CTAB Gastrointestinal: soft, non-tender Skin: no rashes Musculoskeletal: no muscle wasting Psychiatric: normal affect Hosp A/P - Plan - Problem (1)Pneumonia Status: Acute (2) Frequent falls Code(s): R29.6 - REPEATED FALLS Status: Acute (3) Hiatal hernia Code(s): K44.9 - DIAPHRAGMATIC HERNIA WITHOUT OBSTRUCTION OR GANGRENE Status: Chronic (4) COPD (chronic obstructive pulmonary disease) Status: Chronic (5) Atrial fibrillation Status: Chronic (6) Anxiety and depression Code(s): F41.9 - ANXIETY DISORDER, UNSPECIFIED; F32.9 - MAJOR DEPRESSIVE DISORDER, SINGLE EPISODE, UNSPECIFIED Status: Chronic (7) H/O malignant neoplasm of stomach Code(s): Z85.028 - PERSONAL HISTORY OF OTHER MALIGNANT NEOPLASM OF STOMACH Status: Chronic (8) acute on chronic hypoxic respiratory failure Status: Resolved, present on admission (9) sepsis Status: Acute - Plan Continue cefdinir and metronidazole orally. PT/OT eval and treat. Disposition: Inpatient rehab
[2020-08-20] MEDS: Mirtazapine 15 MG Soltab PO SCH (20:09)
[2020-08-20] MEDS: Zolpidem Tartrate 5 MG TAB PO SCH (20:09)
[2020-08-21 07:04] LABS: #Eosinphils 0.3 thou/uL (0.0-0.7); #Lymphocytes 1.8 thou/uL (1.20-3.40); #Monocytes 1.3 thou/uL (0.11-0.59); #Neutrophils 7.8 thou/uL (1.40-6.50); %Basophils 0.4 % (0.0-1.0); %Eosinophils 2.4 % (0.0-10.0); %Lymphocytes 16.2 % (21.0-51.0); %Monocytes 11.4 % (0.0-10.0); %Neutrophils 69.6 % (42.0-75.0); Hemoglobin 12.2 g/dL (14.0-18.0); Mean Corpuscular HGB CONC 31.6 g/dL (32.0-36.0); Mean Corpuscular Volume 98.2 fL (78.0-98.0); Mean Platelet Volume 6.9 fL (7.4-10.4); Platelet Count 266 thou/uL (130-400); RBC Distribution Width 15.4 % (11.5-14.5); Red Blood Cell (RBC) Count 3.93 mill/uL (4.70-6.10); White Blood Cell (WBC) Count 11.1 thou/uL (4.8-10.8)
--- NOTE | 2020-08-21 07:20 | PDOC.HOSPP ---
- Subjective Encounter Date: 08/21/20 Encounter Time: 09:00 Subjective: Patient reports feeling weak. No other complaints. - Objective Vital Signs & Weight: Vital Signs (12 hours) Temp Pulse Resp BP Pulse Ox 08/21/20 03:49 97.9 F 63 16 107/74 95 08/21/20 00:00 97.4 F L 80 16 121/71 94 L 08/20/20 23:47 97.4 F L 80 16 121/71 94 L 08/20/20 19:56 98.1 F 76 18 100/70 98 08/20/20 19:39 99 24 H 95 Weight Admit Weight 140 lb 6.944 oz Weight 140 lb 6.944 oz I&O: 08/20/20 08/21/20 08/22/20 06:59 06:59 06:59 Intake Total 570 1337 Output Total 100 1060 Balance 470 277 Result Diagrams: 08/21/20 06:49 08/21/20 06:49 Hospitalist ROS - Review of Systems Constitutional: reports: weakness, malaise. denies: fever, chills Respiratory: denies: cough, shortness of breath Cardiovascular: denies: chest pain, palpitations Gastrointestinal: denies: nausea, vomiting, abdominal pain - Medication Medications: Active Medications Generic Name Dose Route Start Last Admin Trade Name Freq PRN Reason Stop Dose Admin Acetaminophen 650 mg 08/15/20 02:20 08/19/20 13:12 Acetaminophen 325 Mg Tab PO 650 mg Q4H PRN Administration Headache/Fever/Mild Pain (1-3) Acetaminophen/Codeine Phosphate 1 tab 08/15/20 04:45 08/16/20 09:34 Acetaminophen/Codeine 30-300mg Tablet PO 1 tab Q4H PRN Administration Moderate Pain use second Hydrocodone Bitart/Acetaminophen 1 tab 08/15/20 15:41 08/19/20 10:48 Hydrocodone/Acetaminophen 10/325 Mg Tablet PO 1 tab Q6HR PRN Administration Pain Al Hydroxide/Mg Hydroxide 30 ml 08/15/20 04:45 08/15/20 05:03 Mag-Al 1200 Mg/1200 Mg/30 Ml Udcup PO 30 ml Q6H PRN Administration Dyspepsia Albuterol/Ipratropium 3 ml 08/15/20 15:41 08/17/20 19:44 Ipratropium/Albuterol Sulfate 3 Ml Neb NEB 3 ml Q4H PRN Administration SOB &/or Wheezing Alprazolam 1 mg 08/15/20 15:41 08/20/20 22:08 Alprazolam 1 Mg Tab PO 1 mg BID PRN Administration Anxiety Arformoterol Tartrate 15 mcg 08/15/20 21:00 08/20/20 19:39 Arformoterol 15 Mcg/2 Ml Neb NEB 15 mcg BID PRN Administration Dyspnea/Wheezing/SOB Calcium/Vitamin D 2 tab 08/16/20 09:00 08/20/20 10:02 Calcium Carbonate 600 Mg + Vit D Tab PO 2 tab DAILY MARJORIE Administration Cefdinir 300 mg 08/19/20 09:00 08/20/20 20:10 Cefdinir 300 Mg Cap PO 300 mg BID MARJORIE Administration Ferrous Sulfate 325 mg 08/16/20 09:00 08/20/20 10:03 Ferrous Sulfate 325 Mg Tab PO 325 mg DAILY MARJORIE Administration Metronidazole 500 mg 08/19/20 09:00 08/20/20 20:10 Metronidazole 500 Mg Tab PO 500 mg TID MARJORIE Administration Mirtazapine 15 mg 08/15/20 21:00 08/20/20 20:09 Mirtazapine 15 Mg Soltab PO 15 mg HS MARJORIE Administration Pantoprazole Sodium 40 mg 08/16/20 09:00 08/20/20 10:03 Pantoprazole 40 Mg Tab PO 40 mg DAILY MARJORIE Administration Pregabalin 150 mg 08/15/20 21:00 08/20/20 20:09 Pregabalin 75 Mg Cap PO 150 mg BID MARJORIE Administration Sodium Chloride 10 ml 08/15/20 02:20 08/15/20 22:07 Flush - Normal Saline 10 Ml Syringe IVF 10 ml Q12HR PRN Administration Saline Flush Sucralfate 1 gm 08/15/20 21:00 08/20/20 20:10 Sucralfate 1 Gm Tab PO 1 gm BID MARJORIE Administration Zolpidem Tartrate 10 mg 08/15/20 21:00 08/20/20 20:09 Zolpidem Tartrate 5 Mg Tab PO 10 mg HS MARJORIE Administration - Exam General Appearance: NAD, awake alert ENT: moist mucosa Heart: RRR, no murmur, no gallops, no rubs Respiratory: normal chest expansion, no tachypnea Respiratory - other findings: scattered rhonchi Gastrointestinal: soft, non-tender, non-distended, normal bowel sounds Extremities: no edema Psychiatric: normal affect, normal behavior Hosp A/P - Plan (1)Pneumonia Status: Acute (2) Frequent falls Code(s): R29.6 - REPEATED FALLS Status: Acute (3) Hiatal hernia Code(s): K44.9 - DIAPHRAGMATIC HERNIA WITHOUT OBSTRUCTION OR GANGRENE Status: Chronic (4) COPD (chronic obstructive pulmonary disease) Status: Chronic (5) Atrial fibrillation Status: Chronic (6) Anxiety and depression Code(s): F41.9 - ANXIETY DISORDER, UNSPECIFIED; F32.9 - MAJOR DEPRESSIVE DISORDER, SINGLE EPISODE, UNSPECIFIED Status: Chronic (7) H/O malignant neoplasm of stomach Code(s): Z85.028 - PERSONAL HISTORY OF OTHER MALIGNANT NEOPLASM OF STOMACH Status: Chronic (8) acute on chronic hypoxic respiratory failure Status: Resolved, present on admission (9) sepsis Status: Acute - Plan Continue cefdinir and metronidazole orally. PT/OT eval and treat. Disposition: Inpatient rehab pending
[2020-08-21 08:06] LABS: Anion Gap 13 mmol/L (10-20); BUN (Urea Nitrogen) 16 mg/dL (8.4-25.7); Calc. Creatinine Clearance 61 mL/min (70-130); Calcium 8.5 mg/dL (7.8-10.44); Carbon Dioxide 33 mmol/L (23-31); Chloride 95 mmol/L (98-107); Glucose 87 mg/dL (83-110); Potassium 4.4 mmol/L (3.5-5.1); Sodium 137 mmol/L (136-145)
[2020-08-21] MEDS: Ferrous Sulfate 325 MG TAB PO SCH (09:01)
[2020-08-21] MEDS: Sucralfate 1 GM TAB PO SCH (09:01)
[2020-08-21] MEDS: Pregabalin 75 MG CAP PO SCH (09:02)
[2020-08-21] MEDS: Cefdinir 300 MG CAP PO SCH (09:02)
[2020-08-21] MEDS: metroNIDAZOLE 500 MG TAB PO SCH ×2 (09:02→14:20)
[2020-08-21] MEDS: Calcium Carbonate 600 MG + Vit D TAB PO SCH (09:02)
[2020-08-21] MEDS: ALPRAZolam 1 MG TAB PO PRN (09:06)
[2020-08-21 15:48] VITALS: BP 103/70; TEMP 98.1
[2020-08-21] MEDS: Arformoterol 15 MCG/2 ML NEB NEB PRN (16:21)
--- NOTE | 2020-08-22 00:46 | DIS ---
DATE OF ADMISSION: 08/14/2020 DATE OF DISCHARGE: 08/21/2020 PRIMARY CARE PHYSICIAN: Sohail Vargas MD. REASON FOR ADMISSION: Frequent falls and hypoxia. DIAGNOSES AT DISCHARGE: 1. Pneumonia, possibly aspiration. 2. Sepsis, resolved. 3. Frequent falls. 4. Chronic obstructive pulmonary disease, oxygen dependent. 5. Hiatal hernia. 6. Atrial fibrillation. 7. Anxiety and depression. 8. History of malignant neoplasm of stomach. 9. Dysphagia. PROCEDURES: 1. CT of the brain showing no acute intracranial abnormalities. 2. CT of the abdomen and pelvis without contrast showing no acute abnormalities, stable gastric pull-through, stable large ventral hernia without obstruction, but with some pleural and parenchymal changes in the right lung base. 3. CT angio of the chest with and without contrast showing no evidence for pulmonary embolism, but with debris in the right lower lobe bronchus with associated postobstructive atelectasis concerning for aspiration versus mucus plugging. CONSULTATIONS: None. SUMMARY OF HOSPITAL COURSE: This is an 84-year-old white male with a history of recurrent falls due to generalized weakness. He presented to the emergency room, is chronically on 2.5 L oxygen at home, but was requiring 4 L in the emergency room. He also was noted to have atrial fibrillation with RVR, which improved with Cardizem. He was noted to have an elevated white blood cell count and bandemia with a diagnosis of sepsis. The patient was admitted to the hospital. He did have some mid-epigastric pain on admission, so a CT of the abdomen was done, which showed the above results. There was concern for possible aspiration pneumonia. He did have evaluation of his swallow done, and was put on a modified diet, but still with risk of aspiration. The patient and family determined that they would prefer to have diet with risks. The patient did have a CT scan done of the chest due to his hypoxia. It showed the above results. The patient has improved clinically sepsis resolved and he was able to be weaned down to his home oxygen. He was transitioned over to oral antibiotics and is now being discharged to inpatient rehabilitation, discharge management, discharged to inpatient rehab at [facility]. ACTIVITY: As tolerated. DIET: Healthy heart, low-sodium diet with NDD 2 ground texture solids with extra sauce and gravy, nectar thick liquids with sips by cup only. This is a diet with risks. THERAPY: Occupational, physical and speech therapy. EQUIPMENT/SUPPLIES: Oxygen 2 L via nasal cannula. FOLLOWUP: Follow up with Dr. Vargas after discharge from inpatient rehab. DISCHARGE MEDICATIONS: 1. Acetaminophen as needed. 2. Acetaminophen with codeine as needed for pain. 3. Xanax 1 mg twice a day. 4. Maalox as needed. 5. Calcium carbonate/vitamin D3 600 mg/125 units 2 tablets daily. 6. Cefdinir 300 mg twice a day for another 2 days for full 9 days of antibiotics. 7. Ferrous sulfate 325 mg daily. 8. Perforomist 2 mL nebs twice a day as needed for shortness of breath or wheezing. 9. [place] 10/325 one tablet every 6 hours as needed for pain. 10. DuoNeb every 4 hours as needed for shortness of breath or wheezing. 11. Flagyl 500 mg 3 times a day for another 2 days for full 9 days of antibiotics. 12. Mirtazapine 15 mg at night. 13. Lyrica 150 mg twice a day. 14. Carafate 1 g twice a day. 15. Tramadol as needed. 16. Ambien 10 mg at night. 17. Multivitamin daily. 18. Omeprazole 20 mg daily. TIME SPENT: Arranging the details of this discharge took 35 minutes. Job ID: [id number]
== END 2020-08-21 16:52 | DRG 871 ==
LOC: ERS 17:32 → ERHOLD 22:18 → 2SE 08-15 01:32
PROVIDERS: ADMIT Internal Medicine; ATTEND Emergency Medicine
DX: A41.9 Sepsis, unspecified organism (principal); J69.0 Pneumonitis due to inhalation of food and vomit; J96.21 Acute and chronic respiratory failure with hypoxia; Z20.828 Contact with and (suspected) exposure to other viral communicable diseases; R29.6 Repeated falls; J44.9 Chronic obstructive pulmonary disease, unspecified; K44.9 Diaphragmatic hernia without obstruction or gangrene; I48.91 Unspecified atrial fibrillation; F41.9 Anxiety disorder, unspecified; F32.9 Major depressive disorder, single episode, unspecified; R13.10 Dysphagia, unspecified; G62.9 Polyneuropathy, unspecified; K21.9 Gastro-esophageal reflux disease without esophagitis; Z98.42 Cataract extraction status, left eye; Z98.41 Cataract extraction status, right eye; Z79.899 Other long term (current) drug therapy; Z99.81 Dependence on supplemental oxygen; Z85.028 Personal history of other malignant neoplasm of stomach; Z85.46 Personal history of malignant neoplasm of prostate; Z92.21 Personal history of antineoplastic chemotherapy; Z90.49 Acquired absence of other specified parts of digestive tract; Z90.79 Acquired absence of other genital organ(s)
CPT/HCPCS: 0240U; 36415; 51701; 70450; 71045; 71275; 72125; 72170; 74176; 80048; 80053; 80202; 80306; 81003; 82550; 82553; 83605; 83735; 83880; 84439; 84443; 84484; 85025; 85379; 87040; 87086; 87149; 93005; 94640; 96365; 96374; 96375; J0692; J3370; J3475; J3490; J7050; J7620; Q9967

== ENCOUNTER 2020-08-29 09:42 | Inpatient (IN) | payer MEDICARE ==
[2020-08-29] MEDS ORDERED: Rocuronium Bromide 10 MG/ML (10ML VIAL) ONE ×2 (09:46→13:29)
[2020-08-29] MEDS ORDERED: fentaNYL Citrate/PF 2,000 MCG in Sodium Chloride 0.9% 60 ML IV SCH (10:00)
[2020-08-29] MEDS ORDERED: Dexamethasone 10 MG/ML VIAL ONE (10:10)
[2020-08-29] MEDS ORDERED: Vancomycin 1 GM/200 ML BAG ONE (10:10)
[2020-08-29] MEDS ORDERED: Cefepime 2 GM VIAL ONE (10:10)
[2020-08-29] MEDS ORDERED: Fentanyl 100 MCG/2 ML VIAL ONE (10:33)
[2020-08-29 10:44] LABS: Bacteria/HPF None Seen HPF (None Seen); Bilirubin Negative (Negative); Blood, Urine Negative (Negative); Calcium Oxalate Crystals 1+ HPF (None Seen); Clarity Clear (Clear); Glucose, Urine (Dipstick) Normal (Negative); Ketone, Urine Negative (Negative); Leukocyte Negative Leu/uL (Negative); Nitrite Negative (Negative); Protein, Urine (Dipstick) 30 mg/dL (Neg-Trace); RBC/HPF 0-3 HPF (0-3); Specific Gravity, Urine 1.015 (1.002-1.036); Squamous Epithelial 0-3 HPF (0-3); Urobilinogen Normal mg/dL (Less than 2); pH, Urine 8.5 (5.0-9.0)
[2020-08-29 10:54] LABS: Actual Bicarbonate (HCO3a) 34.4 mEq/L (22-28); Analyzer IN Cardio ER; CO2 Tension 45.6 mmHg (35.0-45.0); Calcium, Ionized (arterial) 1.18 mmol/L (1.12-1.30); Carboxyhemoglobin (COHb) 0.5 gm% (0.0-3.0); Hemoglobin (Hb) 12.4 g/dL (14.0-18.0); Potassium - ABG Lab 4.91 mmol/L (3.70-5.30)
[2020-08-29 10:56] LABS: Puncture Site LRA
--- NOTE | 2020-08-29 11:15 | RAD ---
XR Chest 1 View Portable History: Dyspnea Comparison: Radiograph August 14, 2020 Findings: Enteric tube tip in the right hemithorax. Complete whiteout right hemithorax with rightward mediastinal shift. Endotracheal tube tip at the clavicular level. Left lung is clear. Impression: Complete whiteout right hemithorax may be sequelae of underlying aspiration pneumonia/muc us plugging with complete right lung atelectatic changes given the rightward mediastinal shift. Bronchoscopy may be beneficial.
[2020-08-29 11:16] LABS: #Lymphocytes 1.1 thou/uL (1.20-3.40); #Monocytes 0.4 thou/uL (0.11-0.59); %Basophils 0.1 % (0.0-1.0); %Eosinophils 0.2 % (0.0-10.0); %Lymphocytes 7.8 % (21.0-51.0); %Monocytes 2.8 % (0.0-10.0); %Neutrophils 89.1 % (42.0-75.0); Hemoglobin 12.3 g/dL (14.0-18.0); Mean Corpuscular HGB CONC 31.2 g/dL (32.0-36.0); Mean Corpuscular Hemoglobin 30.3 pg (27.0-31.0); Mean Corpuscular Volume 97.1 fL (78.0-98.0); Platelet Count 482 thou/uL (130-400); RBC Distribution Width 15.5 % (11.5-14.5); Red Blood Cell (RBC) Count 4.05 mill/uL (4.70-6.10); White Blood Cell (WBC) Count 13.5 thou/uL (4.8-10.8)
[2020-08-29 11:17] LABS: SARS-CoV-2 NAA Rapid Test Not Detected (NotDetected)
[2020-08-29 12:07] LABS: ALT (SGPT) 18 U/L (8-55); AST (SGOT) 24 U/L (5-34); Albumin 3.1 g/dL (3.4-4.8); Alkaline Phosphatase 74 U/L (40-110); Anion Gap 17 mmol/L (10-20); BUN (Urea Nitrogen) 22 mg/dL (8.4-25.7); Bilirubin, Total 0.6 mg/dL (0.2-1.2); CK (CPK) 12 U/L (30-200); Calc. Creatinine Clearance 0 mL/min (70-130); Calcium 9.4 mg/dL (7.8-10.44); Carbon Dioxide 32 mmol/L (23-31); Chloride 88 mmol/L (98-107); Globulin 3.8 g/dL (2.4-3.5); Glucose 186 mg/dL (83-110); Lipase 14 U/L (8-78); Potassium 5.1 mmol/L (3.5-5.1); Protein, Total 6.9 g/dL (5.8-8.1); Sodium 132 mmol/L (136-145)
[2020-08-29] MEDS ORDERED: Midazolam HCl 2 mg/2 ml Vial ONE (12:34)
[2020-08-29] MEDS ORDERED: Electrolyte Replacement Protocol 1 EACH IVPB ONE (12:39)
[2020-08-29] MEDS ORDERED: Bisacodyl 5 MG TAB PO PRN (12:39)
[2020-08-29] MEDS ORDERED: Ventilator Sedation Protocol 1 EACH FS SCH (12:45)
[2020-08-29] MEDS ORDERED: DISCONTINUE PREVIOUS NARCOTIC PAIN MEDICATIONS AND BENZODIAZEPINES FS SCH (13:00)
[2020-08-29] MEDS ORDERED: Propofol BOLUS 1,000 MG/100 ML VIAL IV PRN (13:00)
[2020-08-29] MEDS ORDERED: Electrolyte Replacement Protocol FS PRN (13:00)
[2020-08-29] MEDS ORDERED: Fentanyl BOLUS 250 ML IVPB PRN (13:00)
[2020-08-29] MEDS ORDERED: Piperacillin/Tazobactam 3.375 GM VIAL ONE (13:47)
[2020-08-29] MEDS ORDERED: Acetaminophen 325 MG TAB PO PRN (14:42)
[2020-08-29 15:38] VITALS: BMI 21.2
--- NOTE | 2020-08-29 15:41 | HP ---
CHIEF COMPLAINT: Shortness of breath. HISTORY OF PRESENT ILLNESS: The patient is a very pleasant 84-year-old male, who recently was discharged from the hospital and was sent to [facility] for rehabilitation. The patient was discharged actually on 08/22. The patient on during that hospitalization was admitted for pneumonia, possibly aspiration. Per the records, it seems that he did have a swallow eval, which indicated a modified diet. However, the patient's family preferred the patient to have diet with risk since the patient did not like the modified diet that was recommended by Speech. The patient had a CTA done on 08/18, which indicated debris in the right lower lobe bronchus associated with postobstructive atelectasis correlated with plug versus aspiration. The patient had worsening shortness of breath today and was brought in, noted to have saturations of 85% on non-rebreather. At this time, the patient was intubated in the ER. The patient's daughter, who is at the bedside stated that she did speak with the patient yesterday and he seemed to be okay. PAST MEDICAL HISTORY: 1. He has had multiple cancers including;. a. Prostate cancer. b. Stomach cancer. c. Esophageal cancer. 2. He has a history of atrial fibrillation. 3. COPD, on home oxygen. 4. Anxiety. 5. GERD. 6. Anemia. 7. Peripheral neuropathy. 8. Hiatal hernia. 9. Sleep apnea. PAST SURGICAL HISTORY: 1. He has had a cholecystectomy. 2. Appendectomy. 3. Prostatectomy, partial. 4. Right foot surgery. 5. Right carpal tunnel release. 6. Bilateral cataract surgery. 7. Partial gastrectomy. 8. Ablation for SVT. SOCIAL HISTORY: The patient lives with his . He walks around with a walker. No alcohol use, drug use, or tobacco use. FAMILY HISTORY: No history of heart disease or stroke. ALLERGIES: NO KNOWN DRUG ALLERGIES. MEDICATIONS: Per his last discharge were as of the following; 1. Tylenol as needed. 2. Xanax one twice a day. 3. Cefdinir 300 mg twice a day for 9-day course. 4. Iron 325. 5. [place] as needed. 6. Flagyl 500 mg t.i.d. 7. Mirtazapine 15 mg at bedtime. 8. Lyrica. 9. Carafate. 10. Tramadol. 11. Ambien 10 mg. 12. Multivitamin. 13. Omeprazole. REVIEW OF SYSTEMS: Unable to obtain. The patient is currently intubated. PHYSICAL EXAMINATION: VITAL SIGNS: As of the following; temperature of 98.0, pulse 85, blood pressure 130/77, and oxygen saturation 100%. He is on ventilation. GENERAL: He is intubated. CV: S1 and S2 present. No murmurs, rubs, or gallops. LUNGS: He has decreased breath sounds to right lung upper and lower, left has good audible breath sounds. ABDOMEN: Soft. Bowel sounds present x2. EXTREMITIES: No edema. Pedal pulses are present x2. NEUROVASCULAR: Neurovascular-beasley again, he is intubated, sedated. SKIN: No cuts, lesions, or bruises noted. LABORATORY RESULTS: As of the following, his WBCs are 13.5, hemoglobin of 12.3, hematocrit of 39.4, and platelets of 482. Chemistries; sodium of 132, potassium of 5.1, BUN of 22, and creatinine 0.94. His BNP was 106. CK of 12, troponin 0.011. Lipase is normal. He did have a chest x-ray, which indicated significant dian out of the right lung, could be atelectasis versus mucus plugging. ASSESSMENT AND PLAN: The patient is an 84-year-old male, who initially presented to the hospital with respiratory failure. 1. Acute hypoxic respiratory failure, requiring intubation, most likely secondary to either aspiration pneumonia versus mucus plug. The patient has significant whiteout on the right lung. His CT scan that was done maybe a few weeks ago did indicate some right lower lung pneumonia, which was most likely secondary to aspiration. He also had noted some debris in his bronchus. Pulmonology has been already consulted. The patient is currently intubated. We will start the patient on broad-spectrum antibiotics with Zosyn and vancomycin. The patient was seen by Speech, who recommended a specific diet, however, the patient did not prefer that diet and was okay with the risk with aspiration. I did discuss code status with this patient's family. She stated for now he wanted everything, but he did not want to be on life support for ever. She will discuss it further with her own family members. 2. Leukocytosis, most likely secondary to his underlying lung disease, possibly aspiration pneumonia. 3. Aspiration pneumonia, most likely we will start the patient on anaerobic coverage. We will cover gram-negative bacteria. We will continue to monitor. 4. Deep venous thrombosis prophylaxis. We will put the patient on SCDs and Lovenox. Job ID: [id number]
[2020-08-29] MEDS: Piperacillin/Tazobactam 3.375 GM in Sodium Chloride 0.9% 100 ML IVPB SCH ×2 (15:47→19:00)
[2020-08-29] MEDS: Sodium Chloride 0.9% 1,000 ML IV SCH ×6 (16:05→23:36)
[2020-08-29] MEDS: Sodium Chloride 0.45% 1,000 ML IV SCH ×2 (17:01→21:55)
[2020-08-29] MEDS: Lorazepam 2 MG/ML VIAL SLOW IVP PRN (18:11)
[2020-08-29] MEDS: Famotidine/PF 20 mg/2ml Vial SLOW IVP SCH (21:52)
[2020-08-30] MEDS: Sodium Chloride 0.9% 1,000 ML IV SCH ×4 (01:03→23:28)
[2020-08-30] MEDS: Lorazepam 2 MG/ML VIAL SLOW IVP PRN ×3 (01:12→15:50)
[2020-08-30] MEDS: Piperacillin/Tazobactam 3.375 GM in Sodium Chloride 0.9% 100 ML IVPB SCH ×4 (01:12→17:36)
[2020-08-30] MEDS ORDERED: Norepinephrine 8 MG/0.9% NS 250 ML ONE (02:29)
[2020-08-30] MEDS ORDERED: Sodium Chloride 0.9% 1,000 ML IV SCH (02:45)
[2020-08-30] MEDS: Propofol 1,000 MG/100 ML VIAL IV PRN ×2 (03:49→13:18)
[2020-08-30] MEDS: Sodium Chloride 0.45% 1,000 ML IV SCH ×5 (03:56→22:43)
[2020-08-30 05:41] LABS: ALT (SGPT) 14 U/L (8-55); AST (SGOT) 18 U/L (5-34); Albumin 2.4 g/dL (3.4-4.8); Alkaline Phosphatase 58 U/L (40-110); Anion Gap 12 mmol/L (10-20); BUN (Urea Nitrogen) 18 mg/dL (8.4-25.7); Bilirubin, Total 0.5 mg/dL (0.2-1.2); Calc. Creatinine Clearance 66 mL/min (70-130); Calcium 7.5 mg/dL (7.8-10.44); Carbon Dioxide 25 mmol/L (23-31); Chloride 98 mmol/L (98-107); Globulin 2.9 g/dL (2.4-3.5); Glucose 148 mg/dL (83-110); Potassium 4.2 mmol/L (3.5-5.1); Protein, Total 5.3 g/dL (5.8-8.1); Sodium 131 mmol/L (136-145)
[2020-08-30 06:23] LABS: Band 34 % (5-11); Hemoglobin 9.5 g/dL (14.0-18.0); Lymphocytes 6 % (21-51); MDiff Complete? YES; Mean Corpuscular HGB CONC 32.2 g/dL (32.0-36.0); Mean Corpuscular Hemoglobin 31.1 pg (27.0-31.0); Mean Corpuscular Volume 96.5 fL (78.0-98.0); Monocytes 2 % (0-10); Neutrophil 58 % (42-75); Platelet Count 464 thou/uL (130-400); Platelet Morphology Comment Appears Increased; RBC Distribution Width 15.4 % (11.5-14.5); Red Blood Cell (RBC) Count 3.04 mill/uL (4.70-6.10); White Blood Cell (WBC) Count 24.9 thou/uL (4.8-10.8)
--- NOTE | 2020-08-30 08:50 | CON ---
DATE OF CONSULTATION: 08/29/2020 HISTORY OF PRESENT ILLNESS: Mr. Roca is an 84-year-old male. He was noted to be short of breath to rehab and subsequently was transferred over to the hospital, intubated. I was consulted. He has completed atelectasis of his right lung. He is recently admitted. He has CAT scan on record done last time, which showed food in ? esophagus, behind his trachea, as well as debris in his right lower lobe. PAST MEDICAL HISTORY: Remarkable for: 1. Prostate cancer. 2. Stomach cancer. 3. Esophageal cancer. 4. History of atrial fibrillation. 5. History of COPD. 6. History of reflux disease. 7. History of peripheral neuropathy. 8. History of sleep apnea. 9. History of cholecystectomy. 10. History of partial gastrectomy. 11. History of ablation procedure. FAMILY HISTORY: Negative for lung disease in early age. SOCIAL HISTORY: He is nonsmoker, nondrinker. REVIEW OF SYSTEMS: Not obtainable. PHYSICAL EXAMINATION: VITAL SIGNS: Blood pressure is in 110 to 120 range. Heart rate was 100. He is mechanically ventilated. HEENT: Pupils are reactive. Sclerae are anicteric. NECK: Without lymphadenopathy. LUNGS: Remarkable for distant breath sounds in the right. HEART: Regular rhythm. ABDOMEN: Soft. EXTREMITIES: Without clubbing, cyanosis, or edema. NEURO: Not assessed. IMPRESSION: Atelectasis of the right lung. PLAN: Probably need bronchoscopy in the morning. He is probably intravascularly dry and possibly septic, to be volume resuscitated. Supported with pressors if needed. Mechanically ventilated and treated with empiric antimicrobial therapy. Blood gas showed a pH 7.5, CO2 of 45, PO2 of 54. We will follow the other physicians caring for him. CRITICAL CARE TIME: 30 minutes. Job ID: [id number]
[2020-08-30] MEDS: Vancomycin 1 GM in Premix Bag 1 BAG IVPB SCH (09:32)
[2020-08-30] MEDS: Famotidine/PF 20 mg/2ml Vial SLOW IVP SCH ×2 (09:32→22:40)
[2020-08-30] MEDS: Enoxaparin Sodium 40 MG/0.4 ML SYRINGE SC SCH (09:32)
[2020-08-30] MEDS ORDERED: Vecuronium 10 MG VIAL ONE (11:58)
--- NOTE | 2020-08-30 14:28 | PRG ---
DATE OF SERVICE: 08/30/2020 SUBJECTIVE: Mr. Roca did well overnight. Chest radiograph improved dramatically this morning. OBJECTIVE: VITAL SIGNS: Heart rate is in the 90s, blood pressure 143/80, respiratory rate is in the teens, and oximetry is 100%. CHEST: He had improved aeration on his x-ray and improved breath sounds on the right chest exam. HEART: Regular rate and rhythm. ABDOMEN: Soft. EXTREMITIES: Without clubbing, cyanosis, or edema. LABORATORY DATA: White count 24, hemoglobin 9.5, and platelets 464. Electrolytes are unremarkable. There is no blood gas today. IMPRESSION: Respiratory failure associated with deconditioning and mucus plug on the right. The fact that his radiograph improved dramatically with mechanical ventilation argues if this is going to be mucus and not as much food particles as I initially thought. Would still undergo bronchoscopy. The above was explained to the daughter by the nursing staff and consent was obtained. He is not weanable at this point in time. Critical care time 30 min excluding procedures. Job ID: [id number] MTDD
--- NOTE | 2020-08-30 14:57 | RAD ---
EXAM: CHEST ONE VIEW: 08/30/20 HISTORY: Aspiration. COMPARISON: 08/29/20. FINDINGS: NG tube and endotracheal tubes appear stable. There has been marked improvement in aeration of the ri ght lung compared to the prior study which was completely opaque. Minimal pleural and parenchymal opa city changes in the right chest, evidence for a large hiatal hernia, somewhat to the right of midline . Minimal increased markings in the left base somewhat more prominent than prior exam, but there is l ess inspiration. IMPRESSION: Some re-expansion of the right lung with some persistent pleural and parenchymal opacity changes in t he right base. Evidence for large hiatal hernia. Life support tubes in place. Continued short term fo llow-up. POS: OFF
--- NOTE | 2020-08-30 15:14 | OP ---
DATE OF PROCEDURE: 08/30/2020 PROCEDURE PERFORMED: Bronchoscopy. DESCRIPTION OF PROCEDURE: Consent was obtained from the daughter. The patient was sedated and paralyzed through ventilation and suctioning. The bronchoscope was introduced via endotracheal tube. The entire tracheobronchial tree was inspected. Thick white mucus plug was encountered in the right lower lobe bronchus. This was suctioned clear. All segments were entered and suctioned. He had some left mainstem bronchial mucus, but this was easily suctioned clear. No endobronchial lesions were seen. No foreign bodies or food particles were encountered. The patient tolerated the procedure well. Job ID: [id number]
[2020-08-30] MEDS ORDERED: Digoxin 0.5 MG/2 ML AMP SLOW IVP SCH (15:15)
[2020-08-30] MEDS ORDERED: Amiodarone 150 MG in Dextrose 5% in Water 100 ML IVPB SCH (15:15)
[2020-08-30] MEDS ORDERED: Digoxin 0.5 MG/2 ML AMP ONE (15:33)
--- NOTE | 2020-08-30 16:08 | PDOC.HOSPP ---
- Subjective Encounter Date: 08/30/20 Encounter Time: 16:05 Subjective: pt intubated - Objective Vital Signs & Weight: Vital Signs (12 hours) Temp Pulse Resp Pulse Ox 08/30/20 15:36 140 H 08/30/20 15:35 140 H 08/30/20 12:00 98.7 F 14 08/30/20 10:58 98 08/30/20 10:00 14 08/30/20 08:18 92 08/30/20 08:00 98.6 F 14 100 08/30/20 05:17 14 Weight Admit Weight 148 lb Weight 148 lb Most Recent Monitor Data Heart Rate from ECG 114 NIBP 138/77 NIBP BP-Mean 113 Respiration from ECG 22 SpO2 100 I&O: 08/29/20 08/30/20 08/31/20 06:59 06:59 06:59 Intake Total 3744.8 Output Total 1305 2110 Balance 2439.8 -2110 Result Diagrams: 08/30/20 05:05 08/30/20 05:05 Hospitalist ROS - Review of Systems Other: intubated - Medication Medications: Active Medications Generic Name Dose Route Start Last Admin Trade Name Freq PRN Reason Stop Dose Admin Digoxin 0.25 mg 08/30/20 15:15 08/30/20 15:36 Digoxin 0.5 Mg/2 Ml Amp SLOW IVP 08/30/20 17:15 Not Given NOW MAROJRIE Enoxaparin Sodium 40 mg 08/30/20 09:00 08/30/20 09:32 Enoxaparin Sodium 40 Mg/0.4 Ml Syringe SC 40 mg 0900 MARJORIE Administration Famotidine 20 mg 08/29/20 21:00 08/30/20 09:32 Famotidine/Pf 20 Mg/2ml Vial SLOW IVP 20 mg Q12HR MARJORIE Administration Vancomycin HCl 1 gm/ Device 200 mls @ 200 mls/hr 08/30/20 10:00 08/30/20 09:32 IVPB 200 mls 1000 MARJORIE Administration Piperacillin Sod/Tazobactam 100 mls @ 200 mls/hr 08/29/20 12:00 08/30/20 12:07 Sod 3.375 gm/ Sodium Chloride IVPB 100 mls Q6HR MARJORIE Administration Sodium Chloride 1,000 mls @ 200 mls/hr 08/29/20 16:30 08/30/20 13:22 1/2 Normal Saline IV 1,000 mls .Q5H MARJORIE Administration Lorazepam 2 mg 08/29/20 13:00 08/30/20 15:50 Lorazepam 2 Mg/Ml Vial SLOW IVP 09/28/20 13:00 2 mg Q1H PRN Administration Breakthrough agitation Propofol 1,000 mg 08/29/20 13:00 08/30/20 13:18 Propofol 1,000 Mg/100 Ml Vial IV 09/28/20 13:00 1,000 mg INF PRN Administration TO ACHIEVE GOAL RASS Protocol - Exam Heart: negative: RRR, no murmur, no gallops, no rubs, normal peripheral pulses, irregular, diminshed peripheral pulses, murmur present, II/IV, III/IV Respiratory: negative: CTAB, no wheezes, no rales, no ronchi, normal chest expansion, no tachypnea, normal percussion, rales, rhonchi, tachypneic, wheezes Gastrointestinal: negative: soft, non-tender, non-distended, normal bowel sounds, no palpable masses, no hepatomegaly, no splenomegaly, no bruit, no guarding, no rigidity, tender to palpation, distended, diminished bowl sounds, voluntary guarding Extremities: negative: no cyanosis, no clubbing, no edema, 1+ LE edema, 2+ LE edema, clubbing Hosp A/P (1) Acute blood loss anemia Code(s): D62 - ACUTE POSTHEMORRHAGIC ANEMIA Status: Acute (2) Acute respiratory failure with hypoxemia Code(s): J96.01 - ACUTE RESPIRATORY FAILURE WITH HYPOXIA Status: Acute (3) Atrial fibrillation with RVR Code(s): I48.91 - UNSPECIFIED ATRIAL FIBRILLATION Status: Acute (4) Right lower lobe pneumonia Code(s): J18.1 - LOBAR PNEUMONIA, UNSPECIFIED ORGANISM Status: Acute (5) Weakness generalized Code(s): R53.1 - WEAKNESS Status: Acute (6) COPD (chronic obstructive pulmonary disease) Status: Chronic (7) H/O malignant neoplasm of stomach Code(s): Z85.028 - PERSONAL HISTORY OF OTHER MALIGNANT NEOPLASM OF STOMACH Status: Chronic (8) Hiatal hernia Code(s): K44.9 - DIAPHRAGMATIC HERNIA WITHOUT OBSTRUCTION OR GANGRENE Status: Chronic - Plan Patient continues to be intubated. Status post bronchoscopy patient was noted to have a mucous plug. Patient currently is A. fib RVR he was given Cardizem, amiodarone and digoxin. Will consult cardiology. I will start him on amnio drip since patient's blood pressure is low and he is still on Levophed. I did speak to patient's POA daughter and granddaughter who wanted the patient to be DNR. We will continue aspiration precautions and antibiotics.
[2020-08-30] MEDS: Amiodarone 450 MG in Dextrose 5% in Water 250 ML IVPB SCH ×2 (16:41→22:47)
[2020-08-30] MEDS ORDERED: Metoprolol Tartrate 5 MG/5 ML VIAL ONE (17:10)
[2020-08-30] MEDS: fentaNYL Citrate/PF 2,000 MCG in Sodium Chloride 0.9% 60 ML IV SCH (18:44)
[2020-08-30] MEDS: Norepinephrine 8 MG/0.9% NS 250 ML IVPB SCH (18:49)
--- NOTE | 2020-08-30 19:53 | CON ---
DATE OF CONSULTATION: 08/30/2020 INDICATION FOR CONSULTATION: An 84-year-old patient admitted with pneumonia, who developed atrial fibrillation with rapid ventricular response. HISTORY OF PRESENT ILLNESS: This is a very unfortunate 84-year-old gentleman who was recently in the hospital middle of August. He was admitted on 08/14/2020 with frequent falls and hypoxia and was noted to have pneumonia, at that time, which was felt to be due to aspiration. He had also developed sepsis. He has a history of atrial fibrillation in the past. He has had possibly an ablation also of the atrial fibrillation, but at this time once he left the hospital after the CVA due to the pneumonia, I believe the CT of the brain did not show any acute intracranial abnormalities. Mainly, he was just noted to have a pneumonia and he was sent to [facility] for rehab. While there, he became acutely short of breath and hypoxic and was then brought back to the hospital here, was noted to have again what appears to be pneumonia, most likely this is aspiration pneumonia. He was having some difficulty swallowing on his last admission. Apparently he was told he would need to be careful as far as his eating was concerned. At this time, I am seeing him in the intensive care unit. His heart rate was in the 130s to 150s with atrial fibrillation. I gave him one dose, 2.5 mg dose of metoprolol and he converted back to sinus rhythm. He was in atrial fibrillation. He has been placed already on IV amiodarone. He has been given IV digoxin and the heart rate still remained rather tachycardiac. He did have some decrease in the blood pressure after giving the metoprolol and also has been on Levophed, which continues. He is on the ventilator and the history is from the family, who is at the bedside. PAST MEDICAL HISTORY: Significant for COPD, pneumonia, history of anxiety, depression, history of atrial fibrillation, history of malignant neoplasm of the stomach. He has had prostate cancer. He has also had a stomach cancer. He has had malignant polyps also removed from the colon. He has a history of a hiatal hernia, anxiety, depression. He has a history of dysphagia. SOCIAL HISTORY: No recent history of alcohol or tobacco abuse. MEDICATIONS: On admission, he was given Decadron as well as Maxipime, vancomycin in the emergency room. He also was intubated, I believe in the emergency room due to the hypoxemia. At this time, he is on IV amiodarone. He is on fentanyl as needed, norepinephrine, piperacillin, vancomycin, Pepcid. He has been given digoxin. He was tried on IV diltiazem. He was given Lovenox 40 mg subcu daily for deep venous thrombosis prophylaxis. He is on Diprivan for sedation. He is on Tylenol and other p.r.n. medications. ALLERGIES: NONE. REVIEW OF SYSTEMS: Not obtainable. The patient is on the ventilator. PHYSICAL EXAMINATION: GENERAL: Reveals an elderly gentleman. The family says he has lost significant weight over this past year. VITAL SIGNS: His blood pressure is 123/84, then decreased down to 80/60 after metoprolol, is now back about 15 minutes later up to 113/80, heart rate originally was 130s to 150s with atrial fibrillation. It decreased down. His heart rate is about 113 beats per minute. He is now in sinus rhythm. He was down to about 105 beats per minute and was in sinus rhythm. Respiratory rate 16, O2 saturation 100%. HEENT: Unremarkable. CHEST: Appears actually be relatively clear anteriorly. I did not hear any wheezing. He does have some scattered rhonchi on the right side and decreased breath sounds at the base. CARDIOVASCULAR: Indicated an irregularly irregular heart rate with tachycardia. This did improve significantly after he was given IV Lopressor to a regular rate with a heart rate in the low 100s. ABDOMEN: Positive bowel sounds are present. He has a large what appears to be surgical hernias. EXTREMITIES: Show no clubbing, cyanosis, or edema. He did have pulses present and pedal pulses. NEUROLOGIC: The patient is sedated on the ventilator. LABORATORY DATA: WBC is 24.9, hemoglobin 9.5, hematocrit 29.4, platelet count was 464,000. His D-dimer was 1.46. Sodium was 131, potassium 4.2, chloride 98, bicarb 25, BUN was 18, creatinine 0.81, blood sugar was 148. BNP was 106. He was negative for COVID. IMPRESSION: 1. Probable right-sided pneumonia due to aspiration and respiratory failure for which he is on the ventilator. This is being dealt with Pulmonology as well as primary care service. 2. Atrial fibrillation with rapid ventricular response, which responded to IV Lopressor. He has already been placed on IV amiodarone. We will continue this medication as well as digoxin as needed for tachycardia. 3. Hypotension, most likely he is septic due to most likely aspiration pneumonia. We will continue on the Levophed. He continues to have good urine output. For his other medical problems, these will be dealt with by the primary care service. Job ID: [id number] MTDD
--- NOTE | 2020-08-30 21:31 | EKG ---
Test Reason : Blood Pressure : / mmHG Vent. Rate : 067 BPM Atrial Rate : 067 BPM P-R Int : 200 ms QRS Dur : 070 ms QT Int : 400 ms P-R-T Axes : 078 004 027 degrees QTc Int : 422 ms Sinus rhythm with Premature atrial complexes in a pattern of bigeminy Low voltage QRS Borderline ECG Confirmed by Lianet AMBROSE ([id number]) on 08/30/2020 9:30:51 PM Referred By: ISABELLA Confirmed By:Lianet AMBROSE
--- NOTE | 2020-08-30 21:31 | EKG ---
Test Reason : STAT Blood Pressure : / mmHG Vent. Rate : 067 BPM Atrial Rate : 067 BPM P-R Int : 202 ms QRS Dur : 070 ms QT Int : 396 ms P-R-T Axes : 101 012 029 degrees QTc Int : 418 ms Sinus rhythm with Premature atrial complexes Low voltage QRS Borderline ECG When compared with ECG of 29-AUG-2020 11:32, (Unconfirmed) Vent. rate has decreased BY 42 BPM Confirmed by Lianet AMBROSE ([id number]) on 08/30/2020 9:30:42 PM Referred By: ISABELLA Confirmed By:Lianet AMBROSE
[2020-08-31] MEDS: Piperacillin/Tazobactam 3.375 GM in Sodium Chloride 0.9% 100 ML IVPB SCH ×4 (00:19→18:15)
[2020-08-31] MEDS: Metoprolol Tartrate 5 MG/5 ML VIAL IVP PRN ×2 (01:34→11:40)
[2020-08-31] MEDS: Norepinephrine 8 MG/0.9% NS 250 ML IVPB SCH ×2 (03:50→12:47)
[2020-08-31] MEDS: Sodium Chloride 0.45% 1,000 ML IV SCH ×3 (05:29→15:14)
[2020-08-31] MEDS: Lorazepam 2 MG/ML VIAL SLOW IVP PRN ×4 (07:08→16:53)
--- NOTE | 2020-08-31 07:40 | RAD ---
Chest one view HISTORY: Pneumonia. Follow-up. COMPARISON: 08/30/2020. FINDINGS: Cardiac silhouette is magnified by projection and shifted rightward with patient rotation. Lines and tubes are unchanged in position, with nasogastric tube coiled over a hiatal hernia. Pleural opacity at the right base has increased since the prior exam. Hazy opacity is now also more p ronounced at the left base. Likely associated bibasilar atelectasis. No evidence of pneumothorax. Old right rib fractures. IMPRESSION : Increasing bilateral pleural fluid, right greater than left. Other findings are stable.
[2020-08-31 08:15] LABS: Anion Gap 14 mmol/L (10-20); BUN (Urea Nitrogen) 12 mg/dL (8.4-25.7); Calc. Creatinine Clearance 68 mL/min (70-130); Calcium 7.3 mg/dL (7.8-10.44); Carbon Dioxide 23 mmol/L (23-31); Chloride 98 mmol/L (98-107); Glucose 145 mg/dL (83-110); Potassium 3.6 mmol/L (3.5-5.1); Sodium 131 mmol/L (136-145)
[2020-08-31 08:36] LABS: #Basophils 0.1 thou/uL (0.0-0.2); #Eosinphils 0.1 thou/uL (0.0-0.7); #Monocytes 2.3 thou/uL (0.11-0.59); #Neutrophils 16.7 thou/uL (1.40-6.50); %Basophils 0.3 % (0.0-1.0); %Eosinophils 0.4 % (0.0-10.0); %Lymphocytes 9.3 % (21.0-51.0); %Monocytes 10.7 % (0.0-10.0); %Neutrophils 79.3 % (42.0-75.0); Hemoglobin 10.5 g/dL (14.0-18.0); Mean Corpuscular HGB CONC 32.5 g/dL (32.0-36.0); Mean Corpuscular Hemoglobin 31.6 pg (27.0-31.0); Mean Corpuscular Volume 97.1 fL (78.0-98.0); Mean Platelet Volume 6.9 fL (7.4-10.4); Platelet Count 516 thou/uL (130-400); RBC Distribution Width 15.4 % (11.5-14.5); Red Blood Cell (RBC) Count 3.31 mill/uL (4.70-6.10); White Blood Cell (WBC) Count 21.1 thou/uL (4.8-10.8)
[2020-08-31] MEDS: Famotidine/PF 20 mg/2ml Vial SLOW IVP SCH (08:42)
[2020-08-31] MEDS: Enoxaparin Sodium 40 MG/0.4 ML SYRINGE SC SCH (08:43)
[2020-08-31] MEDS ORDERED: Bisacodyl 10 MG SUPP PR PRN (08:44)
[2020-08-31] MEDS ORDERED: Acetaminophen 650 MG Suppository PR PRN (08:44)
[2020-08-31] MEDS ORDERED: Metoclopramide HCl 10 MG/2 ML VIAL IVP PRN (08:44)
[2020-08-31 09:37] LABS: Vancomycin, Trough 8.1 ug/mL
[2020-08-31 10:52] VITALS: BP 111/77
[2020-08-31] MEDS ORDERED: Vancomycin HCl 750 MG in Sodium Chloride 0.9% 250 ML 250 ML IVPB SCH (11:00)
[2020-08-31] MEDS: fentaNYL Citrate/PF 2,000 MCG in Sodium Chloride 0.9% 60 ML IV SCH (12:48)
[2020-08-31] MEDS: Morphine 2 MG/ML VIAL SLOW IVP PRN ×2 (14:22→16:53)
[2020-08-31] MEDS: Vancomycin 1 GM in Premix Bag 1 BAG IVPB SCH (15:16)
[2020-08-31 16:48] VITALS: TEMP 99.1
[2020-08-31] MEDS ORDERED: Lorazepam 2 MG/ML VIAL SLOW IVP PRN (17:02)
--- NOTE | 2020-08-31 17:30 | PRG ---
DATE OF SERVICE: 08/31/2020 SUBJECTIVE: Mr. Roca is hemodynamically stable. He is still having rapid atrial fibrillation. An echocardiogram showed an ejection fraction of approximately 15%. There is a right atrial mass or right atrial vegetation seen on echo. OBJECTIVE: VITAL SIGNS: Blood pressures in the 90s. LUNGS: Unchanged. HEART: Unchanged. ABDOMEN: Unchanged. LABORATORY DATA: White count 21, hemoglobin 10, platelets 516. DIAGNOSTIC STUDIES: Chest radiograph shows atelectasis at the right base similar to the chest radiograph last admission. I do not feel repeat bronchoscopy is indicated as this is just retained mucus. IMPRESSION AND PLAN: 1. Respiratory failure, most likely secondary to an ineffective cough, severe weakness, and inability to clear secretions. There is no evidence of aspirated food on bronchoscopy. 2. Status post gastric pull through. 3. Severe systolic cardiomyopathy. 4. Rapid atrial fibrillation with rate is difficult to control. I contacted the daughter by phone. She stated that her father never want to be intubated. His has dementia. The daughter is making all decisions. I would feel we reached a point where what we can treat has been treated and we will not benefit from continuing mechanically ventilating. His daughter was okay with the idea extubated for comfort care. This is to be done when she arrived this afternoon. Critical care time 30 min. Job ID: [id number] MTDD
--- NOTE | 2020-08-31 18:32 | PDOC.HOSPP ---
- Subjective Encounter Date: 08/31/20 Encounter Time: 08:00 Subjective: This morning when I saw this patient at the time he was intubated, subsequently after discussion with the patient's daughter patient was extubated, patient's daughter is decision-maker and she does not want him to be reintubated, patient's daughter only wants comfort measures, Patient was having A. fib with RVR which was difficult to control despite amiodarone drip, patient also has severe cardiomyopathy. - Objective Vital Signs & Weight: Vital Signs (12 hours) Temp Pulse Resp BP Pulse Ox 08/31/20 16:00 99.1 F 08/31/20 14:22 81 L 08/31/20 12:00 20 08/31/20 11:00 99.3 F 08/31/20 10:50 139 H 111/77 08/31/20 10:00 14 08/31/20 08:03 133 H 104/71 08/31/20 08:00 14 100 08/31/20 07:00 98.6 F Weight Admit Weight 148 lb Weight 159 lb 4.8 oz Most Recent Monitor Data Heart Rate from ECG 83 NIBP 39/26 NIBP BP-Mean 29 Respiration from ECG 29 SpO2 67 I&O: 08/30/20 08/31/20 09/01/20 06:59 06:59 06:59 Intake Total 3744.8 5595.9 3323.6 Output Total 1305 4805 1415 Balance 2439.8 790.9 1908.6 Result Diagrams: 08/31/20 07:45 08/31/20 07:45 Radiology Reviewed by me: Yes (Echocardiography report reviewed, consistent with cardiomyopathy and) EKG Reviewed by me: Yes (A. fib with RVR) Hospitalist ROS - Review of Systems ROS unobtainable: due to endotracheal tube - Medication Medications: Active Medications Generic Name Dose Route Start Last Admin Trade Name Freq PRN Reason Stop Dose Admin Enoxaparin Sodium 40 mg 08/30/20 09:00 08/31/20 08:43 Enoxaparin Sodium 40 Mg/0.4 Ml Syringe SC 40 mg 0900 MARJORIE Administration Famotidine 20 mg 08/29/20 21:00 08/31/20 08:42 Famotidine/Pf 20 Mg/2ml Vial SLOW IVP 20 mg Q12HR MARJORIE Administration Piperacillin Sod/Tazobactam 100 mls @ 200 mls/hr 08/29/20 12:00 08/31/20 18:15 Sod 3.375 gm/ Sodium Chloride IVPB Not Given Q6HR MARJORIE Sodium Chloride 1,000 mls @ 200 mls/hr 08/29/20 16:30 08/31/20 15:14 1/2 Normal Saline IV Not Given .Q5H MARJORIE Norepinephrine Bitartrate 250 mls @ 0 mls/hr 08/30/20 02:45 08/31/20 12:47 Levophed IVPB 250 mls INF MARJORIE Administration Protocol Titrate Amiodarone HCl 450 mg/ 259 mls @ 0 mls/hr 08/30/20 16:00 08/30/20 22:47 Dextrose/Water IVPB 259 mls INF MARJORIE Administration Protocol Per Protocol Metoprolol Tartrate 1 mg 08/30/20 17:39 08/31/20 11:40 Metoprolol Tartrate 5 Mg/5 Ml Vial IVP 1 mg Q4H PRN Administration tachycardia Morphine Sulfate 2 mg 08/29/20 13:00 08/31/20 16:53 Morphine 2 Mg/Ml Vial SLOW IVP 09/28/20 13:00 2 mg Q1H PRN Administration Breakthrough Pain/Agitation - Exam General Appearance: ill appearing Eye: PERRL ENT: normocephalic atraumatic, no oropharyngeal lesions Neck: supple, symmetric, no JVD Heart: irregular, murmur present Respiratory - other findings: Bilateral coarse breath sound, basal rales Gastrointestinal: soft, normal bowel sounds, no palpable masses Extremities: no clubbing, no edema Skin: normal turgor Hosp A/P (1) Acute respiratory failure with hypoxemia Code(s): J96.01 - ACUTE RESPIRATORY FAILURE WITH HYPOXIA Status: Acute Plan: Patient was intubated for respiratory failure, after family request patient is extubated, patient is on comfort measures, patient is DNR (2) Atrial fibrillation with RVR Code(s): I48.91 - UNSPECIFIED ATRIAL FIBRILLATION Status: Acute Plan: Patient is on amiodarone drip, patient is not a candidate for chronic anticoagulation, cardiology on the case, (3) Frequent falls Code(s): R29.6 - REPEATED FALLS Status: Chronic (4) Iron deficiency anemia Code(s): D50.9 - IRON DEFICIENCY ANEMIA, UNSPECIFIED Status: Chronic Qualifiers: Iron deficiency anemia type: chronic blood loss Qualified Code(s): D50.0 - Iron deficiency anemia secondary to blood loss (chronic) (5) Right lower lobe pneumonia Code(s): J18.1 - LOBAR PNEUMONIA, UNSPECIFIED ORGANISM Status: Acute Qualifiers: Pneumonia type: due to unspecified organism Qualified Code(s): J18.9 - Pneumonia, unspecified organism Plan: Patient is on Zosyn, patient also had mucous plug, patient also had a bronchoscopy done (6) Sepsis with acute organ dysfunction Code(s): A41.9 - SEPSIS, UNSPECIFIED ORGANISM; R65.20 - SEVERE SEPSIS WITHOUT SEPTIC SHOCK Status: Acute Qualifiers: Severe sepsis acute organ dysfunction type: acute respiratory failure Acute respiratory failure type: with hypoxia Severe sepsis shock status: with septic shock (7) Weakness generalized Code(s): R53.1 - WEAKNESS Status: Acute (8) Adenocarcinoma of colon Code(s): C18.9 - MALIGNANT NEOPLASM OF COLON, UNSPECIFIED Status: Chronic (9) Anxiety and depression Code(s): F41.9 - ANXIETY DISORDER, UNSPECIFIED; F32.9 - MAJOR DEPRESSIVE DISORDER, SINGLE EPISODE, UNSPECIFIED Status: Chronic (10) COPD (chronic obstructive pulmonary disease) Status: Chronic (11) H/O malignant neoplasm of stomach Code(s): Z85.028 - PERSONAL HISTORY OF OTHER MALIGNANT NEOPLASM OF STOMACH Status: Chronic - Plan old records reviewed/req, riojas catheter, continue antibiotics, respiratory therapy Consults: Palliative Care Continue amiodarone drip, continue empiric Zosyn Continue supportive care in ICU, Patient is DNR, no further intubation Comfort measures Palliative care following, Pulmonary and cardiology following Medication reviewed and continued by symptomatic and supportive care Prognosis extremely poor, is not unexpected Continue vasopressors for hypotension if needed
--- NOTE | 2020-08-31 18:54 | PDOC.DS.DS ---
Provider - Provider Date of Admission: 08/29/20 15:19 Date of Discharge: 08/31/20 (Patient 6:16 PM) Admitting Provider: Lyubov Moreira MD Consultations: Cardiology, Pulmonary Primary Care Physician: Sohail Vargas MD Course - Hospital Course Hospital Course: patient was admitted on August 29, 2020, please see admitting physicians H&P, patient was recently admitted in our hospital on August 22 and he was discharged to rehab, patient was admitted for aspiration pneumonia, patient has oropharyngeal dysphagia, patient was kept on diet with risk, patient was brought to emergency room for increasing shortness of breath, patient was hypoxic with a saturation 85% on nonrebreather, patient was found with a right lower lobe pneumonia which was appeared to be related with mucous plug versus aspiration, patient was intubated, patient was also having atrial fibrillation with rapid ventricular response, patient had acute hypoxic respiratory failure required intubation and patient was started on broad-spectrum antibiotic therapy, pulmonology was consulted and pulmonology did bronchoscopy as well, patient was also started on amiodarone drip, patient rate was difficult to control, patient was DNR during this admission, Subsequently patient condition did not improve, patient also had a chest x-ray which showing multifocal infiltration as well as pleural effusion, echocardiography showed EF 10 to 15% as well as patient was also found with a vegetation versus mass in the right atrium, cardiology was also following, Patient also had septic shock required Levophed support, patient was on broad- spectrum antibiotic coverage. His culture remain negative, Pulmonology discussed with the patient's family member and patient was made DNR and subsequently based on the request patient was extubated for comfort care only, Patient was at 18;16 p.m. was pronounced and body was released for . Patient was also evaluated by palliative care, patient was on comfort care before discharge, Primary cause of Septic shock Aspiration pneumonia Acute systolic heart failure Atrial fibrillation with rapid ventricular response Contributing diagnoses Oropharyngeal dysphagia COPD Sleep apnea Prostate, stomach, colon cancer Resuscitation Status: 08/30/20 15:55 Resuscitation Status Routine Resuscitation Status: DNAR: NO Resuscitation Discussed with: per pt's daughter who is the POA - Labs Lab Results: 08/31/20 07:45 08/31/20 07:45 Abnormal Lab Results - Last 48 hrs 08/30/20 05:05: Sodium 131 L, Calcium 7.5 L, Serum Total Protein 5.3 L, Albumin 2.4 L, Albumin/Globulin Ratio 0.8 L 08/30/20 05:05: WBC 24.9 H, RBC 3.04 L, Hgb 9.5 L, Hct 29.4 L, MCH 31.1 H, RDW 15.4 H, Plt Count 464 H, MPV 7.0 L, Band Neuts % (Manual) 34 H, Lymphocytes % (Manual) 6 L, Plt Morphology Comment Appears Increased H 08/31/20 07:45: Sodium 131 L, Calcium 7.3 L 08/31/20 07:45: WBC 21.1 H, RBC 3.31 L, Hgb 10.5 L, Hct 32.1 L, MCH 31.6 H, RDW 15.4 H, Plt Count 516 H, MPV 6.9 L, Neutrophils % 79.3 H, Lymphocytes % 9.3 L, Monocytes % 10.7 H, Neutrophils # 16.7 H, Monocytes # 2.3 H Microbiology - Entire Visit 08/30/20 12:05 Bronchial Alveolar Lavage Bronchoalveolar Lavage Cult, Quant - Preliminary 08/29/20 11:16 Central Line - Right Common Femoral Vein Blood Culture - Preliminary NO GROWTH AT 48 HOURS 08/29/20 10:52 Central Line - Right Common Femoral Vein Blood Culture - Preliminary NO GROWTH AT 48 HOURS - Physical Exam Vitals: Vital Signs (12 hours) Temp Pulse Resp BP Pulse Ox 08/31/20 16:00 99.1 F 08/31/20 14:22 81 L 08/31/20 12:00 20 08/31/20 11:00 99.3 F 08/31/20 10:50 139 H 111/77 08/31/20 10:00 14 08/31/20 08:03 133 H 104/71 08/31/20 08:00 14 100 08/31/20 07:00 98.6 F Weight Admit Weight 148 lb Weight 159 lb 4.8 oz Most Recent Monitor Data Heart Rate from ECG 83 NIBP 39/26 NIBP BP-Mean 29 Respiration from ECG 29 SpO2 67 When patient was at the time patient was not having any pulse or blood pressure and pupil was dilated and fixed Physical Exam: The patient was seen and examined on the day of discharge. Patient was seen earlier as well and at the time of breath. Problem - Problem (1) COPD (chronic obstructive pulmonary disease) Status: Chronic Qualifiers: COPD type: COPD with acute exacerbation Qualified Code(s): J44.1 - Chronic obstructive pulmonary disease with (acute) exacerbation (2) Sepsis with acute organ dysfunction Code(s): A41.9 - SEPSIS, UNSPECIFIED ORGANISM; R65.20 - SEVERE SEPSIS WITHOUT SEPTIC SHOCK Status: Acute Qualifiers: Severe sepsis acute organ dysfunction type: acute respiratory failure Acute respiratory failure type: with hypoxia Severe sepsis shock status: with septic shock (3) Acute respiratory failure with hypoxemia Code(s): J96.01 - ACUTE RESPIRATORY FAILURE WITH HYPOXIA Status: Acute (4) Atrial fibrillation with RVR Code(s): I48.91 - UNSPECIFIED ATRIAL FIBRILLATION Status: Acute (5) Right lower lobe pneumonia Code(s): J18.1 - LOBAR PNEUMONIA, UNSPECIFIED ORGANISM Status: Acute Qualifiers: Pneumonia type: aspiration pneumonia Aspiration pneumonia type: unspecified Qualified Code(s): J69.0 - Pneumonitis due to inhalation of food and vomit (6) Weakness generalized Code(s): R53.1 - WEAKNESS Status: Chronic (7) Adenocarcinoma of colon Code(s): C18.9 - MALIGNANT NEOPLASM OF COLON, UNSPECIFIED Status: Chronic (8) Anxiety and depression Code(s): F41.9 - ANXIETY DISORDER, UNSPECIFIED; F32.9 - MAJOR DEPRESSIVE DISORDER, SINGLE EPISODE, UNSPECIFIED Status: Chronic (9) H/O malignant neoplasm of stomach Code(s): Z85.028 - PERSONAL HISTORY OF OTHER MALIGNANT NEOPLASM OF STOMACH Status: Chronic (10) Iron deficiency anemia Code(s): D50.9 - IRON DEFICIENCY ANEMIA, UNSPECIFIED Status: Chronic Qualifiers: Iron deficiency anemia type: chronic blood loss Qualified Code(s): D50.0 - Iron deficiency anemia secondary to blood loss (chronic) Plan - Discharge Medications Home Medications: Medication Instructions Recorded Confirmed Type ALPRAZolam [Xanax] 1 mg PO BID PRN 05/02/19 08/15/20 History Calcium Carbonate/Vitamin D3 1,200 mg PO DAILY 05/02/19 08/15/20 History [Calcium 600 + Vitamin D] HYDROcodone/Acetaminophen [Parkin 1 each PO Q6HR PRN 05/02/19 08/15/20 History 10-325 Tablet] Multivitamin/Iron/Folic Acid 1 each PO DAILY 05/02/19 08/15/20 History [Centrum Adults Tablet] Pregabalin [Lyrica] 150 mg PO BID 05/02/19 08/15/20 History Ipratropium/Albuterol Sulfate 3 ml NEB [id number] PRN #30 neb 05/07/19 08/15/20 Rx [DuoNeb] Formoterol Fumarate [Perforomist] 2 ml IN BID PRN 05/11/19 08/15/20 History Zolpidem Tartrate 10 mg PO HS 05/11/19 08/15/20 History Ferrous Sulfate [Iron] 325 mg PO DAILY 08/15/20 08/15/20 History Mirtazapine 15 mg PO HS 08/15/20 08/15/20 History Omeprazole 20 mg PO DAILY 08/15/20 08/15/20 History Sucralfate [Carafate] 1 gm PO BID 08/15/20 08/15/20 History Acetaminophen W/ Codeine 1 tab PO Q4H PRN tab 08/21/20 Rx [Acetaminophen/Codeine #3] Acetaminophen [Tylenol Regular 650 mg PO Q4H PRN tab 08/21/20 Rx Strength] Acetaminophen [Tylenol Suppository] 650 mg [place] Q4H PRN supp 08/21/20 Rx Aluminum & Magnesium Hydroxide 30 ml PO Q6H PRN udcup 08/21/20 Rx [Maalox] Cefdinir [Omnicef] 300 mg PO BID cap 08/21/20 Rx metroNIDAZOLE [Flagyl] 500 mg PO TID tab 08/21/20 Rx traMADol HCl [Ultram] 50 mg PO Q6H PRN tab 08/21/20 Rx Allergies: No Known Allergies Allergy (Verified 08/15/20 03:24) per pt Additional comments: Patient was , no medication was prescribed - Discharge Instructions Activity:: No Restrictions Nourishment:: No Restrictions Therapies:: Not Applicable Equipment/Supplies:: Not Applicable IV Therapy:: Not Applicable - Follow up Plan Referrals: Sohail Vargas MD [Primary Care Provider] - Disposition: HOME Quality - Care Measures CORE MEASURES:: N/A
--- NOTE | 2020-09-02 15:22 | EKG ---
Test Reason : Blood Pressure : / mmHG Vent. Rate : 109 BPM Atrial Rate : 109 BPM P-R Int : 182 ms QRS Dur : 068 ms QT Int : 324 ms P-R-T Axes : 069 014 025 degrees QTc Int : 436 ms Sinus tachycardia with Premature atrial complexes Nonspecific ST abnormality Abnormal ECG Confirmed by DAFNE SOMERS, JAE ([id number]), marketing editor BELA MAY ([id number]) on 09/02/2020 3:21:54 PM Referred By: Confirmed By:JAE LEOS MD
== END 2020-08-31 18:16 | disposition expired | DRG 871 ==
LOC: ERS 09:42 → CCU 15:19
PROVIDERS: ADMIT Internal Medicine; ATTEND Internal Medicine
PROC: 0BH17EZ Insertion of Endotracheal Airway into Trachea, Via Natural or Artificial Opening (ICD-10-PCS; principal; 2020-08-29)
PROC: 5A1945Z Respiratory Ventilation, 24-96 Consecutive Hours (ICD-10-PCS; 2020-08-29)
PROC: 0D9670Z Drainage of Stomach with Drainage Device, Via Natural or Artificial Opening (ICD-10-PCS; 2020-08-29)
PROC: 06HY33Z Insertion of Infusion Device into Lower Vein, Percutaneous Approach (ICD-10-PCS; 2020-08-29)
PROC: 3E033XZ Introduction of Vasopressor into Peripheral Vein, Percutaneous Approach (ICD-10-PCS; 2020-08-30)
PROC: 0BC78ZZ Extirpation of Matter from Left Main Bronchus, Via Natural or Artificial Opening Endoscopic (ICD-10-PCS; 2020-08-30)
PROC: 0BC68ZZ Extirpation of Matter from Right Lower Lobe Bronchus, Via Natural or Artificial Opening Endoscopic (ICD-10-PCS; 2020-08-30)
DX: A41.9 Sepsis, unspecified organism (principal); J69.0 Pneumonitis due to inhalation of food and vomit; R65.21 Severe sepsis with septic shock; J96.01 Acute respiratory failure with hypoxia; I50.21 Acute systolic (congestive) heart failure; I33.0 Acute and subacute infective endocarditis; J44.0 Chronic obstructive pulmonary disease with (acute) lower respiratory infection; J98.11 Atelectasis; I42.8 Other cardiomyopathies; J44.1 Chronic obstructive pulmonary disease with (acute) exacerbation; Z66 Do not resuscitate; Z51.5 Encounter for palliative care; F41.9 Anxiety disorder, unspecified; I48.91 Unspecified atrial fibrillation; K21.9 Gastro-esophageal reflux disease without esophagitis; G62.9 Polyneuropathy, unspecified; G47.30 Sleep apnea, unspecified; R53.81 Other malaise; K44.9 Diaphragmatic hernia without obstruction or gangrene; F32.9 Major depressive disorder, single episode, unspecified; R29.6 Repeated falls; R13.12 Dysphagia, oropharyngeal phase; Z20.828 Contact with and (suspected) exposure to other viral communicable diseases; Z92.21 Personal history of antineoplastic chemotherapy; Z85.46 Personal history of malignant neoplasm of prostate; Z79.899 Other long term (current) drug therapy; Z79.01 Long term (current) use of anticoagulants; Z90.49 Acquired absence of other specified parts of digestive tract; Z98.42 Cataract extraction status, left eye; Z98.41 Cataract extraction status, right eye; Z90.79 Acquired absence of other genital organ(s); Z99.81 Dependence on supplemental oxygen; Z86.73 Personal history of transient ischemic attack (TIA), and cerebral infarction without residual deficits; Z85.028 Personal history of other malignant neoplasm of stomach; Z85.01 Personal history of malignant neoplasm of esophagus; D50.0 Iron deficiency anemia secondary to blood loss (chronic); Z79.891 Long term (current) use of opiate analgesic
CPT/HCPCS: 0240U; 31500; 36556; 36600; 71045; 80048; 80053; 80202; 81003; 81015; 82550; 82805; 83605; 83690; 83880; 84484; 85025; 85379; 87040; 87070; 93005; 93010; 93306; 94002; 94003; 96365; 96366; 96367; 96368; 96375; 96376; 99292; J0282; J0692; J1100; J1160; J1650; J1956; J2060; J2250; J2270; J2543; J2704; J3010; J3370; J3490; J7050; J7070; S0028